=== PATIENT | female | born 1940 | race Caucasian/White ===

== ENCOUNTER 2016-07-17 13:16 | Outpatient (RCR) | payer MEDICARE, OTHER ==
[~2016-07-17 13:16] MED LIST: ACHD5005 PO; AMLO1CAP4 PO; AMLO5TAB2 PO; ATR20T PO; BENA10TA2 PO; CALC-172 PO; GABA-488 PO; INDA1.25 PO; INDA2.5T2 PO; INSU100C4 SQ; LEVO250T7 PO; LOVA10TA PO; LOVA20TA2 PO; LRT10T PO; METF-380 PO; METO25TA2 PO; NFMET1000 PO; OMEP20CA6 PO; OXC5T PO; OXYC-199 PO; SULF1TAB34
--- OUTSIDE RECORDS SUMMARY | 2016-07-17 13:19 | XMS REPORT | Continuity of Care Document ---
Author Author [facility] Address Unknown Phone Unavailable Support Name Relationship Address Phone , No,Contact ECON Unknown [phone] Active Allergies and Adverse Reactions Allergen Noted Date Severity Reactions Comments Penicillins 01/30/2015 Low Rash Current Medications Prescription Sig. Disp. Refills Start End Date Status Date benazepril (LOTENSIN) 10 Take 10 mg by mouth Active MG tablet daily. metoprolol tartrate Take 25 mg by mouth 2 Active (LOPRESSOR) 25 MG tablet (two) times daily. metformin (GLUCOPHAGE) Take 1,000 mg by mouth 2 Active 1000 MG tablet (two) times daily with meals. omeprazole (PRILOSEC) 20 Take 20 mg by mouth Active MG capsule daily. amLODIPine (NORVASC) 5 MG Take 5 mg by mouth daily. Active tablet lovastatin (MEVACOR) 20 Take 20 mg by mouth Active MG tablet nightly. indapamide (LOZOL) 2.5 MG Take 2.5 mg by mouth Active tablet every morning. Loratadine 10 MG CAPS Take by mouth. Active LANTUS, insulin glargine, Inject 50 Units into the Active (LANTUS) 100 UNIT/ML skin nightly. injection Active Problems Problem Noted Date Diabetes type 2, controlled 01/30/2015 HTN (hypertension) 01/30/2015 Breast cancer 01/30/2015 Social History Tobacco Use Types Packs/Day Years Used Date Never Assessed Last Filed Vital Signs Vital Sign Reading Time Taken Blood Pressure 110/70 01/30/2015 2:45 PM CDT Pulse 77 01/30/2015 2:45 PM CDT Temperature 36.7 C (98 F) 01/30/2015 2:45 PM CDT Respiratory Rate - - Height 1.664 m (5' 5.5") 01/30/2015 2:45 PM CDT Weight 74.844 kg (165 lb) 01/30/2015 2:45 PM CDT Body Mass Index 27.03 01/30/2015 2:45 PM CDT Oxygen Saturation 92% 01/30/2015 2:45 PM CDT Plan of Care Health Maintenance Due Date Last Done Comments Diabetic Foot Exam 1951 Ophthalmology Exam 1951 Tdap Vaccines 1952 Tetanus Vaccine (Td 1952 Booster) Colon Cancer 1991 Screening-Colonoscopy Zoster Vaccine 2001 Annual Wellness Visit 2006 Pneumo-Adult (1 of 2 - 2006 PCV13) Influenza Vaccine (#1) 2016 Results from Last 3 Months Not on file
[2016-07-17 13:30] LABS: BASOPHILS % (AUTO) 1 % (0-10); EOSINOPHILS # (AUTO) 0.1 10^3/uL (0.0-0.3); EOSINOPHILS % (AUTO) 4 % (0-10); LYMPHOCYTES # (AUTO) 0.7 X 10^3 (1.0-4.0); LYMPHOCYTES % (AUTO) 22 % (12-44); MEAN CORPUSCULAR HEMOGLOBIN 30 PG (25-34); MEAN CORPUSCULAR HGB CONC 33 G/DL (32-36); MEAN CORPUSCULAR VOLUME 89 FL (80-99); MEAN PLATELET VOLUME 9.4 FL (7.4-10.4); MONOCYTES # (AUTO) 0.4 X 10^3 (0.0-1.0); MONOCYTES % (AUTO) 11 % (0-12); NEUTROPHILS % (AUTO) 62 % (42-75); PLATELET COUNT 117 10^3/uL (130-400); RED BLOOD COUNT 3.88 10^6/uL (4.35-5.85); RED CELL DISTRIBUTION WIDTH 14.1 % (10.0-14.5); WHITE BLOOD COUNT 3.2 10^3/uL (4.3-11.0)
[2016-07-17 14:30] LABS: ALBUMIN 4.1 G/DL (3.2-4.5); BILIRUBIN,TOTAL 0.7 MG/DL (0.1-1.0); CALCIUM 9.8 MG/DL (8.5-10.1); CREATININE SERUM 0.96 MG/DL (0.60-1.30); TOTAL PROTEIN 6.5 G/DL (6.4-8.2)
== END 2016-10-15 | disposition home or self-care (01) ==
LOC: ONC 13:16
PROVIDERS: ATTEND Internal Medicine Hematology & Oncology
DX: C50.911 Malignant neoplasm of unspecified site of right female breast (principal); E89.0 Postprocedural hypothyroidism; E11.9 Type 2 diabetes mellitus without complications; I10 Essential (primary) hypertension; E78.5 Hyperlipidemia, unspecified; Z79.4 Long term (current) use of insulin; Z79.899 Other long term (current) drug therapy; Z17.0 Estrogen receptor positive status [ER+]
CPT/HCPCS: 80053; 85025; 99213

== ENCOUNTER → 2017-01-03 | Outpatient (CLI) | payer MEDICARE, OTHER ==
--- NOTE | 2017-01-03 14:00 | Diagnostic Imaging Report ---
Examination: DEXA scan. Indication: osteopenia Technique: Bone mineral density estimated based on dual energy radiography over the lumbar spine and femoral necks, was performed. Findings: The lumbar spine T-score is 0.8. This is 12% decreased density measurements compared to 12/09/14. T score in the left femoral neck is 0.7 and on the right side is 0.6. This is 14% decreased density measurement compared to 12/09/14. IMPRESSION: Bone mineral density at the lower limits of normal.. Dictated by: Dictated on workstation # [id number]
== END ==
LOC: RAD 12:26
PROVIDERS: ATTEND Nurse Practitioner Adult Health
DX: Z13.820 Encounter for screening for osteoporosis (principal); Z78.0 Asymptomatic menopausal state; C50.511 Malignant neoplasm of lower-outer quadrant of right female breast; M85.9 Disorder of bone density and structure, unspecified
CPT/HCPCS: 77080

== ENCOUNTER 2017-01-07 09:55 | Outpatient (RCR) | payer MEDICARE, OTHER ==
--- OUTSIDE RECORDS SUMMARY | 2016-10-16 11:03 | XMS REPORT | Continuity of Care Document ---
Author Author [facility] Organization [facility] Address Unknown Phone Unavailable Care Team Providers Care Greenhouse Assistant Name Role Phone PCP Unavailable Source Comments Some departments are not documenting in the electronic medical record. If you do not see the information that you expected, contact Release of Information in the Health Information Management department at [phone] for further assistance in locating additional records.[facility] Active Allergies and Adverse Reactions Not on File Current Medications Not on file Active Problems Not on file Social History Tobacco Use Types Packs/Day Years Used Date Never Assessed Plan of Care Health Maintenance Due Date Last Done Comments Physical (Comprehensive) 1948 Exam Pertussis Vaccine 1952 Tetanus Vaccine 1958 Breast Cancer Screening 1981 Colorectal Cancer 1991 Screening Shingles Vaccine 2001 Osteoporosis Screening 2006 Prevnar/Pneumovax (#1) 2006 Influenza Vaccine 06/14/2016 Results from Last 3 Months Not on file
[2016-10-16 11:50] LABS: BASOPHILS % (AUTO) 0 % (0-10); EOSINOPHILS % (AUTO) 0 % (0-10); LYMPHOCYTES # (AUTO) 0.6 X 10^3 (1.0-4.0); LYMPHOCYTES % (AUTO) 21 % (12-44); MEAN CORPUSCULAR HEMOGLOBIN 30 PG (25-34); MEAN CORPUSCULAR HGB CONC 34 G/DL (32-36); MEAN CORPUSCULAR VOLUME 88 FL (80-99); MEAN PLATELET VOLUME 9.7 FL (7.4-10.4); MONOCYTES # (AUTO) 0.3 X 10^3 (0.0-1.0); MONOCYTES % (AUTO) 10 % (0-12); NEUTROPHILS # (AUTO) 2.1 X 10^3 (1.8-7.8); NEUTROPHILS % (AUTO) 68 % (42-75); PLATELET COUNT 121 10^3/uL (130-400); RED CELL DISTRIBUTION WIDTH 14.9 % (10.0-14.5)
[2016-10-16 12:34] LABS: ALBUMIN 3.6 G/DL (3.2-4.5); BILIRUBIN,TOTAL 0.4 MG/DL (0.1-1.0); CALCIUM 8.8 MG/DL (8.5-10.1); CREATININE SERUM 1.52 MG/DL (0.60-1.30); POTASSIUM 3.2 MMOL/L (3.6-5.0); TOTAL PROTEIN 5.8 G/DL (6.4-8.2)
[2016-10-17 09:25] LABS: MAGNESIUM 2.2 MG/DL (1.8-2.4)
[2016-10-19 16:42] LABS: BILIRUBIN,URINE NEGATIVE (NEGATIVE); KETONES,URINE NEGATIVE (NEGATIVE); LEUKOCYTE ESTERASE ,URINE NEGATIVE (NEGATIVE); NITRITE,URINE NEGATIVE (NEGATIVE); PH,URINE 6 (5-9); PROTEIN,URINE NEGATIVE (NEGATIVE); UROBILINOGEN,URINE 4 MG/DL (NORMAL)
[2016-10-19 16:57] LABS: SQUAMOUS EPITHELIAL CELL,UR 0-2 /HPF
[~2017-01-07 09:55] MED LIST changes: +NS IV ONE; +POTASSIUM CHL INJ (CANCER CTR) 20 MEQ in NS (IVPB) CANCER CENTER 100 ML IV ONE; +POTASSIUM CHLORIDE IV ONE
[2017-01-07 10:10] LABS: BASOPHILS % (AUTO) 0 % (0-10); EOSINOPHILS # (AUTO) 0.1 10^3/uL (0.0-0.3); EOSINOPHILS % (AUTO) 3 % (0-10); LYMPHOCYTES # (AUTO) 0.7 X 10^3 (1.0-4.0); LYMPHOCYTES % (AUTO) 23 % (12-44); MEAN CORPUSCULAR HEMOGLOBIN 29 PG (25-34); MEAN CORPUSCULAR HGB CONC 33 G/DL (32-36); MEAN CORPUSCULAR VOLUME 88 FL (80-99); MEAN PLATELET VOLUME 9.2 FL (7.4-10.4); MONOCYTES # (AUTO) 0.3 X 10^3 (0.0-1.0); MONOCYTES % (AUTO) 10 % (0-12); NEUTROPHILS % (AUTO) 64 % (42-75); PLATELET COUNT 153 10^3/uL (130-400); RED BLOOD COUNT 3.78 10^6/uL (4.35-5.85); RED CELL DISTRIBUTION WIDTH 14.6 % (10.0-14.5); WHITE BLOOD COUNT 3.1 10^3/uL (4.3-11.0)
[2017-01-07 11:04] LABS: ANION GAP 9 MMOL/L (5-14); BLOOD UREA NITROGEN 23 MG/DL (7-18); BUN/CREATININE RATIO 26; CARBON DIOXIDE 28 MMOL/L (21-32); CHLORIDE 104 MMOL/L (98-107); CREATININE SERUM 0.89 MG/DL (0.60-1.30); POTASSIUM 3.6 MMOL/L (3.6-5.0); SODIUM 141 MMOL/L (135-145)
[2017-01-07 11:05] LABS: ALANINE AMINOTRANSFERASE 29 U/L (0-55); ALBUMIN 3.7 G/DL (3.2-4.5); ASPARTATE AMINO TRANSFERASE 29 U/L (5-34); BILIRUBIN,TOTAL 0.4 MG/DL (0.1-1.0); CALCIUM 9.7 MG/DL (8.5-10.1); GFR ESTIMATED > 60; GLUCOSE 98 MG/DL (70-105); TOTAL PROTEIN 6.1 G/DL (6.4-8.2)
== END 2017-01-14 | disposition home or self-care (01) ==
LOC: ONC 09:55
PROVIDERS: ATTEND Internal Medicine Hematology & Oncology
DX: C50.511 Malignant neoplasm of lower-outer quadrant of right female breast (principal); E89.0 Postprocedural hypothyroidism; E11.9 Type 2 diabetes mellitus without complications; I10 Essential (primary) hypertension; E78.5 Hyperlipidemia, unspecified; Z79.4 Long term (current) use of insulin; Z79.899 Other long term (current) drug therapy; Z17.0 Estrogen receptor positive status [ER+]
CPT/HCPCS: 36591; 80053; 81000; 82306; 83735; 84443; 85025; 96360; 96361; 96523; 99213

== ENCOUNTER 2017-01-16 10:33 | Outpatient (RCR) | payer MEDICARE, OTHER ==
[~2017-01-16 10:33] MED LIST changes: -NS IV ONE; -POTASSIUM CHL INJ (CANCER CTR) 20 MEQ in NS (IVPB) CANCER CENTER 100 ML IV ONE; -POTASSIUM CHLORIDE IV ONE
== END 2017-01-30 14:53 | disposition home or self-care (01) ==
PROVIDERS: ATTEND Internal Medicine Hematology & Oncology
DX: I89.0 Lymphedema, not elsewhere classified (principal); C50.511 Malignant neoplasm of lower-outer quadrant of right female breast

== ENCOUNTER 2017-04-12 11:00 | Outpatient (RCR) | payer MEDICARE, OTHER ==
[2017-02-19 11:34] LABS: BASOPHILS % (AUTO) 1 % (0-10); EOSINOPHILS % (AUTO) 0 % (0-10); LYMPHOCYTES # (AUTO) 0.4 X 10^3 (1.0-4.0); LYMPHOCYTES % (AUTO) 9 % (12-44); MEAN CORPUSCULAR HEMOGLOBIN 30 PG (25-34); MEAN CORPUSCULAR HGB CONC 32 G/DL (32-36); MEAN CORPUSCULAR VOLUME 93 FL (80-99); MEAN PLATELET VOLUME 9.4 FL (7.4-10.4); MONOCYTES # (AUTO) 0.3 X 10^3 (0.0-1.0); MONOCYTES % (AUTO) 5 % (0-12); NEUTROPHILS # (AUTO) 3.9 X 10^3 (1.8-7.8); NEUTROPHILS % (AUTO) 84 % (42-75); PLATELET COUNT 169 10^3/uL (130-400); RED BLOOD COUNT 4.37 10^6/uL (4.35-5.85); RED CELL DISTRIBUTION WIDTH 16.8 % (10.0-14.5); WHITE BLOOD COUNT 4.6 10^3/uL (4.3-11.0)
[2017-02-19 11:51] LABS: ALBUMIN 4.3 G/DL (3.2-4.5); BILIRUBIN,TOTAL 0.7 MG/DL (0.1-1.0); CALCIUM 10.5 MG/DL (8.5-10.1); CREATININE SERUM 1.04 MG/DL (0.60-1.30)
[2017-02-19 12:12] LABS: THYROID STIMULATING HORMONE 3.42 UIU/ML (0.35-4.94)
[2017-04-22] MEDS ORDERED: CALC-697 PO (10:13)
[2017-04-22] MEDS ORDERED: PIOG45TA18 PO (10:13)
[2017-04-22] MEDS ORDERED: GEMF600T3 PO (10:13)
[2017-04-22] MEDS ORDERED: ANAS1TAB7 PO (10:13)
[2017-04-22] MEDS ORDERED: LEVO100T7 PO (10:18)
[2017-04-23] MEDS ORDERED: LEVO750T39 PO (14:37)
[2017-06-01] MEDS ORDERED: INSU100I29 SC (14:00)
== END 2017-04-30 08:30 | disposition home or self-care (01) ==
PROVIDERS: ATTEND Nurse Practitioner Adult Health
DX: I89.0 Lymphedema, not elsewhere classified (principal); C50.511 Malignant neoplasm of lower-outer quadrant of right female breast; R26.81 Unsteadiness on feet
CPT/HCPCS: 36415; 80053; 84443; 85025

== ENCOUNTER 2017-04-21 15:57 | Inpatient (IN) | payer MEDICARE, OTHER ==
[~2017-04-21] VITALS: Ht 165.1 cm; Wt 81.0 kg
[2017-04-21] MEDS ORDERED: RT-ALBUTEROL/IPRATROPIUM 3 ML (DUONEB) VIAL INH ONE (16:45)
--- NOTE | 2017-04-21 16:46 | ED Respiratory ---
General Chief Complaint: Respiratory Problems Stated Complaint: SOB Nursing Triage Note: PT STATES SHE HAS BEEN SOA SINCE YESTERDAY MORNING Source: patient Exam Limitations: no limitations History of Present Illness Time seen by provider: 16:30 Initial Comments Here with increasing shortness of breath since yesterday but actually states it' s then more like 3 days. Hasn't felt well for a few days and then started getting worse yesterday. Today was markedly short of breath and had dyspnea with even minimal exertion. She was apparently visiting her other daughter in [place] and was noted to be short of breath yesterday and was brought back home here. Denies nausea or vomiting. No report of fever or chills. Does not wear her oxygen at home and usually does not have any breathing problems. Timing/Duration: getting worse Severity: moderate Prior Episodes/Possible Cause: occasional episodes Modifying Factors: Worse With Activity, Improves With Oxygen, Improves With Rest Associated Symptoms: No chest pain/soreness, cough, No fever/chills, nasal congestion, shortness of breath, sinus infection, No wheezing Allergies and Home Medications Allergies Coded Allergies: Penicillins (Unverified Allergy, Unknown, RASH, 10/19/16) Home Medications Amlodipine Besylate 5 Mg Tab, 5 MG PO HS, (Reported) Anastrozole 1 Mg Tablet, 1 MG PO HS, (Reported) Benazepril Hcl 10 Mg Tablet, 10 MG PO HS, (Reported) Calcium Carbonate/Vitamin D3 1 Each Tablet, 1 TAB PO HS, (Reported) Gemfibrozil 600 Mg Tablet, 600 MG PO BID, (Reported) Indapamide 2.5 Mg Tablet, 2.5 MG PO DAILY, (Reported) Insulin Glargine,Hum.rec.anlog 300 Units/3 Ml Soln, 50 UNITS SQ HS, (Reported) Levofloxacin 750 Mg Tablet, 750 MG PO Q48H@2100, #3 Ref 0 Prescribed by: DEVIN LAI on 04/23/17 1437 Levothyroxine Sodium 100 Mcg Tablet, 100 MCG PO DAILY, (Reported) LAST FILLED #30 12-14-16 Loratadine 10 Mg Tab, 10 MG PO HS, (Reported) Lovastatin 20 Mg Tablet, 20 MG PO DAILY, (Reported) Metformin Hcl 1,000 Mg Tablet, 1,000 MG PO BID WITH MEALS, (Reported) Metoprolol Tartrate 25 Mg Tablet, 25 MG PO BID, (Reported) Omeprazole 20 Mg Capsule.dr, 20 MG PO HS, (Reported) Pioglitazone HCl 45 Mg Tablet, 45 MG PO HS, (Reported) Constitutional: see HPI, No chills, No fever EENTM: nose congestion, see HPI Respiratory: No cough, dyspnea on exertion, short of breath Cardiovascular: no symptoms reported Gastrointestinal: no symptoms reported Genitourinary: no symptoms reported Musculoskeletal: no symptoms reported All Other Systems Reviewed Negative Unless Noted: Yes Past Gybqsym-Qxlhfx-Tfmpop Hx Patient Social History Alcohol Use: Occasionally Uses Recreational Drug Use: No Smoking Status: Never a Smoker Former Smoker/When Quit: Apr 28, 1984 Recent Foreign Travel: No Contact w/Someone Who Travel: No Recent Infectious Disease Expo: No Recent Hopitalizations: Yes Surgeries HX Surgeries: Yes (D&C X2, KNEE SCOPE, FIBROID TUMOR BX, BILAT FOOT SURGERY, PORT INSERTION) Respiratory Hx Respiratory Disorders: Yes Respiratory Disorders: Pneumonia Cardiovascular Hx Cardiac Disorders: Yes (hx a-fib with chemo) Cardiac Disorders: Atrial Fibrillation, High Cholesterol, Hypertension Neurological Hx Neurological Disorders: Yes (seizure from fever as child) Reproductive System Hx Reproductive Disorders: No Sexually Transmitted Disease: No HIV/AIDS: No Female Reproductive Disorders: Denies Genitourinary Hx Genitourinary Disorders: No Gastrointestinal Hx Gastrointestinal Disorders: Yes (freq constipation) Musculoskeletal Hx Musculoskeletal Disorders: No Endocrine Hx Endocrine Disorders: Yes (thyroid mass) Endocrine Disorders: Diabetes, Insulin dep HEENT HX ENT Disorders: Yes HEENT Disorders: Cataract Loss of Vision: Denies Hearing Impairment: Denies Cancer Hx Cancer: Yes Cancer: Breast Psychosocial Hx Psychiatric Problems: No Integumentary HX Skin/Integumentary Disorder: No Blood Transfusions Hx Blood Disorders: No Adverse Reaction to a Blood Tr: No Reviewed Nursing Assessment Reviewed/Agree w Nursing PMH: Yes Family Medical History Family Medial History: Cardiovascular disease 19 FATHER G8 BROTHER Completed stroke 19 MOTHER Coronary thrombosis 19 FATHER Physical Exam Vital Signs Vital Sign - Last 12Hours 04/21/17 04/21/17 16:18 16:26 Temp 97.3 Pulse 79 Resp 22 B/P (MAP) 162/85 Pulse Ox 96 O2 Delivery Nasal Cannula O2 Flow Rate 3.00 Capillary Refill : Less Than 3 Seconds General Appearance: WD/WN, no apparent distress HEENT: PERRL/EOMI, pharynx normal Neck: full range of motion, supple Respiratory: no respiratory distress (while on oxygen), decreased breath sounds (on the left.), No wheezing Cardiovascular: regular rate, rhythm, no murmur Gastrointestinal: non tender, soft Extremities: non-tender, normal inspection Neurologic/Psychiatric: alert, oriented x 3 Skin: normal color, warm/dry Focused Exam Lactic Acid Level Laboratory Tests Test 04/21/17 17:19 Lactic Acid Level 2.10 MMOL/L (0.50-2.00) *H Progress/Results/Core Measures Results/Orders Lab Results Laboratory Tests Test 04/21/17 16:21 04/21/17 17:19 04/21/17 18:51 Range/Units White Blood Count 3.8 L 4.3-11.0 10^3/uL Red Blood Count 3.94 L 4.35-5.85 10^6/uL Hemoglobin 12.0 11.5-16.0 G/DL Hematocrit 37 35-52 % Mean Corpuscular Volume 94 80-99 FL Mean Corpuscular Hemoglobin 31 25-34 PG Mean Corpuscular Hemoglobin Concent 32 32-36 G/DL Red Cell Distribution Width 14.7 H 10.0-14.5 % Platelet Count 206 130-400 10^3/uL Mean Platelet Volume 10.0 7.4-10.4 FL Neutrophils (%) (Auto) 71 42-75 % Lymphocytes (%) (Auto) 16 12-44 % Monocytes (%) (Auto) 10 0-12 % Eosinophils (%) (Auto) 3 0-10 % Basophils (%) (Auto) 1 0-10 % Neutrophils # (Auto) 2.7 1.8-7.8 X 10^3 Lymphocytes # (Auto) 0.6 L 1.0-4.0 X 10^3 Monocytes # (Auto) 0.4 0.0-1.0 X 10^3 Eosinophils # (Auto) 0.1 0.0-0.3 10^3/uL Basophils # (Auto) 0.0 0.0-0.1 10^3/uL D-Dimer 0.65 H 0.00-0.49 UG/ML Sodium Level 143 135-145 MMOL/L Potassium Level 4.5 3.6-5.0 MMOL/L Chloride Level 105 98-107 MMOL/L Carbon Dioxide Level 24 21-32 MMOL/L Anion Gap 14 5-14 MMOL/L Blood Urea Nitrogen 21 H 7-18 MG/DL Creatinine 0.98 0.60-1.30 MG/DL Estimat Glomerular Filtration Rate 55 BUN/Creatinine Ratio 21 Glucose Level 130 H 70-105 MG/DL Calcium Level 9.8 8.5-10.1 MG/DL Magnesium Level 1.7 L 1.8-2.4 MG/DL Total Bilirubin 0.5 0.1-1.0 MG/DL Aspartate Amino Transf (AST/SGOT) 21 5-34 U/L Alanine Aminotransferase (ALT/SGPT) 13 0-55 U/L Alkaline Phosphatase 76 40-136 U/L Troponin I < 0.30 <0.30 NG/ML C-Reactive Protein High Sensitivity 0.43 0.00-0.50 MG/DL B-Type Natriuretic Peptide 378.0 H <100.0 PG/ML Total Protein 6.4 6.4-8.2 GM/DL Albumin 3.9 3.2-4.5 GM/DL Lactic Acid Level 2.10 *H 0.50-2.00 MMOL/L Urine Color YELLOW Urine Clarity CLEAR Urine pH 6 5-9 Urine Specific [place] 1.010 L 1.016-1.022 Urine Protein NEGATIVE NEGATIVE Urine Glucose (UA) NEGATIVE NEGATIVE Urine Ketones NEGATIVE NEGATIVE Urine Nitrite NEGATIVE NEGATIVE Urine Bilirubin NEGATIVE NEGATIVE Urine Urobilinogen NORMAL NORMAL MG/DL Urine Leukocyte Esterase 3+ H NEGATIVE Urine RBC (Auto) NEGATIVE NEGATIVE Urine RBC NONE /HPF Urine WBC 10-25 H /HPF Urine Squamous Epithelial Cells 25-50 H /HPF Urine Renal Epithelial Cells NONE /HPF Urine Crystals NONE /LPF Urine Bacteria TRACE /HPF Urine Casts PRESENT /LPF Urine Hyaline Casts 0-2 H /LPF Urine Mucus SMALL H /LPF Urine Culture Indicated YES Micro Results Microbiology 04/21/17 Blood Culture - Preliminary, Resulted No growth 04/21/17 Blood Culture - Preliminary, Resulted No growth 04/21/17 Urine Culture - Final, Complete Strep, Beta Hemolytic Group B My Orders Orders - ZEKE ARANA MD BNP (04/21/17 16:41) Cbc With Automated Diff (04/21/17 16:41) Comprehensive Metabolic Panel (04/21/17 16:41) Fibrin Degradation Products (04/21/17 16:41) Magnesium (04/21/17 16:41) Troponin I (04/21/17 16:41) Albuterol/Ipra Inhalation Soln (Duoneb I (04/21/17 16:45) Ekg Tracing (04/21/17 16:41) O2 (04/21/17 16:41) Monitor-Rhythm Ecg Trace Only (04/21/17 16:41) Svn Sm Volume Nebulizer Rt-Rfs (04/21/17 16:41) Lactic Acid Analyzer (04/21/17 17:03) Blood Culture (04/21/17 17:03) Hs C Reactive Protein (04/21/17 16:21) Ct Angio Chest W (04/21/17 17:46) Ns Iv 500 Ml (Sodium Chloride 0.9%) (04/21/17 17:47) Iohexol Injection (Omnipaque 350 Mg/Ml 1 (04/21/17 18:00) Ns (Ivpb) (Sodium Chloride 0.9% Ivpb Bag (04/21/17 18:00) Levofloxacin 750 Mg/150 Ml Iv (Levaquin (04/21/17 18:07) Ua Culture If Indicated (04/21/17 18:45) Urine Culture (04/21/17 18:51) Medications Given in ED Vital Signs/I&O Vital Sign - Last 12Hours 04/21/17 04/21/17 04/21/17 16:18 16:26 17:00 Temp 97.3 Pulse 79 Resp 22 B/P (MAP) 162/85 Pulse Ox 96 96 100 O2 Delivery Nasal Cannula Nasal Cannula Nasal Cannula O2 Flow Rate 3.00 3.00 3.00 Blood Pressure Mean: 110 Progress Note : Progress Note Seen and evaluated. IV, labs, EKG, chest x-ray and DuoNeb ordered. Monitor patient. Patient's maintaining O2 sat of upper 90s off O2. D-dimer is elevated. CT angiogram of the chest ordered. Patient has borderline GFR and creatinine. Normal saline [address] Lactic acid and blood cultures ordered. Lactic acid elevated. Levaquin 750 mg IV ordered. I have discussed the case with Dr. Thomson pending CT angiogram. Care transferred to Dr. Erwin pending CT results. Family informed of concerns and agree with admission pending CT results. ECG Initial ECG Impression Date: Apr 21, 2017 Initial ECG Impression Time: 16:20 Initial ECG Rate: 84 Initial ECG Rhythm: Normal Sinus Comment Sinus rhythm with normal axis. No evidence of ST elevation [place]. Unchanged from previous. Interpreted by me. Diagnostic Imaging Diagonstic Imaging: Xray Plain Films/CT/US/NM/MRI: chest Comments [facility] [place], [place] NAME: STACEY ALVARENGA [facility] REC#: [id number] PT STATUS: REG ER : 1940 PHYSICIAN: KARRIE VALVERDE ADMIT DATE: 04/21/17/ER Signed Date of Exam:04/21/17 CHEST 1 VIEW, AP/PA ONLY INDICATION: Respiratory distress. EXAMINATION: Portable erect AP chest at 4:40. FINDINGS: The cardiomegaly noted on the prior exam of 04/19/15 is again evident and not significantly changed. However, in the interval since the previous study both lung bases have become obscured by atelectasis/infiltrate and fluid. The upper lungs are generally clear. The mediastinum is not widened. The osseous structures are intact. The Groshong catheter on the left, noted previously, is again evident and no different. IMPRESSION: The appearance of the chest has worsened since the prior study as both lung bases are now obscured by atelectasis/infiltrate and pleural fluid. A followup study would be recommended for continued evaluation. Dictated by: Dictated on workstation # [id number] Dict: 04/21/17 1641 Trans: 04/21/[address] [facility] [id number] Interpreted by: HARPREET GASCA MD Electronically signed by: HARPREET GASCA MD 04/21/17 1740 Departure Communication Time/Spoke to Admitting Phy: 19:24 Impression Impression: Primary Impression: Pneumonia Qualified Codes: J18.9 - Pneumonia, unspecified organism Disposition: ADMITTED INPATIENT Condition: Stable Decision to Admit Reason: Admit from ER (General) Decision to Admit/Date: Apr 21, 2017 Time/Decision to Admit Time: 19:24 Departure-Patient Inst. Referrals: [facility] (PCP/Family) Primary Care Physician Scripts Levofloxacin (Levofloxacin) 750 Mg Tablet 750 MG PO Q48H@2100, #3 TAB 0 Refills Prov: DEVIN LAI MD 04/23/17 ZEKE ARANA MD Apr 21, 2017 16:46
--- NOTE | 2017-04-21 16:55 | Diagnostic Imaging Report ---
INDICATION: Respiratory distress. EXAMINATION: Portable erect AP chest at 4:40. FINDINGS: The cardiomegaly noted on the prior exam of 04/19/15 is again evident and not significantly changed. However, in the interval since the previous study both lung bases have become obscured by atelectasis/infiltrate and fluid. The upper lungs are generally clear. The mediastinum is not widened. The osseous structures are intact. The Gro[place]ong catheter on the left, noted previously, is again evident and no different. IMPRESSION: The appearance of the chest has worsened since the prior study as both lung bases are now obscured by atelectasis/infiltrate and pleural fluid. A followup study would be recommended for continued evaluation. Dictated by: Dictated on workstation # [id number]
[2017-04-21 16:56] LABS: BASOPHILS % (AUTO) 1 % (0-10); EOSINOPHILS # (AUTO) 0.1 10^3/uL (0.0-0.3); EOSINOPHILS % (AUTO) 3 % (0-10); LYMPHOCYTES # (AUTO) 0.6 X 10^3 (1.0-4.0); LYMPHOCYTES % (AUTO) 16 % (12-44); MEAN CORPUSCULAR HEMOGLOBIN 31 PG (25-34); MEAN CORPUSCULAR HGB CONC 32 G/DL (32-36); MEAN CORPUSCULAR VOLUME 94 FL (80-99); MONOCYTES # (AUTO) 0.4 X 10^3 (0.0-1.0); MONOCYTES % (AUTO) 10 % (0-12); NEUTROPHILS # (AUTO) 2.7 X 10^3 (1.8-7.8); NEUTROPHILS % (AUTO) 71 % (42-75); PLATELET COUNT 206 10^3/uL (130-400); RED BLOOD COUNT 3.94 10^6/uL (4.35-5.85); RED CELL DISTRIBUTION WIDTH 14.7 % (10.0-14.5); WHITE BLOOD COUNT 3.8 10^3/uL (4.3-11.0)
[2017-04-21 17:26] LABS: ALANINE AMINOTRANSFERASE 13 U/L (0-55); ALBUMIN 3.9 GM/DL (3.2-4.5); ANION GAP 14 MMOL/L (5-14); ASPARTATE AMINO TRANSFERASE 21 U/L (5-34); BILIRUBIN,TOTAL 0.5 MG/DL (0.1-1.0); BLOOD UREA NITROGEN 21 MG/DL (7-18); BUN/CREATININE RATIO 21; CALCIUM 9.8 MG/DL (8.5-10.1); CARBON DIOXIDE 24 MMOL/L (21-32); CHLORIDE 105 MMOL/L (98-107); CREATININE SERUM 0.98 MG/DL (0.60-1.30); GFR ESTIMATED 55; GLUCOSE 130 MG/DL (70-105); MAGNESIUM 1.7 MG/DL (1.8-2.4); POTASSIUM 4.5 MMOL/L (3.6-5.0); SODIUM 143 MMOL/L (135-145); TOTAL PROTEIN 6.4 GM/DL (6.4-8.2); hs C REACTIVE PROTEIN 0.43 MG/DL (0.00-0.50)
[2017-04-21 17:32] LABS: TROPONIN I < 0.30 NG/ML (<0.30)
[2017-04-21] MEDS ORDERED: NS IV 500 ML 500 ML IV ONE (17:47)
[2017-04-21] MEDS ORDERED: IOHEXOL 350 MG/ML 100 ML (OMNIPAQUE 350) VIAL IV ONE (18:00)
[2017-04-21] MEDS ORDERED: NS 100 ML (IVPB) BAG IV ONE (18:00)
[2017-04-21] MEDS ORDERED: LEVOFLOXACIN 750 MG/150 ML IV 150 ML IV STA (18:07)
[2017-04-21 19:20] LABS: BILIRUBIN,URINE NEGATIVE (NEGATIVE); KETONES,URINE NEGATIVE (NEGATIVE); LEUKOCYTE ESTERASE ,URINE 3+ (NEGATIVE); NITRITE,URINE NEGATIVE (NEGATIVE); PH,URINE 6 (5-9); PROTEIN,URINE NEGATIVE (NEGATIVE); UROBILINOGEN,URINE NORMAL (NORMAL)
--- NOTE | 2017-04-21 19:20 | Diagnostic Imaging Report ---
PROCEDURE: CT angiography of the chest with contrast. TECHNIQUE: Multiple contiguous axial images were obtained through the chest after uneventful bolus administration of intravenous contrast. Reconstructed CTA MIP acquisitions were also performed. INDICATION: Trouble breathing COMPARISON: PET/CT dated April 06, 2014. FINDINGS: The right lobe of the thyroid gland is not visualized. Multiple prominent paratracheal lymph nodes are present. The largest measures 1.6 cm in short dimension, increased from the prior examination. Additional lymph nodes are seen along the left aspect of the aortic arch, appearing more prominent than on the prior exams. Postsurgical changes are identified with the right breast. Significant skin thickening associated with the right breast. Surgical clips within the right axilla. No left axillary adenopathy. No aneurysmal dilatation or dissection of the thoracic aorta. No pericardial effusion. Moderate sized bilateral pleural effusions are present. These are associated with mild adjacent atelectasis. However, more focal pulmonary opacities are seen within the bilateral lower lobes and lingula. 5 mm pulmonary nodule within the left upper lobe, series 4/image 57, is present, appearing new from the prior exam. This appears pleural-based. New 4 mm pulmonary nodule within the right lower lobe, series 4, image 101. No pneumothorax. Mild scattered regions of intralobular septal thickening, particularly involving the anterior aspect of the right lung. No significant filling defect is identified within the central or segmental pulmonary arteries. Layering densities within the gallbladder. Otherwise, the visualized upper abdomen is unremarkable. Scattered regions of sclerosis are identified throughout the osseous structures, including on the left at T12. Additional sclerosis is seen in the right aspect of the sternum. These regions of sclerosis are new from the prior examination. No acute fracture. IMPRESSION: 1. No significant central or segmental pulmonary embolus. 2. Developing mediastinal adenopathy with associated new small bilateral pulmonary nodules. Given patient's history, findings may relate to underlying metastatic disease. PET CT may help to further evaluate. 3. New sclerotic lesions within the osseous structures. These findings as well may relate to osseous metastatic disease. Further evaluation with nuclear medicine bone scan is recommended. 4. Moderate-sized bilateral pleural effusions with adjacent atelectasis. Additional opacities are seen within the bilateral lower lobes which are concerning for additional infiltrate such as pneumonia. 5. Layering sludge and/or small stones within the gallbladder. Report was called and faxed to the [facility] at 7:16 p.m., by bettina. Dictated by: Dictated on workstation # [id number]
[2017-04-21 19:37] LABS: HYALINE CASTS, URINE 0-2 /LPF; SQUAMOUS EPITHELIAL CELL,UR 25-50 /HPF
[2017-04-21 20:43] VITALS: BP 107/67
[2017-04-21] MEDS ORDERED: RT-ALBUTEROL/IPRATROPIUM 3 ML (DUONEB) VIAL IH PRN (21:45)
[2017-04-21] MEDS: NS IV 1000 ML 1,000 ML IV SCH ×3 (21:45→23:00)
[2017-04-21] MEDS: CEFEPIME 2 GM/NS 50 ML IVPB IV SCH ×2 (21:57)
[2017-04-22] MEDS: NS IV 1000 ML 1,000 ML IV SCH ×3 (00:12→21:46)
[2017-04-22 00:45] VITALS: BP 186/77
[2017-04-22] MEDS ORDERED: RT-ALBUTEROL/IPRATROPIUM 3 ML (DUONEB) VIAL IH PRN (02:00)
[2017-04-22] MEDS: RT-ALBUTEROL/IPRATROPIUM 3 ML (DUONEB) VIAL IH SCH ×4 (03:34→19:59)
[2017-04-22 04:15] VITALS: BP 149/69
[2017-04-22] MEDS: inSUlin ASPART (NovoLOG) 1 UNIT/0.01 ML (CHARGE PER UNIT) SC SCH ×4 (06:12→21:38)
[2017-04-22 08:00] VITALS: BP 171/77
[2017-04-22] MEDS: ENOXAPARIN 40 MG/0.4 ML (LOVENOX) SYR SC SCH (08:19)
[2017-04-22] MEDS: CEFEPIME 2 GM/NS 50 ML IVPB IV SCH ×2 (08:20)
[2017-04-22] MEDS ORDERED: ANAS1TAB7 PO (10:13)
[2017-04-22] MEDS ORDERED: PIOG45TA18 PO (10:13)
[2017-04-22] MEDS ORDERED: CALC-697 PO (10:13)
[2017-04-22] MEDS ORDERED: GEMF600T3 PO (10:13)
[2017-04-22] MEDS ORDERED: LEVO100T7 PO (10:18)
--- NOTE | 2017-04-22 11:29 | Pulmonary Consultation ---
History of Present Illness History of Present Illness Date of Consultation 04/22/17 11:24 Time Seen by Provider: 11:24 Date of Admission History of Present Illness 76yo with hx of breast cancer presenting secondary to worsening SOB worse with even little exertion over the last 3-4days. No fever, night sweats chills. Breast cancer was diagnosed in 2013. She did receive chemotherapy at that time. She underwnet lumpectomy and axillary node dissection. She had several lympt nodes that were metastatic. She also underwent radiation. pt has been complaining of worsening lymphadema over the last [address] shows bilateral pleural effusions and nodules suspicious of mets. I am consulted for pulmonary management. Allergies and Home Medications Allergies Coded Allergies: Penicillins (Unverified Allergy, Unknown, RASH, 10/19/16) Home Medications Amlodipine Besylate 5 Mg Tab, 5 MG PO HS, (Reported) Anastrozole 1 Mg Tablet, 1 MG PO HS, (Reported) Benazepril Hcl 10 Mg Tablet, 10 MG PO HS, (Reported) Calcium Carbonate/Vitamin D3 1 Each Tablet, 1 TAB PO HS, (Reported) Gemfibrozil 600 Mg Tablet, 600 MG PO BID, (Reported) Indapamide 2.5 Mg Tablet, 2.5 MG PO DAILY, (Reported) Insulin Glargine,Hum.rec.anlog 300 Units/3 Ml Soln, 50 UNITS SQ HS, (Reported) Levofloxacin 750 Mg Tablet, 750 MG PO Q48H@2100, #3 Ref 0 Prescribed by: DEVIN LAI on 04/23/17 1437 Levothyroxine Sodium 100 Mcg Tablet, 100 MCG PO DAILY, (Reported) LAST FILLED #30 12-14-16 Loratadine 10 Mg Tab, 10 MG PO HS, (Reported) Lovastatin 20 Mg Tablet, 20 MG PO DAILY, (Reported) Metformin Hcl 1,000 Mg Tablet, 1,000 MG PO BID WITH MEALS, (Reported) Metoprolol Tartrate 25 Mg Tablet, 25 MG PO BID, (Reported) Omeprazole 20 Mg Capsule.dr, 20 MG PO HS, (Reported) Pioglitazone HCl 45 Mg Tablet, 45 MG PO HS, (Reported) Past Gadzgon-Zgewzi-Curvpc Hx Patient Social History Alcohol Use: Denies Use Recreational Drug Use: No Smoking Status: Former Smoker Former Smoker/When Quit: Apr 28, 1984 Recent Foreign Travel: No Contact w/Someone Who Travel: No Recent Infectious Disease Expo: No Recent Hopitalizations: No Physical Abuse Screen: No Sexual Abuse: No Seasonal Allergies Seasonal Allergies: Yes Surgeries HX Surgeries: Yes (D&C X2, KNEE SCOPE, FIBROID TUMOR BX, BILAT FOOT SURGERY, PORT INSERTION) Respiratory Hx Respiratory Disorders: Yes Respiratory Disorders: Pneumonia Cardiovascular Hx Cardiac Disorders: Yes (hx a-fib with chemo) Cardiac Disorders: Atrial Fibrillation, High Cholesterol, Hypertension Neurological Hx Neurological Disorders: Yes (seizure from fever as child) Reproductive System Hx Reproductive Disorders: No Sexually Transmitted Disease: No HIV/AIDS: No Female Reproductive Disorders: Denies Genitourinary Hx Genitourinary Disorders: No Gastrointestinal Hx Gastrointestinal Disorders: Yes (freq constipation) Gastrointestinal Disorders: Chronic Constipation Musculoskeletal Hx Musculoskeletal Disorders: No Endocrine Hx Endocrine Disorders: Yes (thyroid mass) Endocrine Disorders: Diabetes, Insulin dep HEENT HX ENT Disorders: Yes HEENT Disorders: Cataract Loss of Vision: Denies Hearing Impairment: Denies Cancer Hx Cancer: Yes Cancer: Breast Psychosocial Hx Psychiatric Problems: No Integumentary HX Skin/Integumentary Disorder: No Blood Transfusions Hx Blood Disorders: No Adverse Reaction to a Blood Tr: No Reviewed Nursing Assessment Reviewed/Agree w Nursing PMH: Yes Family Medical History Family Medial History: Cardiovascular disease 19 FATHER G8 BROTHER Completed stroke 19 MOTHER Coronary thrombosis 19 FATHER Review of Systems Time Seen by Provider: 15:01 Constitutional: Chills, Fever, Sweats, Weakness Respiratory: Cough, SOB with excertion, Shortness of breath, Sputum, No: Hemoptysis, Wheezing Cardiovascular: Orthopnea, Paroxysmal Noc. Dyspnea Gastrointestinal: Constipation, No: Nausea, Vomiting Neurological: Weakness Exam Exam Vital Signs Date Time Temp Pulse Resp B/P (MAP) Pulse Ox O2 Delivery O2 Flow Rate FiO2 04/22/17 10:14 91 Nasal Cannula 3.00 04/22/17 08:20 91 Nasal Cannula 3.00 04/22/17 04:15 98.9 92 22 149/69 91 Nasal Cannula 3.00 04/22/17 03:35 91 Nasal Cannula 2.00 04/22/17 01:25 88 Nasal Cannula 2.00 04/22/17 00:45 100.2 93 20 186/77 92 Nasal Cannula 2.00 04/21/17 22:00 90 04/21/17 22:00 90 Nasal Cannula 2.00 04/21/17 20:50 Nasal Cannula 2.00 04/21/17 20:43 97.9 84 20 107/67 92 Nasal Cannula 2.00 04/21/17 20:35 97.3 67 18 96 Nasal Cannula 3.00 04/21/17 17:00 100 Nasal Cannula 3.00 04/21/17 16:26 97.3 79 22 162/85 96 Nasal Cannula 3.00 04/21/17 16:18 96 Nasal Cannula 3.00 I & O 04/22/17 07:00 Intake Total 4000 ml Output Total 3250 ml Balance 750 ml General Appearance: Moderate Distress HEENT: PERRL/EOMI Neck: Full Range of Motion, Normal Inspection Respiratory: Chest Non Tender, Accessory Muscle Use, Decreased Breath Sounds Cardiovascular: Regular Rate, Rhythm Capillary Refill: Less Than 3 Seconds Gastrointestinal: non tender, soft Extremity: Normal Capillary Refill, Normal Inspection Neurologic/Psychiatric: Alert, Oriented x3 Skin: Normal Color, Warm/Dry Results Lab Laboratory Tests 04/21/17 16:21 Assessment/Plan Assessment/Plan Bilateral pleural effusions with lymphedema and hx of breast cancer -Check echocardiogram -Will plan on thoracentesis today and send pleural fluid for cytology and gramstain C&S Mediastinal lymphadenopathy -IF pleural fluid is negative patient may need bronchoscopy with EBUS pneumonia -continue Abx Dyspnea with hypoxia -continue oxygen 255 Clinical Quality Measures DVT/VTE Risk/Contraindication: Risk Factor Score Per Nursin RFS Level Per Nursing on Admit: 4+=Very High HANNA ONOFRE DO Apr 22, 2017 11:29
[2017-04-22 12:00] VITALS: BP 185/74
--- NOTE | 2017-04-22 14:15 | Pulmonary Procedures ---
Pulmonary Procedures Date of Procedure Date of Service: Apr 22, 2017 Procedure: US guided complex thoracentesis Preop DX: bilateral pleural effusion post op DX: Same, 900cc of dark yellow fluid drained from left lung Complications: None no blood loss After informed consent obtained US was used to localize pleural fluid. Pt has [ bilateral L>R] pleural effusions. Skin was anesthetized at approximately the 10th ICS posterior axillary line. Thoracentesis needle was advanced through the 10th ICS posterior axillary line on left. Needle was removed and catheter left in place.900cc of dark yellow fluid obtained using vacuum bottles. Catheter was then removed. Pt tolerated procedure well. No complications noted. fluid sent to lab for analysis HANNA ONOFRE DO Apr 22, 2017 14:14
--- NOTE | 2017-04-22 14:35 | Diagnostic Imaging Report ---
EXAMINATION: Portable upright radiograph of the chest. INDICATION: Post left thoracentesis. FINDINGS: There is resolution of the previously seen effusion and left lower lobe atelectasis when compared to 04/21/2017. There is still a small to moderate right pleural effusion and right basilar infiltrate or atelectasis. The heart size is normal. There is minimal background vascular congestion. No pneumothorax. The left subclavian port catheter is seen with the tip at the cavoatrial junction. IMPRESSION: Significant improvement on the left side. Remaining small to moderate right pleural effusion with right basilar infiltrate or atelectasis. Dictated by: Dictated on workstation # [id number]
[2017-04-22 15:01] LABS: GLUCOSE,BODY FLUID 133 MG/DL; LDH,BODY FLUID 128 U/L; TOTAL PROTEIN,BODY FLUID 3.2 G/DL
--- NOTE | 2017-04-22 16:15 | History & Physicial (CHS) ---
HPI History of Present Illness: 76yo woman with a history of invasive ductal carcinoma of the breast presented to ER with complaints of worsening shortness of breath. Patient states she ahs noticed a gradual onset of sx over the past few weeks. These worsened acutely such that she was short of breath walking aroudn her house this weekend, prompting her to seek treatment in the ER. Denies fever. Mild cough, no sputum production. No swlling in her legs. Has the right arm lymphedema. Received chemoradiotherapy for the breast cancer and follows with Dr Hernadez. Source: patient Exam Limitations: no limitations Date seen by provider: Apr 22, 2017 Time Seen by Provider: 09:30 Attending Physician Lazara Thomson MD PCP Marge,[facility] Jason Phillips DO - pulmonology Carrillo Hernadez MD - heme/onc Date of Admission Apr 21, 2017 at 7:52 pm Home Medications Home Medications Reviewed patient Home Medication Reconciliation Form Allergies Coded Allergies: Penicillins (Unverified Allergy, Unknown, RASH, 10/19/16) RYU-Sqhywt-Hnezlo Hx Patient Social History Alcohol Use: Denies Use Recreational Drug Use: No Smoking Status: Former Smoker Former smoker/When Quit: Apr 28, 1984 Recent Foreign Travel: No Contact w/other who traveled: No Recent Hopitalizations: No Recent Infectious Disease Expo: No Physical Abuse Screen: No Sexual Abuse: No Family Medical History Family History: Cardiovascular disease 19 FATHER G8 BROTHER Completed stroke 19 MOTHER Coronary thrombosis 19 FATHER Review of Systems ([facility]C) Constitutional: no symptoms reported All Other Systems Reviewed Negative Unless Noted: Yes (Negative excepted noted.) Reviewed Test Results Reviewed Test Results Lab Laboratory Tests Test 04/21/17 16:21 04/21/17 17:19 04/21/17 18:51 04/21/17 20:45 Range/Units White Blood Count 3.8 L 4.3-11.0 10^3/uL Red Blood Count 3.94 L 4.35-5.85 10^6/uL Hemoglobin 12.0 11.5-16.0 G/DL Hematocrit 37 35-52 % Mean Corpuscular Volume 94 80-99 FL Mean Corpuscular Hemoglobin 31 25-34 PG Mean Corpuscular Hemoglobin Concent 32 32-36 G/DL Red Cell Distribution Width 14.7 H 10.0-14.5 % Platelet Count 206 130-400 10^3/uL Mean Platelet Volume 10.0 7.4-10.4 FL Neutrophils (%) (Auto) 71 42-75 % Lymphocytes (%) (Auto) 16 12-44 % Monocytes (%) (Auto) 10 0-12 % Eosinophils (%) (Auto) 3 0-10 % Basophils (%) (Auto) 1 0-10 % Neutrophils # (Auto) 2.7 1.8-7.8 X 10^3 Lymphocytes # (Auto) 0.6 L 1.0-4.0 X 10^3 Monocytes # (Auto) 0.4 0.0-1.0 X 10^3 Eosinophils # (Auto) 0.1 0.0-0.3 10^3/uL Basophils # (Auto) 0.0 0.0-0.1 10^3/uL D-Dimer 0.65 H 0.00-0.49 UG/ML Sodium Level 143 135-145 MMOL/L Potassium Level 4.5 3.6-5.0 MMOL/L Chloride Level 105 98-107 MMOL/L Carbon Dioxide Level 24 21-32 MMOL/L Anion Gap 14 5-14 MMOL/L Blood Urea Nitrogen 21 H 7-18 MG/DL Creatinine 0.98 0.60-1.30 MG/DL Estimat Glomerular Filtration Rate 55 BUN/Creatinine Ratio 21 Glucose Level 130 H 70-105 MG/DL Calcium Level 9.8 8.5-10.1 MG/DL Magnesium Level 1.7 L 1.8-2.4 MG/DL Total Bilirubin 0.5 0.1-1.0 MG/DL Aspartate Amino Transf (AST/SGOT) 21 5-34 U/L Alanine Aminotransferase (ALT/SGPT) 13 0-55 U/L Alkaline Phosphatase 76 40-136 U/L Troponin I < 0.30 <0.30 NG/ML C-Reactive Protein High Sensitivity 0.43 0.00-0.50 MG/DL B-Type Natriuretic Peptide 378.0 H <100.0 PG/ML Total Protein 6.4 6.4-8.2 GM/DL Albumin 3.9 3.2-4.5 GM/DL Lactic Acid Level 2.10 *H 2.19 *H 0.50-2.00 MMOL/L Urine Color YELLOW Urine Clarity CLEAR Urine pH 6 5-9 Urine Specific [place] 1.010 L 1.016-1.022 Urine Protein NEGATIVE NEGATIVE Urine Glucose (UA) NEGATIVE NEGATIVE Urine Ketones NEGATIVE NEGATIVE Urine Nitrite NEGATIVE NEGATIVE Urine Bilirubin NEGATIVE NEGATIVE Urine Urobilinogen NORMAL NORMAL MG/DL Urine Leukocyte Esterase 3+ H NEGATIVE Urine RBC (Auto) NEGATIVE NEGATIVE Urine RBC NONE /HPF Urine WBC 10-25 H /HPF Urine Squamous Epithelial Cells 25-50 H /HPF Urine Renal Epithelial Cells NONE /HPF Urine Crystals NONE /LPF Urine Bacteria TRACE /HPF Urine Casts PRESENT /LPF Urine Hyaline Casts 0-2 H /LPF Urine Mucus SMALL H /LPF Urine Culture Indicated YES Test 04/22/17 01:40 04/22/17 06:10 04/22/17 09:38 04/22/17 13:50 Range/Units Lactic Acid Level 1.56 0.50-2.00 MMOL/L Glucometer 130 H 147 H 70-110 MG/DL Body Fluid Source THORACEN Body Fluid Color YELLOW Body Fluid Appearance SLT CLDY Body Fluid WBC 758 /uL Body Fluid RBC 900 /uL Body Fluid Polynuclear WBCs 0 % Body Fluid Mononuclear WBCs 0 % Body Fluid Lymphocytes 59 % Body Fluid Other Cells 41 % Body Fluid Glucose 133 MG/DL Body Fluid Total Protein 3.2 G/DL Body Fluid Lactate Dehydrogenase 128 U/L Test 04/22/17 14:28 04/22/17 20:32 04/23/17 05:00 04/23/17 06:50 Range/Units Glucometer 117 H 202 H 57 *L 70-110 MG/DL White Blood Count 3.2 L 4.3-11.0 10^3/uL Red Blood Count 3.50 L 4.35-5.85 10^6/uL Hemoglobin 10.9 L 11.5-16.0 G/DL Hematocrit 33 L 35-52 % Mean Corpuscular Volume 95 80-99 FL Mean Corpuscular Hemoglobin 31 25-34 PG Mean Corpuscular Hemoglobin Concent 33 32-36 G/DL Red Cell Distribution Width 14.8 H 10.0-14.5 % Platelet Count 166 130-400 10^3/uL Mean Platelet Volume 9.5 7.4-10.4 FL Neutrophils (%) (Auto) 65 42-75 % Lymphocytes (%) (Auto) 19 12-44 % Monocytes (%) (Auto) 12 0-12 % Eosinophils (%) (Auto) 4 0-10 % Basophils (%) (Auto) 0 0-10 % Neutrophils # (Auto) 2.1 1.8-7.8 X 10^3 Lymphocytes # (Auto) 0.6 L 1.0-4.0 X 10^3 Monocytes # (Auto) 0.4 0.0-1.0 X 10^3 Eosinophils # (Auto) 0.1 0.0-0.3 10^3/uL Basophils # (Auto) 0.0 0.0-0.1 10^3/uL Sodium Level 142 135-145 MMOL/L Potassium Level 3.3 L 3.6-5.0 MMOL/L Chloride Level 107 98-107 MMOL/L Carbon Dioxide Level 25 21-32 MMOL/L Anion Gap 10 5-14 MMOL/L Blood Urea Nitrogen 16 7-18 MG/DL Creatinine 0.83 0.60-1.30 MG/DL Estimat Glomerular Filtration Rate > 60 BUN/Creatinine Ratio 19 Glucose Level 50 *L 70-105 MG/DL Calcium Level 9.6 8.5-10.1 MG/DL Test 04/23/17 07:27 04/23/17 10:24 04/23/17 14:35 Range/Units Glucometer 93 88 145 H 70-110 MG/DL Radiology Date of Exam: 04/21/17 CT ANGIO CHEST W PROCEDURE: CT angiography of the chest with contrast. TECHNIQUE: Multiple contiguous axial images were obtained through the chest after uneventful bolus administration of intravenous contrast. Reconstructed CTA MIP acquisitions were also performed. INDICATION: Trouble breathing COMPARISON: PET/CT dated April 06, 2014. FINDINGS: The right lobe of the thyroid gland is not visualized. Multiple prominent paratracheal lymph nodes are present. The largest measures 1.6 cm in short dimension, increased from the prior examination. Additional lymph nodes are seen along the left aspect of the aortic arch, appearing more prominent than on the prior exams. Postsurgical changes are identified with the right breast. Significant skin thickening associated with the right breast. Surgical clips within the right axilla. No left axillary adenopathy. No aneurysmal dilatation or dissection of the thoracic aorta. No pericardial effusion. Moderate sized bilateral pleural effusions are present. These are associated with mild adjacent atelectasis. However, more focal pulmonary opacities are seen within the bilateral lower lobes and lingula. 5 mm pulmonary nodule within the left upper lobe, series 4/image 57, is present, appearing new from the prior exam. This appears pleural-based. New 4 mm pulmonary nodule within the right lower lobe, series 4, image 101. No pneumothorax. Mild scattered regions of intralobular septal thickening, particularly involving the anterior aspect of the right lung. No significant filling defect is identified within the central or segmental pulmonary arteries. Layering densities within the gallbladder. Otherwise, the visualized upper abdomen is unremarkable. Scattered regions of sclerosis are identified throughout the osseous structures, including on the left at T12. Additional sclerosis is seen in the right aspect of the sternum. These regions of sclerosis are new from the prior examination. No acute fracture. IMPRESSION: 1. No significant central or segmental pulmonary embolus. 2. Developing mediastinal adenopathy with associated new small bilateral pulmonary nodules. Given patient's history, findings may relate to underlying metastatic disease. PET CT may help to further evaluate. 3. New sclerotic lesions within the osseous structures. These findings as well may relate to osseous metastatic disease. Further evaluation with nuclear medicine bone scan is recommended. 4. Moderate-sized bilateral pleural effusions with adjacent atelectasis. Additional opacities are seen within the bilateral lower lobes which are concerning for additional infiltrate such as pneumonia. 5. Layering sludge and/or small stones within the gallbladder. Report was called and faxed to the [facility] ER at 7:16 p.m., by bettina. Physical Exam-(CHC) Physical Exam Vital Signs VS - Last 72 Hours, by Label 04/21/17 04/21/17 04/21/17 04/21/17 16:18 16:26 17:00 20:35 Temp 97.3 97.3 Pulse 79 67 Resp 22 18 B/P (MAP) 162/85 Pulse Ox 96 96 100 96 O2 Delivery Nasal Cannula Nasal Cannula Nasal Cannula Nasal Cannula O2 Flow Rate 3.00 3.00 3.00 3.00 04/21/17 04/21/17 04/21/17 04/21/17 20:43 20:50 22:00 22:00 Temp 97.9 Pulse 84 Resp 20 B/P (MAP) 107/67 Pulse Ox 92 90 90 O2 Delivery Nasal Cannula Nasal Cannula Nasal Cannula O2 Flow Rate 2.00 2.00 2.00 04/22/17 04/22/17 04/22/17 04/22/17 00:45 01:25 03:35 04:15 Temp 100.2 98.9 Pulse 93 92 Resp 20 22 B/P (MAP) 186/77 149/69 Pulse Ox 92 88 91 91 O2 Delivery Nasal Cannula Nasal Cannula Nasal Cannula Nasal Cannula O2 Flow Rate 2.00 2.00 2.00 3.00 04/22/17 04/22/17 04/22/17 04/22/17 08:00 08:20 10:14 12:00 Temp 98.4 98.7 Pulse 82 103 Resp 18 18 B/P (MAP) 171/77 185/74 Pulse Ox 93 91 91 93 O2 Delivery Nasal Cannula Nasal Cannula Nasal Cannula O2 Flow Rate 3.00 3.00 3.00 3.00 04/22/17 04/22/17 04/22/17 04/22/17 16:17 19:36 19:59 20:30 Temp 98.8 99.2 Pulse 88 93 Resp 18 18 B/P (MAP) 183/80 170/80 Pulse Ox 96 95 95 O2 Delivery Nasal Cannula Nasal Cannula Nasal Cannula Nasal Cannula O2 Flow Rate 3.00 3.00 3.00 3.00 04/23/17 04/23/17 04/23/17 04/23/17 00:25 02:31 04:00 08:24 Temp 97.0 97.0 98.1 Pulse 74 54 90 Resp 18 20 20 B/P (MAP) 157/72 124/59 170/67 Pulse Ox 96 98 94 96 O2 Delivery Nasal Cannula Nasal Cannula Room Air Room Air O2 Flow Rate 2.00 3.00 04/23/17 04/23/17 04/23/17 04/23/17 08:30 08:30 09:00 12:32 Temp 98.4 Pulse 78 Resp 20 B/P (MAP) 142/74 Pulse Ox 96 91 91 94 O2 Delivery Nasal Cannula Nasal Cannula Room Air O2 Flow Rate 1.00 3.00 Capillary Refill : Less Than 3 Seconds General Appearance: WD/WN, no apparent distress HEENT: PERRL/EOMI, normal ENT inspection, pharynx normal Neck: non-tender, full range of motion, supple, normal inspection Respiratory: chest non-tender, lungs clear, normal breath sounds, no respiratory distress, no accessory muscle use Cardiovascular: regular rate, rhythm, no edema, no gallop, no JVD, no murmur Gastrointestinal: normal bowel sounds, non tender, soft, no organomegaly Back: normal inspection, no CVA tenderness, no vertebral tenderness Extremities: normal range of motion, non-tender, normal inspection, no pedal edema, no calf tenderness, normal capillary refill 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 I have asked Dr Jason Phillips to consult on [facility] case and to perform a thoracentesis. He will send for cultures and cytology. We have her on levaquin and cefepime for now for double coverage. She is also requiring oxygen which is new for her. I am also going to ask Dr Molina to comment on [facility] case as she will need PET and bone scans in [facility] near future. WE will likely set those up as an outpatient and tend to her more acute respiratory issue here in hospital. HISTORY OF INVASIVE DUCTAL CARCINOMA ADM - Dr Hernadez consulted. has been 3 years since chemoradiotherapy. UNCONTROLLED DIABETES MELLITUS TYPE 2 ADM - SSI, holding home meds for now CHRONIC KIDNEY DISEASE ADM - renally dosing meds for now. will monitor. DVT PROPH: SCDs Diagnosis/Problems: Clinical Quality Measures DVT/VTE Risk/Contraindication: Risk Factor Score Per Nursin RFS Level Per Nursing on Admit: 4+=Very High Copy Copies To 1: DEVIN LARA APRN, MD Apr 22, 2017 4:15 pm
[2017-04-22 16:17] VITALS: BP 183/80
[2017-04-22] MEDS ORDERED: amLODIPine 5 MG (NORVASC) TAB PO NR (17:15)
--- NOTE | 2017-04-22 17:47 | Progress Note-Standard ---
Standard Progress Note Progress Notes/Assess & Plan Date Seen by Provider: Apr 22, 2017 Time Seen by Provider: 17:42 Progress/Assessment & Plan 76-year-old female with history of T2 N2a M0 invasive ductal carcinoma of the right breast diagnosed in mid 2013, status post neoadjuvant chemotherapy with the Adriamycin and Cytoxan regimen 3 cycles stopped due to new onset atrial fibrillation. She underwent right breast lumpectomy and axillary node dissection followed by radiation therapy to the right breast and axilla. She was started on adjuvant hormonal therapy with anastrozole 1 mg daily since October 2014. Admitted with a few week history of worsening shortness of breath and noted to have bilateral moderate pleural effusions, mediastinal lymphadenopathy, bilateral small pulmonary nodules, atelectasis/pneumonia and sclerotic bony lesions all of which is suggestive of metastatic disease. I have discussed the case with Dr. Phillips and agree with left sided thoracentesis for cytology. patient has significant right upper extremity and chest wall lymphedema. Agree with IV antibiotics because of temperatures spike last night. Once she is stable from medical standpoint, may discharge her home and I 'll complete the workup on an outpatient basis after the cytology report is available. Full consult has been dictated. I will follow the patient with you. AIDEN BREWER Apr 22, 2017 17:47
[2017-04-22 19:36] VITALS: BP 170/80
[2017-04-22] MEDS ORDERED: ANASTROZOLE 1 MG TAB (ARIMIDEX) PO SCH (21:00)
[2017-04-22] MEDS ORDERED: PANTOPRAZOLE 20 MG TABLET (PROTONIX) PO SCH (21:00)
[2017-04-22] MEDS ORDERED: inSUlin DETERMIR 1 UNIT/0.01 ML (LEVEMIR) CHARGE PER UNIT SQ SCH (21:00)
[2017-04-22] MEDS ORDERED: [UNRECOGNIZED DRUG - OTHER] PO SCH (21:00)
[2017-04-22] MEDS ORDERED: BENAZEPRIL 10 MG (LOTENSIN) TAB PO SCH (21:00)
[2017-04-22] MEDS ORDERED: VITAMIN D3 PO SCH (21:00)
[2017-04-22] MEDS ORDERED: INSULIN GLARGINE HUM REC ANLOG 50 UNIT SQ SCH (21:00)
[2017-04-22] MEDS ORDERED: NON-FORMULARY MEDICATION 1 EA EA (Pioglitazone HCl 45 MG) PO SCH (21:00)
[2017-04-22] MEDS ORDERED: LORATADINE (CLARITIN) 10 MG TAB PO SCH (21:00)
[2017-04-22] MEDS ORDERED: CALCIUM CARBONATE PO SCH (21:00)
[2017-04-22] MEDS ORDERED: amLODIPine 5 MG (NORVASC) TAB PO SCH (21:00)
[2017-04-22] MEDS ORDERED: OMEPRAZOLE 20 MG (PriLOSEC) CAP NON-FORMULARY PO SCH (21:00)
[2017-04-22] MEDS ORDERED: PIOGLITAZONE 30MG (ACTOS) TAB PO SCH (21:00)
[2017-04-22] MEDS: GEMFIBROZIL 600 MG (LOPID) TAB PO SCH (21:39)
[2017-04-22] MEDS: meTOprolol TARTRATE 25 MG (LOPRESSOR) TABLET PO SCH (21:39)
[2017-04-23 00:25] VITALS: BP 157/72
[2017-04-23] MEDS: RT-ALBUTEROL/IPRATROPIUM 3 ML (DUONEB) VIAL IH SCH ×2 (02:29→08:30)
[2017-04-23 04:00] VITALS: BP 124/59
[2017-04-23 05:29] LABS: BASOPHILS % (AUTO) 0 % (0-10); EOSINOPHILS # (AUTO) 0.1 10^3/uL (0.0-0.3); EOSINOPHILS % (AUTO) 4 % (0-10); LYMPHOCYTES # (AUTO) 0.6 X 10^3 (1.0-4.0); LYMPHOCYTES % (AUTO) 19 % (12-44); MEAN CORPUSCULAR HEMOGLOBIN 31 PG (25-34); MEAN CORPUSCULAR HGB CONC 33 G/DL (32-36); MEAN CORPUSCULAR VOLUME 95 FL (80-99); MEAN PLATELET VOLUME 9.5 FL (7.4-10.4); MONOCYTES # (AUTO) 0.4 X 10^3 (0.0-1.0); MONOCYTES % (AUTO) 12 % (0-12); NEUTROPHILS # (AUTO) 2.1 X 10^3 (1.8-7.8); NEUTROPHILS % (AUTO) 65 % (42-75); PLATELET COUNT 166 10^3/uL (130-400); RED CELL DISTRIBUTION WIDTH 14.8 % (10.0-14.5); WHITE BLOOD COUNT 3.2 10^3/uL (4.3-11.0)
[2017-04-23 06:05] LABS: ANION GAP 10 MMOL/L (5-14); BLOOD UREA NITROGEN 16 MG/DL (7-18); BUN/CREATININE RATIO 19; CALCIUM 9.6 MG/DL (8.5-10.1); CARBON DIOXIDE 25 MMOL/L (21-32); CHLORIDE 107 MMOL/L (98-107); CREATININE SERUM 0.83 MG/DL (0.60-1.30); GFR ESTIMATED > 60; POTASSIUM 3.3 MMOL/L (3.6-5.0); SODIUM 142 MMOL/L (135-145)
[2017-04-23] MEDS ORDERED: LEVOTHYROXINE 100 MCG (LEVOTHROID) TAB PO SCH (06:30)
[2017-04-23] MEDS: inSUlin ASPART (NovoLOG) 1 UNIT/0.01 ML (CHARGE PER UNIT) SC SCH ×3 (06:30→15:00)
[2017-04-23 06:31] LABS: GLUCOSE 50 MG/DL (70-105)
[2017-04-23] MEDS ORDERED: metFORMIN 500 MG (GLUCOPHAGE) TAB PO SCH (07:00)
[2017-04-23] MEDS ORDERED: CALCIUM CARB + VIT D 600 MG (CALCARB + D) TAB PO SCH (08:00)
[2017-04-23 08:24] VITALS: BP 170/67
--- NOTE | 2017-04-23 08:59 | CONSULTATION REPORT ---
DATE OF CONSULTATION: 04/22/2017 REFERRING PHYSICIAN: Soniya Fajardo MD The patient is admitted to Room 410. IMPRESSION: 1. 76-year-old female with locally advanced right breast cancer diagnosed in mid 2013, status post neoadjuvant chemotherapy with Adriamycin and Cytoxan regimen x3 cycles, stopped it because of new onset atrial fibrillation. The patient then underwent lumpectomy and axillary node dissection followed by right breast and axillary radiation therapy completed in October 2014. 2. On adjuvant hormonal therapy with anastrozole 1 mg daily since October 2014. 3. Admitted to the hospital with several week history of worsening shortness of breath and brought to the emergency room. Work-up in the emergency room with bilateral pleural effusion with mediastinal lymphadenopathy and small pulmonary nodules as well as atelectasis of the lung. The patient also had a temperature spike of 101 degrees Fahrenheit last night. She had [place] cultures done and started on broad spectrum antibiotics and continued. 4. Agree with pulmonary consult and thoracentesis. Need to rule out metastatic breast cancer and we will await the cytology report from the thoracentesis fluid. 5. Once the patient is stable from the acute illness infection, she may be discharged home and further work-up and management could be done on an outpatient basis. 6. I will follow the patient with you. BRIEF HISTORY: Mrs. Perdomo is a 76-year-old female who was diagnosed with locally advanced right breast cancer in mid 2013. She was treated with neoadjuvant chemotherapy with Adriamycin and Cytoxan regimen, which had to be stopped because of new onset atrial fibrillation. She underwent lumpectomy and axillary node dissection had several lymph nodes with metastatic breast cancer. Following this, she completed radiation therapy to the right breast and axilla and completed all this treatment by October 2014. Her tumor was strongly estrogen receptor positive and progesterone receptor positive. She was started on adjuvant hormonal therapy with letrozole but could not tolerate this and was switched over to anastrozole 1 mg daily and has been taking this up to now. She developed right upper extremity lymphedema 2 months ago and was referred for lymphedema therapy. She has also been developing increasing shortness of breath over the last several weeks and this got worse over the weekend and she was brought to the emergency room and evaluated. A CT angiogram of the chest and abdomen showed new onset bilateral pleural effusions mediastinal lymphadenopathy and small pulmonary nodules, as well as sclerotic lesions in the bone, all suspicious for metastatic disease. She also had atelectasis of the lung with probable pneumonia and a temperature spike and she is on broad spectrum antibiotics after cultures were obtained. Medical oncology consultation was obtained for concurrent care. PAST MEDICAL HISTORY: Significant for: 1. Significant for breast cancer as mentioned above. 2. She has a history of diabetes melitis for approximately 25 years, initially treated with oral agents and on insulin since the last 15 years. She has peripheral neuropathy, retinopathy and in mild nephropathy due to the diabetes. 3. History of hypertension for more than 40 years and atrial fibrillation while on treatment with an anthracycline. No history CA or congestive heart failure. 4. History of hypercholesterolemia since the past 4 to 5 years and on treatment. 5. History of osteoarthritis. PRIOR SURGERIES: Include: 1. Tonsillectomy in 1952. 2. Right knee arthroscopic surgery in . 3. 2 lumpectomies of the right breast in and which were benign. 4. 2 D\T\Cs in 1991 and 1993. 5. Foot surgeries because of diabetic foot ulcer and hammer toe. 6. She has undergone right breast lumpectomy and axillary node dissection in 2013 as mentioned above. SOCIAL HISTORY: The patient is and lives in [place], [place]. She has 3 daughters 2 of whom live in [place] and 1 in [place], [place]. 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 She smoked a few cigarettes daily for 9 years, but quit at the age of 49 years. She used alcohol social, less than 1 drink per month and has no history of recreational drug use. FAMILY HISTORY: Is significant for her father with stomach cancer while in his early 60s. Paternal aunt had pancreatic cancer while in her late 60s. Another paternal aunt had stomach cancer. Two of her cousins had stomach cancer also. A paternal uncle had a history of stomach cancer and maternal grandmother had uterine cancer while in her 60s. PHYSICAL EXAMINATION: Today showed an elderly female, awake, and oriented and does not appear in any acute distress at the time of evaluation. Temperature was 98.7, pulse rate of 103, respirations 18, blood pressure 185/74, oxygen saturation 93% on 3 liters of oxygen by nasal cannula. HEENT: Normocephalic, extraocular muscles intact. Conjunctivae pink, oral mucosa moist. NECK: Supple with no JVD. No cervical, supraclavicular, or axillary lymphadenopathy palpable. CHEST EXAMINATION: Showed a left sided port, right breast with lumpectomy and radiation changes. LUNGS: With diminished breath sounds in the bases with few scattered rhonchi. No wheezes or rales heard. CARDIOVASCULAR EXAMINATION: Was fairly regular with occasional missed beats. ABDOMEN: Slightly obese, soft, nontender, with no hepatosplenomegaly or other masses palpable. EXTREMITIES: Showed significant lymphedema of the right upper extremity extending into the chest wall. The rest of the extremities with no edema. NEUROLOGICAL EXAM: Showed no focal motor deficits. LABORATORY: CBC done yesterday in the emergency room showed WBC 3.8, hemoglobin 12, platelet count 206,000 with neutrophil count of 2.7. Chemistry panel done yesterday showed normal electrolytes. BUN was 21 and creatinine 0.98 with GFR of 55 mL per minute. Liver function studies were within normal limits. Serum magnesium level was 1.7. UA showed 3+ leukocyte esterase and 10 to 25 urine WBCs with trace bacteria and was sent for cultures. CT angiogram of the chest showed no evidence of pulmonary embolus. Developing mediastinal adenopathy with associated new small bilateral pulmonary nodules. Few sclerotic lesions within the bony structures. Moderate sized bilateral pleural effusions with adjacent atelectasis. Additional opacities within the bilateral lower lobes concerning for infiltrates or pneumonia. Layering sludge and/or small stones within the gallbladder. Thank you for allowing me to participate in this patient's care. I will follow the patient with you and make appropriate recommendations. Job ID: [id number] Dictated Date: 04/22/2017 17:41:31 Plug Assembler Date: 04/23/2017 08:08:52/jordyn
[2017-04-23] MEDS ORDERED: INDAPAMIDE 2.5 MG (LOZOL) TAB PO SCH (09:00)
[2017-04-23] MEDS ORDERED: ROSUVASTATIN 5 MG (CRESTOR) TABLET PO SCH (09:00)
[2017-04-23] MEDS ORDERED: NON-FORMULARY MEDICATION 1 EA EA (Lovastatin (Lovastatin 20 Mg) 20 MG) PO SCH (09:00)
[2017-04-23] MEDS ORDERED: CEFEPIME 2 GM/NS 50 ML IVPB IV SCH ×2 (09:00)
[2017-04-23] MEDS: meTOprolol TARTRATE 25 MG (LOPRESSOR) TABLET PO SCH (09:12)
[2017-04-23] MEDS: GEMFIBROZIL 600 MG (LOPID) TAB PO SCH (09:12)
[2017-04-23] MEDS: ENOXAPARIN 40 MG/0.4 ML (LOVENOX) SYR SC SCH (09:12)
--- OUTSIDE RECORDS SUMMARY | 2017-04-23 12:03 | XMS REPORT ---
Author SALMA Webb Organization [employer] Address Unknown Phone Unavailable Care Team Providers Care Weight Shifter Name Role Phone SALMA BAZAN CP Unavailable Allergies No Known Allergies Problems Problem Type Condition Code Onset Dates Condition Status Problem Hypothyroidism E03.9 Active Problem Gastroesophageal reflux disease without esophagitis K21.9 Active Problem Other specified diabetes mellitus with unspecified complications E13.8 Active Problem History of breast cancer Z85.3 Active Problem Essential hypertension I10 Active Problem Dyslipidemia E78.5 Active Medications No Known Medications Results No Known Results Summary Purpose eClinicalWorks Submission
--- OUTSIDE RECORDS SUMMARY | 2017-04-23 12:03 | XMS REPORT ---
Author MARCELINA Murrell Organization [employer] Address Unknown Phone Unavailable Care Team Providers Care Punch Operator Name Role Phone MARCELINA LEE Unavailable Allergies No Known Allergies Problems Problem Type Condition Code Onset Dates Condition Status Problem Dyslipidemia E78.5 Active Problem History of breast cancer Z85.3 Active Problem Dysuria R30.0 Active Problem Diabetes mellitus E11.9 Active Problem Neuropathy G62.9 Active Problem Gastroesophageal reflux disease without esophagitis K21.9 Active Problem Essential hypertension I10 Active Problem Other specified diabetes mellitus with unspecified complications E13.8 Active Problem Hypothyroidism E03.9 Active Medications Medication Code System Code Instructions Start Date End Date Status Dosage Levothyroxine Sodium [facility] [address]-45 100 mcgm TAKE ONE TABLET BY MOUTH ONCE DAILY Results No Known Results Summary Purpose eClinicalWorks Submission
--- OUTSIDE RECORDS SUMMARY | 2017-04-23 12:04 | XMS REPORT ---
Author Author SALMA BAZAN Organization [employer] Address Unknown Phone Unavailable Care Team Providers Care Service Shop Foreman Name Role Phone SALMA BAZAN CP Unavailable Allergies, Adverse Reactions, Alerts Substance Reaction Event Type Penicillin V Potassium Info Not Available Drug Allergy Problems Problem Type Condition Code Onset Dates Condition Status Assessment Dyslipidemia E78.5 Active Assessment Hypothyroidism E03.9 Active Assessment Essential hypertension I10 Active Assessment History of breast cancer Z85.3 Active Assessment Gastroesophageal reflux disease without esophagitis K21.9 Active Problem Hypothyroidism E03.9 Active Problem Gastroesophageal reflux disease without esophagitis K21.9 Active Problem Other specified diabetes mellitus with unspecified complications E13.8 Active Problem History of breast cancer Z85.3 Active Assessment Other specified diabetes mellitus with unspecified complications E13.8 Active Problem Essential hypertension I10 Active Problem Dyslipidemia E78.5 Active Medications Medication Code System Code Instructions Start Date End Date Status Dosage Prilosec [facility] [address]-33 20 MG Orally Once a day 1 capsule Claritin [facility] [address]-16 10 MG Orally Once a day 1 tablet Lovastatin [facility] [address]-32 20 MG Orally Once a day 1 tablet with a meal Levemir FlexTouch [facility] [address]-67 100 UNIT/ML Subcutaneous Once a day Aug 16, 2015 50 units Metoprolol Tartrate [facility] [address]-54 25 MG Orally Twice a day 1 tablet Levothyroxine Sodium [facility] [address]-25 25 MCG Orally Once a day 1 tablet Arimidex [facility] [address]-02 1 MG Orally Once a day 1 tablet Amlodipine Besylate [facility] [address]-25 5 MG Orally Once a day 1 tablet Metformin HCl [facility] [address]-52 1000 MG Orally Twice a day 1 tablet with meals Citracal Plus [facility] [address]-31 Orally not defined Indapamide [facility] [address]-59 1.25 MG Orally Once a day 1 tablet in the morning Zofran [facility] [address]-60 8 MG Orally Once a day 1 tablet Benazepril HCl [facility] [address]-18 10 MG Orally Once a day 1 tablet Procedures Procedure Coding System Code Date [facility] VISIT NEW PATIENT CPT-4 G0466 Aug 16, 2015 Office Visit, New Pt., Level 4 CPT-4 94812 Aug 16, 2015 GLYCATED HEMOGLOBIN TEST CPT-4 95282 Aug 16, 2015 Vital Signs Date/Time: Aug 16, 2015 Cardiac Monitoring Heart Rate 80 bpm Weight 155.6 lbs Height 66 in BMI 25.11 Index Blood Pressure Diastolic 72 mmHg Blood Pressure Systolic 132 mmHg Results Name Result Date Reference Range Unit Abnormality Flag A1C (IN HOUSE) Summary Purpose eClinicalWorks Submission
--- OUTSIDE RECORDS SUMMARY | 2017-04-23 12:05 | XMS REPORT ---
Author Author MARCELINA LEE [facility] Address [address] [place] [address] Care Team Providers Care Gym Supervisor Name Role Phone ELAINE LEENETTE Unavailable PROBLEMS Type Condition ICD9-CM Code [id number] Code Onset Dates Condition Status SNOMED Code Assessment Other specified diabetes mellitus with unspecified complications E13.8 Jun, Active 720196238 Problem Dyslipidemia E78.5 Active 857982036 Problem History of breast cancer Z85.3 Active 855249060 Assessment Coronary artery disease involving rincon coronary artery, angina presence unspecified, unspecified whether rincon or transplanted heart I25.10 Jun, Active [id number] Assessment Hypothyroid E03.9 Jun, Active 42471169 Problem Dysuria R30.0 Active 76983270 Problem Diabetes mellitus E11.9 Active 89117614 Problem Gastroesophageal reflux disease without esophagitis K21.9 Active 636748593 Problem Essential hypertension I10 Active 44955782 Problem Other specified diabetes mellitus with unspecified complications E13.8 Active 44273736 Problem Hypothyroidism E03.9 Active 08639009 ALLERGIES Substance Reaction Event Type Date Status Penicillin V Potassium Unknown Drug Allergy Jun, Active SOCIAL HISTORY No smoking Hx information available PLAN OF CARE VITAL SIGNS Height 66 in 2016-06-15 Weight 158 lbs 2016-06-15 Heart Rate 70 bpm 2016-06-15 Respiratory Rate 18 2016-06-15 BMI 25.50 kg/m2 2016-06-15 Blood pressure systolic 130 mmHg 2016-06-15 Blood pressure diastolic 80 mmHg 2016-06-15 MEDICATIONS Medication Instructions Dosage Frequency Start Date End Date Duration Status Cipro 500 MG Orally Twice a day 1 tablet 12h Jun, Jun, 10 day(s) Active Claritin 10 MG Orally Once a day 1 tablet 24h Active Zofran 8 MG Orally Once a day 1 tablet 24h 30 days Active Prilosec 20 mg Orally Once a day 1 capsule 24h Active Amlodipine Besylate 5 MG Orally Once a day 1 tablet 24h Active Benazepril HCl 10 mg Orally Once a day 1 tablet 24h Active Arimidex 1 MG Orally Once a day 1 tablet 24h 30 Active Metformin HCl 1000 MG Orally Twice a day 1 tablet with meals 12h Active Indapamide 2.5 MG Orally Once a day 1 tablet in the morning 24h 30 Active Levemir FlexTouch 100 UNIT/ML Subcutaneous Once a day 60 units 24h Aug, Active Lovastatin 20 mg Orally Once a day 1 tablet with a meal 24h Active Citracal Plus Active Pyridium 200 mg Orally Three times a day 1 tablet after meals 8h Jun, Jun, 03 days Active Metoprolol Tartrate 25 MG Orally Twice a day 1 tablet 12h Active Actos 30 MG Orally Once a day 1 tablet 24h Jun, 30 day(s) Active Levothyroxine Sodium 50 MCG Orally Once a day 1 tablet 24h Jan, Active RESULTS Name Result Date Reference Range TSH W/ FREE T4 2016-06-15 TSH 4.960 0.450-4.500 T4,Free(Direct) 1.27 0.82-1.77 CBC 2016-06-15 WBC 4.2 3.4-10.8 RBC 4.46 3.77-5.28 Hemoglobin 13.1 11.1-15.9 Hematocrit 39.0 34.0-46.6 MCV 87 79-97 MCH 29.4 26.6-33.0 MCHC 33.6 31.5-35.7 RDW 14.1 12.3-15.4 Platelets 132 150-379 Neutrophils 68 Lymphs 21 Monocytes 6 Eos 4 Basos 1 Neutrophils (Absolute) 2.8 1.4-7.0 Lymphs (Absolute) 0.9 0.7-3.1 Monocytes(Absolute) 0.3 0.1-0.9 Eos (Absolute) 0.2 0.0-0.4 Baso (Absolute) 0.0 0.0-0.2 Immature Granulocytes 0 Immature Grans (Abs) 0.0 0.0-0.1 LIPID PANEL 2016-06-15 Cholesterol, Total 193 100-199 Triglycerides 216 0-149 HDL Cholesterol 42 >39 VLDL Cholesterol Vishal 43 5-40 LDL Cholesterol Calc 108 0-99 Comment: CMP 2016-06-15 Glucose, Serum 338 65-99 BUN 18 8-27 Creatinine, Serum 0.96 0.57-1.00 eGFR If NonAfricn Am 58 >59 eGFR If Africn Am 67 >59 BUN/Creatinine Ratio 19 11-26 Sodium, Serum 135 134-144 Potassium, Serum 4.2 3.5-5.2 Chloride, Serum 90 97-108 Carbon Dioxide, Total 23 18-29 Calcium, Serum 10.1 8.7-10.3 Protein, Total, Serum 7.0 6.0-8.5 Albumin, Serum 4.6 3.5-4.8 Globulin, Total 2.4 1.5-4.5 A/G Ratio 1.9 1.1-2.5 Bilirubin, Total 0.6 0.0-1.2 Alkaline Phosphatase, S 95 39-117 AST (SGOT) 19 0-40 ALT (SGPT) 18 0-32 A1C (IN HOUSE) 2016-06-15 A1C IN HOUSE 10.8 4.3 - 5.6 % Previous A1c 8.4 Lot [id number] Exp date PROCEDURES Procedure Date Ordered Related Diagnosis Body Site GLYCATED HEMOGLOBIN TEST Jun 15, 2016 [facility] VISIT ESTABLISHED PATIENT Jun 15, 2016 [facility] Jun 15, 2016 Office Visit, Est Pt., Level 4 Jun 15, 2016 VENIPUNCT, ROUTINE* Jun 15, 2016 IMMUNIZATIONS No Known Immunizations
--- OUTSIDE RECORDS SUMMARY | 2017-04-23 12:05 | XMS REPORT ---
Author MARCELINA Murrell Organization [employer] Address Unknown Phone Unavailable Care Team Providers Care Pediatric Physician Assistant Name Role Phone MARCELINA LEE Unavailable Allergies No Known Allergies Problems Problem Type Condition Code Onset Dates Condition Status Problem Other specified diabetes mellitus with unspecified complications E13.8 Active Problem Hypothyroidism E03.9 Active Problem Diabetes mellitus E11.9 Active Problem Dyslipidemia E78.5 Active Problem History of breast cancer Z85.3 Active Problem Gastroesophageal reflux disease without esophagitis K21.9 Active Problem Essential hypertension I10 Active Medications No Known Medications Results No Known Results Summary Purpose eClinicalWorks Submission
--- OUTSIDE RECORDS SUMMARY | 2017-04-23 12:05 | XMS REPORT ---
Author MARCELINA Murrell [facility] eClinical[employer] Address Unknown Phone Unavailable Care Team Providers Care Optometry Doctor Name Role Phone MARCELINA LEE CP Unavailable Allergies, Adverse Reactions, Alerts Substance Reaction Event Type Penicillin V Potassium Info Not Available Drug Allergy Problems Problem Type Condition Code Onset Dates Condition Status Assessment Other specified diabetes mellitus with unspecified complications E13.8 Active Problem Dyslipidemia E78.5 Active Problem History of breast cancer Z85.3 Active Problem Dysuria R30.0 Active Problem Diabetes mellitus E11.9 Active Problem Neuropathy G62.9 Active Problem Gastroesophageal reflux disease without esophagitis K21.9 Active Problem Essential hypertension I10 Active Problem Other specified diabetes mellitus with unspecified complications E13.8 Active Problem Hypothyroidism E03.9 Active Assessment History of breast cancer Z85.3 Active Assessment Neuropathy G62.9 Active Assessment Dyslipidemia E78.5 Active Assessment Essential hypertension I10 Active Assessment Dysuria R30.0 Active Assessment Gastroesophageal reflux disease without esophagitis K21.9 Active Assessment Diabetes mellitus E11.9 Active Assessment Hypothyroidism E03.9 Active Medications Medication Code System Code Instructions Start Date End Date Status Dosage Indapamide [facility] 10998371042 2.5 MG Orally Once a day 1 tablet in the morning Claritin [facility] [address]-50 10 MG Orally Once a day 1 tablet Metoprolol Tartrate [facility] [address]-21 25 MG Orally Twice a day 1 tablet Levothyroxine Sodium [facility] [address]-96 100 MCG Orally Once a day January 18, 2016 1 tablet Arimidex [facility] 57486170100 1 MG Orally Once a day 1 tablet Benazepril HCl [facility] [address]-49 10 mg Orally Once a day 1 tablet Amlodipine Besylate [facility] [address]-21 5 MG Orally Once a day 1 tablet Actos [facility] [address]-02 30 MG Orally Once a day Jun 15, 2016 1 tablet Citracal Plus [facility] [address]-36 Orally not defined Metformin HCl [facility] [address]-92 1000 MG Orally Twice a day 1 tablet with meals Levemir FlexTouch [facility] [address]-24 100 UNIT/ML Subcutaneous Once a day Aug 16, 2015 60 units Prilosec [facility] [address]-25 20 mg Orally Once a day 1 capsule Lovastatin [facility] [address]-22 20 mg Orally Once a day 1 tablet with a meal Procedures Procedure Coding System Code Date [facility] VISIT ESTABLISHED PATIENT CPT-4 G0467 Jul 17, 2016 Office Visit, Est Pt., Level 4 CPT-4 85125 Jul 17, 2016 URINALYSIS, AUTO, W/O SCOPE CPT-4 05652 Jul 17, 2016 Vital Signs Date/Time: Jul 17, 2016 Cardiac Monitoring Heart Rate 84 bpm Weight 169 lbs Height 66 in BMI 27.27 Index Blood Pressure Diastolic 62 mmHg Blood Pressure Systolic 142 mmHg Results No Known Results Summary Purpose eClinicalWorks Submission
--- OUTSIDE RECORDS SUMMARY | 2017-04-23 12:06 | XMS REPORT ---
Author TIRSO Bonner [facility] eClinicalWorks Address Unknown Phone Unavailable Care Team Providers Care Real Estate Utilization Officer Name Role Phone TIRSO ACEVEDO CP Unavailable Allergies, Adverse Reactions, Alerts Substance Reaction Event Type Penicillin V Potassium Info Not Available Drug Allergy Problems Problem Type Condition Code Onset Dates Condition Status Assessment Dysuria R30.0 Active Problem Dyslipidemia E78.5 Active Problem History of breast cancer Z85.3 Active Assessment Edema, unspecified type R60.9 Active Problem Dysuria R30.0 Active Problem Diabetes mellitus E11.9 Active Problem Neuropathy G62.9 Active Problem Gastroesophageal reflux disease without esophagitis K21.9 Active Problem Essential hypertension I10 Active Problem Other specified diabetes mellitus with unspecified complications E13.8 Active Problem Hypothyroidism E03.9 Active Medications Medication Code System Code Instructions Start Date End Date Status Dosage Metformin HCl [facility] [address]-20 1000 MG Orally Twice a day 1 tablet with meals Indapamide [facility] 43035140688 2.5 MG Orally Once a day 1 tablet in the morning Lovastatin [facility] [address]-02 20 mg Orally Once a day 1 tablet with a meal Citracal Plus [facility] [address]-20 Orally not defined Cipro [facility] [address]-81 500 MG Orally Twice a day Jun 15, 2016 Jun 25, 2016 1 tablet Prilosec [facility] [address]-05 20 mg Orally Once a day 1 capsule Lopid [facility] [address]-96 600 MG Orally Twice a day January 18, 2016 1 tablet Metoprolol Tartrate [facility] [address]-95 25 MG Orally Twice a day 1 tablet Benazepril HCl [facility] [address]-41 10 mg Orally Once a day 1 tablet Claritin [facility] [address]-95 10 MG Orally Once a day 1 tablet Zofran [facility] [address]-17 8 MG Orally Once a day 1 tablet Levothyroxine Sodium [facility] [address]-57 100 MCG Orally Once a day January 18, 2016 1 tablet Actos [facility] [address]-69 30 MG Orally Once a day Jun 15, 2016 1 tablet Levemir FlexTouch [facility] [address]-63 100 UNIT/ML Subcutaneous Once a day Aug 16, 2015 60 units Arimidex [facility] 44229638745 1 MG Orally Once a day 1 tablet Amlodipine Besylate [facility] [address]-40 5 MG Orally Once a day 1 tablet Procedures Procedure Coding System Code Date [facility] ESTABLISHED PATIENT CPT-4 G0467 Jun 25, 2016 Office Visit, Est Pt., Level 3 CPT-4 91713 Jun 25, 2016 URINALYSIS, AUTO, W/O SCOPE CPT-4 59967 Jun 25, 2016 Vital Signs Date/Time: Jun 25, 2016 Blood Pressure Systolic 130 mmHg Cardiac Monitoring Heart Rate 86 bpm Height 66 in Blood Pressure Diastolic 60 mmHg Results Name Result Date Reference Range Unit Abnormality Flag UA LONG DIP (IN HOUSE) ----MARKEL Negative 20160625 ----NIT Negative 20160625 ----Exp date 20160625 ----Lot # [id number] ----SG <=1.005 20160625 ----KET Negative 20160625 ----HAMLET Negative 20160625 ----GLU Negative 20160625 ----Odor None 20160625 ----pH 6.0 20160625 ----BLO Negative 20160625 ----URO 0.2 20160625 ----Protein Negative 20160625 ----Lot # [id number] ----Exp date 20160625 ----Clarity Clear 20160625 ----Color Yellow 20160625 Summary Purpose eClinicalWorks Submission
--- OUTSIDE RECORDS SUMMARY | 2017-04-23 12:08 | XMS REPORT | Continuity of Care Document ---
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 04/19/2016 AIDEN BREWER N Ot 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 04/19/2016 OSMANAIDEN N Ot E11.9 TYPE 2 DIABETES MELLITUS WITHOUT COMPLIC 04/19/2016 OSMANMARYAN N Ot E78.5 HYPERLIPIDEMIA, UNSPECIFIED 04/19/2016 OSMAN BOBAN N Ot E89.0 POSTPROCEDURAL HYPOTHYROIDISM 04/19/2016 OSMAN BOBAN N Ot I10 ESSENTIAL (PRIMARY) HYPERTENSION 04/19/2016 OSMANAIDEN N Ot 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+] 04/19/2016 OSMANAIDEN N Ot Z45.2 ENCOUNTER FOR ADJUSTMENT AND MANAGEMENT 04/19/2016 OSMANAIDEN N Ot Z79.4 FPC (CURRENT) USE OF INSULIN 04/19/2016 OSMANAIDEN PIERSON N Ot Z79.899 OTHER FPC (CURRENT) DRUG THERAPY 04/24/2016 AIDEN BREWER N Ot C50.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 04/24/2016 AIDEN BREWER N Ot 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 04/24/2016 OSMANAIDEN N Ot E11.9 TYPE 2 DIABETES MELLITUS WITHOUT COMPLIC 04/24/2016 OSMANAIDEN N Ot E78.5 HYPERLIPIDEMIA, UNSPECIFIED 04/24/2016 OSMAN BOBAN N Ot E89.0 POSTPROCEDURAL HYPOTHYROIDISM 04/24/2016 OSMAN BOBAN N Ot I10 ESSENTIAL (PRIMARY) HYPERTENSION 04/24/2016 OSMAN BOBAN N Ot 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+] 04/24/2016 OSMANAIDEN N Ot Z45.2 ENCOUNTER FOR ADJUSTMENT AND MANAGEMENT 04/24/2016 OSMANAIDEN N Ot 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 04/24/2016 OSMANAIDEN N Ot 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 04/24/2016 BONNIE SALONI Rain SENIOR ENVIRONMENTAL TECHNICIAN Ot C50.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 04/24/2016 SALONI NICOLE SENIOR ENVIRONMENTAL TECHNICIAN Ot E11.9 TYPE 2 DIABETES MELLITUS WITHOUT COMPLIC 04/24/2016 SALONI NICOLE Briseyda SENIOR ENVIRONMENTAL TECHNICIAN Ot E78.5 HYPERLIPIDEMIA, UNSPECIFIED 04/24/2016 SALONI NICOLE Briseyda SENIOR ENVIRONMENTAL TECHNICIAN Ot E89.0 POSTPROCEDURAL HYPOTHYROIDISM 04/24/2016 SALONI NICOLE Briseyda SENIOR ENVIRONMENTAL TECHNICIAN Ot I10 ESSENTIAL (PRIMARY) HYPERTENSION 04/24/2016 SALONI NICOLE Briseyda SENIOR ENVIRONMENTAL TECHNICIAN Ot 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+] 04/24/2016 SALONI NICOLE Briseyda SENIOR ENVIRONMENTAL TECHNICIAN Ot Z45.2 ENCOUNTER FOR ADJUSTMENT AND MANAGEMENT 04/24/2016 SALONI NICOLE SENIOR ENVIRONMENTAL TECHNICIAN Ot 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 04/24/2016 SALONI NICOLEP Ot Z79.899 OTHER FPC (CURRENT) DRUG THERAPY 05/15/2016 SALONI NICOLE Briseyda SENIOR ENVIRONMENTAL TECHNICIAN Ot 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 05/15/2016 DILLAN NICOLEROSEMARY S SENIOR ENVIRONMENTAL TECHNICIAN Ot 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 05/21/2016 DILLAN NICOLEROSEMARY Rain SENIOR ENVIRONMENTAL TECHNICIAN Ot 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 05/24/2016 SALONI NICOLE Briseyda SENIOR ENVIRONMENTAL TECHNICIAN Ot C50.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 05/24/2016 SALONI NICOLEP Ot E11.9 TYPE 2 DIABETES MELLITUS WITHOUT COMPLIC 05/24/2016 SALONI NICOLE Briseyda SENIOR ENVIRONMENTAL TECHNICIAN Ot E78.5 HYPERLIPIDEMIA, UNSPECIFIED 05/24/2016 SALONI NICOLE Briseyda SENIOR ENVIRONMENTAL TECHNICIAN Ot E89.0 POSTPROCEDURAL HYPOTHYROIDISM 05/24/2016 SALONI NICOLE S SENIOR ENVIRONMENTAL TECHNICIAN Ot I10 ESSENTIAL (PRIMARY) HYPERTENSION 05/24/2016 SALONI NICOLE S SENIOR ENVIRONMENTAL TECHNICIAN Ot 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+] 05/24/2016 SALONI NICOLE S SENIOR ENVIRONMENTAL TECHNICIAN Ot Z45.2 ENCOUNTER FOR ADJUSTMENT AND MANAGEMENT 05/24/2016 SALONI NICOLE S SENIOR ENVIRONMENTAL TECHNICIAN Ot 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 05/24/2016 SALONI NICOLE SENIOR ENVIRONMENTAL TECHNICIAN Ot 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 05/29/2016 SALONI NICOLE SENIOR ENVIRONMENTAL TECHNICIAN Ot C50.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 05/29/2016 SALONI NICOLE SENIOR ENVIRONMENTAL TECHNICIAN Ot E11.9 TYPE 2 DIABETES MELLITUS WITHOUT COMPLIC 05/29/2016 SALONI NICOLEP Ot E78.5 HYPERLIPIDEMIA, UNSPECIFIED 05/29/2016 SALONI NICOLE SENIOR ENVIRONMENTAL TECHNICIAN Ot E89.0 POSTPROCEDURAL HYPOTHYROIDISM 05/29/2016 SALONI NICOLE SENIOR ENVIRONMENTAL TECHNICIAN Ot I10 ESSENTIAL (PRIMARY) HYPERTENSION 05/29/2016 SALONI NICOLE SENIOR ENVIRONMENTAL TECHNICIAN Ot 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+] 05/29/2016 SALONI NICOLE SENIOR ENVIRONMENTAL TECHNICIAN Ot Z45.2 ENCOUNTER FOR ADJUSTMENT AND MANAGEMENT 05/29/2016 SALONI NICOLEP Ot 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 05/29/2016 SALONI NICOLE SENIOR ENVIRONMENTAL TECHNICIAN Ot Z79.899 OTHER FPC (CURRENT) DRUG THERAPY 06/05/2016 SALONI NICOLE SENIOR ENVIRONMENTAL TECHNICIAN Ot 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 06/08/2016 SALONI NICOLE SENIOR ENVIRONMENTAL TECHNICIAN Ot 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 07/16/2016 AIDEN BREWER N Ot C50.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 07/16/2016 OSMANAIDEN PIERSON Lay Ot E11.9 TYPE 2 DIABETES MELLITUS WITHOUT COMPLIC 07/16/2016 OSMANAIDEN PIERSON N Ot E78.5 HYPERLIPIDEMIA, UNSPECIFIED 07/16/2016 OSMANMARY PIERSONTYRELL N Ot E89.0 POSTPROCEDURAL HYPOTHYROIDISM 07/16/2016 OSMAN AIDEN N Ot I10 ESSENTIAL (PRIMARY) HYPERTENSION 07/16/2016 OSMAN AIDEN N Ot 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+] 07/16/2016 OSMAN AIDEN N Ot Z45.2 ENCOUNTER FOR ADJUSTMENT AND MANAGEMENT 07/16/2016 AIDEN BREWER N Ot Z79.4 FPC (CURRENT) USE OF INSULIN 07/16/2016 AIDEN BREWER N Ot Z79.899 OTHER FPC (CURRENT) DRUG THERAPY 07/18/2016 AIDEN BREWER N Ot C50.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 07/18/2016 AIDEN BREWER N Ot E11.9 TYPE 2 DIABETES MELLITUS WITHOUT COMPLIC 07/18/2016 AIDEN BREEWR N Ot E78.5 HYPERLIPIDEMIA, UNSPECIFIED 07/18/2016 OSMANAIDEN PIERSON N Ot E89.0 POSTPROCEDURAL HYPOTHYROIDISM 07/18/2016 AIDEN BREWER N Ot I10 ESSENTIAL (PRIMARY) HYPERTENSION 07/18/2016 OSMANAIDEN PIERSON N Ot 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+] 07/18/2016 AIDEN BREWER N Ot Z45.2 ENCOUNTER FOR ADJUSTMENT AND MANAGEMENT 07/18/2016 AIDEN BREWER N Ot 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 07/18/2016 AIDEN BREWER N Ot Z79.899 OTHER FPC (CURRENT) DRUG THERAPY 09/04/2016 AIDEN BREWER N Ot C50.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 09/04/2016 AIDEN BREWER N Ot E11.9 TYPE 2 DIABETES MELLITUS WITHOUT COMPLIC 09/04/2016 AIDEN BREWER N Ot E78.5 HYPERLIPIDEMIA, UNSPECIFIED 09/04/2016 OSMANAIDEN PIERSON N Ot E89.0 POSTPROCEDURAL HYPOTHYROIDISM 09/04/2016 OSMANAIDEN PIERSON N Ot I10 ESSENTIAL (PRIMARY) HYPERTENSION 09/04/2016 AIDEN BREWER N Ot 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+] 09/04/2016 AIDEN BREWER N Ot 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 09/04/2016 AIDEN BREWER N Ot Z79.899 OTHER FPC (CURRENT) DRUG THERAPY 09/10/2016 AIDEN BREWER N Ot C50.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 09/10/2016 AIDEN BREWER N Ot E11.9 TYPE 2 DIABETES MELLITUS WITHOUT COMPLIC 09/10/2016 AIDEN BREWER N Ot E78.5 HYPERLIPIDEMIA, UNSPECIFIED 09/10/2016 OSMANAIDEN N Ot E89.0 POSTPROCEDURAL HYPOTHYROIDISM 09/10/2016 OSMAN BOBAN N Ot I10 ESSENTIAL (PRIMARY) HYPERTENSION 09/10/2016 AIDEN BREWER N Ot 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+] 09/10/2016 OSMANAIDEN PIERSON N Ot Z79.4 FPC (CURRENT) USE OF INSULIN 09/10/2016 AIDEN BREWER N Ot 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 10/15/2016 AIDEN BREWER N Ot C50.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 10/15/2016 AIDEN BREWER N Ot E11.9 TYPE 2 DIABETES MELLITUS WITHOUT COMPLIC 10/15/2016 AIDEN BREWER N Ot E78.5 HYPERLIPIDEMIA, UNSPECIFIED 10/15/2016 OSMAN BOBTYRELL N Ot E89.0 POSTPROCEDURAL HYPOTHYROIDISM 10/15/2016 OSMAN, BOBTYRELL N Ot I10 ESSENTIAL (PRIMARY) HYPERTENSION 10/15/2016 OSMANAIDEN N Ot 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+] 10/15/2016 OSMANAIDEN PIERSON N Ot 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 10/15/2016 AIDEN BREWER N Ot 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 10/17/2016 AIDEN BREWER N Ot C50.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 10/17/2016 OSMAN MARYTYRELL N Ot E11.9 TYPE 2 DIABETES MELLITUS WITHOUT COMPLIC 10/17/2016 OSMAN BOBTYRELL N Ot E78.5 HYPERLIPIDEMIA, UNSPECIFIED 10/17/2016 OSMAN BOBTYRELL N Ot E89.0 POSTPROCEDURAL HYPOTHYROIDISM 10/17/2016 OSMAN MARYTYRELL N Ot I10 ESSENTIAL (PRIMARY) HYPERTENSION 10/17/2016 SOMANAIDEN N Ot 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+] 10/17/2016 OSMAN BOBTYRELL N Ot Z79.4 FPC (CURRENT) USE OF INSULIN 10/17/2016 OSMAN BOBAN N Ot 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 10/19/2016 HAYLEY DAVILA, TIANA Saenz Ot 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 12/06/2016 OSMANAIDEN N Ot 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 12/06/2016 OSMANAIDEN N Ot E11.9 TYPE 2 DIABETES MELLITUS WITHOUT COMPLIC 12/06/2016 AIDEN BREWER N Ot E78.5 HYPERLIPIDEMIA, UNSPECIFIED 12/06/2016 AIDEN BREWER N Ot E89.0 POSTPROCEDURAL HYPOTHYROIDISM 12/06/2016 AIDEN BREWER N Ot I10 ESSENTIAL (PRIMARY) HYPERTENSION 12/06/2016 AIDEN BREWER N Ot 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+] 12/06/2016 OSMAN MARYTYRELL N Ot Z79.4 FPC (CURRENT) USE OF INSULIN 12/06/2016 AIDEN BREWER N Ot 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 12/11/2016 OSMAN MARYTYRELL N Ot 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 12/11/2016 OSMAN AIDEN N Ot E11.9 TYPE 2 DIABETES MELLITUS WITHOUT COMPLIC 12/11/2016 AIDEN BREWER N Ot E78.5 HYPERLIPIDEMIA, UNSPECIFIED 12/11/2016 AIDEN BREWER N Ot E89.0 POSTPROCEDURAL HYPOTHYROIDISM 12/11/2016 AIDEN BREWER N Ot I10 ESSENTIAL (PRIMARY) HYPERTENSION 12/11/2016 AIDEN BREWER N Ot 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+] 12/11/2016 AIDEN BREWER N Ot Z79.4 FPC (CURRENT) USE OF INSULIN 12/11/2016 AIDEN BREWER N Ot Z79.899 OTHER FPC (CURRENT) DRUG THERAPY 01/03/2017 Ot V76.12 OTH SCREEN MAMMO-MALIGN NEOPLASM OF RUEL 01/03/2017 GAGAN DAVILA, LEXA Saenz Ot 611.72 LUMP OR MASS IN BREAST 01/03/2017 LEXA FARAH MD Ot 611.72 LUMP OR MASS IN BREAST 01/03/2017 GAGAN DAVILA, LEXA Saenz Ot 793.80 UNSPEC ABNORMAL MAMMOGRAM 01/03/2017 AIDEN BREWER N Ot 174.9 MALIGN NEOPL BREAST NOS 01/03/2017 AIDEN BREWER N Ot 174.9 MALIGN NEOPL BREAST NOS 01/03/2017 AIDEN BREWER N Ot 397.0 TRICUSPID VALVE DISEASE 01/03/2017 AIDEN BREWER Ot 424.0 MITRAL VALVE DISORDER 01/03/2017 AIDEN BREWER N Ot V67.51 F/U EXAM-HIGH RISK RX 01/03/2017 AIDEN BREWER Lay Ot V87.41 PERSONAL HISTORY OF ANTINEOPLASTIC CHEMO 01/03/2017 GLADYS MARTÍNEZ MD Ot V72.84 EXAM PRE-OPERATIVE NOS 01/03/2017 AIDEN BREWER Lay Ot 174.9 MALIGN NEOPL BREAST NOS 01/03/2017 AIDEN BREWER Lay Ot 611.72 LUMP OR MASS IN BREAST 01/03/2017 SALONI NICOLE SENIOR ENVIRONMENTAL TECHNICIAN Ot 174.9 MALIGN NEOPL BREAST NOS 01/03/2017 SALONI NICOLE SENIOR ENVIRONMENTAL TECHNICIAN Ot 241.0 NONTOX UNINODULAR GOITER 01/03/2017 SALONI NICOLEP Ot V07.8 OTHER SPECIFIED PROPHYLACTIC OR TREATMEN 01/03/2017 SALONI NICOLEP Ot V58.69 OTH MED,LT,CURRENT USE 01/03/2017 SALONI NICOLE SENIOR ENVIRONMENTAL TECHNICIAN Ot 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 [ER+] 01/03/2017 OSMAN, MARYTYRELL Lay Ot 396.3 MITRAL/AORTIC ALETHA INSUFF 01/03/2017 OSMAN AIDEN Lay Ot 397.0 TRICUSPID VALVE DISEASE 01/03/2017 OSMANAIDEN PIERSON Lay Ot 427.31 ATRIAL FIBRILLATION 01/03/2017 GLADYS MARTÍNEZ MD Ot 174.9 MALIGN NEOPL BREAST NOS 01/03/2017 GLADYS MARTÍNEZ MD Ot V72.63 PRE-PROCEDURAL LABORATORY EXAMINATION 01/03/2017 GLADYS MARTÍNEZ MD Ot V74.8 SCREEN-BACTERIAL DIS NEC 01/03/2017 SALONI NICOLEP Ot 174.9 MALIGN NEOPL BREAST NOS 01/03/2017 SALONI NICOLE SENIOR ENVIRONMENTAL TECHNICIAN Ot 241.0 NONTOX UNINODULAR GOITER 01/03/2017 SALONI NICOLEP Ot V15.3 HX OF IRRADIATION 01/03/2017 SALONI NICOLE SENIOR ENVIRONMENTAL TECHNICIAN Ot V58.67 LONG-TERM (CURRENT) USE OF INSULIN 01/03/2017 SALONI NICOLE Ot V58.69 OTH MED,LT,CURRENT USE 01/03/2017 SALONI NICOLEP Ot 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 [ER+] 01/03/2017 NICOLE, HILAH S SENIOR ENVIRONMENTAL TECHNICIAN Ot V87.41 PERSONAL HISTORY OF ANTINEOPLASTIC CHEMO 01/03/2017 HAYLEY DAVILA, TIANA J Ot 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 01/03/2017 OSMANAIDEN PIERSON Lay Ot 241.0 NONTOX UNINODULAR GOITER 01/03/2017 SALONI NICOLE S SENIOR ENVIRONMENTAL TECHNICIAN Ot 174.9 MALIGN NEOPL BREAST NOS 01/03/2017 SALONI NICOLE S SENIOR ENVIRONMENTAL TECHNICIAN Ot 241.0 NONTOX UNINODULAR GOITER 01/03/2017 SALONI NICOLE S SENIOR ENVIRONMENTAL TECHNICIAN Ot 250.00 DIAB BAN WO COMPL, TYPE II OR UNSPEC TY 01/03/2017 SALONI NICOLE S SENIOR ENVIRONMENTAL TECHNICIAN Ot 272.4 HYPERLIPIDEMIA NEC/NOS 01/03/2017 SALONI NICOLE S SENIOR ENVIRONMENTAL TECHNICIAN Ot 401.9 HYPERTENSION NOS 01/03/2017 SALONI NICOLE S SENIOR ENVIRONMENTAL TECHNICIAN Ot V58.67 LONG-TERM (CURRENT) USE OF INSULIN 01/03/2017 SALONI NICOLE S SENIOR ENVIRONMENTAL TECHNICIAN Ot V58.69 OTH MED,LT,CURRENT USE 01/03/2017 SALONI NICOLE S SENIOR ENVIRONMENTAL TECHNICIAN Ot 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 [ER+] 01/03/2017 Ot 174.9 MALIGN NEOPL BREAST NOS 01/03/2017 Ot 241.0 NONTOX UNINODULAR GOITER 01/03/2017 Ot V49.81 ASYMPT POSTMENOPAUSAL STATUS (AGE-RELATE 01/03/2017 Ot V58.69 OTH MED,LT,CURRENT USE 01/03/2017 SALONI NICOLE SENIOR ENVIRONMENTAL TECHNICIAN Ot 174.9 MALIGN NEOPL BREAST NOS 01/03/2017 SALONI NICOLE S SENIOR ENVIRONMENTAL TECHNICIAN Ot 241.0 NONTOX UNINODULAR GOITER 01/03/2017 SALONI NICOLE S SENIOR ENVIRONMENTAL TECHNICIAN Ot 250.00 DIAB BAN WO COMPL, TYPE II OR UNSPEC TY 01/03/2017 SALONI NICOLE S SENIOR ENVIRONMENTAL TECHNICIAN Ot 272.4 HYPERLIPIDEMIA NEC/NOS 01/03/2017 SALONI NICOLE S SENIOR ENVIRONMENTAL TECHNICIAN Ot 401.9 HYPERTENSION NOS 01/03/2017 SALONI NICOLE S SENIOR ENVIRONMENTAL TECHNICIAN Ot V49.81 ASYMPT POSTMENOPAUSAL STATUS (AGE- RELATE 01/03/2017 SALONI NICOLE S SENIOR ENVIRONMENTAL TECHNICIAN Ot V58.67 LONG-TERM (CURRENT) USE OF INSULIN 01/03/2017 SALONI NICOLE S SENIOR ENVIRONMENTAL TECHNICIAN Ot V58.69 OTH MED,LT,CURRENT USE 01/03/2017 SALONI NICOLE Ot 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 [ER+] 01/03/2017 SALONI NICOLE Ot V76.12 OTH SCREEN MAMMO-MALIGN NEOPLASM OF RUEL 01/03/2017 GLADYS MARTÍNEZ MD Ot 246.9 DISORDER OF THYROID NOS 01/03/2017 GLADYS MARTÍNEZ MD Ot V72.63 PRE-PROCEDURAL LABORATORY EXAMINATION 01/03/2017 GLADYS MARTÍNEZ MD Ot V74.9 SCREEN-BACTERIAL DIS NOS 01/03/2017 LEXA FARAH MD Ot 786.05 SHORTNESS OF BREATH 01/03/2017 LEXA FARAH MD Ot 786.2 COUGH 01/03/2017 LEXA FARAH MD Ot 793.19 OTHER NONSPECIFIC ABNORMAL FINDING OF BAKARI 01/03/2017 GLADYS MARTÍNEZ MD Ot 486 PNEUMONIA, ORGANISM NOS 01/03/2017 GLADYS MARTÍNEZ MD Ot 599.0 URIN TRACT INFECTION NOS 01/03/2017 GLADYS MARTÍNEZ MD Ot 246.9 DISORDER OF THYROID NOS 01/03/2017 GLADYS MARTÍNEZ MD Ot V72.84 EXAM PRE-OPERATIVE NOS 01/03/2017 GLADYS MARTÍNEZ MD Ot V12.61 PERSONAL HISTORY, PNEUMONIA (RECURRENT) 01/03/2017 GLADYS MARTÍNEZ MD Ot 246.8 DISORDERS OF THYROID NEC 01/03/2017 GLADYS MARTÍNEZ MD Ot V72.84 EXAM PRE-OPERATIVE NOS 01/03/2017 SALONI NICOLE Ot 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 01/03/2017 SALONI NICOLE SENIOR ENVIRONMENTAL TECHNICIAN Ot 174.9 MALIGN NEOPL BREAST NOS 01/03/2017 SALONI NICOLEP Ot 241.0 NONTOX UNINODULAR GOITER 01/03/2017 SALONI NICOLE SENIOR ENVIRONMENTAL TECHNICIAN Ot 250.00 DIAB BAN WO COMPL, TYPE II OR UNSPEC TY 01/03/2017 SALONI NICOLE SENIOR ENVIRONMENTAL TECHNICIAN Ot 272.4 HYPERLIPIDEMIA NEC/NOS 01/03/2017 SALONI NICOLE SENIOR ENVIRONMENTAL TECHNICIAN Ot 288.03 DRUG INDUCED NEUTROPENIA 01/03/2017 SALONI NICOLE SENIOR ENVIRONMENTAL TECHNICIAN Ot 401.9 HYPERTENSION NOS 01/03/2017 DILLAN NICOLEAH S SENIOR ENVIRONMENTAL TECHNICIAN Ot E849.7 ACCID IN RESIDENT INSTIT 01/03/2017 NICOLESALONI Rain SENIOR ENVIRONMENTAL TECHNICIAN Ot E933.1 ADV EFF ANTINEOPLASTIC 01/03/2017 NICOLESALONI SENIOR ENVIRONMENTAL TECHNICIAN Ot V58.67 LONG-TERM (CURRENT) USE OF INSULIN 01/03/2017 BONNIESALONI SENIOR ENVIRONMENTAL TECHNICIAN Ot V58.69 OTH MED,LT,CURRENT USE 01/03/2017 NICOLESALONI Rain SENIOR ENVIRONMENTAL TECHNICIAN Ot 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 [ER+] 01/03/2017 BONNIESALONI Briseyda SENIOR ENVIRONMENTAL TECHNICIAN Ot C50.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 01/03/2017 DILLAN NICOLEROSEMARY Briseyda COBBP Ot E89.0 POSTPROCEDURAL HYPOTHYROIDISM 01/03/2017 BONNIESALONI SENIOR ENVIRONMENTAL TECHNICIAN Ot C50.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 01/03/2017 DILLAN NICOLEROSEMARY Briseyda SENIOR ENVIRONMENTAL TECHNICIAN Ot E11.9 TYPE 2 DIABETES MELLITUS WITHOUT COMPLIC 01/03/2017 SALONI NICOLEP Ot E78.5 HYPERLIPIDEMIA, UNSPECIFIED 01/03/2017 NICOLESALONI SENIOR ENVIRONMENTAL TECHNICIAN Ot E89.0 POSTPROCEDURAL HYPOTHYROIDISM 01/03/2017 BONNIE SALONI Briseyda SENIOR ENVIRONMENTAL TECHNICIAN Ot I10 ESSENTIAL (PRIMARY) HYPERTENSION 01/03/2017 DILLAN NICOLEROSEMARY Briseyda SENIOR ENVIRONMENTAL TECHNICIAN Ot 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+] 01/03/2017 DILLAN NICOLEROSEMARY Briseyda SENIOR ENVIRONMENTAL TECHNICIAN Ot Z45.2 ENCOUNTER FOR ADJUSTMENT AND MANAGEMENT 01/03/2017 SALONI NICOLE SENIOR ENVIRONMENTAL TECHNICIAN Ot Z79.4 FPC (CURRENT) USE OF INSULIN 01/03/2017 BONNIE SALONI Rain SENIOR ENVIRONMENTAL TECHNICIAN Ot Z79.899 OTHER FPC (CURRENT) DRUG THERAPY 01/03/2017 SALONI NICOLE SENIOR ENVIRONMENTAL TECHNICIAN Ot 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 01/03/2017 AIDEN BREWER Ot 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 01/03/2017 AIDEN BREWER Ot E11.9 TYPE 2 DIABETES MELLITUS WITHOUT COMPLIC 01/03/2017 AIDEN BREWER Ot E78.5 HYPERLIPIDEMIA, UNSPECIFIED 01/03/2017 AIDEN BREWER Ot E89.0 POSTPROCEDURAL HYPOTHYROIDISM 01/03/2017 AIDEN BREWER Ot I10 ESSENTIAL (PRIMARY) HYPERTENSION 01/03/2017 AIDEN BREWER Ot 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+] 01/03/2017 AIDEN BREWER Ot Z79.4 FPC (CURRENT) USE OF INSULIN 01/03/2017 AIDEN BREWER Ot 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 01/03/2017 SALONI NICOLE SENIOR ENVIRONMENTAL TECHNICIAN Ot 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 01/03/2017 SALONI NICOLE SENIOR ENVIRONMENTAL TECHNICIAN Ot M85.9 DISORDER OF BONE DENSITY AND STRUCTURE, 01/03/2017 SALONI NICOLE SENIOR ENVIRONMENTAL TECHNICIAN Ot Z13.820 ENCOUNTER FOR SCREENING FOR OSTEOPOROSIS 01/03/2017 SALONI NICOLE SENIOR ENVIRONMENTAL TECHNICIAN Ot Z78.0 ASYMPTOMATIC MENOPAUSAL STATE 01/04/2017 SALONI NICOLE SENIOR ENVIRONMENTAL TECHNICIAN Ot 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 01/04/2017 SALONI NICOLE SENIOR ENVIRONMENTAL TECHNICIAN Ot M85.9 DISORDER OF BONE DENSITY AND STRUCTURE, 01/04/2017 SALONI NICOLE SENIOR ENVIRONMENTAL TECHNICIAN Ot Z13.820 ENCOUNTER FOR SCREENING FOR OSTEOPOROSIS 01/04/2017 SALONI NICOLE SENIOR ENVIRONMENTAL TECHNICIAN Ot Z78.0 ASYMPTOMATIC MENOPAUSAL STATE 01/04/2017 SALONI NICOLE SENIOR ENVIRONMENTAL TECHNICIAN Ot 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 01/04/2017 SALONI NICOLEP Ot M85.9 DISORDER OF BONE DENSITY AND STRUCTURE, 01/04/2017 SALONI NICOLE SENIOR ENVIRONMENTAL TECHNICIAN Ot Z13.820 ENCOUNTER FOR SCREENING FOR OSTEOPOROSIS 01/04/2017 SALONI NICOLE SENIOR ENVIRONMENTAL TECHNICIAN Ot Z78.0 ASYMPTOMATIC MENOPAUSAL STATE 01/04/2017 SALONI NICOLE SENIOR ENVIRONMENTAL TECHNICIAN Ot 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 01/04/2017 SALONI NICOLE SENIOR ENVIRONMENTAL TECHNICIAN Ot M85.9 DISORDER OF BONE DENSITY AND STRUCTURE, 01/04/2017 SALONI NICOLE SENIOR ENVIRONMENTAL TECHNICIAN Ot Z13.820 ENCOUNTER FOR SCREENING FOR OSTEOPOROSIS 01/04/2017 SLAONI NICOLE SENIOR ENVIRONMENTAL TECHNICIAN Ot Z78.0 ASYMPTOMATIC MENOPAUSAL STATE 01/04/2017 SALONI NICOLE SENIOR ENVIRONMENTAL TECHNICIAN Ot 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 01/04/2017 SALONI NICOLE SENIOR ENVIRONMENTAL TECHNICIAN Ot M85.9 DISORDER OF BONE DENSITY AND STRUCTURE, 01/04/2017 SALONI NICOLE SENIOR ENVIRONMENTAL TECHNICIAN Ot Z13.820 ENCOUNTER FOR SCREENING FOR OSTEOPOROSIS 01/04/2017 SALONI NICOLE SENIOR ENVIRONMENTAL TECHNICIAN Ot Z78.0 ASYMPTOMATIC MENOPAUSAL STATE 01/14/2017 MARY BREWERAN N Ot 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 01/14/2017 OSMAN, BOBAN N Ot E11.9 TYPE 2 DIABETES MELLITUS WITHOUT COMPLIC 01/14/2017 OSMANMARYAN N Ot E78.5 HYPERLIPIDEMIA, UNSPECIFIED 01/14/2017 OSMAN, BOBAN N Ot E89.0 POSTPROCEDURAL HYPOTHYROIDISM 01/14/2017 OSMAN BOBAN N Ot I10 ESSENTIAL (PRIMARY) HYPERTENSION 01/14/2017 OSMAN BOBAN N Ot 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+] 01/14/2017 OSMAN BOBAN N Ot Z79.4 FPC (CURRENT) USE OF INSULIN 01/14/2017 OSMAN, BOBAN N Ot Z79.899 OTHER FPC (CURRENT) DRUG THERAPY 01/15/2017 OSMAN BOBAN N Ot 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 01/15/2017 OSMAN BOBAN N Ot E11.9 TYPE 2 DIABETES MELLITUS WITHOUT COMPLIC 01/15/2017 OSMANMARYAN N Ot E78.5 HYPERLIPIDEMIA, UNSPECIFIED 01/15/2017 OSMAN BOBAN N Ot E89.0 POSTPROCEDURAL HYPOTHYROIDISM 01/15/2017 OSMAN, BOBAN N Ot I10 ESSENTIAL (PRIMARY) HYPERTENSION 01/15/2017 OSMAN, BOBAN N Ot 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+] 01/15/2017 OSMAN BOBAN N Ot 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 01/15/2017 OSMAN, BOBAN N Ot 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 01/20/2017 OSMANMARYAN N Ot 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 01/20/2017 OSMAN BOBAN N Ot E11.9 TYPE 2 DIABETES MELLITUS WITHOUT COMPLIC 01/20/2017 AIDEN BREWER Lay Ot E78.5 HYPERLIPIDEMIA, UNSPECIFIED 01/20/2017 AIDEN BREWER Lay Ot E89.0 POSTPROCEDURAL HYPOTHYROIDISM 01/20/2017 AIDEN BREWER Ot I10 ESSENTIAL (PRIMARY) HYPERTENSION 01/20/2017 AIDEN BREWER Ot 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+] 01/20/2017 AIDEN BREWER Lay Ot 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 01/20/2017 AIDEN BREWER Lay Ot 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 01/23/2017 AIDEN BREWER Lay Ot 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 01/23/2017 AIDEN BREWER Lay Ot I89.0 LYMPHEDEMA, NOT ELSEWHERE CLASSIFIED 01/23/2017 AIDEN BREWER Lay Ot 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 01/23/2017 AIDEN BREWER Lay Ot I89.0 LYMPHEDEMA, NOT ELSEWHERE CLASSIFIED 01/24/2017 SALONI NICOLE SENIOR ENVIRONMENTAL TECHNICIAN Ot 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 01/24/2017 SALONI NICOLE SENIOR ENVIRONMENTAL TECHNICIAN Ot M85.9 DISORDER OF BONE DENSITY AND STRUCTURE, 01/24/2017 SALONI NICOLE SENIOR ENVIRONMENTAL TECHNICIAN Ot Z13.820 ENCOUNTER FOR SCREENING FOR OSTEOPOROSIS 01/24/2017 SALONI NICOLE SENIOR ENVIRONMENTAL TECHNICIAN Ot Z78.0 ASYMPTOMATIC MENOPAUSAL STATE 01/30/2017 AIDEN BREWER Lay Ot 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 01/30/2017 AIDEN BREWER Lay Ot I89.0 LYMPHEDEMA, NOT ELSEWHERE CLASSIFIED 02/15/2017 SALONI NICOLE SENIOR ENVIRONMENTAL TECHNICIAN Ot 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 02/15/2017 SALONI NICOLE SENIOR ENVIRONMENTAL TECHNICIAN Ot I89.0 LYMPHEDEMA, NOT ELSEWHERE CLASSIFIED 02/20/2017 AIDEN BREWER Lay Ot 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 02/20/2017 AIDEN BREWER Lay Ot E11.9 TYPE 2 DIABETES MELLITUS WITHOUT COMPLIC 02/20/2017 AIDEN BREWER N Ot E78.5 HYPERLIPIDEMIA, UNSPECIFIED 02/20/2017 AIDEN BREWER N Ot E89.0 POSTPROCEDURAL HYPOTHYROIDISM 02/20/2017 AIDEN BREWER N Ot I10 ESSENTIAL (PRIMARY) HYPERTENSION 02/20/2017 AIDEN BREWER N Ot 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+] 02/20/2017 AIDEN BREWER N Ot Z45.2 ENCOUNTER FOR ADJUSTMENT AND MANAGEMENT 02/20/2017 AIDEN BREWER N Ot Z79.4 FPC (CURRENT) USE OF INSULIN 02/20/2017 AIDEN BREWER N Ot Z79.899 OTHER FPC (CURRENT) DRUG THERAPY 02/27/2017 SALONI NICOLE SENIOR ENVIRONMENTAL TECHNICIAN Ot 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 02/27/2017 SALONI NICOLE SENIOR ENVIRONMENTAL TECHNICIAN Ot I89.0 LYMPHEDEMA, NOT ELSEWHERE CLASSIFIED 04/05/2017 AIDEN BREWER N Ot 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 04/05/2017 AIDEN BREWER N Ot E11.9 TYPE 2 DIABETES MELLITUS WITHOUT COMPLIC 04/05/2017 AIDEN BREWER N Ot E78.5 HYPERLIPIDEMIA, UNSPECIFIED 04/05/2017 AIDEN BREWER N Ot E89.0 POSTPROCEDURAL HYPOTHYROIDISM 04/05/2017 AIDEN BREWER N Ot I10 ESSENTIAL (PRIMARY) HYPERTENSION 04/05/2017 AIDEN BREWER N Ot 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+] 04/05/2017 AIDEN BREWER N Ot Z45.2 ENCOUNTER FOR ADJUSTMENT AND MANAGEMENT 04/05/2017 AIDEN BREWER N Ot 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 04/05/2017 AIDEN BREWER N Ot Z79.899 OTHER FPC (CURRENT) DRUG THERAPY 04/05/2017 SALONI NICOLE SENIOR ENVIRONMENTAL TECHNICIAN Ot 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 04/05/2017 SALONI NICOLE SENIOR ENVIRONMENTAL TECHNICIAN Ot I89.0 LYMPHEDEMA, NOT ELSEWHERE CLASSIFIED 04/11/2017 AIDEN BREWER N Ot 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 Visit Date/Time Discharge Status Pt. Type Provider Facility Loc./Unit Complaint [id number] 01/16/2017 10:33:00 2016 14:53:00 DIS Outpatient AIDEN BREWER [facility] REHAB LYMPHEDEMA OF R UE [id number] 01/07/2017 09:55:00 2016 00:01:00 DIS Outpatient AIDEN BREWER [facility] ONC [id number] 07/17/2016 13:16:00 2016 00:01:00 DIS Outpatient AIDEN BREWER [facility] ONC [id number] 04/23/2016 10:40:00 2015 09:40:00 DIS Outpatient AIDEN BREWER [facility] ONC [id number] 01/23/2016 10:45:00 2015 00:01:00 DIS Outpatient AIDEN BREWER [facility] ONC [id number] 11/06/2015 12:46:00 2015 15:46:00 DIS Emergency CLINT DAVILA, NAYELY Brooks [facility] ER R SIDE NUMBNESS [id number] 09/05/2015 10:31:00 2014 23:59:59 CLS Outpatient SALONI NICOLE [facility] RAD BREAST CANCER ABNORMAL US OF BREAST [id number] 07/06/2015 08:47:00 2014 00:01:00 DIS Outpatient OSMAN AIDEN Chun [facility] ONC [id number] 07/06/2015 09:13:00 2014 23:59:59 CLS Outpatient SALONI NICOLE SENIOR ENVIRONMENTAL TECHNICIAN [facility] ONC [id number] 05/23/2015 13:26:00 2014 00:01:00 DIS Outpatient AIDEN BREWER [facility] ONC [id number] 05/09/2015 09:46:00 2014 23:59:59 CLS Outpatient SALONI NICOLE [facility] RAD BREAST CA [id number] 04/28/2015 07:55:00 2014 10:25:00 DIS Outpatient GLADYS MARTÍNEZ MD [facility] SDC THYROID MASS [id number] 04/26/2015 08:41:00 2014 23:59:59 CLS Outpatient GLADYS MARTÍNEZ MD [facility] PREOP RIGHT THYROID MASS [id number] 04/19/2015 10:56:00 2014 23:59:59 CLS Outpatient GLADYS MARTÍNEZ MD [facility] RAD HISTORY PNEUMONIA [id number] 03/31/2015 14:02:00 2014 23:59:59 CLS Outpatient GLADYS MARTÍNEZ MD [facility] PREOP THYROID MASS [id number] 03/22/2015 13:41:00 2014 23:59:59 CLS Outpatient GLADYS MARTÍNEZ MD [facility] RAD PNEUMONIA [id number] 02/17/2015 10:23:00 2014 23:59:59 CLS Outpatient GLADYS MARTÍNEZ MD [facility] PREOP THYROID MASS [id number] 02/15/2015 11:49:00 2014 23:59:59 CLS Outpatient LEXA FARAH MD [facility] RAD COUGH/SOB [id number] 01/12/2015 09:40:00 2014 00:01:00 DIS Outpatient AIDEN BREWER [facility] ONC [id number] 01/12/2015 09:41:00 2014 23:59:59 CLS Outpatient SALONI NICOLE SENIOR ENVIRONMENTAL TECHNICIAN [facility] ONC [id number] 11/10/2014 10:52:00 2014 23:59:59 CLS Outpatient SALONI NICOLE SENIOR ENVIRONMENTAL TECHNICIAN [facility] ONC [id number] 11/05/2014 10:39:00 2014 00:01:00 DIS Outpatient AIDEN BREWER [facility] ONC [id number] 09/22/2014 11:21:00 2013 23:59:59 CLS Outpatient AIDEN BREWER [facility] RAD NODULES [id number] 09/17/2014 10:00:00 2013 23:59:59 CLS Preadmit TIANA HARDY MD [facility] CARD IRREGULAR HEARTBEAT [id number] 06/18/2014 10:23:00 2013 00:01:00 DIS Outpatient TIANA HARDY MD [facility] CARD IRREGULAR HEARTBEAT [id number] 09/14/2014 09:53:00 2013 23:59:59 CLS Outpatient SALONI NICOLE SENIOR ENVIRONMENTAL TECHNICIAN [facility] ONC [id number] 07/08/2014 06:10:00 2013 17:05:00 DIS Outpatient GLADYS MARTÍNEZ MD [facility] SDC RT BREAST CA [id number] 07/05/2014 09:28:00 2013 23:59:59 CLS Outpatient GLADYS MARTÍNEZ MD [facility] PREOP RIGHT BREAST CANCER [id number] 06/10/2014 13:12:00 2013 00:01:00 DIS Outpatient AIDEN BREWER [facility] ONC [id number] 06/10/2014 14:59:00 2013 23:59:59 CLS Outpatient AIDEN BREWER [facility] CARD AFIB [id number] 05/20/2014 10:04:00 2013 23:59:59 CLS Outpatient SALONI NICOLEP [facility] ONC [id number] 05/17/2014 09:47:00 2013 23:59:59 CLS Outpatient AIDEN BREWER [facility] RAD BREAST CA [id number] 04/06/2014 07:56:00 2013 23:59:59 CLS Outpatient AIDEN BREWER [facility] RAD BREAST CA [id number] 04/05/2014 11:35:00 2013 17:35:00 DIS Outpatient GLADYS MARTÍNEZ MD [facility] SDC RIGHT BREAST CARCINOMA [id number] 04/02/2014 11:40:00 2013 23:59:59 CLS Outpatient GLADYS MARTÍNEZ MD [facility] PREOP RIGHT BREAST CARCINOMA [id number] 04/01/2014 12:56:00 2013 23:59:59 CLS Outpatient AIDEN BREWER [facility] CARD BREAST CA, CHEMO CLEARANCE [id number] 03/11/2014 13:32:00 2013 23:59:59 CLS Outpatient LEXA FARAH MD [facility] RAD RT BREAST MASS [id number] 03/10/2014 12:36:00 2013 23:59:59 CLS Outpatient LEXA FARAH MD [facility] RAD RT BREAST LUMP [id number] 04/12/2017 11:00:00 ACT Outpatient SALONI NICOLE [facility] REHAB LYMPHEDEMA OF ARM;BREAST CANCER; UNSTEADY GAIT [id number] 04/01/2017 14:18:00 ACT Outpatient AIDEN BREWER [facility] ONC [id number] 01/03/2017 12:26:00 ACT Outpatient SALONI NICOLE SENIOR ENVIRONMENTAL TECHNICIAN [facility] RAD POSTMENOPAUSAL, BREAST CANCER [id number] 05/14/2016 12:39:00 ACT Outpatient SALONI NICOLE SENIOR ENVIRONMENTAL TECHNICIAN [facility] RAD BREAST CANCER [id number] 04/23/2016 10:37:00 ACT Outpatient SALONI NICOLE SENIOR ENVIRONMENTAL TECHNICIAN [facility] ONC [id number] 09/19/2015 09:25:00 ACT Outpatient AIDEN BREWER N [facility] ONC [id number] 09/19/2015 09:23:00 ACT Outpatient SALONI NICOLE [facility] ONC [id number] 12/09/2014 09:37:00 Document Registration [id number] 07/17/2012 10:45:00 Document Registration [id number] 06/25/2011 13:45:00 Document Registration [id number] 05/14/2011 09:09:00 Document Registration [id number] 05/01/2011 19:38:00 Document Registration [id number] 04/23/2011 05:36:00 Document Registration [id number] 04/18/2011 15:02:00 Document Registration [id number] 04/10/2011 09:35:00 Document Registration [id number] 11/01/2010 12:16:00 Document Registration
[2017-04-23 12:32] VITALS: BP 142/74
[2017-04-23] MEDS: NS IV 1000 ML 1,000 ML IV SCH (13:59)
[2017-04-23] MEDS ORDERED: LEVO750T39 PO (14:37)
--- NOTE | 2017-04-23 14:52 | D/C HH Face to Face Order ---
D/C Face to Face Orders Instructions for Patient Patient Instructions/FollowUp: PLEASE FOLLOW UP WITH DR CASAS, DR ONOFRE, AND [facility]. [facility] TRANSITION NURSE WILL CALL YOU WITH AN APPOINTMENT WITH ANGELIA. Physician to follow Patient: ANGELIA LEE APRN/ GAUSTÍN READ MD Discharge Diet for Home: ADA Diet Patient Problems: UNCONTROLLED DIABETES HTN, HL CKD H/O BREAST CANCER PLEURAL EFFUSION Goals for Patient: COMPLIANCE WITH MEDICATION REGIMEN IMPROVED DYSPNEA Patient Data-Allergies,Ht & Wt Patient Allergies: Coded Allergies: Penicillins (Unverified Allergy, Unknown, RASH, 10/19/16) Height (Feet): 5 Height (Inches): 5.00 Weight (Pounds): 178 Weight (Ounces): 8.0 Home Health Need/Face to Face Date of Face to Face: Apr 23, 2017 Clinical Findings: Generalized weakness and fatigue, Immune-compromised, Shortness of breath I have seen Pt [id number]: Yes Discharged To: Home Diagnosis/Conditions: SEE PATIENT PROBLEM LIST ABOVE Problems/Diagnosis/Condition: Patient is Homebound due to: Shortness of breath/distress Homebound Status Due to the above stated illness, injury or surgical procedure (medical condition or diagnosis) and associated clinical findings, the patient is homebound because of his/her inability to leave home except with aid of a supportive device and/or person AND leaving the home requires a considerable and taxing effort or is medically contraindicated. Pt req the following assistanc: Aid of another person Home Health Nursing Orders Home Health Services Order: Nursing Services OXYGEN Certify Stmt I certify that this patient is under my care and that I, a nurse practitioner or a physician; a assistant district attorney working with me, had a face to face encounter that - meets the physician face to face encounter requirements with this patient as dated. DEVIN LAI MD Apr 23, 2017 2:51 pm
--- NOTE | 2017-04-23 15:24 | Discharge Summary ---
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 I have asked Dr Jason Phillips to consult on [facility] case and to perform a thoracentesis. He will send for cultures and cytology. We have her on levaquin and cefepime for now for double coverage. She is also requiring oxygen which is new for her. I am also going to ask Dr Molina to comment on [facility] case as she will need PET and bone scans in [facility] near future. WE will likely set those up as an outpatient and tend to her more acute respiratory issue here in hospital. HISTORY OF INVASIVE DUCTAL CARCINOMA ADM - Dr Hernadez consulted. has been 3 years since chemoradiotherapy. UNCONTROLLED DIABETES MELLITUS TYPE 2 ADM - SSI, holding home meds for now CHRONIC KIDNEY DISEASE ADM - renally dosing meds for now. will monitor. 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 I have asked Dr Jason Phillips to consult on [facility] case and to perform a thoracentesis. He will send for cultures and cytology. We have her on levaquin and cefepime for now for double coverage. She is also requiring oxygen which is new for her. I am also going to ask Dr Molina to comment on [facility] case as she will need PET and bone scans in [facility] near future. WE will likely set those up as an outpatient and tend to her more acute respiratory issue here in hospital. DIS - Patient much improved after her thoracentesis. Will plan for EBUS in [address] Phillips. Has qualified for home O2, will send home with O2 and Home health services. Levaquin (rrenally dosed) for continued outpatient therapy. HISTORY OF INVASIVE DUCTAL CARCINOMA ADM - Dr Hernadez consulted. has been 3 years since chemoradiotherapy. DIS - to follow up with Dr Hernadez for bone scan and PET scan. UNCONTROLLED DIABETES MELLITUS TYPE 2 ADM - SSI, holding home meds for now DIS - needs to follow with her PCP regarding improved glucose control CHRONIC KIDNEY DISEASE ADM - renally dosing meds for now. will monitor. DIS - stable, no inpatient issues. needs to be watched caredfully as an outpatient. Chief Complaint/HPI Chief Complaint/HPI 76yo woman with a history of invasive ductal carcinoma of the breast presented to ER with complaints of worsening shortness of breath. Patient states she ahs noticed a gradual onset of sx over the past few weeks. These worsened acutely such that she was short of breath walking aroudn her house this weekend, prompting her to seek treatment in the ER. Denies fever. Mild cough, no sputum production. No swlling in her legs. Has the right arm lymphedema. Received chemoradiotherapy for the breast cancer and follows with Dr Hernadez. Discharge Summary-Simple/Stand Consultations Jason Phillips DO - pulmonology Carrillo Hernadez MD - heme/onc Discharge Physical Examination Allergies: Coded Allergies: Penicillins (Unverified Allergy, Unknown, RASH, 10/19/16) Vitals & I&Os Vital Sign - Last 12Hours Date Time Temp Pulse Resp B/P (MAP) Pulse Ox O2 Delivery O2 Flow Rate FiO2 04/23/17 12:32 98.4 78 20 142/74 94 Room Air 04/23/17 09:00 3.00 Intake and Output 04/23/17 00:00 Intake Total 1950 ml Output Total 3850 ml Balance -1900 ml General Appearance: Alert, Oriented X3, Cooperative, No Acute Distress Respiratory: Clear to Auscultation, Normal Air Movement Cardiovascular: Regular Rate, Normal S1, Normal S2, No Murmurs, Gallops, Rubs Abdominal: Normal Bowel Sounds, Soft, No Tenderness, No Hepatosplenomegaly, No Masses Extremities: No Clubbing, No Cyanosis, No Edema, Normal Pulses Skin: No Rashes, No Breakdown Neuro: Normal Speech, Strength at 5/5 X4 Ext, Normal Tone, Sensation Intact Hospital Course See final discharge diagnosis. Labs Laboratory Tests Test 04/21/17 16:21 04/21/17 17:19 04/21/17 18:51 04/21/17 20:45 Range/Units White Blood Count 3.8 L 4.3-11.0 10^3/uL Red Blood Count 3.94 L 4.35-5.85 10^6/uL Hemoglobin 12.0 11.5-16.0 G/DL Hematocrit 37 35-52 % Mean Corpuscular Volume 94 80-99 FL Mean Corpuscular Hemoglobin 31 25-34 PG Mean Corpuscular Hemoglobin Concent 32 32-36 G/DL Red Cell Distribution Width 14.7 H 10.0-14.5 % Platelet Count 206 130-400 10^3/uL Mean Platelet Volume 10.0 7.4-10.4 FL Neutrophils (%) (Auto) 71 42-75 % Lymphocytes (%) (Auto) 16 12-44 % Monocytes (%) (Auto) 10 0-12 % Eosinophils (%) (Auto) 3 0-10 % Basophils (%) (Auto) 1 0-10 % Neutrophils # (Auto) 2.7 1.8-7.8 X 10^3 Lymphocytes # (Auto) 0.6 L 1.0-4.0 X 10^3 Monocytes # (Auto) 0.4 0.0-1.0 X 10^3 Eosinophils # (Auto) 0.1 0.0-0.3 10^3/uL Basophils # (Auto) 0.0 0.0-0.1 10^3/uL D-Dimer 0.65 H 0.00-0.49 UG/ML Sodium Level 143 135-145 MMOL/L Potassium Level 4.5 3.6-5.0 MMOL/L Chloride Level 105 98-107 MMOL/L Carbon Dioxide Level 24 21-32 MMOL/L Anion Gap 14 5-14 MMOL/L Blood Urea Nitrogen 21 H 7-18 MG/DL Creatinine 0.98 0.60-1.30 MG/DL Estimat Glomerular Filtration Rate 55 BUN/Creatinine Ratio 21 Glucose Level 130 H 70-105 MG/DL Calcium Level 9.8 8.5-10.1 MG/DL Magnesium Level 1.7 L 1.8-2.4 MG/DL Total Bilirubin 0.5 0.1-1.0 MG/DL Aspartate Amino Transf (AST/SGOT) 21 5-34 U/L Alanine Aminotransferase (ALT/SGPT) 13 0-55 U/L Alkaline Phosphatase 76 40-136 U/L Troponin I < 0.30 <0.30 NG/ML C-Reactive Protein High Sensitivity 0.43 0.00-0.50 MG/DL B-Type Natriuretic Peptide 378.0 H <100.0 PG/ML Total Protein 6.4 6.4-8.2 GM/DL Albumin 3.9 3.2-4.5 GM/DL Lactic Acid Level 2.10 *H 2.19 *H 0.50-2.00 MMOL/L Urine Color YELLOW Urine Clarity CLEAR Urine pH 6 5-9 Urine Specific [place] 1.010 L 1.016-1.022 Urine Protein NEGATIVE NEGATIVE Urine Glucose (UA) NEGATIVE NEGATIVE Urine Ketones NEGATIVE NEGATIVE Urine Nitrite NEGATIVE NEGATIVE Urine Bilirubin NEGATIVE NEGATIVE Urine Urobilinogen NORMAL NORMAL MG/DL Urine Leukocyte Esterase 3+ H NEGATIVE Urine RBC (Auto) NEGATIVE NEGATIVE Urine RBC NONE /HPF Urine WBC 10-25 H /HPF Urine Squamous Epithelial Cells 25-50 H /HPF Urine Renal Epithelial Cells NONE /HPF Urine Crystals NONE /LPF Urine Bacteria TRACE /HPF Urine Casts PRESENT /LPF Urine Hyaline Casts 0-2 H /LPF Urine Mucus SMALL H /LPF Urine Culture Indicated YES Test 04/22/17 01:40 04/22/17 06:10 04/22/17 09:38 04/22/17 13:50 Range/Units Lactic Acid Level 1.56 0.50-2.00 MMOL/L Glucometer 130 H 147 H 70-110 MG/DL Body Fluid Source THORACEN Body Fluid Color YELLOW Body Fluid Appearance SLT CLDY Body Fluid WBC 758 /uL Body Fluid RBC 900 /uL Body Fluid Polynuclear WBCs 0 % Body Fluid Mononuclear WBCs 0 % Body Fluid Lymphocytes 59 % Body Fluid Other Cells 41 % Body Fluid Glucose 133 MG/DL Body Fluid Total Protein 3.2 G/DL Body Fluid Lactate Dehydrogenase 128 U/L Test 04/22/17 14:28 04/22/17 20:32 04/23/17 05:00 04/23/17 06:50 Range/Units Glucometer 117 H 202 H 57 *L 70-110 MG/DL White Blood Count 3.2 L 4.3-11.0 10^3/uL Red Blood Count 3.50 L 4.35-5.85 10^6/uL Hemoglobin 10.9 L 11.5-16.0 G/DL Hematocrit 33 L 35-52 % Mean Corpuscular Volume 95 80-99 FL Mean Corpuscular Hemoglobin 31 25-34 PG Mean Corpuscular Hemoglobin Concent 33 32-36 G/DL Red Cell Distribution Width 14.8 H 10.0-14.5 % Platelet Count 166 130-400 10^3/uL Mean Platelet Volume 9.5 7.4-10.4 FL Neutrophils (%) (Auto) 65 42-75 % Lymphocytes (%) (Auto) 19 12-44 % Monocytes (%) (Auto) 12 0-12 % Eosinophils (%) (Auto) 4 0-10 % Basophils (%) (Auto) 0 0-10 % Neutrophils # (Auto) 2.1 1.8-7.8 X 10^3 Lymphocytes # (Auto) 0.6 L 1.0-4.0 X 10^3 Monocytes # (Auto) 0.4 0.0-1.0 X 10^3 Eosinophils # (Auto) 0.1 0.0-0.3 10^3/uL Basophils # (Auto) 0.0 0.0-0.1 10^3/uL Sodium Level 142 135-145 MMOL/L Potassium Level 3.3 L 3.6-5.0 MMOL/L Chloride Level 107 98-107 MMOL/L Carbon Dioxide Level 25 21-32 MMOL/L Anion Gap 10 5-14 MMOL/L Blood Urea Nitrogen 16 7-18 MG/DL Creatinine 0.83 0.60-1.30 MG/DL Estimat Glomerular Filtration Rate > 60 BUN/Creatinine Ratio 19 Glucose Level 50 *L 70-105 MG/DL Calcium Level 9.6 8.5-10.1 MG/DL Test 04/23/17 07:27 04/23/17 10:24 04/23/17 14:35 Range/Units Glucometer 93 88 145 H 70-110 MG/DL Radiology Reviewed Date of Exam: 04/21/17 CT ANGIO CHEST W PROCEDURE: CT angiography of the chest with contrast. TECHNIQUE: Multiple contiguous axial images were obtained through the chest after uneventful bolus administration of intravenous contrast. Reconstructed CTA MIP acquisitions were also performed. INDICATION: Trouble breathing COMPARISON: PET/CT dated April 06, 2014. FINDINGS: The right lobe of the thyroid gland is not visualized. Multiple prominent paratracheal lymph nodes are present. The largest measures 1.6 cm in short dimension, increased from the prior examination. Additional lymph nodes are seen along the left aspect of the aortic arch, appearing more prominent than on the prior exams. Postsurgical changes are identified with the right breast. Significant skin thickening associated with the right breast. Surgical clips within the right axilla. No left axillary adenopathy. No aneurysmal dilatation or dissection of the thoracic aorta. No pericardial effusion. Moderate sized bilateral pleural effusions are present. These are associated with mild adjacent atelectasis. However, more focal pulmonary opacities are seen within the bilateral lower lobes and lingula. 5 mm pulmonary nodule within the left upper lobe, series 4/image 57, is present, appearing new from the prior exam. This appears pleural-based. New 4 mm pulmonary nodule within the right lower lobe, series 4, image 101. No pneumothorax. Mild scattered regions of intralobular septal thickening, particularly involving the anterior aspect of the right lung. No significant filling defect is identified within the central or segmental pulmonary arteries. Layering densities within the gallbladder. Otherwise, the visualized upper abdomen is unremarkable. Scattered regions of sclerosis are identified throughout the osseous structures, including on the left at T12. Additional sclerosis is seen in the right aspect of the sternum. These regions of sclerosis are new from the prior examination. No acute fracture. IMPRESSION: 1. No significant central or segmental pulmonary embolus. 2. Developing mediastinal adenopathy with associated new small bilateral pulmonary nodules. Given patient's history, findings may relate to underlying metastatic disease. PET CT may help to further evaluate. 3. New sclerotic lesions within the osseous structures. These findings as well may relate to osseous metastatic disease. Further evaluation with nuclear medicine bone scan is recommended. 4. Moderate-sized bilateral pleural effusions with adjacent atelectasis. Additional opacities are seen within the bilateral lower lobes which are concerning for additional infiltrate such as pneumonia. 5. Layering sludge and/or small stones within the gallbladder. Report was called and faxed to the [facility] ER at 7:16 p.m., by bettina. Discharge Instructions to patient/family Please see electonic discharge instructions given to patient. Discharge Medications Reviewed and agree with Discharge Medication list on patient's Discharge Instruction sheet Clinical Quality Measures DVT/VTE Risk/Contraindication: Risk Factor Score Per Nursin RFS Level Per Nursing on Admit: 4+=Very High Copy Copies To 1: DEVIN LARA APRN, MD Apr 23, 2017 3:24 pm
--- OUTSIDE RECORDS SUMMARY | 2017-04-23 16:35 | XMS REPORT | Continuity of Care Document ---
Author Author [facility] Organization [facility] Address Unknown Phone Unavailable Allergies Active Description Code Type Severity Reaction Onset Reported/Identified Relationship to Patient Clinical Status Yes Penicillins [id number] Drug Allergy Unknown RASH 10/19/2016 Medications Problems [...] ADJUSTMENT AND MANAGEMENT AIDEN BREWER Ot Z79.4 SHELTER (CURRENT) USE OF INSULIN AIDEN BREWER Ot Z79.899 OTHER ISOBUTYLENE OPERATOR CHIEF (CURRENT) DRUG THERAPY 09/12/1452 AIDEN BREWER Ot [...] BREWER Ot 288.03 DRUG INDUCED NEUTROPENIA 2014 AIDEN BREWER Ot 401.9 HYPERTENSION NOS 2014 AIDEN [...] N Ot 241.0 10/13/2014 SALONI NICOLE SENIOR MOBILE DEVELOPER Ot 174.9 10/13/2014 SALONI NICOLE S SENIOR MOBILE DEVELOPER Ot 241.0 10/13/2014 SALONI NICOLE S SENIOR MOBILE DEVELOPER Ot V15.3 10/13/2014 SALONI NICOLE S SENIOR MOBILE DEVELOPER Ot V58.67 10/13/2014 SALONI NICOLE S SENIOR MOBILE DEVELOPER Ot V58.69 10/13/2014 SALONI NICOLE S SENIOR MOBILE DEVELOPER Ot V86.0 10/13/2014 SALONI NICOLE S SENIOR MOBILE DEVELOPER Ot V87.41 10/22/2014 SALONI NICOLE S SENIOR MOBILE DEVELOPER Ot 174.9 10/22/2014 SALONI NICOLE S SENIOR MOBILE DEVELOPER Ot 241.0 10/22/2014 SALONI NICOLE S SENIOR MOBILE DEVELOPER Ot V15.3 10/22/2014 SALONI NICOLE S SENIOR MOBILE DEVELOPER Ot V58.67 10/22/2014 SALONI NICOLE S SENIOR MOBILE DEVELOPER Ot V58.69 10/22/2014 SALONI NICOLE S SENIOR MOBILE DEVELOPER Ot V86.0 10/22/2014 SALONI NICOLE S SENIOR MOBILE DEVELOPER Ot V87.41 11/08/2014 OSMAN, AIDEN N Ot [...] OSMANAIDEN PIERSON N Ot E933.1 11/10/2014 OSMANAIDEN PIERSON N Ot V58.67 11/10/2014 OSMAN BOBAN N [...] Ot V86.0 12/07/2014 SALONI NICOLE S SENIOR MOBILE DEVELOPER Ot 174.9 12/07/2014 NICOLESALONI Rain S SENIOR MOBILE DEVELOPER Ot 241.0 12/07/2014 SALONI INCOLE S SENIOR MOBILE DEVELOPER Ot 250.00 12/07/2014 SALONI NICOLE S SENIOR MOBILE DEVELOPER Ot 272.4 12/07/2014 SALONI NICOLE S SENIOR MOBILE DEVELOPER Ot 401.9 12/07/2014 SALONI NICOLEP Ot V58.67 12/07/2014 SALONI NICOLE SENIOR MOBILE DEVELOPER Ot V58.69 12/07/2014 SALONI NICOLE SENIOR MOBILE DEVELOPER Ot V86.0 01/14/2015 OSMAN AIDEN N Ot 174.9 01/14/2015 OSMAN AIDEN N Ot 241.0 01/14/2015 OSMAN AIDEN N Ot 250.00 01/14/2015 OSMANAIDEN N Ot 272.4 01/14/2015 OSMANAIDEN N Ot 288.03 01/14/2015 OSMANAIDEN N Ot 401.9 01/14/2015 OSMANAIDEN N Ot E849.7 01/14/2015 AIDEN BREWER N Ot E933.1 01/14/2015 OSMANAIDEN PIERSON [...] POSITIVE STATUS [ER+] 02/15/2015 SALONI NICOLE SENIOR MOBILE DEVELOPER Ot 174.9 02/15/2015 NICOLESALONI Rain SENIOR MOBILE DEVELOPER Ot 241.0 02/15/2015 NICOLESALONI S SENIOR MOBILE DEVELOPER Ot 250.00 02/15/2015 NICOLESALONI S SENIOR MOBILE DEVELOPER Ot 272.4 02/15/2015 NICOLESALONI S SENIOR MOBILE DEVELOPER Ot 401.9 02/15/2015 NICOLESALONI S SENIOR MOBILE DEVELOPER Ot V49.81 02/15/2015 NICOLESALONI S SENIOR MOBILE DEVELOPER Ot V58.67 02/15/2015 NICOLESALONI S SENIOR MOBILE DEVELOPER Ot V58.69 02/15/2015 NICOLESALONI Rain SENIOR MOBILE DEVELOPER Ot V86.0 03/14/2015 GAGAN DAVILA, LEXA Saenz [...] N Ot 611.72 04/19/2015 SALONI NICOLE SENIOR MOBILE DEVELOPER Ot 174.9 04/19/2015 SALONI NICOLE SENIOR MOBILE DEVELOPER Ot 241.0 04/19/2015 SALONI NICOLE SENIOR MOBILE DEVELOPER Ot V07.8 04/19/2015 SALONI NICOLE SENIOR MOBILE DEVELOPER Ot V58.69 04/19/2015 SALONI NICOLE SENIOR MOBILE DEVELOPER Ot V86.0 04/19/2015 OSMAN, BOBAN N Ot 396.3 04/19/2015 OSMAN, BOBAN N Ot 397.0 04/19/2015 OSMAN, BOBAN N Ot 427.31 04/19/2015 TANYA DAVILA, GLADYS Ot 174.9 04/19/2015 TANYA DAIVLA, GLADYS Ot V72.63 04/19/2015 TANYA DAVILA, GLADYS Ot V74.8 04/19/2015 SALONI NICOLE SENIOR MOBILE DEVELOPER Ot 174.9 04/19/2015 SALONI NICOLE SENIOR MOBILE DEVELOPER Ot 241.0 04/19/2015 SALONI NICOLE SENIOR MOBILE DEVELOPER Ot V15.3 04/19/2015 SALONI NICOLE SENIOR MOBILE DEVELOPER Ot V58.67 04/19/2015 SALONI NICOLE SENIOR MOBILE DEVELOPER Ot V58.69 04/19/2015 SALONI NICOLE SENIOR MOBILE DEVELOPER Ot V86.0 04/19/2015 SALONI NICOLE SENIOR MOBILE DEVELOPER Ot V87.41 04/19/2015 HAYLEY DAVILA, TIANA Saenz Ot 427.9 04/19/2015 OSMANMARY PIERSONAN N Ot 241.0 04/19/2015 NICOLESALONI Rain SENIOR MOBILE DEVELOPER Ot 174.9 04/19/2015 NICOLESALONI Rain SENIOR MOBILE DEVELOPER Ot 241.0 04/19/2015 NICOLESALONI Rain S SENIOR MOBILE DEVELOPER Ot 250.00 04/19/2015 NICOLESALONI Rain S SENIOR MOBILE DEVELOPER Ot 272.4 04/19/2015 NICOLESALONI Rain S SENIOR MOBILE DEVELOPER Ot 401.9 04/19/2015 NICOLESALONI Rain S SENIOR MOBILE DEVELOPER Ot V58.67 04/19/2015 NICOLESALONI Rain S SENIOR MOBILE DEVELOPER Ot V58.69 04/19/2015 NICOLESALONI Rain SENIOR MOBILE DEVELOPER Ot V86.0 04/19/2015 Ot 174.9 04/19/2015 Ot 241.0 04/19/2015 Ot V49.81 04/19/2015 Ot V58.69 04/19/2015 SALONI NICOLE SENIOR MOBILE DEVELOPER Ot 174.9 04/19/2015 SALONI NICOLE SENIOR MOBILE DEVELOPER Ot 241.0 04/19/2015 NICOLESALONI Rain SENIOR MOBILE DEVELOPER Ot 250.00 04/19/2015 SALONI NICOLE S SENIOR MOBILE DEVELOPER Ot 272.4 04/19/2015 NICOLESALONI Rain SENIOR MOBILE DEVELOPER Ot 401.9 04/19/2015 NICOLESALONI Rain SENIOR MOBILE DEVELOPER Ot V49.81 04/19/2015 NICOLESALONI Rain SENIOR MOBILE DEVELOPER Ot V58.67 04/19/2015 NICOLESALONI Rain SENIOR MOBILE DEVELOPER Ot V58.69 04/19/2015 NICOLESALONI Rain SENIOR MOBILE DEVELOPER Ot V86.0 04/19/2015 OSMAN, BOBAN N Ot [...] 07/07/2015 OSMAN BOBTYRELL N Ot 272.4 07/07/2015 OSMANAIDNE N Ot 288.03 07/07/2015 OSMAN BOBTYRELL N Ot 401.9 07/07/2015 OSMAN, BOBTYRELL N Ot E849.7 07/07/2015 OSMANAIDEN PIERSON N Ot E933.1 07/07/2015 OSMANAIDEN PIERSON N Ot V58.67 07/07/2015 OSMANAIDEN PIERSON N Ot V58.69 07/07/2015 OSMANAIDEN PIERSON [...] POSITIVE STATUS [ER+] 07/27/2015 SALONI NICOLE SENIOR MOBILE DEVELOPER Ot 174.9 07/27/2015 SALONI NICOLE S SENIOR MOBILE DEVELOPER Ot 241.0 07/27/2015 DILLAN NICOLEROSEMARY S SENIOR MOBILE DEVELOPER Ot 250.00 07/27/2015 SALONI NICOLE S SENIOR MOBILE DEVELOPER Ot 272.4 07/27/2015 SALONI NICOLE S SENIOR MOBILE DEVELOPER Ot 288.03 07/27/2015 SALONI NICOLE S SENIOR MOBILE DEVELOPER Ot 401.9 07/27/2015 SALONI NICOLE S SENIOR MOBILE DEVELOPER Ot E849.7 07/27/2015 SALONI NICOLE S SENIOR MOBILE DEVELOPER Ot E933.1 07/27/2015 SALONI NICOLE S SENIOR MOBILE DEVELOPER Ot V58.67 07/27/2015 SALONI NICOLE S SENIOR MOBILE DEVELOPER Ot V58.69 07/27/2015 SALONI NICOLE S SENIOR MOBILE DEVELOPER Ot V86.0 08/12/2015 SALONI NICOLE S SENIOR MOBILE DEVELOPER Ot 174.9 08/12/2015 DILLAN NICOLEROSEMARY S SENIOR MOBILE DEVELOPER Ot 241.0 08/12/2015 SALONI NICOLE S SENIOR MOBILE DEVELOPER Ot 250.00 08/12/2015 SALONI NICOLE S SENIOR MOBILE DEVELOPER Ot 272.4 08/12/2015 SALONI NICOLE S SENIOR MOBILE DEVELOPER Ot 288.03 08/12/2015 SALONI NICOLE S SENIOR MOBILE DEVELOPER Ot 401.9 08/12/2015 DILLAN NICOLEROSEMARY S SENIOR MOBILE DEVELOPER Ot E849.7 08/12/2015 SALONI NICOLE S SENIOR MOBILE DEVELOPER Ot E933.1 08/12/2015 SALONI NICOLE S SENIOR MOBILE DEVELOPER Ot V58.67 08/12/2015 SALONI NICOLE S SENIOR MOBILE DEVELOPER Ot V58.69 08/12/2015 SALONI NICOLE S SENIOR MOBILE DEVELOPER Ot V86.0 09/29/2015 SALONI NICOLE S SENIOR MOBILE DEVELOPER Ot C50.919 10/01/2015 AIDEN BREWER N Ot [...] OSMAN, AIDEN N Ot V58.69 10/01/2015 OSMAN, IADEN N Ot V86.0 10/13/2015 SALONI NICOLE SENIOR MOBILE DEVELOPER Ot C50.911 10/13/2015 SALONI NICOLE SENIOR MOBILE DEVELOPER Ot E89.0 10/19/2015 SALONI NICOLE SENIOR MOBILE DEVELOPER Ot C50.919 10/28/2015 OSMAN, AIDEN N Ot C50.911 10/28/2015 OSMAN, AIDEN N Ot D70.1 10/28/2015 OSMAN, AIDEN N Ot E11.9 10/28/2015 OSMAN, AIDEN N Ot E78.5 10/28/2015 OSMAN, AIDEN N Ot E89.0 10/28/2015 OSMAN, AIDEN N Ot I10 10/28/2015 OSMAN, AIDEN N Ot Z17.0 10/28/2015 OSMAN, AIDEN N Ot Z79.4 10/28/2015 OSMAN, AIDEN N Ot Z79.899 11/03/2015 SALONI NICOLE S SENIOR MOBILE DEVELOPER Ot C50.911 11/03/2015 SALONI NICOLE SENIOR MOBILE DEVELOPER Ot E89.0 11/06/2015 CLINT DAVILA, NAYELY Brooks Ot 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 11/06/2015 NAYELY JARAMILLO MD Ot 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 11/06/2015 NAYELY JARAMILLO MD Ot M62.81 MUSCLE WEAKNESS (GENERALIZED) 11/06/2015 NAYELY JARAMILLO MD Ot Z79.899 OTHER ISOBUTYLENE OPERATOR CHIEF (CURRENT) DRUG THERAPY 11/14/2015 OSMANAIDEN PIERSON N [...] [ER+] 11/14/2015 OSMAN, AIDEN N Ot Z79.4 SHELTER (CURRENT) USE OF INSULIN 11/14/2015 OSMAN, AIDEN N Ot Z79.899 OTHER SHELTER (CURRENT) DRUG THERAPY 11/15/2015 SALONI NICOLE SENIOR MOBILE DEVELOPER Ot C50.911 11/15/2015 SALONI NICOLE SENIOR MOBILE DEVELOPER Ot E89.0 12/23/2015 AIDEN BREWER N Ot [...] 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+] 02/03/2016 AIDEN BREWER N Ot Z45.2 ENCOUNTER FOR ADJUSTMENT AND MANAGEMENT 02/03/2016 AIDEN BREWER N Ot Z79.4 SHELTER (CURRENT) USE OF INSULIN 02/03/2016 AIDEN BREWER N Ot Z79.899 OTHER ISOBUTYLENE OPERATOR CHIEF (CURRENT) DRUG THERAPY 02/23/2016 AIDEN BREWER N [...] MANAGEMENT 02/23/2016 AIDEN BREWER N Ot Z79.4 ISOBUTYLENE OPERATOR CHIEF (CURRENT) USE OF INSULIN 02/23/2016 AIDEN BREWER N Ot Z79.899 OTHER ISOBUTYLENE OPERATOR CHIEF (CURRENT) DRUG THERAPY 03/21/2016 AIDEN BREWER N [...] MANAGEMENT 03/21/2016 OSMANAIDEN PIERSON N Ot Z79.4 SHELTER (CURRENT) USE OF INSULIN 03/21/2016 OSMANAIDEN PIERSON N Ot Z79.899 OTHER SHELTER (CURRENT) DRUG THERAPY 04/19/2016 AIDEN BREWER N [...] AND MANAGEMENT 04/19/2016 OSMANAIDEN N Ot Z79.4 SHELTER (CURRENT) USE OF INSULIN 04/19/2016 OSMANAIDEN PIERSON N Ot Z79.899 OTHER SHELTER (CURRENT) DRUG THERAPY 04/24/2016 AIDEN BREWER N [...] AND MANAGEMENT 04/24/2016 OSMANAIDEN N Ot Z79.4 ISOBUTYLENE OPERATOR CHIEF (CURRENT) USE OF INSULIN 04/24/2016 OSMANAIDEN N Ot Z79.899 OTHER ISOBUTYLENE OPERATOR CHIEF (CURRENT) DRUG THERAPY 04/24/2016 BONNIE SALONI Rain SENIOR MOBILE DEVELOPER Ot C50.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 04/24/2016 SALONI NICOLE SENIOR MOBILE DEVELOPER Ot E11.9 TYPE 2 DIABETES MELLITUS WITHOUT COMPLIC 04/24/2016 SALONI NICOLE Briseyda SENIOR MOBILE DEVELOPER Ot E78.5 HYPERLIPIDEMIA, UNSPECIFIED 04/24/2016 SALONI NICOLE Briseyda SENIOR MOBILE DEVELOPER Ot E89.0 POSTPROCEDURAL HYPOTHYROIDISM 04/24/2016 SALONI NICOLE Briseyda SENIOR MOBILE DEVELOPER Ot I10 ESSENTIAL (PRIMARY) HYPERTENSION 04/24/2016 SALONI NICOLE Briseyda SENIOR MOBILE DEVELOPER Ot 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+] 04/24/2016 SALONI NICOLE Briseyda SENIOR MOBILE DEVELOPER Ot Z45.2 ENCOUNTER FOR ADJUSTMENT AND MANAGEMENT 04/24/2016 SALONI NICOLE SENIOR MOBILE DEVELOPER Ot Z79.4 ISOBUTYLENE OPERATOR CHIEF (CURRENT) USE OF INSULIN 04/24/2016 SALONI NICOLEP Ot Z79.899 OTHER SHELTER (CURRENT) DRUG THERAPY 05/15/2016 SALONI NICOLE Briseyda SENIOR MOBILE DEVELOPER Ot 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 05/15/2016 DILLAN NICOLEROSEMARY S SENIOR MOBILE DEVELOPER Ot 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 05/21/2016 DILLAN NICOLEROSEMARY Rain SENIOR MOBILE DEVELOPER Ot 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 05/24/2016 SALONI NICOLE Briseyda SENIOR MOBILE DEVELOPER Ot C50.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 05/24/2016 SALONI NICOLEP Ot E11.9 TYPE 2 DIABETES MELLITUS WITHOUT COMPLIC 05/24/2016 SALONI NICOLE Briseyda SENIOR MOBILE DEVELOPER Ot E78.5 HYPERLIPIDEMIA, UNSPECIFIED 05/24/2016 SALONI NICOLE Briseyda SENIOR MOBILE DEVELOPER Ot E89.0 POSTPROCEDURAL HYPOTHYROIDISM 05/24/2016 SALONI NICOLE S SENIOR MOBILE DEVELOPER Ot I10 ESSENTIAL (PRIMARY) HYPERTENSION 05/24/2016 SALONI NICOLE S SENIOR MOBILE DEVELOPER Ot 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+] 05/24/2016 SALONI NICOLE S SENIOR MOBILE DEVELOPER Ot Z45.2 ENCOUNTER FOR ADJUSTMENT AND MANAGEMENT 05/24/2016 SALONI NICOLE S SENIOR MOBILE DEVELOPER Ot Z79.4 ISOBUTYLENE OPERATOR CHIEF (CURRENT) USE OF INSULIN 05/24/2016 SALONI NICOLE SENIOR MOBILE DEVELOPER Ot Z79.899 OTHER ISOBUTYLENE OPERATOR CHIEF (CURRENT) DRUG THERAPY 05/29/2016 SALONI NICOLE SENIOR MOBILE DEVELOPER Ot C50.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 05/29/2016 SALONI NICOLE SENIOR MOBILE DEVELOPER Ot E11.9 TYPE 2 DIABETES MELLITUS WITHOUT COMPLIC 05/29/2016 SALONI NICOLEP Ot E78.5 HYPERLIPIDEMIA, UNSPECIFIED 05/29/2016 SALONI NICOLE SENIOR MOBILE DEVELOPER Ot E89.0 POSTPROCEDURAL HYPOTHYROIDISM 05/29/2016 SALONI NICOLE SENIOR MOBILE DEVELOPER Ot I10 ESSENTIAL (PRIMARY) HYPERTENSION 05/29/2016 SALONI NICOLE SENIOR MOBILE DEVELOPER Ot 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+] 05/29/2016 SALONI NICOLE SENIOR MOBILE DEVELOPER Ot Z45.2 ENCOUNTER FOR ADJUSTMENT AND MANAGEMENT 05/29/2016 SALONI NICOLEP Ot Z79.4 ISOBUTYLENE OPERATOR CHIEF (CURRENT) USE OF INSULIN 05/29/2016 SALONI NICOLE SENIOR MOBILE DEVELOPER Ot Z79.899 OTHER SHELTER (CURRENT) DRUG THERAPY 06/05/2016 SALONI NICOLE SENIOR MOBILE DEVELOPER Ot 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 06/08/2016 SALONI NICOLE SENIOR MOBILE DEVELOPER Ot 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-OUTER QUADRANT [...] MANAGEMENT 07/16/2016 AIDEN BREWER N Ot Z79.4 SHELTER (CURRENT) USE OF INSULIN 07/16/2016 AIDEN BREWER N Ot Z79.899 OTHER SHELTER (CURRENT) DRUG THERAPY 07/18/2016 AIDEN BREWER N Ot C50.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 07/18/2016 AIDEN BREWER N Ot E11.9 TYPE 2 DIABETES MELLITUS WITHOUT COMPLIC 07/18/2016 AIDEN BREWER N Ot E78.5 HYPERLIPIDEMIA, UNSPECIFIED 07/18/2016 OSMANAIEDN PIERSON N Ot E89.0 POSTPROCEDURAL HYPOTHYROIDISM 07/18/2016 AIDEN BREWER N Ot I10 ESSENTIAL (PRIMARY) HYPERTENSION 07/18/2016 OSMANAIDEN PIERSON N Ot 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+] 07/18/2016 AIDEN BREWER N Ot Z45.2 ENCOUNTER FOR ADJUSTMENT AND MANAGEMENT 07/18/2016 AIDEN BREWER N Ot Z79.4 ISOBUTYLENE OPERATOR CHIEF (CURRENT) USE OF INSULIN 07/18/2016 AIDEN BREWER N Ot Z79.899 OTHER SHELTER (CURRENT) DRUG THERAPY 09/04/2016 AIDEN BREWER N [...] [ER+] 09/04/2016 AIDEN BREWER N Ot Z79.4 ISOBUTYLENE OPERATOR CHIEF (CURRENT) USE OF INSULIN 09/04/2016 AIDEN BREWER N Ot Z79.899 OTHER SHELTER (CURRENT) DRUG THERAPY 09/10/2016 AIDEN BREWER N [...] [ER+] 09/10/2016 OSMANAIDEN PIERSON N Ot Z79.4 SHELTER (CURRENT) USE OF INSULIN 09/10/2016 AIDEN BREWER N Ot Z79.899 OTHER ISOBUTYLENE OPERATOR CHIEF (CURRENT) DRUG THERAPY 10/15/2016 AIDEN BREWER N [...] [ER+] 10/15/2016 OSMANAIDEN PIERSON N Ot Z79.4 ISOBUTYLENE OPERATOR CHIEF (CURRENT) USE OF INSULIN 10/15/2016 AIDEN BREWER N Ot Z79.899 OTHER ISOBUTYLENE OPERATOR CHIEF (CURRENT) DRUG THERAPY 10/17/2016 AIDEN BREWER N Ot C50.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 10/17/2016 OSMAN MARYTYRELL N Ot E11.9 TYPE 2 DIABETES MELLITUS WITHOUT COMPLIC 10/17/2016 OSMAN BOBTYRELL N Ot E78.5 HYPERLIPIDEMIA, UNSPECIFIED 10/17/2016 OSMAN BOBTYRELL N Ot E89.0 POSTPROCEDURAL HYPOTHYROIDISM 10/17/2016 OSMAN MARYTYRELL N Ot I10 ESSENTIAL (PRIMARY) HYPERTENSION 10/17/2016 OSMANAIDEN N Ot 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+] 10/17/2016 OSMAN BOBTYRELL N Ot Z79.4 SHELTER (CURRENT) USE OF INSULIN 10/17/2016 OSMAN BOBAN N Ot Z79.899 OTHER ISOBUTYLENE OPERATOR CHIEF (CURRENT) DRUG THERAPY 10/19/2016 HAYLEY DAVILA, TIANA [...] [ER+] 12/06/2016 OSMAN MARYTYRELL N Ot Z79.4 SHELTER (CURRENT) USE OF INSULIN 12/06/2016 AIDEN BREWER N Ot Z79.899 OTHER ISOBUTYLENE OPERATOR CHIEF (CURRENT) DRUG THERAPY 12/11/2016 OSMAN MARYTYRELL N [...] [ER+] 12/11/2016 AIDEN BREWER N Ot Z79.4 SHELTER (CURRENT) USE OF INSULIN 12/11/2016 AIDEN BREWER N Ot Z79.899 OTHER SHELTER (CURRENT) DRUG THERAPY 01/03/2017 Ot V76.12 OTH [...] MASS IN BREAST 01/03/2017 SALONI NICOLE SENIOR MOBILE DEVELOPER Ot 174.9 MALIGN NEOPL BREAST NOS 01/03/2017 SALONI NICOLE SENIOR MOBILE DEVELOPER Ot 241.0 NONTOX UNINODULAR GOITER 01/03/2017 SALONI NICOLEP Ot V07.8 OTHER SPECIFIED PROPHYLACTIC OR TREATMEN 01/03/2017 SALONI NICOLEP Ot V58.69 OTH MED,LT,CURRENT USE 01/03/2017 SALONI NICOLE SENIOR MOBILE DEVELOPER Ot 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 [ER+] [...] NEOPL BREAST NOS 01/03/2017 SALONI NICOLE SENIOR MOBILE DEVELOPER Ot 241.0 NONTOX UNINODULAR GOITER 01/03/2017 SALONI NICOLEP Ot V15.3 HX OF IRRADIATION 01/03/2017 SALONI NICOLE SENIOR MOBILE DEVELOPER Ot V58.67 LONG-TERM (CURRENT) USE OF INSULIN 01/03/2017 SALONI NICOLE Ot V58.69 OTH MED,LT,CURRENT USE 01/03/2017 SALONI NICOLEP Ot 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 [ER+] 01/03/2017 NICOLE, HILAH S SENIOR MOBILE DEVELOPER Ot V87.41 PERSONAL HISTORY OF ANTINEOPLASTIC CHEMO 01/03/2017 HAYLEY DAVILA, TIANA J Ot 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 01/03/2017 OSMANAIDEN PIERSON Lay Ot 241.0 NONTOX UNINODULAR GOITER 01/03/2017 SALONI NICOLE S SENIOR MOBILE DEVELOPER Ot 174.9 MALIGN NEOPL BREAST NOS 01/03/2017 SALONI NICOLE S SENIOR MOBILE DEVELOPER Ot 241.0 NONTOX UNINODULAR GOITER 01/03/2017 SALONI NICOLE S SENIOR MOBILE DEVELOPER Ot 250.00 DIAB BAN WO COMPL, TYPE II OR UNSPEC TY 01/03/2017 SALONI NCIOLE S SENIOR MOBILE DEVELOPER Ot 272.4 HYPERLIPIDEMIA NEC/NOS 01/03/2017 SALONI NICOLE S SENIOR MOBILE DEVELOPER Ot 401.9 HYPERTENSION NOS 01/03/2017 SALONI NICOLE S SENIOR MOBILE DEVELOPER Ot V58.67 LONG-TERM (CURRENT) USE OF INSULIN 01/03/2017 SALONI NICOLE S SENIOR MOBILE DEVELOPER Ot V58.69 OTH MED,LT,CURRENT USE 01/03/2017 SALONI NICOLE S SENIOR MOBILE DEVELOPER Ot 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 [ER+] 01/03/2017 Ot 174.9 MALIGN NEOPL BREAST NOS 01/03/2017 Ot 241.0 NONTOX UNINODULAR GOITER 01/03/2017 Ot V49.81 ASYMPT POSTMENOPAUSAL STATUS (AGE-RELATE 01/03/2017 Ot V58.69 OTH MED,LT,CURRENT USE 01/03/2017 SALONI NICOLE SENIOR MOBILE DEVELOPER Ot 174.9 MALIGN NEOPL BREAST NOS 01/03/2017 SALONI NICOLE S SENIOR MOBILE DEVELOPER Ot 241.0 NONTOX UNINODULAR GOITER 01/03/2017 SALONI NICOLE S SENIOR MOBILE DEVELOPER Ot 250.00 DIAB BAN WO COMPL, TYPE II OR UNSPEC TY 01/03/2017 SALONI NICOLE S SENIOR MOBILE DEVELOPER Ot 272.4 HYPERLIPIDEMIA NEC/NOS 01/03/2017 SALONI NICOLE S SENIOR MOBILE DEVELOPER Ot 401.9 HYPERTENSION NOS 01/03/2017 SALONI NICOLE S SENIOR MOBILE DEVELOPER Ot V49.81 ASYMPT POSTMENOPAUSAL STATUS (AGE- RELATE 01/03/2017 SALONI NICOLE S SENIOR MOBILE DEVELOPER Ot V58.67 LONG-TERM (CURRENT) USE OF INSULIN 01/03/2017 SALONI NICOLE S SENIOR MOBILE DEVELOPER Ot V58.69 OTH MED,LT,CURRENT USE 01/03/2017 SALONI [...] SITE OF UNSPE 01/03/2017 SALONI NICOLE SENIOR MOBILE DEVELOPER Ot 174.9 MALIGN NEOPL BREAST NOS 01/03/2017 SALONI NICOLEP Ot 241.0 NONTOX UNINODULAR GOITER 01/03/2017 SALONI NICOLE SENIOR MOBILE DEVELOPER Ot 250.00 DIAB BAN WO COMPL, TYPE II OR UNSPEC TY 01/03/2017 SALONI NICOLE SENIOR MOBILE DEVELOPER Ot 272.4 HYPERLIPIDEMIA NEC/NOS 01/03/2017 SALONI NICOLE SENIOR MOBILE DEVELOPER Ot 288.03 DRUG INDUCED NEUTROPENIA 01/03/2017 SALONI NICOLE SENIOR MOBILE DEVELOPER Ot 401.9 HYPERTENSION NOS 01/03/2017 DILLAN NICOLEAH S SENIOR MOBILE DEVELOPER Ot E849.7 ACCID IN RESIDENT INSTIT 01/03/2017 NICOLESALONI Rain SENIOR MOBILE DEVELOPER Ot E933.1 ADV EFF ANTINEOPLASTIC 01/03/2017 NICOLESALONI SENIOR MOBILE DEVELOPER Ot V58.67 LONG-TERM (CURRENT) USE OF INSULIN 01/03/2017 BONNIESALONI SENIOR MOBILE DEVELOPER Ot V58.69 OTH MED,LT,CURRENT USE 01/03/2017 NICOLESALONI Rain SENIOR MOBILE DEVELOPER Ot 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 [ER+] 01/03/2017 BONNIESALONI Briseyda SENIOR MOBILE DEVELOPER Ot C50.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 01/03/2017 DILLAN NICOLEROSEMARY Briseyda COBBP Ot E89.0 POSTPROCEDURAL HYPOTHYROIDISM 01/03/2017 BONNIESALONI SENIOR MOBILE DEVELOPER Ot C50.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 01/03/2017 DILLAN NICOLEROSEMARY Briseyda SENIOR MOBILE DEVELOPER Ot E11.9 TYPE 2 DIABETES MELLITUS WITHOUT COMPLIC 01/03/2017 SALONI NICOLEP Ot E78.5 HYPERLIPIDEMIA, UNSPECIFIED 01/03/2017 NICOLESALONI SENIOR MOBILE DEVELOPER Ot E89.0 POSTPROCEDURAL HYPOTHYROIDISM 01/03/2017 BONNIE SALONI Briseyda SENIOR MOBILE DEVELOPER Ot I10 ESSENTIAL (PRIMARY) HYPERTENSION 01/03/2017 DILLAN NICOLEROSEMARY Briseyda SENIOR MOBILE DEVELOPER Ot 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+] 01/03/2017 DILLAN NICOLEROSEMARY Briseyda SENIOR MOBILE DEVELOPER Ot Z45.2 ENCOUNTER FOR ADJUSTMENT AND MANAGEMENT 01/03/2017 SALONI NICOLE SENIOR MOBILE DEVELOPER Ot Z79.4 SHELTER (CURRENT) USE OF INSULIN 01/03/2017 BONNIE SALONI Rain SENIOR MOBILE DEVELOPER Ot Z79.899 OTHER SHELTER (CURRENT) DRUG THERAPY 01/03/2017 SALONI NICOLE SENIOR MOBILE DEVELOPER Ot 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 01/03/2017 AIDEN BREWER Ot 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 01/03/2017 AIDEN BREWER Ot E11.9 TYPE 2 DIABETES MELLITUS WITHOUT COMPLIC 01/03/2017 AIDEN BREWER Ot E78.5 HYPERLIPIDEMIA, UNSPECIFIED 01/03/2017 AIEDN BREWER Ot E89.0 POSTPROCEDURAL HYPOTHYROIDISM 01/03/2017 AIDEN BREWER Ot I10 ESSENTIAL (PRIMARY) HYPERTENSION 01/03/2017 AIDEN BREWER Ot 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+] 01/03/2017 AIDEN BREWER Ot Z79.4 SHELTER (CURRENT) USE OF INSULIN 01/03/2017 AIDEN BREWER Ot Z79.899 OTHER ISOBUTYLENE OPERATOR CHIEF (CURRENT) DRUG THERAPY 01/03/2017 SALONI NICOLE SENIOR MOBILE DEVELOPER Ot 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 01/03/2017 SALONI NICOLE SENIOR MOBILE DEVELOPER Ot M85.9 DISORDER OF BONE DENSITY AND STRUCTURE, 01/03/2017 SALONI NICOLE SENIOR MOBILE DEVELOPER Ot Z13.820 ENCOUNTER FOR SCREENING FOR OSTEOPOROSIS 01/03/2017 SALONI NICOLE SENIOR MOBILE DEVELOPER Ot Z78.0 ASYMPTOMATIC MENOPAUSAL STATE 01/04/2017 SALONI NICOLE SENIOR MOBILE DEVELOPER Ot 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 01/04/2017 SALONI NICOLE SENIOR MOBILE DEVELOPER Ot M85.9 DISORDER OF BONE DENSITY AND STRUCTURE, 01/04/2017 SALONI NICOLE SENIOR MOBILE DEVELOPER Ot Z13.820 ENCOUNTER FOR SCREENING FOR OSTEOPOROSIS 01/04/2017 SALONI NICOLE SENIOR MOBILE DEVELOPER Ot Z78.0 ASYMPTOMATIC MENOPAUSAL STATE 01/04/2017 SALONI NICOLE SENIOR MOBILE DEVELOPER Ot 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 01/04/2017 SALONI NICOLEP Ot M85.9 DISORDER OF BONE DENSITY AND STRUCTURE, 01/04/2017 SALONI NICOLE SENIOR MOBILE DEVELOPER Ot Z13.820 ENCOUNTER FOR SCREENING FOR OSTEOPOROSIS 01/04/2017 SALONI NICOLE SENIOR MOBILE DEVELOPER Ot Z78.0 ASYMPTOMATIC MENOPAUSAL STATE 01/04/2017 SALONI NICOLE SENIOR MOBILE DEVELOPER Ot 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 01/04/2017 SALONI NICOLE SENIOR MOBILE DEVELOPER Ot M85.9 DISORDER OF BONE DENSITY AND STRUCTURE, 01/04/2017 SALONI NICOLE SENIOR MOBILE DEVELOPER Ot Z13.820 ENCOUNTER FOR SCREENING FOR OSTEOPOROSIS 01/04/2017 SALONI NICOLE SENIOR MOBILE DEVELOPER Ot Z78.0 ASYMPTOMATIC MENOPAUSAL STATE 01/04/2017 SALONI NICOLE SENIOR MOBILE DEVELOPER Ot 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 01/04/2017 SALONI NICOLE SENIOR MOBILE DEVELOPER Ot M85.9 DISORDER OF BONE DENSITY AND STRUCTURE, 01/04/2017 SALONI NICOLE SENIOR MOBILE DEVELOPER Ot Z13.820 ENCOUNTER FOR SCREENING FOR OSTEOPOROSIS 01/04/2017 SALONI NICOLE SENIOR MOBILE DEVELOPER Ot Z78.0 ASYMPTOMATIC MENOPAUSAL STATE 01/14/2017 MARY [...] [ER+] 01/14/2017 OSMAN BOBAN N Ot Z79.4 SHELTER (CURRENT) USE OF INSULIN 01/14/2017 OSMAN, BOBAN N Ot Z79.899 OTHER SHELTER (CURRENT) DRUG THERAPY 01/15/2017 OSMAN BOBAN N [...] [ER+] 01/15/2017 OSMAN BOBAN N Ot Z79.4 ISOBUTYLENE OPERATOR CHIEF (CURRENT) USE OF INSULIN 01/15/2017 OSMAN, BOBAN N Ot Z79.899 OTHER ISOBUTYLENE OPERATOR CHIEF (CURRENT) DRUG THERAPY 01/20/2017 OSMANMARYAN N Ot [...] [ER+] 01/20/2017 AIDEN BREWER Lay Ot Z79.4 ISOBUTYLENE OPERATOR CHIEF (CURRENT) USE OF INSULIN 01/20/2017 AIDEN BREWER Lay Ot Z79.899 OTHER ISOBUTYLENE OPERATOR CHIEF (CURRENT) DRUG THERAPY 01/23/2017 AIDEN BREWER Lay Ot 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 01/23/2017 AIDEN BREWER Lay Ot I89.0 LYMPHEDEMA, NOT ELSEWHERE CLASSIFIED 01/23/2017 AIDEN BREWER Lay Ot 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 01/23/2017 AIDEN BREWER Lay Ot I89.0 LYMPHEDEMA, NOT ELSEWHERE CLASSIFIED 01/24/2017 SALONI NICOLE SENIOR MOBILE DEVELOPER Ot 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 01/24/2017 SALONI NICOLE SENIOR MOBILE DEVELOPER Ot M85.9 DISORDER OF BONE DENSITY AND STRUCTURE, 01/24/2017 SALONI NICOLE SENIOR MOBILE DEVELOPER Ot Z13.820 ENCOUNTER FOR SCREENING FOR OSTEOPOROSIS 01/24/2017 SALONI NICOLE SENIOR MOBILE DEVELOPER Ot Z78.0 ASYMPTOMATIC MENOPAUSAL STATE 01/30/2017 AIDEN BREWER Lay Ot 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 01/30/2017 AIDEN BREWER Lay Ot I89.0 LYMPHEDEMA, NOT ELSEWHERE CLASSIFIED 02/15/2017 SALONI NICOLE SENIOR MOBILE DEVELOPER Ot 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 02/15/2017 SALONI NICOLE SENIOR MOBILE DEVELOPER Ot I89.0 LYMPHEDEMA, NOT ELSEWHERE CLASSIFIED 02/20/2017 [...] MANAGEMENT 02/20/2017 AIDEN BREWER N Ot Z79.4 SHELTER (CURRENT) USE OF INSULIN 02/20/2017 AIDEN BREWER N Ot Z79.899 OTHER SHELTER (CURRENT) DRUG THERAPY 02/27/2017 SALONI NICOLE SENIOR MOBILE DEVELOPER Ot 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 02/27/2017 SALONI NICOLE SENIOR MOBILE DEVELOPER Ot I89.0 LYMPHEDEMA, NOT ELSEWHERE CLASSIFIED 04/05/2017 [...] MANAGEMENT 04/05/2017 AIDEN BREWER N Ot Z79.4 ISOBUTYLENE OPERATOR CHIEF (CURRENT) USE OF INSULIN 04/05/2017 AIDEN BREWER N Ot Z79.899 OTHER SHELTER (CURRENT) DRUG THERAPY 04/05/2017 SALONI NICOLE SENIOR MOBILE DEVELOPER Ot 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 Visit Date/Time Discharge Status Pt. Type Provider Facility Loc./Unit Complaint [id number] 01/16/2017 10:33:00 2016 14:53:00 DIS Outpatient AIDEN BREWER [facility] REHAB LYMPHEDEMA OF R UE [id number] 01/07/2017 09:55:00 2016 00:01:00 DIS Outpatient AIDEN BREWER [facility] ONC [id number] 07/17/2016 13:16:00 2016 00:01:00 DIS Outpatient AIDEN BREWER [facility] ONC [id number] 04/23/2016 10:40:00 2015 09:40:00 DIS Outpatient AIDEN BREWER [facility] ONC [id number] 01/23/2016 10:45:00 2015 00:01:00 DIS Outpatient AIDEN BREWER [facility] ONC [id number] 11/06/2015 12:46:00 2015 15:46:00 DIS Emergency CLINT DAVILA, NAYELY Brooks [facility] ER R SIDE NUMBNESS [id number] 09/05/2015 10:31:00 2014 23:59:59 CLS Outpatient SALONI NICOLE [facility] RAD BREAST CANCER ABNORMAL US OF BREAST [id number] 07/06/2015 08:47:00 2014 00:01:00 DIS Outpatient OSMAN AIDEN Chun [facility] ONC [id number] 07/06/2015 09:13:00 2014 23:59:59 CLS Outpatient SALONI NICOLE SENIOR MOBILE DEVELOPER [facility] ONC [id number] 05/23/2015 13:26:00 2014 00:01:00 DIS Outpatient AIDEN BREWER [facility] ONC [id number] 05/09/2015 09:46:00 2014 23:59:59 CLS Outpatient SALONI NICOLE [facility] RAD BREAST CA [id number] 04/28/2015 07:55:00 2014 10:25:00 DIS Outpatient GLADYS MARTÍNEZ MD [facility] SDC THYROID MASS [id number] 04/26/2015 08:41:00 2014 23:59:59 CLS Outpatient GLADYS MARTÍNEZ MD [facility] PREOP RIGHT THYROID MASS [id number] 04/19/2015 10:56:00 2014 23:59:59 CLS Outpatient GLADYS MARTÍNEZ MD [facility] RAD HISTORY PNEUMONIA [id number] 03/31/2015 14:02:00 2014 23:59:59 CLS Outpatient GLADYS MARTÍNEZ MD [facility] PREOP THYROID MASS [id number] 03/22/2015 13:41:00 2014 23:59:59 CLS Outpatient GLADYS MARTÍNEZ MD [facility] RAD PNEUMONIA [id number] 02/17/2015 10:23:00 2014 23:59:59 CLS Outpatient GLADYS MARTÍNEZ MD [facility] PREOP THYROID MASS [id number] 02/15/2015 11:49:00 2014 23:59:59 CLS Outpatient LEXA FARAH MD [facility] RAD COUGH/SOB [id number] 01/12/2015 09:40:00 2014 00:01:00 DIS Outpatient AIDEN BREWER [facility] ONC [id number] 01/12/2015 09:41:00 2014 23:59:59 CLS Outpatient SALONI NICOLE SENIOR MOBILE DEVELOPER [facility] ONC [id number] 11/10/2014 10:52:00 2014 23:59:59 CLS Outpatient SALONI NICOLE SENIOR MOBILE DEVELOPER [facility] ONC [id number] 11/05/2014 10:39:00 2014 00:01:00 DIS Outpatient AIDEN BREWER [facility] ONC [id number] 09/22/2014 11:21:00 2013 23:59:59 CLS Outpatient AIDEN BREWER [facility] RAD NODULES [id number] 09/17/2014 10:00:00 2013 23:59:59 CLS Preadmit TIANA HARDY MD [facility] CARD IRREGULAR HEARTBEAT [id number] 06/18/2014 10:23:00 2013 00:01:00 DIS Outpatient TIANA HARDY MD [facility] CARD IRREGULAR HEARTBEAT [id number] 09/14/2014 09:53:00 2013 23:59:59 CLS Outpatient SALONI NICOLE SENIOR MOBILE DEVELOPER [facility] ONC [id number] 07/08/2014 06:10:00 2013 17:05:00 DIS Outpatient GLADYS MARTÍNEZ MD [facility] SDC RT BREAST CA [id number] 07/05/2014 09:28:00 2013 23:59:59 CLS Outpatient GLADYS MARTÍNEZ MD [facility] PREOP RIGHT BREAST CANCER [id number] 06/10/2014 13:12:00 2013 00:01:00 DIS Outpatient AIDEN BREWER [facility] ONC [id number] 06/10/2014 14:59:00 2013 23:59:59 CLS Outpatient AIDEN BREWER [facility] CARD AFIB [id number] 05/20/2014 10:04:00 2013 23:59:59 CLS Outpatient SALONI NICOLEP [facility] ONC [id number] 05/17/2014 09:47:00 2013 23:59:59 CLS Outpatient AIDEN BREWER [facility] RAD BREAST CA [id number] 04/06/2014 07:56:00 2013 23:59:59 CLS Outpatient AIDEN BREWER [facility] RAD BREAST CA [id number] 04/05/2014 11:35:00 2013 17:35:00 DIS Outpatient GLADYS MARTÍNEZ MD [facility] SDC RIGHT BREAST CARCINOMA [id number] 04/02/2014 11:40:00 2013 23:59:59 CLS Outpatient GLADYS MARTÍNEZ MD [facility] PREOP RIGHT BREAST CARCINOMA [id number] 04/01/2014 12:56:00 2013 23:59:59 CLS Outpatient AIDEN BREWER [facility] CARD BREAST CA, CHEMO CLEARANCE [id number] 03/11/2014 13:32:00 2013 23:59:59 CLS Outpatient LEXA FARAH MD [facility] RAD RT BREAST MASS [id number] 03/10/2014 12:36:00 2013 23:59:59 CLS Outpatient LEXA FARAH MD [facility] RAD RT BREAST LUMP [id number] 04/12/2017 11:00:00 ACT Outpatient SALONI NICOLE [facility] REHAB LYMPHEDEMA OF ARM;BREAST CANCER; UNSTEADY GAIT [id number] 04/01/2017 14:18:00 ACT Outpatient AIDEN BREWER [facility] ONC [id number] 01/03/2017 12:26:00 ACT Outpatient SALONI NICOLE SENIOR MOBILE DEVELOPER [facility] RAD POSTMENOPAUSAL, BREAST CANCER [id number] 05/14/2016 12:39:00 ACT Outpatient SALONI NICOLE SENIOR MOBILE DEVELOPER [facility] RAD BREAST CANCER [id number] 04/23/2016 10:37:00 ACT Outpatient SALONI NICOLE SENIOR MOBILE DEVELOPER [facility] ONC [id number] 09/19/2015 09:25:00 ACT Outpatient AIDEN BREWER N [facility] ONC [id number] 09/19/2015 09:23:00 ACT Outpatient SALONI NICOLE [facility] ONC [id number] 12/09/2014 09:37:00 Document Registration [id number] 07/17/2012 10:45:00 Document Registration [id number] 06/25/2011 13:45:00 Document Registration [id number] 05/14/2011 09:09:00 Document Registration [id number] 05/01/2011 19:38:00 Document Registration [id number] 04/23/2011 05:36:00 Document Registration [id number] 04/18/2011 15:02:00 Document Registration [id number] 04/10/2011 09:35:00 Document Registration [id number] 11/01/2010 12:16:00 Document Registration
[2017-04-23 16:56] VITALS: BP 142/74
[2017-04-23] MEDS ORDERED: LEVOFLOXACIN 750 MG/D5W 150 ML PRE-MIX IV SCH (21:00)
[2017-04-23] MEDS ORDERED: LEVOFLOXACIN 750 MG TAB (LEVAQUIN) PO SCH (21:00)
== END 2017-04-23 16:45 | disposition home health service (06) | DRG 186 ==
LOC: EDUNIT# 15:57 → ER 15:58 → 4TH 19:52
PROVIDERS: ADMIT Family Medicine; ATTEND Family Medicine
PROC: 0W9B30Z Drainage of Left Pleural Cavity with Drainage Device, Percutaneous Approach (ICD-10-PCS; principal; 2017-04-22)
DX: J90 Pleural effusion, not elsewhere classified (principal); J18.9 Pneumonia, unspecified organism; I89.0 Lymphedema, not elsewhere classified; I48.91 Unspecified atrial fibrillation; R91.8 Other nonspecific abnormal finding of lung field; R59.0 Localized enlarged lymph nodes; E11.65 Type 2 diabetes mellitus with hyperglycemia; I12.9 Hypertensive chronic kidney disease with stage 1 through stage 4 chronic kidney disease, or unspecified chronic kidney disease; N18.9 Chronic kidney disease, unspecified; E78.00 Pure hypercholesterolemia, unspecified; E04.9 Nontoxic goiter, unspecified; Z85.3 Personal history of malignant neoplasm of breast; Z79.4 Long term (current) use of insulin; Z87.891 Personal history of nicotine dependence
CPT/HCPCS: 36415; 71010; 71275; 80048; 80053; 81000; 82945; 82962; 83605; 83615; 83735; 83880; 84157; 84484; 85025; 85379; 86141; 87040; 87070; 87088; 87205; 88112; 88305; 89051; 93005; 93041; 93306; 94640; 94664; 94760; 94761; 96365

== ENCOUNTER → 2017-05-07 | Outpatient (CLI) | payer MEDICARE, OTHER ==
[~2017-05-07] MED LIST changes: +ANAS1TAB7 PO; +CALC-6 PO; +CALC-697 PO; +CIPR500T4 PO; +FULVESTRANT INJ; +FURO20TA4 PO; +GEMF600T3 PO; +INSU100I29 SC; +LEVO100T7 PO; +LEVO750T39 PO; +PALB125C PO; +PIOG45TA18 PO; +POTA10TA10 PO; +[UNRECOGNIZED DRUG - CODE] IV
--- NOTE | 2017-05-07 18:00 | Diagnostic Imaging Report ---
EXAMINATION: PET-CT TECHNIQUE: Serum glucose level at the time of the study is: 56 mg/dL. 10.3 mCi of FDG was administered intravenously followed by obtaining PET images with corresponding noncontrast CT scan images. The CT scan was performed for anatomic correlation and attenuation correction and was not performed according to the diagnostic protocol of the areas covered. The scan was performed from the head to mid thighs. INDICATION: History of breast cancer. Correlation with CT scan of the chest from 04/21/2017 is evaluated. FINDINGS: There is symmetric FDG uptake in the brain. There are left supraclavicular mildly enlarged hypermetabolic lymph nodes seen. There are multiple enlarged mediastinal lymph nodes with significant FDG uptake with SUV values in the range of 7-10 compatible with metastatic lymph nodes. There are also metastatic hilar lymph nodes with prominent FDG uptake also seen. The small pulmonary nodules seen on recent CT of the chest are too small for accurate PET characterization with no definite abnormal FDG uptake in the lungs. There is moderate hypermetabolism involving a borderline-sized lymph node adjacent to the GE junction. There are diffusely intense areas of FDG uptake in the colon and small bowel which are not associated with significant wall thickening or focal mass. This could be related to mild inflammatory or infectious process. There are numerous significantly hypermetabolic masses seen within the osseous structures including the spine, the ribs, and in the pelvis with mostly sclerotic corresponding lesions compatible with metastasis. These lesions are new when compared to PET/CT of 04/06/2014 exam. IMPRESSION: There are numerous hypermetabolic sclerotic osseous metastases and metastatic lymph nodes in the chest, upper abdomen and the left supraclavicular lymph nodes. Dictated by: Dictated on workstation # [id number]
== END ==
LOC: RAD 09:34
PROVIDERS: ATTEND Internal Medicine Hematology & Oncology
DX: C79.89 Secondary malignant neoplasm of other specified sites (principal); C79.51 Secondary malignant neoplasm of bone; C50.511 Malignant neoplasm of lower-outer quadrant of right female breast; C78.00 Secondary malignant neoplasm of unspecified lung

== ENCOUNTER 2017-05-08 13:01 | Outpatient (RCR) | payer MEDICARE, OTHER ==
[2017-04-01 14:50] LABS: BASOPHILS % (AUTO) 1 % (0-10); EOSINOPHILS # (AUTO) 0.2 10^3/uL (0.0-0.3); EOSINOPHILS % (AUTO) 4 % (0-10); LYMPHOCYTES % (AUTO) 24 % (12-44); MEAN CORPUSCULAR HEMOGLOBIN 31 PG (25-34); MEAN CORPUSCULAR HGB CONC 33 G/DL (32-36); MEAN CORPUSCULAR VOLUME 93 FL (80-99); MEAN PLATELET VOLUME 9.7 FL (7.4-10.4); MONOCYTES # (AUTO) 0.5 X 10^3 (0.0-1.0); MONOCYTES % (AUTO) 12 % (0-12); NEUTROPHILS # (AUTO) 2.3 X 10^3 (1.8-7.8); NEUTROPHILS % (AUTO) 59 % (42-75); PLATELET COUNT 193 10^3/uL (130-400); RED BLOOD COUNT 3.98 10^6/uL (4.35-5.85); RED CELL DISTRIBUTION WIDTH 15.2 % (10.0-14.5); WHITE BLOOD COUNT 3.9 10^3/uL (4.3-11.0)
[2017-04-01 15:09] LABS: ALBUMIN 4.3 GM/DL (3.2-4.5); BILIRUBIN,TOTAL 0.6 MG/DL (0.1-1.0); CALCIUM 10.1 MG/DL (8.5-10.1); CREATININE SERUM 1.14 MG/DL (0.60-1.30); ICTERUS 0.6 (-100-1.9); POTASSIUM 4.1 MMOL/L (3.6-5.0); TOTAL PROTEIN 6.9 GM/DL (6.4-8.2)
[2017-04-01 15:29] LABS: THYROID STIMULATING HORMONE 5.36 UIU/ML (0.35-4.94)
[~2017-05-08 13:01] MED LIST changes: -CALC-6 PO; -CIPR500T4 PO; -FULVESTRANT INJ; -FURO20TA4 PO; -INSU100I29 SC; -PALB125C PO; -POTA10TA10 PO; -[UNRECOGNIZED DRUG - CODE] IV
[2017-05-08 14:31] LABS: BASOPHILS % (AUTO) 1 % (0-10); EOSINOPHILS # (AUTO) 0.1 10^3/uL (0.0-0.3); EOSINOPHILS % (AUTO) 2 % (0-10); LYMPHOCYTES # (AUTO) 0.6 X 10^3 (1.0-4.0); LYMPHOCYTES % (AUTO) 18 % (12-44); MEAN CORPUSCULAR HEMOGLOBIN 31 PG (25-34); MEAN CORPUSCULAR HGB CONC 33 G/DL (32-36); MEAN CORPUSCULAR VOLUME 94 FL (80-99); MEAN PLATELET VOLUME 9.3 FL (7.4-10.4); MONOCYTES # (AUTO) 0.4 X 10^3 (0.0-1.0); MONOCYTES % (AUTO) 11 % (0-12); NEUTROPHILS # (AUTO) 2.5 X 10^3 (1.8-7.8); NEUTROPHILS % (AUTO) 69 % (42-75); PLATELET COUNT 210 10^3/uL (130-400); RED BLOOD COUNT 3.83 10^6/uL (4.35-5.85); RED CELL DISTRIBUTION WIDTH 14.5 % (10.0-14.5); WHITE BLOOD COUNT 3.6 10^3/uL (4.3-11.0)
[2017-05-08 14:54] LABS: ALBUMIN 3.9 GM/DL (3.2-4.5); BILIRUBIN,TOTAL 0.4 MG/DL (0.1-1.0); CREATININE SERUM 1.07 MG/DL (0.60-1.30); POTASSIUM 4.1 MMOL/L (3.6-5.0); TOTAL PROTEIN 6.6 GM/DL (6.4-8.2)
== END 2017-05-20 | disposition home or self-care (01) ==
LOC: ONC 13:01
PROVIDERS: ATTEND Internal Medicine Hematology & Oncology
DX: C50.511 Malignant neoplasm of lower-outer quadrant of right female breast (principal); E89.0 Postprocedural hypothyroidism; E11.9 Type 2 diabetes mellitus without complications; I10 Essential (primary) hypertension; E78.5 Hyperlipidemia, unspecified; Z79.4 Long term (current) use of insulin; Z79.899 Other long term (current) drug therapy; Z17.0 Estrogen receptor positive status [ER+]; Z45.2 Encounter for adjustment and management of vascular access device
CPT/HCPCS: 36591; 80053; 84443; 85025; 86300; 96523; 99213

== ENCOUNTER → 2017-05-13 | Outpatient (CLI) | payer MEDICARE, OTHER ==
[~2017-05-13] MED LIST changes: +CALC-6 PO; +CIPR500T4 PO; +FULVESTRANT INJ; +FURO20TA4 PO; +INSU100I29 SC; +IOHEXOL 350 MG/ML 100 ML (OMNIPAQUE 350) VIAL IV ONE; +NS 100 ML (IVPB) BAG IV ONE; +PALB125C PO; +POTA10TA10 PO; +[UNRECOGNIZED DRUG - CODE] IV
--- NOTE | 2017-05-13 13:15 | Diagnostic Imaging Report ---
PROCEDURE: CT head with and without contrast. TECHNIQUE: Multiple contiguous axial images were obtained through the brain before and after the administration of intravenous contrast. INDICATION: Unsteady gait, history of breast cancer. COMPARISON: Noncontrast CT head of 11/06/2015. FINDINGS: No space-occupying mass or hyperdense hemorrhage. Postcontrast imaging demonstrates no pathologic masslike enhancement or leptomeningeal enhancement. No hydrocephalus or midline shift. Basilar cisterns remain patent. Periventricular white matter hypoattenuation is nonspecific, but likely due to chronic microvascular ischemic disease. No destructive calvarial lesion. Mastoid air cells are clear. Paranasal sinuses are also clear. Orbits are unremarkable with the exception of bilateral cataract surgery. IMPRESSION: 1. No space-occupying mass or evidence of pathologic enhancement to suggest intracranial metastasis. Please note that MRI is more sensitive for small parenchymal metastases. Dictated by: Dictated on workstation # [id number]
== END ==
LOC: RAD 11:50
PROVIDERS: ATTEND Internal Medicine Hematology & Oncology
DX: R26.81 Unsteadiness on feet (principal); R53.1 Weakness; Z85.3 Personal history of malignant neoplasm of breast
CPT/HCPCS: 70470

== ENCOUNTER → 2017-05-28 | Outpatient (CLI) | payer MEDICARE, OTHER ==
[~2017-05-28] MED LIST changes: -IOHEXOL 350 MG/ML 100 ML (OMNIPAQUE 350) VIAL IV ONE; -NS 100 ML (IVPB) BAG IV ONE
--- NOTE | 2017-05-28 15:19 | Diagnostic Imaging Report ---
EXAMINATION: PA and lateral chest at 03:17 p.m. INDICATION: Shortness of breath. FINDINGS: The previous exam of 04/22/2017 noted that the right lung base was partially obscured by atelectasis/infiltrate and fluid. The left lung base appeared generally clear. In the interval since the prior study, the density in the right lung base has perhaps slightly increased. The right hemidiaphragm is now completely obscured by atelectasis/infiltrate and fluid. Furthermore, the left lower lobe has become opacified as well and the left lung base is now obscured by atelectasis/infiltrate and fluid. The upper lungs remain relatively clear. The heart is difficult to assess but seems stable. The mediastinum is not widened. The osseous structures are intact. The left-sided Groshong catheter noted previously remains unchanged in position. IMPRESSION: The appearance of the chest has worsened since the prior study as there is greater involvement of both lung bases, particularly left lung base, by pneumonia/atelectasis and fluid. A follow-up study will be recommended for continued evaluation. Dictated by: Dictated on workstation # [id number]
== END ==
LOC: RAD 14:47
PROVIDERS: ATTEND Nurse Practitioner Adult Health
DX: J18.9 Pneumonia, unspecified organism (principal); R91.8 Other nonspecific abnormal finding of lung field; C50.511 Malignant neoplasm of lower-outer quadrant of right female breast; Z87.09 Personal history of other diseases of the respiratory system
CPT/HCPCS: 71020

== ENCOUNTER 2017-05-31 07:43 | Inpatient (IN) | payer MEDICARE, OTHER ==
[~2017-05-31] VITALS: Ht 165.1 cm; Wt 73.7 kg
[~2017-05-31 07:43] MED LIST changes: -CALC-6 PO; -CIPR500T4 PO; -FULVESTRANT INJ; -FURO20TA4 PO; -INSU100I29 SC; -PALB125C PO; -POTA10TA10 PO; -[UNRECOGNIZED DRUG - CODE] IV
--- OUTSIDE RECORDS SUMMARY | 2017-05-31 07:49 | XMS REPORT | Clinical Summary ---
Author Author [facility] Organization [facility] Address Unknown Phone Unavailable Care Team Providers Care Stubber Name Role Phone PCP Unavailable Source Comments Some departments are not documenting in the electronic medical record. If you do not see the information that you expected, contact Release of Information in the Health Information Management department at [phone] for further assistance in locating additional records.[facility] Allergies Active Allergy Reactions Severity Noted Date Comments Penicillin G RASH Medium 05/20/2017 Current Medications Prescription Sig. Disp. Refills Start End Date Status Date METOPROLOL SUCCINATE PO Take 25 mg by mouth Active daily. GEMFIBROZIL PO Take 600 mg by mouth Active twice daily. ANASTROZOLE PO Take 1 mg by mouth daily. Active INDAPAMIDE PO Take 2.5 mg by mouth Active daily. LOVASTATIN PO Take 20 mg by mouth Active daily. OMEPRAZOLE (PRILOSEC PO) Take 20 mg by mouth Active daily. PIOGLITAZONE HCL (ACTOS Take 45 mg by mouth. Active PO) METFORMIN HCL (METFORMIN Take 1,000 mg by mouth Active PO) twice daily with meals. LEVOTHYROXINE SODIUM Take 100 mcg by mouth Active (LEVOTHYROXINE PO) daily. loratadine (CLARITIN) 10 Take 10 mg by mouth every Active mg tablet morning. CALCIUM CARBONATE Take 600 mg by mouth Active (CALCIUM 600 PO) daily. ERGOCALCIFEROL (VITAMIN Take 10 mg by mouth Active D2) (VITAMIN D PO) daily. Active Problems Not on file Encounters Date Type Specialty Care Team Description 05/20/2017 Office Visit Oncology O'Meme Agee MD 05/13/2017 Ancillary Radiology Outpatient, Radiologist Diagnosis unknown Orders 05/13/2017 Ancillary Radiology Outpatient, Radiologist Diagnosis unknown Orders 05/13/2017 Ancillary Radiology Outpatient, Radiologist Diagnosis unknown Orders 05/13/2017 Telephone Oncology O'Meme Agee MD Navigation Assessment 05/12/2017 Ancillary Radiology Outpatient, Radiologist Diagnosis unknown Orders 05/07/2017 Hospital Radiology Encounter 04/21/2017 Hospital Radiology Encounter from Last 3 Months Family History Medical History Relation Name Comments Diabetes Father Heart Disease Father High Cholesterol Father Hypertension Father Diabetes Maternal Aunt Cancer-Ovarian Maternal Grandmother Stroke Mother Relation Name Status Comments Father Maternal Aunt Maternal Grandmother Mother Social History Tobacco Use Types Packs/Day Years Used Date Former Smoker Cigarettes 1 11 Quit: 03/21/1991 Smokeless Tobacco: Never Used Alcohol Use Drinks/Week oz/Week Comments No Sex Assigned at Date Recorded Not on file Last Filed Vital Signs Vital Sign Reading Time Taken Blood Pressure 138/65 05/20/2017 2:22 PM CDT Pulse 79 05/20/2017 2:22 PM CDT Temperature 36.4 C (97.6 F) 05/20/2017 2:11 PM CDT Respiratory Rate 18 05/20/2017 2:11 PM CDT Oxygen Saturation 93% 05/20/2017 2:11 PM CDT Inhaled Oxygen - - Concentration Weight 78.2 kg (172 lb 4.8 oz) 05/20/2017 2:22 PM CDT Height - - Body Mass Index - - Plan of Treatment Health Maintenance Due Date Last Done Comments PHYSICAL (COMPREHENSIVE) 1947 EXAM PERTUSSIS VACCINE 1952 TETANUS VACCINE 1958 COLORECTAL CANCER 1991 SCREENING SHINGLES VACCINE 2001 OSTEOPOROSIS SCREENING 2006 PREVNAR/PNEUMOVAX (#1) 2006 INFLUENZA VACCINE 06/14/2017 Results * NM PET/CT EXTERNAL IMAGING (05/07/2017) Narrative This order has been auto finalized and does not contain a result. * CT CHEST EXTERNAL IMAGING (04/21/2017) Narrative This order has been auto finalized and does not contain a result. from Last 3 Months
--- OUTSIDE RECORDS SUMMARY | 2017-05-31 07:50 | XMS REPORT | Encounter Summary ---
Author Author [facility] Organization [facility] Address Unknown Phone Unavailable Care Team Providers Care Secondary School Registrar Name Role Phone PCP Unavailable Reason for Visit * Reason Comments Navigation Assessment Encounter Details Date Type Department Care Team Description 05/13/2017 Telephone [facility] Meme Lockwood MD Navigation Assessment [facility] Exam [address] [place] [address] [place] [address] [phone] Social History Tobacco Use Types Packs/Day Years Used Date Never Assessed Sex Assigned at Date Recorded Not on file as of this encounter Plan of Treatment Not on fileas of this encounter Visit Diagnoses Not on filein this encounter
--- OUTSIDE RECORDS SUMMARY | 2017-05-31 07:50 | XMS REPORT | Encounter Summary ---
Author Author [facility] Organization [facility] Address Unknown Phone Unavailable Care Team Providers Care Residential Director Name Role Phone PCP Unavailable Encounter Details Date Type Department Care Team Description 05/13/2017 Ancillary Rad Outpatient, Radiologist Diagnosis unknown Orders [address] [place] [id number] Social History Tobacco Use Types Packs/Day Years Used Date Never Assessed Sex Assigned at Date Recorded Not on file as of this encounter Plan of Treatment Not on fileas of this encounter Results * NM DEXA EXTERNAL IMAGING (01/03/2017) Narrative This order has been auto finalized and does not contain a result. * US BREAST EXTERNAL IMAGING (05/09/2015 12:30 AM) Narrative This order has been auto finalized and does not contain a result. * MAMMO DIAG EXTERNAL IMAGING (05/09/2015 12:15 AM) Narrative This order has been auto finalized and does not contain a result. * NM DEXA EXTERNAL IMAGING (12/09/2014) Narrative This order has been auto finalized and does not contain a result. * US BREAST EXTERNAL IMAGING (05/17/2014) Narrative This order has been auto finalized and does not contain a result. * US BREAST BIOPSY EXTERNAL IMAGING (03/11/2014 12:15 AM) Narrative This order has been auto finalized and does not contain a result. * MAMMO DIAG EXTERNAL IMAGING (03/11/2014) Narrative This order has been auto finalized and does not contain a result. in this encounter Visit Diagnoses Diagnosis Diagnosis unknown Other unknown and unspecified cause of morbidity or mortality in this encounter
--- OUTSIDE RECORDS SUMMARY | 2017-05-31 07:50 | XMS REPORT | Encounter Summary ---
Author Author [facility] Organization [facility] Address Unknown Phone Unavailable Care Team Providers Care Hotel Associate Name Role Phone PCP Unavailable Encounter Details Date Type Department Care Team Description 05/13/2017 Ancillary Rad Outpatient, Radiologist Diagnosis unknown Orders [address] [place] [address] Social History Tobacco Use Types Packs/Day Years Used Date Never Assessed Sex Assigned at Date Recorded Not on file as of this encounter Plan of Treatment Not on fileas of this encounter Results * US BREAST EXTERNAL IMAGING (03/10/2014 12:15 AM) Narrative This order has been auto finalized and does not contain a result. * MAMMO DIAG EXTERNAL IMAGING (03/10/2014) Narrative This order has been auto finalized and does not contain a result. in this encounter Visit Diagnoses Diagnosis Diagnosis unknown Other unknown and unspecified cause of morbidity or mortality in this encounter
--- OUTSIDE RECORDS SUMMARY | 2017-05-31 07:50 | XMS REPORT | Encounter Summary ---
Author Author [facility] Organization [facility] Address Unknown Phone Unavailable Care Team Providers Care Immigration Lawyer Name Role Phone PCP Unavailable Reason for Visit * Reason Comments Heme/Onc Care * Consult, Test & Treat (Routine) Status Reason Specialty Diagnoses / Referred By Referred To Procedures Contact Contact New Request Oncology Procedures Carrillo Molina O'Dea, Anne, MD NEW PATIENT [facility] [address] [place] [address] Phone: Fax: Encounter Details Date Type Department Care Team Description 05/20/2017 Office Visit [facility] Meme Lockwood MD [facility] - [address] Exam [address] [place] [address] [phone] Social History Tobacco Use Types Packs/Day Years Used Date Former Smoker Cigarettes 1 11 Quit: 03/21/1991 Smokeless Tobacco: Never Used Alcohol Use Drinks/Week oz/Week Comments No Sex Assigned at Date Recorded Not on file as of this encounter Last Filed Vital Signs Vital Sign Reading [...] - - Body Mass Index - - in this encounter Functional Status Functional Status Response Date of Assessment Does the patient have a hearing impairment: No 05/20/2017 Does the patient have a visual impairment: No 05/20/2017 Does the patient have impaired ambulation: No 05/20/2017 Does the patient have an activity of daily living No 05/20/2017 (ADL) impairment: Does the patient have an instrumental activity of No 05/20/2017 daily living (IADL) impairment: Cognitive Status Response Date of Assessment Does the patient have a cognitive impairment: No 05/20/2017 as of this encounter Progress Notes * Teena Erwin - 05/20/2017 2:20 PM CDT NO SCHEDULING NEEDED in this encounter Plan of Treatment Not on fileas of this encounter Visit Diagnoses Not on filein this encounter
--- OUTSIDE RECORDS SUMMARY | 2017-05-31 07:50 | XMS REPORT | Encounter Summary ---
Author Author [facility] Organization [facility] Address Unknown Phone Unavailable Care Team Providers Care Cut Off Sawyer Name Role Phone PCP Unavailable Encounter Details Date Type Department Care Team Description 05/13/2017 Ancillary Rad Outpatient, Radiologist Diagnosis unknown Orders [address] [place] [address] Social History Tobacco Use Types Packs/Day Years Used Date Never Assessed Sex Assigned at Date Recorded Not on file as of this encounter Plan of Treatment Not on fileas of this encounter Results * MAMMO SCREEN EXTERNAL IMAGING (07/17/2012) Narrative This order has been auto finalized and does not contain a result. in this encounter Visit Diagnoses Diagnosis Diagnosis unknown Other unknown and unspecified cause of morbidity or mortality in this encounter
--- OUTSIDE RECORDS SUMMARY | 2017-05-31 07:50 | XMS REPORT | Encounter Summary ---
Author Author [facility] Organization [facility] Address Unknown Phone Unavailable Care Team Providers Care Diagnostic Assistant Name Role Phone PCP Unavailable Encounter Details Date Type Department Care Team Description 04/21/2017 Hospital [facility] Radiology [address] [place] [address] Social History Tobacco Use Types Packs/Day Years Used Date Never Assessed Sex Assigned at Date Recorded Not on file as of this encounter Plan of Treatment Not on fileas of this encounter Results * CT CHEST EXTERNAL IMAGING (04/21/2017) Narrative This order has been auto finalized and does not contain a result. in this encounter Visit Diagnoses Diagnosis Diagnosis unknown Other unknown and unspecified cause of morbidity or mortality in this encounter
--- OUTSIDE RECORDS SUMMARY | 2017-05-31 07:50 | XMS REPORT | Encounter Summary ---
Author Author [facility] Organization [facility] Address Unknown Phone Unavailable Care Team Providers Care Glove Brusher Name Role Phone PCP Unavailable Encounter Details Date Type Department Care Team Description 05/07/2017 Hospital [facility] Hospital Radiology [address] [place] [address] Social History Tobacco Use Types Packs/Day Years Used Date Never Assessed Sex Assigned at Date Recorded Not on file as of this encounter Plan of Treatment Not on fileas of this encounter Results * NM PET/CT EXTERNAL IMAGING (05/07/2017) Narrative This order has been auto finalized and does not contain a result. in this encounter Visit Diagnoses Diagnosis Diagnosis unknown Other unknown and unspecified cause of morbidity or mortality in this encounter
--- OUTSIDE RECORDS SUMMARY | 2017-05-31 07:50 | XMS REPORT | Encounter Summary ---
Author Author [facility] Organization [facility] Address Unknown Phone Unavailable Care Team Providers Care Handwriting Expert Name Role Phone PCP Unavailable Encounter Details Date Type Department Care Team Description 05/12/2017 Ancillary Rad Outpatient, Radiologist Diagnosis unknown Orders [address] [place], [place] [id number] Social History Tobacco Use Types Packs/Day Years [...] a result. * US BREAST EXTERNAL IMAGING (05/14/2016 12:15 AM) Narrative This order has been auto finalized and does not contain a result. * MAMMO DIAG EXTERNAL IMAGING (05/14/2016) Narrative This order has been auto finalized and does not contain a result. * CT HEAD EXTERNAL IMAGING (11/06/2015) Narrative This order has been auto finalized and does not contain a result. * US BREAST EXTERNAL IMAGING (09/05/2015) Narrative This order has been auto finalized and does not contain a result. * MAMMO DIAG EXTERNAL IMAGING (05/09/2015) Narrative This order has been auto finalized and does not contain a result. in this encounter Visit Diagnoses Diagnosis Diagnosis unknown Other unknown and unspecified cause of morbidity or mortality in this encounter
[2017-05-31] MEDS ORDERED: RT-ALBUTEROL/IPRATROPIUM 3 ML (DUONEB) VIAL INH ONE ×2 (08:00→08:15)
--- NOTE | 2017-05-31 08:14 | Diagnostic Imaging Report ---
INDICATION: Shortness of air COMPARISON: 815 FINDINGS: Bilateral effusions, basilar atelectasis and nonspecific infiltrates increased. Heart size upper limits not obviously changed. No pneumothorax. IMPRESSION: Increased basilar pleural parenchymal opacities. Dictated by: Dictated on workstation # [id number]
--- NOTE | 2017-05-31 08:17 | ED Dyspnea ---
General Stated Complaint: SOB Source of Information: Patient History of Present Illness Time Seen by Provider: 07:44 Initial Comments PT ARRIVES VIA POV FROM HOME PT C/O SHORTNESS OF BREATH PT STATES SHE WAS DX WITH BREAST CANCER 4 YEARS AGO, AND HAD SURGERY, CHEMO AND RADIATION AND WAS DOING WELL SHE BEGAN TO HAVE SHORTNESS OF BREATH A MONTH AGO AND WAS FOUND TO HAVE METASTATIC DISEASE TO LUNGS WITH PLEURAL EFFUSIONS BILATERALLY PT HAD THORACENTESIS AND WAS STARTED ON HOME O2 HAS NOT STARTED TREATMENT FOR METASTATIC DISEASE YET PT STATES SHORTNESS HAS GOTTEN MUCH WORSE SINCE YESTERDAY + ORTHOPNEA STATES CHEST AND BACK HURTS TO BREATHE--LEFT > RIGHT WAS NOT ABLE TO SLEEP AT ALL LAST NIGHT DUE TO DIFFICULTY BREATHING, EVEN WHEN SITTING IN A CHAIR NO SWELLING IN LEGS/ FEET VOIDING A NORMAL AMOUNT NO FEVER/SWEATS/CHILLS HAS HAD A SLIGHT COUGH SINCE LAST NIGHT, NON-PRODUCTIVE PCP: KATHY, STORAGE SPECIALIST ANGELIA LEE ONCOLOGY: DR. BREWER Allergies and Home Medications Allergies Coded Allergies: Penicillins (Unverified Allergy, Unknown, RASH, 10/19/16) Home Medications Amlodipine Besylate 5 Mg Tab, 5 MG PO HS, (Reported) Benazepril Hcl 10 Mg Tablet, 10 MG PO HS, (Reported) Calcium Carbonate/Vitamin D3 1 Each Tablet, 1 TAB PO HS, (Reported) Gemfibrozil 600 Mg Tablet, 600 MG PO BID, (Reported) Indapamide 2.5 Mg Tablet, 2.5 MG PO DAILY, (Reported) Insulin Detemir 100 Unit/1 Ml Insuln.pen, 30 UNITS SC DAILY for 30 Days Take in the AM Prescribed by: ISIAH MARTIN on 06/01/17 1400 Levothyroxine Sodium 100 Mcg Tablet, 100 MCG PO DAILY, (Reported) Loratadine 10 Mg Tab, 10 MG PO HS, (Reported) Lovastatin 20 Mg Tablet, 20 MG PO DAILY, (Reported) Metformin Hcl 1,000 Mg Tablet, 1,000 MG PO BID WITH MEALS, (Reported) Metoprolol Tartrate 25 Mg Tablet, 25 MG PO BID, (Reported) Omeprazole 20 Mg Capsule.dr, 20 MG PO HS, (Reported) Palbociclib 125 Mg Capsule, 125 MG PO UD, (Reported) TAKE DAYS 1-21 THEN OFF FOR 7 DAYS THIS IS IN THE MAIL- HAS NOT STARTED TAKING YET Pioglitazone HCl 45 Mg Tablet, 45 MG PO DAILY, (Reported) [Fluvestrant Inj] , INJ UD, (Reported) EVERY 2 WEEKS FOR 3 DOSES THEN EVERY MONTH FIRST DOSE 05-28-17 Constitutional: No chills, No diaphoresis, No fever EENTM: no symptoms reported Respiratory: see HPI, cough, dyspnea on exertion, No hemoptysis, orthopnea, short of breath, No wheezing Cardiovascular: see HPI, chest pain, No edema, No palpitations, No syncope, No vascular heart diseas Gastrointestinal: no symptoms reported Genitourinary: no symptoms reported Musculoskeletal: no symptoms reported Skin: no symptoms reported Psychiatric/Neurological: No Symptoms Reported Endocrine: No Symptoms Reported Hematologic/Lymphatic: No Symptoms Reported Past Dgiksqx-Nsnlhk-Zlmpqo Hx Patient Social History Alcohol Use: Denies Use Recreational Drug Use: No Smoking Status: Former Smoker Type Used: Cigarettes Former Smoker/When Quit: Apr 28, 1984 Recent Foreign Travel: No Contact w/Someone Who Travel: No Recent Hopitalizations: No Seasonal Allergies Seasonal Allergies: Yes Surgeries HX Surgeries: Yes (D&C X2, KNEE SCOPE, FIBROID TUMOR BX, BILAT FOOT SURGERY, PORT INSERTION; RIGHT MASTECTOMY) Surgeries: Breast, Orthopedic Respiratory Hx Respiratory Disorders: Yes Respiratory Disorders: Pneumonia Cardiovascular Hx Cardiac Disorders: Yes (hx a-fib with chemo) Cardiac Disorders: Atrial Fibrillation, High Cholesterol, Hypertension Neurological Hx Neurological Disorders: Yes (seizure from fever as child) Reproductive System Hx Reproductive Disorders: No Sexually Transmitted Disease: No HIV/AIDS: No Female Reproductive Disorders: Denies SHAKE MAKER History: Menopausal Genitourinary Hx Genitourinary Disorders: No Gastrointestinal Hx Gastrointestinal Disorders: Yes (freq constipation) Gastrointestinal Disorders: Chronic Constipation Musculoskeletal Hx Musculoskeletal Disorders: No Endocrine Hx Endocrine Disorders: Yes (thyroid mass) Endocrine Disorders: Diabetes, Insulin dep HEENT HX ENT Disorders: Yes HEENT Disorders: Cataract Loss of Vision: Denies Hearing Impairment: Denies Cancer Hx Cancer: Yes (DX 2012--S/P RIGHT MASTECTOMY, CHEMO, RADIATION) Cancer: Breast Psychosocial Hx Psychiatric Problems: No Integumentary HX Skin/Integumentary Disorder: No Blood Transfusions Hx Blood Disorders: No Adverse Reaction to a Blood Tr: No Family Medical History Family Medial History: Cardiovascular disease 19 FATHER G8 BROTHER Completed stroke 19 MOTHER Coronary thrombosis 19 FATHER Physical Exam Vital Signs Vital Sign - Last 12Hours 05/31/17 05/31/17 07:58 08:20 Temp 97.1 Pulse 84 Resp 22 B/P (MAP) 163/83 Pulse Ox 96 O2 Delivery Nasal Cannula O2 Flow Rate 3.50 FiO2 94 Capillary Refill : General Appearance: WD/WN, Moderate Distress HEENT: PERRL/EOMI Neck: Full Range of Motion, Normal Inspection, Non Tender, Supple, No Carotid Bruit, No JVD Respiratory: No Rales, Respiratory Distress, No Stridor, No Wheezing, Other ( MODERATE DISTRESS/DYSPNEIC, DECREASED AERATION THROUGHOUT BOTH LUNGS WITH NO LUNG SOUNDS HEARD IN BASES) Cardiovascular: Regular Rate, Rhythm, No Edema, No JVD, No Murmur, Normal Peripheral Pulses Peripheral Pulses: 2+ Dorsalis Pedis (R), 2+ Left Dors-Pedis (L), 2+ Radial Pulses (R), 2+ Radial Pulses (L) Gastrointestinal: Normal Bowel Sounds, No Organomegaly, No Pulsatile Mass, Non Tender, Soft Extremity: Normal Capillary Refill, Normal Inspection, Normal Range of Motion, Non Tender, No Calf Tenderness, No Pedal Edema Neurologic/Psychiatric: Alert, Oriented x3, No Motor/Sensory Deficits, ostomy rn II- XII Norm as Tested Skin: Normal Color, Warm/Dry Focused Exam Evaluation Lactate Level Laboratory Tests 05/31/17 08:10: Lactic Acid Level 0.85 Lactic Acid Level Laboratory Tests Test 05/31/17 08:10 Lactic Acid Level 0.85 MMOL/L (0.50-2.00) Progress/Results/Core Measures Results/Orders Lab Results Laboratory Tests Test 05/31/17 08:10 05/31/17 08:41 Range/Units White Blood Count 4.7 4.3-11.0 10^3/uL Red Blood Count 3.83 L 4.35-5.85 10^6/uL Hemoglobin 11.7 11.5-16.0 G/DL Hematocrit 35 35-52 % Mean Corpuscular Volume 92 80-99 FL Mean Corpuscular Hemoglobin 31 25-34 PG Mean Corpuscular Hemoglobin Concent 33 32-36 G/DL Red Cell Distribution Width 14.5 10.0-14.5 % Platelet Count 211 130-400 10^3/uL Mean Platelet Volume 9.3 7.4-10.4 FL Neutrophils (%) (Auto) 76 H 42-75 % Lymphocytes (%) (Auto) 11 L 12-44 % Monocytes (%) (Auto) 11 0-12 % Eosinophils (%) (Auto) 1 0-10 % Basophils (%) (Auto) 0 0-10 % Neutrophils # (Auto) 3.6 1.8-7.8 X 10^3 Lymphocytes # (Auto) 0.5 L 1.0-4.0 X 10^3 Monocytes # (Auto) 0.5 0.0-1.0 X 10^3 Eosinophils # (Auto) 0.1 0.0-0.3 10^3/uL Basophils # (Auto) 0.0 0.0-0.1 10^3/uL Prothrombin Time 14.8 H 12.2-14.7 SEC INR Comment 1.2 0.8-1.4 Activated Partial Thromboplast Time 31 24-35 SEC Sodium Level 138 135-145 MMOL/L Potassium Level 2.8 L 3.6-5.0 MMOL/L Chloride Level 110 H 98-107 MMOL/L Carbon Dioxide Level 19 L 21-32 MMOL/L Anion Gap 9 5-14 MMOL/L Blood Urea Nitrogen 29 H 7-18 MG/DL Creatinine 0.74 0.60-1.30 MG/DL Estimat Glomerular Filtration Rate > 60 BUN/Creatinine Ratio 39 Glucose Level 37 *L 70-105 MG/DL Lactic Acid Level 0.85 0.50-2.00 MMOL/L Calcium Level 7.5 L 8.5-10.1 MG/DL Magnesium Level 1.0 *L 1.8-2.4 MG/DL Total Bilirubin 0.3 0.1-1.0 MG/DL Aspartate Amino Transf (AST/SGOT) 18 5-34 U/L Alanine Aminotransferase (ALT/SGPT) 11 0-55 U/L Alkaline Phosphatase 63 40-136 U/L Total Creatine Kinase 67 29-168 U/L Creatine Kinase MB 3.4 <6.6 NG/ML Troponin I < 0.30 <0.30 NG/ML B-Type Natriuretic Peptide 130.4 H <100.0 PG/ML Total Protein 5.0 L 6.4-8.2 GM/DL Albumin 2.9 L 3.2-4.5 GM/DL Blood Gas Puncture Site LR Blood Gas Patient Temperature 97.1 Arterial Blood pH 7.37 7.37-7.43 Arterial Blood Partial Pressure CO2 43 35-45 MMHG Arterial Blood Partial Pressure O2 63 L 79-93 MMHG Arterial Blood HCO3 25 23-27 MMOL/L Arterial Blood Total CO2 25.9 21.0-31.0 MMOL/L Arterial Blood Oxygen Saturation 91 L 94-100 % Arterial Blood Base Excess -0.2 -2.5-2.5 MMOL/L Jerrell Test YES-POS Blood Gas Ventilator Setting NO Blood Gas Inspired Oxygen 3.5 Micro Results Microbiology 05/31/17 Blood Culture - Preliminary, Resulted No growth 05/31/17 Blood Culture - Preliminary, Resulted Positive; See Report My Orders Orders - ABDIRAHMAN FIGUEROA DO Saline Lock/Iv-Start (05/31/17 07:52) Ekg Tracing (05/31/17 07:52) O2 (05/31/17 07:52) Monitor-Rhythm Ecg Trace Only (05/31/17 07:52) Arterial Blood Gas (05/31/17 07:52) BNP (05/31/17 07:52) Cbc With Automated Diff (05/31/17 07:52) Comprehensive Metabolic Panel (05/31/17 07:52) Creatine Kinase (05/31/17 07:52) Creatine Kinase Mb (05/31/17 07:52) Lactic Acid Analyzer (05/31/17 07:52) Magnesium (05/31/17 07:52) Protime With Inr (05/31/17 07:52) Partial Thromboplastin Time (05/31/17 07:52) Troponin I (05/31/17 07:52) Blood Culture (05/31/17 07:52) Chest 1 View, Ap/Pa Only (05/31/17 07:52) Albuterol/Ipra Inhalation Soln (Duoneb I (05/31/17 08:00) Rt Request For Service (05/31/17 07:52) Svn Sm Volume Nebulizer Rt-Rfs (05/31/17 07:52) Albuterol/Ipra Inhalation Soln (Duoneb I (05/31/17 08:15) Svn Sm Volume Nebulizer Rt-Rfs (05/31/17 08:08) D50w (Emergency) Syringe (Dextrose 50% 5 (05/31/17 08:57) D50w (Emergency) Syringe (Dextrose 50% 5 (05/31/17 09:15) Potassium Chloride (Tablet) (Klor Con Ta (05/31/17 09:15) Magnesium 1 Gm/100 Ml Ivpb (Magnesium [place] (05/31/17 09:15) Medications Given in ED Vital Signs/I&O Vital Sign - Last 12Hours 05/31/17 05/31/17 05/31/17 05/31/17 07:58 08:11 08:20 08:20 Temp 97.1 Pulse 84 Resp 22 B/P (MAP) 163/83 Pulse Ox 96 93 94 94 O2 Delivery Nasal Cannula Nasal Cannula Nasal Cannula Nasal Cannula O2 Flow Rate 3.50 3.50 3.50 3.50 FiO2 94 Progress Note : Progress Note O2 SAT 87% ON ROOM AIR --UP TO MID 90'S ON O2 AT 3.5 L/NC INCREASED AERATION AFTER NEB TX X 2 PT LESS DYSPNEIC AND FEELS BETTER THORACENTESIS PERFORMED BY DR. RODRIGUEZ PRIOR TO PT GOING TO THE FLOOR, PT WITH SIGNIFICANT IMPROVEMENT IN SYMPTOMS OF DYSPNEA, INCREASED AERATION O2 SATS REMAINED IN MID TO UPPER 90'S ON O2 PT FEELS MUCH BETTER ECG Initial ECG Impression Time: 07:51 Initial ECG Rate: 88 Initial ECG Rhythm: Normal Sinus (WITH PVC) Initial ECG Comparisson: No Previous ECG Available Diagnostic Imaging Comments CXR--BILATERAL EFFUSIONS/ATELECTASIS/INFILTRATES--PER RADIOLOGIST REPORT @ 0815 CT CHEST ANGIOGRAM--NO P.E., INCREASED PNEUMONIA/FLUID/ATELECTASIS BILATERALLY-- PER DR. GASCA VIA PHONE AT 1013 Reviewed: Reviewed by Me, Discussed w/Radiologist Departure Communication Progress Notes 0907--PAGING DR. BREWER 09--SPOKE WITH DR. MARTIN, ACCEPTS PT FOR ADMIT 0924--SPOKE WITH DR. BREWER, RECOMMENDS THORACENTESIS, BUT IS NOT TEXTILE STYLIST. 0930--SPOKE WITH DR. RODRIGUEZ, HERE IN ER, FOR THORACENTESIS REVIEWED CT RESULTS WITH DR. RODRIGUEZ AND HE WILL DO THORACENTESIS HERE IN ER, PRIOR TO PT BEING ADMITTED. Impression Impression: Primary Impression: BILATERAL PLEURAL EFFUSIONS FROM METASTATIC BREAST CANCER Additional Impression: Acute respiratory failure with hypoxia Disposition: ADMITTED INPATIENT Condition: Improved Admissions Decision to Admit Reason: Admit from ER (General) Decision to Admit/Date: May 31, 2017 Time/Decision to Admit Time: 09:10 Departure-Patient Inst. Referrals: LEXA FARAH MD (PCP/Family) Primary Care Physician Scripts Insulin Detemir (Levemir Flextouch) 100 Unit/1 Ml Insuln.pen 30 UNITS SC DAILY for 30 Days, EA Take in the AM Prov: ISIAH MARTIN MD 06/01/17 ABDIRAHMAN FIGUEROA DO May 31, 2017 08:16
[2017-05-31 08:24] LABS: BASOPHILS % (AUTO) 0 % (0-10); EOSINOPHILS # (AUTO) 0.1 10^3/uL (0.0-0.3); EOSINOPHILS % (AUTO) 1 % (0-10); LYMPHOCYTES # (AUTO) 0.5 X 10^3 (1.0-4.0); LYMPHOCYTES % (AUTO) 11 % (12-44); MEAN CORPUSCULAR HEMOGLOBIN 31 PG (25-34); MEAN CORPUSCULAR HGB CONC 33 G/DL (32-36); MEAN CORPUSCULAR VOLUME 92 FL (80-99); MEAN PLATELET VOLUME 9.3 FL (7.4-10.4); MONOCYTES # (AUTO) 0.5 X 10^3 (0.0-1.0); MONOCYTES % (AUTO) 11 % (0-12); NEUTROPHILS # (AUTO) 3.6 X 10^3 (1.8-7.8); NEUTROPHILS % (AUTO) 76 % (42-75); PLATELET COUNT 211 10^3/uL (130-400); RED BLOOD COUNT 3.83 10^6/uL (4.35-5.85); RED CELL DISTRIBUTION WIDTH 14.5 % (10.0-14.5); WHITE BLOOD COUNT 4.7 10^3/uL (4.3-11.0)
[2017-05-31 08:47] LABS: ABG BASE EXCESS -0.2 MMOL/L (-2.5-2.5); ABG HCO3 25 MMOL/L (23-27); ABG OXYGEN SATURATION 91 % (94-100); ABG PCO2 43 MMHG (35-45); ABG PH 7.37 (7.37-7.43); ABG PO2 63 MMHG (79-93); ABG TCO2 25.9 MMOL/L (21.0-31.0)
[2017-05-31 08:49] LABS: ALANINE AMINOTRANSFERASE 11 U/L (0-55); ALBUMIN 2.9 GM/DL (3.2-4.5); ANION GAP 9 MMOL/L (5-14); ASPARTATE AMINO TRANSFERASE 18 U/L (5-34); BILIRUBIN,TOTAL 0.3 MG/DL (0.1-1.0); BLOOD UREA NITROGEN 29 MG/DL (7-18); BUN/CREATININE RATIO 39; CALCIUM 7.5 MG/DL (8.5-10.1); CARBON DIOXIDE 19 MMOL/L (21-32); CHLORIDE 110 MMOL/L (98-107); CREATINE KINASE 67 U/L (29-168); CREATININE SERUM 0.74 MG/DL (0.60-1.30); GFR ESTIMATED > 60; POTASSIUM 2.8 MMOL/L (3.6-5.0); SODIUM 138 MMOL/L (135-145)
[2017-05-31 08:49] LABS: ALLENS TEST YES-POS; PATIENT TEMP 97.1
[2017-05-31 08:56] LABS: TROPONIN I < 0.30 NG/ML (<0.30)
[2017-05-31] MEDS ORDERED: DEXTROSE 50% 50 ML (IMS) SYR ONE (08:57)
[2017-05-31 09:02] LABS: GLUCOSE 37 MG/DL (70-105)
[2017-05-31 09:11] LABS: INR 1.2 (0.8-1.4); PROTHROMBIN TIME PATIENT 14.8 SEC (12.2-14.7)
[2017-05-31] MEDS ORDERED: KCL 10 MEQ TAB (MICRO K) PO ONE (09:15)
[2017-05-31] MEDS ORDERED: methylPREDNISolone 125 MG (Solu-MEDROL) VIAL IVP ONE (09:15)
[2017-05-31] MEDS ORDERED: DEXTROSE 50% 50 ML (IMS) SYR IV ONE (09:15)
[2017-05-31] MEDS ORDERED: IOHEXOL 350 MG/ML 150 ML (OMNIPAQUE 350) VIAL IV ONE (09:30)
[2017-05-31] MEDS ORDERED: NS 100 ML (IVPB) BAG IV ONE (09:30)
[2017-05-31] MEDS ORDERED: CATHETER FLUSH 10 ML SYR IV PRN ×2 (09:30→12:45)
[2017-05-31] MEDS: MAGNESIUM 1 GM/100 ML IVPB 100 ML IV SCH ×2 (09:57→14:23)
--- NOTE | 2017-05-31 10:30 | Diagnostic Imaging Report ---
PROCEDURE: CT angiography of the chest with contrast. TECHNIQUE: Multiple contiguous axial images were obtained through the chest after uneventful bolus administration of intravenous contrast. Reconstructed CTA MIP acquisitions were also performed. INDICATION: Shortness of breath. The previous CTA chest exam performed on 04/21/2017 failed to show any sign of a pulmonary embolus or of a dissection. On this study, there is still no evidence for a defect within the pulmonary arteries to indicate a pulmonary embolus. The pulmonary arteries to the lower lobes are difficult to evaluate, however, as there has been an increase in the atelectasis/infiltrate and fluid involving the lung bases since the prior exam and the pulmonary to the lower lobes are difficult to evaluate. The fluid in the right lung base now measures 4.7 cm in maximum depth while the fluid in the left lung base is estimated to be 4.0 cm. The 4 mm nodular density in the right lung base seen previously is obscured by the atelectasis/infiltrate and fluid. The lung apices are clear. The aorta is not abnormally dilated and there is still no sign of a dissection. The heart is stable in size. Coronary artery calcifications are again noted. The mediastinal adenopathy seen previously is again evident and has not changed. Also as noted on the prior exam, the right lobe of the thyroid is surgically absent and there are postsurgical and posttreatment changes involving the right breast. There is no obvious breast mass on the left. The sections through the upper abdomen fail to show any sign of an acute abnormality. The sclerotic lesions involving the spine noted on the prior study do not appear to have changed significantly either. IMPRESSION: 1. The appearance of the chest has worsened since the prior study as there is greater involvement of both lungs by pneumonia/atelectasis and fluid. However, there is still no sign of a pulmonary embolus or of a dissection. 2. The overall appearance of the chest has not changed significantly otherwise. The mediastinal adenopathy noted on the prior study is again evident and no different. 3. The postsurgical and posttreatment changes involving the right breast noted previously are also stable. These results were discussed with Dr. Sparks in the ER. Dictated by: Dictated on workstation # [id number]
--- OUTSIDE RECORDS SUMMARY | 2017-05-31 10:55 | XMS REPORT | Clinical Summary ---
Author Author [facility] Organization [facility] Address Unknown Phone Unavailable Care Team Providers Care Auto Suspension And Steering Mechanic Name Role Phone PCP Unavailable Source Comments Some departments are not documenting in the electronic medical record. If you do not see the information that you expected, contact Release of Information in the Health Information Management department at [phone] for further assistance in locating additional records.[facility] Allergies Active Allergy Reactions Severity Noted [...]
--- OUTSIDE RECORDS SUMMARY | 2017-05-31 10:55 | XMS REPORT | Encounter Summary ---
Author Author [facility] Organization [facility] Address Unknown Phone Unavailable Care Team Providers Care Automotive Design Drafter Name Role Phone PCP Unavailable Reason for Visit * Reason Comments Heme/Onc Care * Consult, Test & Treat (Routine) Status Reason Specialty Diagnoses / Referred By Referred To Procedures Contact Contact New Request Oncology Procedures Carrillo Molina O'Dea, Anne, MD NEW PATIENT [facility] [address] [place] [address] [place] [address] Phone: Fax: Encounter Details Date Type Department Care Team Description 05/20/2017 Office Visit [facility] Meme Lockwood MD [facility] - [address] Exam [address] [place] [address] [phone] Social History Tobacco Use Types Packs/Day Years [...]
--- OUTSIDE RECORDS SUMMARY | 2017-05-31 10:56 | XMS REPORT | Encounter Summary ---
Author Author [facility] Organization [facility] Address Unknown Phone Unavailable Care Team Providers Care Special Agent Group Insurance Name Role Phone PCP Unavailable Encounter Details Date Type Department Care Team Description 05/12/2017 Ancillary Rad Outpatient, Radiologist Diagnosis unknown Orders [address], [place] [id number] Social History Tobacco Use Types Packs/Day Years [...]
--- OUTSIDE RECORDS SUMMARY | 2017-05-31 10:56 | XMS REPORT | Encounter Summary ---
Author Author [facility] Organization [facility] Address Unknown Phone Unavailable Care Team Providers Care Coroner Forensic Technician Name Role Phone PCP Unavailable Encounter Details Date Type Department Care Team Description 05/13/2017 Ancillary Rad Outpatient, Radiologist Diagnosis unknown Orders [address], [place] [id number] Social History Tobacco Use Types Packs/Day Years [...]
--- OUTSIDE RECORDS SUMMARY | 2017-05-31 10:56 | XMS REPORT | Encounter Summary ---
Author Author [facility] Organization [facility] Address Unknown Phone Unavailable Care Team Providers Care Administrative Tech Name Role Phone PCP Unavailable Encounter Details Date Type Department Care Team Description 05/07/2017 Hospital [facility] Radiology [address] [place] [address] Social History Tobacco Use Types Packs/Day Years [...]
--- OUTSIDE RECORDS SUMMARY | 2017-05-31 10:56 | XMS REPORT | Encounter Summary ---
Author Author [facility] Organization [facility] Address Unknown Phone Unavailable Care Team Providers Care Rod Tape Operator Name Role Phone PCP Unavailable Encounter Details Date Type Department Care Team Description 05/13/2017 Ancillary Rad Outpatient, Radiologist Diagnosis unknown Orders [address] [place] [address] Social History Tobacco Use Types Packs/Day Years [...]
--- OUTSIDE RECORDS SUMMARY | 2017-05-31 10:56 | XMS REPORT | Encounter Summary ---
Author Author [facility] Organization [facility] Address Unknown Phone Unavailable Care Team Providers Care Tracer Bullet Charging Machine Operator Name Role Phone PCP Unavailable Encounter Details Date Type Department Care Team Description 05/13/2017 Ancillary Rad Outpatient, Radiologist Diagnosis unknown Orders [address] [place] [address] Social History Tobacco Use Types Packs/Day Years [...]
--- OUTSIDE RECORDS SUMMARY | 2017-05-31 10:56 | XMS REPORT | Encounter Summary ---
Author Author [facility] Organization [facility] Address Unknown Phone Unavailable Care Team Providers Care Tire Maintenance Technician Name Role Phone PCP Unavailable Encounter Details Date Type Department Care Team Description 04/21/2017 Hospital [facility] Radiology [address] [place] [address] Social History Tobacco Use Types Packs/Day Years [...]
--- OUTSIDE RECORDS SUMMARY | 2017-05-31 10:56 | XMS REPORT | Encounter Summary ---
Author Author [facility] Organization [facility] Address Unknown Phone Unavailable Care Team Providers Care Computer Support Technician Name Role Phone PCP Unavailable Reason for Visit * Reason Comments Navigation Assessment Encounter Details Date Type Department Care Team Description 05/13/2017 Telephone [facility] Meme Lockwood MD Navigation Assessment [facility] Exam [address] [place] [address] [place] [address] [phone] Social History Tobacco Use Types Packs/Day Years Used Date Never Assessed Sex Assigned at Date Recorded Not on file as of this encounter Plan of Treatment Not on fileas of this encounter Visit Diagnoses Not on filein this encounter
--- NOTE | 2017-05-31 11:45 | Diagnostic Imaging Report ---
INDICATION: Pleural effusion. FINDINGS: Postthoracentesis chest film shows interval evacuation of the pleural effusion. There is no pneumothorax. Patient has a left subclavian Port-A-Cath. IMPRESSION: Minimal left basilar atelectasis. No pneumothorax. Dictated by: Dictated on workstation # [id number]
--- NOTE | 2017-05-31 12:02 | Diagnostic Imaging Report ---
EXAMINATION: Ultrasound guided right thoracentesis. INDICATION: Pleural effusion The ultrasound examination of the right thorax shows that there is a large pleural effusion present. The skin over the effusion was marked for the thoracentesis to be performed by Dr. Wilson. IMPRESSION: There is a large right pleural effusion. Thoracentesis is pending. Dictated by: Dictated on workstation # [id number]
--- NOTE | 2017-05-31 12:02 | Diagnostic Imaging Report ---
EXAMINATION: Ultrasound guided thoracentesis. INDICATION: Pleural effusion There is a large pleural effusion on the left. The skin over the fluid collection was marked for the thoracentesis to be performed by Dr. Wilson. IMPRESSION: There is a large left pleural effusion. Thoracentesis is pending. Dictated by: Dictated on workstation # [id number]
[2017-05-31 12:22] LABS: LDH,BODY FLUID 139 U/L
[2017-05-31 12:23] LABS: GLUCOSE,BODY FLUID 73 MG/DL
[2017-05-31 12:23] LABS: GLUCOSE,BODY FLUID 74 MG/DL; LDH,BODY FLUID 219 U/L
[2017-05-31 12:30] VITALS: BP 164/77
[2017-05-31] MEDS ORDERED: inSUlin (REGULAR) HUMAN 1 UNIT/0.01 ML (CHARGE PER UNIT) SC SCH (12:45)
--- NOTE | 2017-05-31 12:51 | Consultation ---
History of Present Illness History of Present Illness Patient Consulted On(lachelle/time) 05/31/17 12:46 Date Seen by Provider: May 31, 2017 Time Seen by Provider: 10:20 History of Present Illness Consult requested by Dr. Sparks for bilateral pleural effusions possible thoracentesis. Patient is a 76-year-old female with metastatic breast cancer. She was found to have metastatic breast cancer to the pleural fluid. She is previously undergone thoracentesis performed by Dr. Phillips. Patient presented to the emergency department with increasing shortness of breath. This is been going on specifically the last 24 hours. Patient is on home oxygen. Any activity causes her to become severely short of breath. Even at rest she's having the shortness of breath. She had a chest x-ray performed the restraining bilateral pleural effusions and CT scan with enlarging bilateral pleural effusions as compared to approximately one month ago. Patient with shortness of breath her O2 saturations without oxygen were dropping into the 80s. On oxygen her oxygen saturation in the low 90s. She states she's definitely having to work harder to catch her breath and extremely uncomfortable. She has no other complaints at this time she denies any fever sweats chills or chest pain to me at this time. Allergies and Home Medications Allergies Coded Allergies: Penicillins (Unverified Allergy, Unknown, RASH, 10/19/16) Home Medications Amlodipine Besylate 5 Mg Tab, 5 MG PO HS, (Reported) Anastrozole 1 Mg Tablet, 1 MG PO HS, (Reported) Benazepril Hcl 10 Mg Tablet, 10 MG PO HS, (Reported) Calcium Carbonate/Vitamin D3 1 Each Tablet, 1 TAB PO HS, (Reported) Gemfibrozil 600 Mg Tablet, 600 MG PO BID, (Reported) Indapamide 2.5 Mg Tablet, 2.5 MG PO DAILY, (Reported) Insulin Glargine,Hum.rec.anlog 300 Units/3 Ml Soln, 50 UNITS SQ HS, (Reported) Levofloxacin 750 Mg Tablet, 750 MG PO Q48H@2100, #3 Ref 0 Prescribed by: DEVIN LAI on 04/23/17 1437 Levothyroxine Sodium 100 Mcg Tablet, 100 MCG PO DAILY, (Reported) LAST FILLED #30 12-14-16 Loratadine 10 Mg Tab, 10 MG PO HS, (Reported) Lovastatin 20 Mg Tablet, 20 MG PO DAILY, (Reported) Metformin Hcl 1,000 Mg Tablet, 1,000 MG PO BID WITH MEALS, (Reported) Metoprolol Tartrate 25 Mg Tablet, 25 MG PO BID, (Reported) Omeprazole 20 Mg Capsule.dr, 20 MG PO HS, (Reported) Pioglitazone HCl 45 Mg Tablet, 45 MG PO HS, (Reported) Past Plrtriw-Irwpsb-[place]aa Hx Patient Social History Alcohol Use: Denies Use Recreational Drug Use: No Smoking Status: Former Smoker Former Smoker/When Quit: Apr 28, 1984 Recent Foreign Travel: No Contact w/Someone Who Travel: No Recent Infectious Disease Expo: No Recent Hopitalizations: No Immunizations Up To Date Tetanus Booster (TDap): Unknown Seasonal Allergies Seasonal Allergies: Yes Surgeries HX Surgeries: Yes (D&C X2, KNEE SCOPE, FIBROID TUMOR BX, BILAT FOOT SURGERY, PORT INSERTION) Respiratory Hx Respiratory Disorders: Yes Respiratory Disorders: Pneumonia Cardiovascular Hx Cardiac Disorders: Yes (hx a-fib with chemo) Cardiac Disorders: Atrial Fibrillation, High Cholesterol, Hypertension Neurological Hx Neurological Disorders: Yes (seizure from fever as child) Reproductive System Hx Reproductive Disorders: No Sexually Transmitted Disease: No HIV/AIDS: No Female Reproductive Disorders: Denies Genitourinary Hx Genitourinary Disorders: No Gastrointestinal Hx Gastrointestinal Disorders: Yes (freq constipation) Gastrointestinal Disorders: Chronic Constipation Musculoskeletal Hx Musculoskeletal Disorders: No Endocrine Hx Endocrine Disorders: Yes (thyroid mass) Endocrine Disorders: Diabetes, Insulin dep HEENT HX ENT Disorders: Yes HEENT Disorders: Cataract Loss of Vision: Denies Hearing Impairment: Denies Cancer Hx Cancer: Yes Cancer: Lung, Breast Psychosocial Hx Psychiatric Problems: No Integumentary HX Skin/Integumentary Disorder: No Blood Transfusions Hx Blood Disorders: No Adverse Reaction to a Blood Tr: No Family Medical History Significant Family History: No Pertinent Family Hx Family Medial History: Cardiovascular disease 19 FATHER G8 BROTHER Completed stroke 19 MOTHER Coronary thrombosis 19 FATHER Review of Systems-General Constitutional: see HPI EENTM: no symptoms reported Respiratory: see HPI Cardiovascular: no symptoms reported Gastrointestinal: no symptoms reported Genitourinary: no symptoms reported Musculoskeletal: no symptoms reported Skin: no symptoms reported Psychiatric/Neurological: No Symptoms Reported Physical Exam-General Problems Physical Exam Vital Signs Vital Sign - Last 12Hours 05/31/17 05/31/17 07:58 08:20 Temp 97.1 Pulse 84 Resp 22 B/P (MAP) 163/83 Pulse Ox 96 O2 Delivery Nasal Cannula O2 Flow Rate 3.50 FiO2 94 Capillary Refill : Less Than 3 Seconds General Appearance: mild distress (slightly labored breathing), cachetic HEENT: PERRL/EOMI Neck: supple, normal inspection Respiratory: decreased breath sounds, other (slightly labored breathing) Cardiovascular: regular rate, rhythm Gastrointestinal: non tender, soft, no organomegaly Rectal: deferred Back: no CVA tenderness, other (lipoma left upper back) Extremities: non-tender, normal inspection Neurologic/Psychiatric: alert, normal mood/affect, oriented x 3 Skin: warm/dry Lymphatic: no adenopathy Data Review Labs Laboratory Tests 05/31/17 08:10: White Blood Count 4.7, Red Blood Count 3.83L, Hemoglobin 11.7, Hematocrit 35, Mean Corpuscular Volume 92, Mean Corpuscular Hemoglobin 31, Mean Corpuscular Hemoglobin Concent 33, Red Cell Distribution Width 14.5, Platelet Count 211, Mean Platelet Volume 9.3, Neutrophils (%) (Auto) 76H, Lymphocytes (%) (Auto) 11L , Monocytes (%) (Auto) 11, Eosinophils (%) (Auto) 1, Basophils (%) (Auto) 0, Neutrophils # (Auto) 3.6, Lymphocytes # (Auto) 0.5L, Monocytes # (Auto) 0.5, Eosinophils # (Auto) 0.1, Basophils # (Auto) 0.0, Prothrombin Time 14.8H, INR Comment 1.2, Activated Partial Thromboplast Time 31, Sodium Level 138, Potassium Level 2.8L, Chloride Level 110H, Carbon Dioxide Level 19L, Anion Gap 9 , Blood Urea Nitrogen 29H, Creatinine 0.74, Estimat Glomerular Filtration Rate > 60, BUN/Creatinine Ratio 39, Glucose Level 37*L, Lactic Acid Level 0.85, Calcium Level 7.5L, Magnesium Level 1.0*L, Total Bilirubin 0.3, Aspartate Amino Transf (AST/SGOT) 18, Alanine Aminotransferase (ALT/SGPT) 11, Alkaline Phosphatase 63, Total Creatine Kinase 67, Creatine Kinase MB 3.4, Troponin I < 0.30, B-Type Natriuretic Peptide 130.4H, Total Protein 5.0L, Albumin 2.9L 05/31/17 08:41: Blood Gas Puncture Site LR, Blood Gas Patient Temperature 97.1, Arterial Blood pH 7.37, Arterial Blood Partial Pressure CO2 43, Arterial Blood Partial Pressure O2 63L, Arterial Blood HCO3 25, Arterial Blood Total CO2 25.9, Arterial Blood Oxygen Saturation 91L, Arterial Blood Base Excess -0.2, Jerrell Test YES-POS, Blood Gas Ventilator Setting NO, Blood Gas Inspired Oxygen 3.5 05/31/17 10:45: Body Fluid Glucose 74, Body Fluid Total Protein 4.0, Body Fluid Lactate Dehydrogenase 219 05/31/17 11:00: Body Fluid Glucose 73, Body Fluid Total Protein 4.0, Body Fluid Lactate Dehydrogenase 139 Assessment/Plan Assessment/Plan Assessment/Plan Patient is a 76-year-old female with metastatic breast cancer, bilateral pleural effusions, electrolyte abnormalities. Patient with bilateral pleural effusions and shortness of breath I feel that she would benefit from bilateral thoracentesis. We discussed risk and benefits and she wishes to proceed. Patient consent obtained for procedure. Once the procedure was performed chest x-ray reviewed and demonstrating significant improvement bilaterally and no pneumothorax. Patient had 1200 mL drawn off the left chest and 1200 mL taken off the right chest. I will sign off at this time. Please call if needed SHAY RODRIGUEZ DO May 31, 2017 12:51
[2017-05-31] MEDS ORDERED: CALC-6 PO (13:40)
[2017-05-31] MEDS ORDERED: FULVESTRANT INJ (13:40)
[2017-05-31] MEDS ORDERED: PALB125C PO (13:40)
[2017-05-31] MEDS ORDERED: INSU100I29 SC (13:40)
[2017-05-31] MEDS: CATHETER FLUSH 10 ML SYR IV SCH ×2 (14:21→22:10)
[2017-05-31 14:57] LABS: CALCIUM 10.1 MG/DL (8.5-10.1); CREATININE SERUM 1.18 MG/DL (0.60-1.30); POTASSIUM 4.5 MMOL/L (3.6-5.0)
--- NOTE | 2017-05-31 15:32 | Progress Note-Standard ---
Standard Progress Note Progress Notes/Assess & Plan Date Seen by Provider: May 31, 2017 Time Seen by Provider: 15:29 Progress/Assessment & Plan 76-year-old female well known to me with a recent diagnosis of metastatic breast cancer to the bone and malignant pleural effusion. She required a diagnostic and therapeutic thoracentesis last month when the diagnosis of metastatic breast cancer was made. Since then she obtained a second opinion at [facility] and is scheduled to start treatment on Saturday06/03/2017. Patient brought to the emergency room with the worsening shortness of breath earlier today and was found to have worsening bilateral pleural effusions. She completed bilateral therapeutic thoracentesis and is breathing better now. She also has hypercalcemia which required treatment last month and the calcium level is 10.1 with albumin level of 2.9 today for a corrected calcium level of the 10.9-11. If patient is discharged over the weekend, she was instructed to keep the appointment at the cancer center on Saturday06/03/2017 at 1015 hours. AIDEN BREWER May 31, 2017 15:32
[2017-05-31 16:00] VITALS: BP 157/80
[2017-05-31] MEDS: inSUlin (REGULAR) HUMAN 1 UNIT/0.01 ML (CHARGE PER UNIT) SC SCH (17:55)
[2017-05-31 20:00] VITALS: BP 129/68
--- NOTE | 2017-05-31 20:47 | OPERATIVE REPORT ---
DATE OF SERVICE: 05/31/2017 PREOPERATIVE DIAGNOSIS: Bilateral pleural effusions. POSTOPERATIVE DIAGNOSIS: Bilateral pleural effusions. PROCEDURE: Bilateral thoracentesis, ultrasound-guided. SURGEON: Shay Wilson DO ANESTHESIA: Local anesthetic with 1% lidocaine. ESTIMATED BLOOD LOSS: Minimal. COMPLICATIONS: None. INDICATIONS: The patient is a 76-year-old female with metastatic breast cancer. She has previously undergone a thoracentesis. The patient presenting with increasing shortness of breath over the last 24 hours. Chest x-ray and CT demonstrating bilateral pleural effusions. The patient was discussed risks and benefits of therapeutic thoracentesis bilaterally. She understands risks and benefits and wishes to proceed. Her daughter was present with her at the time of this discussion. PROCEDURE: Using ultrasound, the left and right chest was inspected on the posterior aspect for the largest pocket created for drainage. Once these were located bilaterally these were marked. The patient was then prepped and draped in a sterile fashion. Local anesthetic was infiltrated on the left chest at the area marked. Once anesthetic effect took place, an 11 blade scalpel was used to make a small skin incision and using the safety thoracentesis kit, the catheter and needle were inserted through the small stab incision until pleural fluid was returned. Once this was returned, the catheter was inserted into the chest cavity and then the needle was removed. The catheter was hooked up to a vacuum container and a total of 1200 mL of straw colored fluid was removed from the left chest. Once drainage was completed, the catheter was removed and sterile bandage was applied. The right chest then had local anesthetic infiltrated into the area that was marked. A small stab incision was made with an 11 blade scalpel, and this was performed with a new kit. Once stab incision was made, the safety thoracentesis catheter was then started to be advanced through the incision until the entire pleural fluid in the chest cavity was reached. Once the fluid was withdrawn, the catheter was inserted into the chest cavity and then hooked to vacuum suction. A total of 1200 mL of fluid was taken off of the right lung as well. The right lung being straw-colored with a small amount of very faint blood-tinged appearance at times. Once the drainage was stopped, the catheter was removed and sterile bandage was applied. The patient tolerated procedure well without any complications. Chest x-ray was taken postprocedure demonstrating drainage of bilateral pleural effusions, no pneumothorax, significantly improved aeration. Job ID: [id number] DocumentID: [id number] Dictated Date: 05/31/2017 13:02:34 Haunted History Tour Guide Date: 05/31/2017 20:46:37 Dictated By: SHAY WILSON DO
[2017-05-31] MEDS ORDERED: amLODIPine 5 MG (NORVASC) TAB PO SCH (21:00)
[2017-05-31] MEDS ORDERED: LORATADINE (CLARITIN) 10 MG TAB PO SCH (21:00)
[2017-05-31] MEDS ORDERED: IBUPROFEN 600 MG (MOTRIN) TAB PO PRN (21:00)
[2017-05-31] MEDS ORDERED: HYDROcodone/APAP 5 MG/325 MG (LORTAB) TAB PO PRN (21:00)
[2017-05-31] MEDS ORDERED: NON-FORMULARY MEDICATION 1 EA EA (Calcium Carbonate/Vitamin D3 (Calcium 600 + Vit D 200 Ta PO SCH (21:00)
[2017-05-31] MEDS ORDERED: BENAZEPRIL 10 MG (LOTENSIN) TAB PO SCH (21:00)
[2017-05-31] MEDS ORDERED: OMEPRAZOLE 20 MG (PriLOSEC) CAP NON-FORMULARY PO SCH (21:00)
[2017-05-31] MEDS ORDERED: inSUlin DETERMIR 1 UNIT/0.01 ML (LEVEMIR) CHARGE PER UNIT SQ ONE ×3 (21:35→22:00)
[2017-05-31] MEDS: GEMFIBROZIL 600 MG (LOPID) TAB PO SCH (22:02)
[2017-05-31] MEDS: meTOprolol TARTRATE 25 MG (LOPRESSOR) TABLET PO SCH (22:02)
[2017-06-01] VITALS: BP 144/72
[2017-06-01] MEDS: inSUlin (REGULAR) HUMAN 1 UNIT/0.01 ML (CHARGE PER UNIT) SC SCH ×3 (00:56→12:27)
[2017-06-01 04:00] VITALS: BP 145/74
[2017-06-01 04:26] LABS: BASOPHILS % (AUTO) 0 % (0-10); EOSINOPHILS % (AUTO) 0 % (0-10); LYMPHOCYTES # (AUTO) 0.4 X 10^3 (1.0-4.0); LYMPHOCYTES % (AUTO) 9 % (12-44); MEAN CORPUSCULAR HEMOGLOBIN 31 PG (25-34); MEAN CORPUSCULAR HGB CONC 33 G/DL (32-36); MEAN CORPUSCULAR VOLUME 92 FL (80-99); MEAN PLATELET VOLUME 9.6 FL (7.4-10.4); MONOCYTES # (AUTO) 0.5 X 10^3 (0.0-1.0); MONOCYTES % (AUTO) 11 % (0-12); NEUTROPHILS # (AUTO) 3.4 X 10^3 (1.8-7.8); NEUTROPHILS % (AUTO) 80 % (42-75); PLATELET COUNT 190 10^3/uL (130-400); RED BLOOD COUNT 3.55 10^6/uL (4.35-5.85); RED CELL DISTRIBUTION WIDTH 14.2 % (10.0-14.5); WHITE BLOOD COUNT 4.2 10^3/uL (4.3-11.0)
[2017-06-01 05:06] LABS: ALBUMIN 3.4 GM/DL (3.2-4.5); BILIRUBIN,TOTAL 0.2 MG/DL (0.1-1.0); CALCIUM 9.8 MG/DL (8.5-10.1); CREATININE SERUM 1.17 MG/DL (0.60-1.30); MAGNESIUM 2.1 MG/DL (1.8-2.4); POTASSIUM 4.1 MMOL/L (3.6-5.0); TOTAL PROTEIN 5.9 GM/DL (6.4-8.2)
[2017-06-01] MEDS: CATHETER FLUSH 10 ML SYR IV SCH (06:07)
[2017-06-01] MEDS ORDERED: metFORMIN 500 MG (GLUCOPHAGE) TAB PO SCH (07:00)
[2017-06-01 08:00] VITALS: BP 129/74
[2017-06-01] MEDS: meTOprolol TARTRATE 25 MG (LOPRESSOR) TABLET PO SCH (08:39)
[2017-06-01] MEDS: GEMFIBROZIL 600 MG (LOPID) TAB PO SCH (08:39)
--- NOTE | 2017-06-01 10:27 | Diagnostic Imaging Report ---
INDICATION: Bilateral effusions. Compared 05/31 FINDINGS: No substantial pleural fluid at PA or lateral radiographs found. Some very mild right infrahilar infiltrate in the lower lobe, left basilar opacity resolved. IMPRESSION: No appreciable pleural fluid, resolution of left basilar infiltrate or atelectasis. Mild infiltrate or atelectasis infrahilar right lower lobe not appreciably changed. No adverse development. Dictated by: Dictated on workstation # [id number]
[2017-06-01 12:00] VITALS: BP 130/68
--- NOTE | 2017-06-01 13:57 | Short Stay Summary ---
HPI History of Present Illness: 76 yo F with recent diagnosis of metastatic breast cancer that presents to ER with increasing shortness of breath. Patient has been more short of breath for the last 3-4 days. She is on oxygen at home of 2L and now in the ER is requiring 4L of oxygen to maintain 90 saturation. Denies any fever or chills. + Recent car ride to for 2nd opinion on her breast cancer treatment. No h/o clots. Denies chest pain. Source: patient, RN/MD, old records Exam Limitations: no limitations Date seen by provider: Jun 01, 2017 Time Seen by Provider: 13:56 Attending Physician Irene Skinner MD PCP Liam Goff MD Consult Date of Admission May 31, 2017 at 09:10 Home Medications Home Medications Reviewed patient Home Medication Reconciliation Form Allergies Coded Allergies: Penicillins (Unverified Allergy, Unknown, RASH, 10/19/16) ITR-Msslyr-Xjrcvj Hx Patient Social History Living Status: Lives home alone but has alot of family support Alcohol Use: Denies Use Recreational Drug Use: No Smoking Status: Former Smoker Former smoker/When Quit: Apr 28, 1984 Recent Foreign Travel: No Contact w/other who traveled: No Recent Hopitalizations: No Recent Infectious Disease Expo: No Immunizations Up To Date Tetanus Booster (TDap): Unknown Past Medical History IDDM II HTN HLD Metastatic Breast Ca diag March 2017, initial diag 2005 Hypothyroidism Family Medical History Significant Family History: No Pertinent Family Hx Family History: Cardiovascular disease 19 FATHER G8 BROTHER Completed stroke 19 MOTHER Coronary thrombosis 19 FATHER Review of Systems ([facility]) Constitutional: no symptoms reported, No dizziness, No fever, No malaise, No weakness EENTM: no symptoms reported Respiratory: cough, dyspnea on exertion, short of breath, No wheezing Cardiovascular: No chest pain, No edema, No palpitations Gastrointestinal: no symptoms reported, No abdominal pain, No constipation, No diarrhea, No nausea, No vomiting Genitourinary: no symptoms reported, No dysuria, No frequency, No hematuria : No Musculoskeletal: back pain, muscle pain Skin: no symptoms reported, No lesions, No rash Psychiatric/Neurological: No Symptoms Reported, Denies Anxiety, Denies Depressed Reviewed Test Results Reviewed Test Results Lab Laboratory Tests Test 05/31/17 14:25 05/31/17 16:35 05/31/17 21:47 06/01/17 00:46 Range/Units Sodium Level 135 135-145 MMOL/L Potassium Level 4.5 3.6-5.0 MMOL/L Chloride Level 100 98-107 MMOL/L Carbon Dioxide Level 20 L 21-32 MMOL/L Anion Gap 15 H 5-14 MMOL/L Blood Urea Nitrogen 34 H 7-18 MG/DL Creatinine 1.18 0.60-1.30 MG/DL Estimat Glomerular Filtration Rate 45 BUN/Creatinine Ratio 29 Glucose Level 290 H 70-105 MG/DL Calcium Level 10.1 8.5-10.1 MG/DL Glucometer 309 H 443 *H 421 *H 70-110 MG/DL Test 06/01/17 04:00 06/01/17 12:20 Range/Units White Blood Count 4.2 L 4.3-11.0 10^3/uL Red Blood Count 3.55 L 4.35-5.85 10^6/uL Hemoglobin 10.9 L 11.5-16.0 G/DL Hematocrit 33 L 35-52 % Mean Corpuscular Volume 92 80-99 FL Mean Corpuscular Hemoglobin 31 25-34 PG Mean Corpuscular Hemoglobin Concent 33 32-36 G/DL Red Cell Distribution Width 14.2 10.0-14.5 % Platelet Count 190 130-400 10^3/uL Mean Platelet Volume 9.6 7.4-10.4 FL Neutrophils (%) (Auto) 80 H 42-75 % Lymphocytes (%) (Auto) 9 L 12-44 % Monocytes (%) (Auto) 11 0-12 % Eosinophils (%) (Auto) 0 0-10 % Basophils (%) (Auto) 0 0-10 % Neutrophils # (Auto) 3.4 1.8-7.8 X 10^3 Lymphocytes # (Auto) 0.4 L 1.0-4.0 X 10^3 Monocytes # (Auto) 0.5 0.0-1.0 X 10^3 Eosinophils # (Auto) 0.0 0.0-0.3 10^3/uL Basophils # (Auto) 0.0 0.0-0.1 10^3/uL Sodium Level 135 135-145 MMOL/L Potassium Level 4.1 3.6-5.0 MMOL/L Chloride Level 101 98-107 MMOL/L Carbon Dioxide Level 23 21-32 MMOL/L Anion Gap 11 5-14 MMOL/L Blood Urea Nitrogen 37 H 7-18 MG/DL Creatinine 1.17 0.60-1.30 MG/DL Estimat Glomerular Filtration Rate 45 BUN/Creatinine Ratio 32 Glucose Level 211 H 70-105 MG/DL Calcium Level 9.8 8.5-10.1 MG/DL Magnesium Level 2.1 1.8-2.4 MG/DL Total Bilirubin 0.2 0.1-1.0 MG/DL Aspartate Amino Transf (AST/SGOT) 15 5-34 U/L Alanine Aminotransferase (ALT/SGPT) 13 0-55 U/L Alkaline Phosphatase 73 40-136 U/L Total Protein 5.9 L 6.4-8.2 GM/DL Albumin 3.4 3.2-4.5 GM/DL Glucometer 121 H 70-110 MG/DL Radiology Date of Exam: 05/31/17 CHEST 1 VIEW, AP/PA ONLY INDICATION: Shortness of air COMPARISON: 815 FINDINGS: Bilateral effusions, basilar atelectasis and nonspecific infiltrates increased. Heart size upper limits not obviously changed. No pneumothorax. IMPRESSION: Increased basilar pleural parenchymal opacities. Date of Exam:05/31/17 CT ANGIO CHEST W PROCEDURE: CT angiography of the chest with contrast. TECHNIQUE: Multiple contiguous axial images were obtained through the chest after uneventful bolus administration of intravenous contrast. Reconstructed CTA MIP acquisitions were also performed. INDICATION: Shortness of breath. The previous CTA chest exam performed on 04/21/2017 failed to show any sign of a pulmonary embolus or of a dissection. On this study, there is still no evidence for a defect within the pulmonary arteries to indicate a pulmonary embolus. The pulmonary arteries to the lower lobes are difficult to evaluate, however, as there has been an increase in the atelectasis/infiltrate and fluid involving the lung bases since the prior exam and the pulmonary to the lower lobes are difficult to evaluate. The fluid in the right lung base now measures 4.7 cm in maximum depth while the fluid in the left lung base is estimated to be 4.0 cm. The 4 mm nodular density in the right lung base seen previously is obscured by the atelectasis/infiltrate and fluid. The lung apices are clear. The aorta is not abnormally dilated and there is still no sign of a dissection. The heart is stable in size. Coronary artery calcifications are again noted. The mediastinal adenopathy seen previously is again evident and has not changed. Also as noted on the prior exam, the right lobe of the thyroid is surgically absent and there are postsurgical and posttreatment changes involving the right breast. There is no obvious breast mass on the left. The sections through the upper abdomen fail to show any sign of an acute abnormality. The sclerotic lesions involving the spine noted on the prior study do not appear to have changed significantly either. IMPRESSION: 1. The appearance of the chest has worsened since the prior study as there is greater involvement of both lungs by pneumonia/atelectasis and fluid. However, there is still no sign of a pulmonary embolus or of a dissection. 2. The overall appearance of the chest has not changed significantly otherwise. The mediastinal adenopathy noted on the prior study is again evident and no different. 3. The postsurgical and posttreatment changes involving the right breast noted previously are also stable. Date of Exam: 06/01/17 CHEST PA/LAT (2 VIEW) INDICATION: Bilateral effusions. Compared 05/31 FINDINGS: No substantial pleural fluid at PA or lateral radiographs found. Some very mild right infrahilar infiltrate in the lower lobe, left basilar opacity resolved. IMPRESSION: No appreciable pleural fluid, resolution of left basilar infiltrate or atelectasis. Mild infiltrate or atelectasis infrahilar right lower lobe not appreciably changed. No adverse development. Physical Exam-([facility]) Physical Exam Vital Signs VS - Last 72 Hours, by Label 05/31/17 05/31/17 05/31/17 05/31/17 07:58 08:11 08:20 08:20 Temp 97.1 Pulse 84 Resp 22 B/P (MAP) 163/83 Pulse Ox 96 93 94 94 O2 Delivery Nasal Cannula Nasal Cannula Nasal Cannula Nasal Cannula O2 Flow Rate 3.50 3.50 3.50 3.50 FiO2 94 05/31/17 05/31/17 05/31/17 05/31/17 12:04 12:30 12:30 13:00 Temp 98.0 Pulse 95 92 92 94 Resp 18 20 B/P (MAP) 164/77 Pulse Ox 100 97 O2 Delivery Nasal Cannula Nasal Cannula O2 Flow Rate 3.50 2.00 05/31/17 05/31/17 05/31/17 05/31/17 16:00 16:00 18:40 19:00 Temp 98.4 Pulse 102 103 Resp 22 B/P (MAP) 157/80 Pulse Ox 94 94 O2 Delivery Nasal Cannula Nasal Cannula Nasal Cannula O2 Flow Rate 2.00 2.00 2.00 05/31/17 05/31/17 05/31/17 05/31/17 20:00 20:00 21:00 21:30 Temp 97.9 Pulse 97 Resp 20 B/P (MAP) 129/68 Pulse Ox 92 93 87 O2 Delivery Nasal Cannula Nasal Cannula Nasal Cannula Room Air O2 Flow Rate 2.00 2.00 2.00 05/31/17 06/01/17 06/01/17 06/01/17 21:35 00:00 00:00 01:00 Temp 97.3 Pulse 72 76 Resp 18 B/P (MAP) 144/72 Pulse Ox 93 92 O2 Delivery Nasal Cannula Nasal Cannula Nasal Cannula O2 Flow Rate 2.00 1.50 1.50 06/01/17 06/01/17 06/01/17 06/01/17 04:00 04:00 07:00 08:00 Temp 97.1 97.3 Pulse 81 82 72 Resp 16 18 B/P (MAP) 145/74 129/74 Pulse Ox 94 94 O2 Delivery Nasal Cannula Nasal Cannula Nasal Cannula O2 Flow Rate 1.50 1.50 1.50 06/01/17 06/01/17 06/01/17 08:00 09:00 11:36 Pulse Ox 93 O2 Delivery Nasal Cannula Nasal Cannula Nasal Cannula O2 Flow Rate 1.50 2.00 1.50 Capillary Refill : Less Than 3 Seconds General Appearance: WD/WN, no apparent distress, other (elderly) HEENT: PERRL/EOMI Neck: non-tender, full range of motion, supple Respiratory: chest non-tender, lungs clear, no respiratory distress, no accessory muscle use Cardiovascular: normal peripheral pulses, regular rate, rhythm, no edema, no murmur Gastrointestinal: normal bowel sounds, non tender, soft, no organomegaly Back: normal inspection, no CVA tenderness, other (Incisions c/d/i, minimal drainage on bandage) Extremities: normal range of motion, no pedal edema, no calf tenderness, normal capillary refill Neurologic/Psychiatric: director of clinical services II-XII nml as tested, no motor/sensory deficits, alert, normal mood/affect, oriented x 3 Skin: normal color, warm/dry Short Stay Diagnosis Discharge Diagnosis-Short Stay Admission Diagnosis Acute Respiratory Failure with hypoxia Bilateral pleural effusions IDDM with hyperglycemia HTN Hypothyroidism Metastatic Breast Cancer Final Discharge Diagnosis See Above Conclusion Plan 76 yo F with known Metastatic breast cancer that presented with acute shortness of breath found to have bilateral pleural effusions. Acute Respiratory Failure with hypoxia: Improved after thoracentesis. Patient off oxygen this AM. Tolerating activity and ambulation. CXR shows no reaccumulation of fluid. Bilateral Pleural effusions: Thoracentesis by Dr Wilson. IDDM with hyperglycemia: Patient blood sugars have been elevated. She did not eat prior to coming in and presented with blood sugar in the 30s. She was then given fluid with D5 and had blood sugars in the 400s. Patient reports frequent low blood sugars in the AM. Discussed that dangers in low blood sugars. Safer to run this patient high then low. Adjusted insulin to 30 units in the AM. Encouraged patient to keep log so that it can be adjusted. Hypothyroidism: Continued on home medication. Breast Cancer: Due to start treatment on Saturday. Has appt at cancer center Clinical Quality Measures DVT/VTE Risk/Contraindication: Risk Factor Score Per Nursin RFS Level Per Nursing on Admit: 4+=Very High Copy Copies To 1: Felecia BENNETT HOLLY R MD Jun 01, 2017 13:57
[2017-06-01] MEDS ORDERED: INSU100I29 SC (14:00)
--- NOTE | 2017-06-01 14:04 | Discharge Instructions ---
Discharge [facility] Discharge Medications New, Converted or Re-Newed RX: Other (No new scripts) Changed Medications: Insulin Detemir (Levemir Flextouch) 100 Unit/1 Ml Insuln.pen 30 UNITS SC DAILY for 30 Days, EA (Changed from: 40 UNITS; HS) Take in the AM Continued Medications: Amlodipine Besylate (Norvasc Tablet) 5 Mg Tab 5 MG PO HS, TAB Benazepril Hcl (Benazepril Hcl) 10 Mg Tablet 10 MG PO HS, TAB Calcium Carbonate/Vitamin D3 (Calcium 600 + Vit D 200 Tablet) 1 Each Tablet 1 TAB PO HS, TAB Gemfibrozil (Gemfibrozil) 600 Mg Tablet 600 MG PO BID, TAB Indapamide (Indapamide) 2.5 Mg Tablet 2.5 MG PO DAILY, TAB Levothyroxine Sodium (Levothyroxine Sodium) 100 Mcg Tablet 100 MCG PO DAILY, TAB Loratadine (Claritin) 10 Mg Tab 10 MG PO HS, TAB Lovastatin (Lovastatin 20 Mg) 20 Mg Tablet 20 MG PO DAILY, TAB Metformin Hcl (Glucophage) 1,000 Mg Tablet 1000 MG PO BID WITH MEALS, TAB Metoprolol Tartrate (Metoprolol Tartrate 25 Mg) 25 Mg Tablet 25 MG PO BID, TAB Omeprazole (Prilosec) 20 Mg Capsule.dr 20 MG PO HS, CAP Palbociclib (Ibrance) 125 Mg Capsule 125 MG PO UD, CAP TAKE DAYS 1-21 THEN OFF FOR 7 DAYS THIS IS IN THE MAIL- HAS NOT STARTED TAKING YET Pioglitazone HCl (Pioglitazone HCl) 45 Mg Tablet 45 MG PO DAILY, TAB [Fluvestrant Inj] () INJ UD EVERY 2 WEEKS FOR 3 DOSES THEN EVERY MONTH FIRST DOSE 05-28-17 Patient Instructions Goal/Follow Up Appt: Deann our hospital to home nurse will call you with a hospital follow up appointment with Felecia Grossman - You have an appt at the Cancer center on Saturday Patient Instructions: - Make sure you stay active at home - Use your Inspiratory Spirometry at least 10 times per day Return to The Hospital For: Worsening shortness of breath Chest pain Unable to take your medicaitons Activity & Diet Discharge Diet: ADA Diet Activity as Tolerated: Yes Copy Copies To 1: [facility] HO[facility] R MD Jun 01, 2017 14:04
[2017-06-01] MEDS ORDERED: CALCIUM CARB + VIT D 600 MG (CALCARB + D) TAB PO SCH (17:00)
[2017-06-01] MEDS ORDERED: PANTOPRAZOLE 40 MG (PROTONIX) TAB PO SCH (21:00)
== END 2017-06-01 14:45 | disposition home or self-care (01) | DRG 597 ==
LOC: EDUNIT# 07:43 → ER 07:45 → ICU 09:10
PROVIDERS: ADMIT Family Medicine; ATTEND Family Medicine
PROC: 0W993ZZ Drainage of Right Pleural Cavity, Percutaneous Approach (ICD-10-PCS; principal; 2017-05-31)
PROC: 0W9B3ZZ Drainage of Left Pleural Cavity, Percutaneous Approach (ICD-10-PCS; 2017-05-31)
DX: C50.911 Malignant neoplasm of unspecified site of right female breast (principal); J91.0 Malignant pleural effusion; J96.01 Acute respiratory failure with hypoxia; J18.9 Pneumonia, unspecified organism; C79.51 Secondary malignant neoplasm of bone; R64 Cachexia; I10 Essential (primary) hypertension; E78.00 Pure hypercholesterolemia, unspecified; E11.65 Type 2 diabetes mellitus with hyperglycemia; J30.2 Other seasonal allergic rhinitis; E78.5 Hyperlipidemia, unspecified; E03.9 Hypothyroidism, unspecified; Z79.4 Long term (current) use of insulin; Z87.891 Personal history of nicotine dependence
CPT/HCPCS: 32555; 36415; 71010; 71020; 71275; 80048; 80053; 82550; 82553; 82805; 82945; 82962; 83605; 83615; 83735; 83880; 84157; 84315; 84484; 85025; 85610; 85730; 87040; 87070; 87075; 87077; 87101; 87205; 89051; 93005; 93041; 94640; 96365; 96375

== ENCOUNTER → 2017-06-12 | Outpatient (CLI) | payer MEDICARE, OTHER ==
[~2017-06-12] MED LIST changes: +CALC-6 PO; +CIPR500T4 PO; +FULVESTRANT INJ; +FURO20TA4 PO; +INSU100I29 SC; +PALB125C PO; +POTA10TA10 PO; +[UNRECOGNIZED DRUG - CODE] IV
--- NOTE | 2017-06-12 16:35 | Diagnostic Imaging Report ---
INDICATION: Shortness of air. COMPARISON: 06/01/2017. FINDINGS: Frontal and lateral radiographic views of the chest were obtained and demonstrate interval development of moderate bilateral effusions. There is associated bibasilar airspace disease. The cardiac silhouette is obscured. The vasculature is prominent. There is a 2 cm nodular prominence in the right hilar region as well. An indwelling Port-A-Cath is noted. The bony structures show no gross acute abnormalities. IMPRESSION: 1. Interval development of moderate bilateral effusions with associated bibasilar atelectasis and/or infiltrate. 2. Mild pulmonary vascular congestion. 3. Right hilar nodule versus adenopathy or artifact related to pulmonary vessel on end. Report given to DARIN Blum at 4:32 p.m. 06/12/2017/sonia Dictated by: Dictated on workstation # [id number]
== END ==
LOC: RAD 15:34
PROVIDERS: ATTEND Nurse Practitioner Adult Health
DX: J90 Pleural effusion, not elsewhere classified (principal); R91.8 Other nonspecific abnormal finding of lung field; C50.511 Malignant neoplasm of lower-outer quadrant of right female breast; Z87.09 Personal history of other diseases of the respiratory system
CPT/HCPCS: 71020

== ENCOUNTER → 2017-06-13 | Outpatient (CLI) | payer MEDICARE, OTHER ==
[~2017-06-13] VITALS: Ht 165.1 cm; Wt 73.5 kg
[~2017-06-13] MED LIST changes: -CIPR500T4 PO; -FURO20TA4 PO; +NS IV 1000 ML 1,000 ML IV SCH; +NS IV 1000 ML 1,000 ML ONE; -POTA10TA10 PO; -[UNRECOGNIZED DRUG - CODE] IV
[2017-06-13 08:50] VITALS: BP 125/79
--- NOTE | 2017-06-13 11:40 | Progress Note-Post Operative ---
Post-Operative Progess Note Surgeon (s)/Dye House Supervisor (s) Surgeon SHAY RODRIGUEZ DO Dye House Supervisor: na Pre-Operative Diagnosis breast ca c mets, b/l pleural effusions Post-Operative Diagnosis same Procedure & Operative Findings Date of Procedure 06/13/17 Procedure Performed/Findings b/l thoracentesis u/s guidance Anesthesia Type local Estimated Blood Loss Estimated blood loss (mL): none Specimens/Packing Specimens Removed na SHAY RODRIGUEZ DO Jun 13, 2017 11:40
--- NOTE | 2017-06-13 12:28 | OPERATIVE REPORT ---
DATE OF SERVICE: 06/13/2017 PREOPERATIVE DIAGNOSIS: Breast cancer with metastasis and bilateral pleural effusions. POSTOPERATIVE DIAGNOSIS: Breast cancer with metastasis and bilateral pleural effusions. PROCEDURE: Bilateral paracentesis, ultrasound guidance. SURGEON: Shay Wilson DO ANESTHESIA: Local 1% lidocaine; 50 mL total. ESTIMATED BLOOD LOSS: None. INDICATIONS: The patient is a 76-year-old female who has been having shortness of breath and on chest x-ray has recurrent bilateral pleural effusions. She understands the risks and benefits of bilateral thoracentesis. She wished to proceed with the procedure. Consent was obtained and is on the chart. DESCRIPTION OF PROCEDURE: The patient was taken to the procedure room. Ultrasound was used to jesse the bilateral chests where largest fluid collections were present. After this was performed, the areas were prepped and draped in sterile fashion. Local anesthetic was infiltrated into the left chest skin markings and the safety thoracentesis catheter and needle were inserted and straw colored fluid was returned. The catheter was inserted and a total of 1450 mL was drained from the left lung. The catheter was then removed. The right lung was then prepped and draped in a sterile fashion. Local anesthetic was infiltrated into the area of the marking and the safety thoracentesis needle and catheter were then inserted. after a small stab incision was made. The catheter was inserted and straw colored fluid was returned. The right chest pleural effusion was drained removing 1200 mL from the right side. The catheter was removed. Sterile bandages were applied. The patient tolerated the procedure well without any complications to go and get a chest x-ray post-procedure. Job ID: [id number] DocumentID: [id number] Dictated Date: 06/13/2017 11:43:48 Clinical Support Associate Date: 06/13/2017 12:27:20 Dictated By: SHAY WILSON DO
--- NOTE | 2017-06-13 20:55 | Diagnostic Imaging Report ---
EXAMINATION: Portable erect AP chest at 9:32 p.m. INDICATION: Post thoracentesis. FINDINGS: The exam performed on 06/12/2017 noted that both lung bases are obscured by atelectasis/infiltrate and fluid. In the interval since the prior study, the patient has undergone bilateral thoracentesis. On this exam, both lung bases do seem much better aerated. There is only a small amount of residual atelectasis/infiltrate and fluid in each lung base. There is no sign of a pneumothorax. The heart is stable in size. The mediastinum is not widened. The Groshong catheter on the left seen previously is again evident. The osseous structures are intact. IMPRESSION: 1. The appearance of the chest has improved considerably since the prior exam as both lung bases are much better aerated following thoracentesis. There is no sign of a pneumothorax involving either lung either. 2. These results were discussed with Dr. Wilson. Dictated by: Dictated on workstation # [id number]
--- NOTE | 2017-06-13 22:32 | Diagnostic Imaging Report ---
Ultrasound guided thoracentesis INDICATION: Pleural effusion. The recent chest exam of 06/11/17 noted bilateral lung bases were opacified by atelectasis/infiltrate and fluid. On this exam, there does appear to be at least a moderate amount of fluid in the left lung base. The skin over the fluid was marked for thoracentesis to be performed by Dr. Wilson. IMPRESSION: There has been successful localization of the fluid in the left lung for thoracentesis. Dictated by: Dictated on workstation # [id number]
--- NOTE | 2017-06-13 22:34 | Diagnostic Imaging Report ---
Thoracentesis right INDICATION: Pleural effusion. The recent chest exam of 06/11/17 noted that both lung bases were opacified by atelectasis/infiltrate and fluid. On this exam, there is a large pleural effusion present. The skin over the fluid was marked for thoracentesis to be performed by Dr. Doyle Wilson. IMPRESSION: There is a large right pleural effusion. Thoracentesis is pending. Dictated by: Dictated on workstation # [id number]
== END ==
LOC: RAD 08:45
PROVIDERS: ATTEND Surgery
DX: J90 Pleural effusion, not elsewhere classified (principal); C79.89 Secondary malignant neoplasm of other specified sites; Z85.3 Personal history of malignant neoplasm of breast
CPT/HCPCS: 32555; 71010

== ENCOUNTER → 2017-06-21 | Outpatient (CLI) | payer MEDICARE, OTHER ==
[~2017-06-21] VITALS: Ht 165.1 cm; Wt 73.5 kg
[~2017-06-21] MED LIST changes: +CIPR500T4 PO; +FURO20TA4 PO; -NS IV 1000 ML 1,000 ML IV SCH; -NS IV 1000 ML 1,000 ML ONE; +POTA10TA10 PO; +[UNRECOGNIZED DRUG - CODE] IV
[2017-06-21 13:45] VITALS: BP 130/81
--- NOTE | 2017-06-21 14:24 | Diagnostic Imaging Report ---
INDICATION: Evaluation for pleural effusion. History of breast CA. Comparison with 06/13/2017. FINDINGS: There has been development of moderate large bilateral pleural effusion since previous exam. Upper lungs show mild increased interstitial markings. The heart is mildly enlarged. Port-A-Cath is present on the left unchanged in position. No bony lesions are demonstrated. IMPRESSION: Significant increase in bilateral pleural effusions when compared with previous exam. Dictated by: Dictated on workstation # [id number]
[2017-06-21 14:47] VITALS: BP 124/71
--- NOTE | 2017-06-21 15:38 | Diagnostic Imaging Report ---
INDICATION: Post thoracentesis. COMPARISON: 06/21/2017 at 1:25 PM. Two views. FINDINGS: A left venous catheter is present with the tip in the superior vena cava. The right-sided pleural effusion has decreased in the interval. There is no pneumothorax. Left basilar pleural disease and subjacent lung abnormality is unchanged. IMPRESSION: 1. Post right thoracentesis. No pneumothorax. 2. No significant change in the left basilar pleural-parenchymal disease. Report called by Dr. Uriostegui at the time of dictation. Dictated by: Dictated on workstation # [id number]
--- NOTE | 2017-06-21 19:42 | Diagnostic Imaging Report ---
INDICATION: Ultrasound utilized for evaluation for thoracentesis. FINDINGS: Real-time imaging does show a rather large fluid collection in the dependent portion of the right hemithorax. Area was marked for thoracentesis. IMPRESSION: Rather large pleural effusion noted on the right. Dictated by: Dictated on workstation # [id number]
--- NOTE | 2017-06-22 14:00 | OPERATIVE REPORT ---
DATE OF SERVICE: 06/21/2017 PREOPERATIVE DIAGNOSIS: Bilateral pleural effusions. POSTOPERATIVE DIAGNOSIS: Bilateral pleural effusions. PROCEDURE: Right thoracentesis, ultrasound guided. SURGEON: Doyle Wilson DO ANESTHESIA: Local anesthetic, 1% lidocaine of 3 mL. INDICATIONS: The patient is a 76-year-old female with bilateral pleural effusions, metastatic breast cancer. She understands the risks and benefits of procedure and wishes to proceed with procedure. Last time, she had some slight difficulty by doing bilateral pleural effusions of the same kind; therefore, we are electing to do right side only at this time. We will schedule her for a left thoracentesis in the next couple of days. The patient understands the risks and benefits involved with the procedure and wishes to proceed. Consent was signed in chart. DESCRIPTION OF PROCEDURE: The patient was taken to the procedure room. Ultrasound was used to locate a pocket, for thoracentesis. The right chest was marked. It was then prepped and draped in a sterile fashion. A time-out was performed. Local anesthetic 1% lidocaine 3 mL was injected into the area. A #11 blade scalp was used to make a stab incision. Using the safety thoracentesis kit, the catheter and the needle were inserted into the right chest until pleural fluid was returned. This was straw-colored in nature. The catheter was inserted into the chest cavity and the needle was removed. This was then hooked up to the drainage suction device. A total of 1250 mL of straw-colored fluid was removed from the right chest. The catheter was then removed. Sterile band was applied. The patient tolerated the procedure well without any complications. The patient has chest x-ray pending. Job ID: [id number] DocumentID: [id number] Dictated Date: 06/21/2017 14:29:32 Asbestos Pipe Supervisor Date: 06/22/2017 05:51:10 Dictated By: AMIE BRODERICK MD
== END ==
LOC: RAD 12:44
PROVIDERS: ATTEND Surgery
DX: J90 Pleural effusion, not elsewhere classified (principal); C50.511 Malignant neoplasm of lower-outer quadrant of right female breast
CPT/HCPCS: 32555; 71020

== ENCOUNTER → 2017-06-24 | Outpatient (CLI) | payer MEDICARE, OTHER ==
[~2017-06-24] VITALS: Ht 165.1 cm; Wt 73.5 kg
[~2017-06-24] MED LIST changes: -CIPR500T4 PO; -FURO20TA4 PO; -POTA10TA10 PO; -[UNRECOGNIZED DRUG - CODE] IV
[2017-06-24 13:12] VITALS: BP 134/72
--- NOTE | 2017-06-24 13:37 | Diagnostic Imaging Report ---
PA and lateral views of the chest. INDICATION: Pleural effusion. FINDINGS: There is a moderate/ large left pleural effusion. No significant effusion on the right side is seen. There is however mild infiltrate or atelectasis in the right lung base. The opacified left lung base is supposedly related to atelectasis adjacent to the effusion. The heart size is normal. There is an infusion port through the left subclavian vein with the tip at the cavo/atrial junction. IMPRESSION: Moderate/ large left pleural effusion. Bibasilar atelectasis or infiltrates. Dictated by: Dictated on workstation # [id number]
--- NOTE | 2017-06-24 14:26 | Diagnostic Imaging Report ---
PA and lateral views of the chest. INDICATION: Status post thoracentesis. FINDINGS: There is interval thoracentesis on the left side with minimal remaining atelectasis. There is mild opacity in the right lung base could relate to atelectasis or infiltrate. The right hemidiaphragm is elevated similar to the prior exam performed before the thoracentesis. This could relate to a subpulmonic effusion on the right. There is slight prominence of the cardiac size. There is an infusion port with the tip at the cavoatrial junction. No pneumothorax. IMPRESSION: 1. Elevated right hemidiaphragm and right basilar mild infiltrate or atelectasis is seen. The appearance could relate to a subpulmonic effusion on the right. 2. Status post thoracentesis on the left with minimal remaining left basilar atelectasis. Dictated by: Dictated on workstation # [id number]
--- NOTE | 2017-06-24 15:06 | Diagnostic Imaging Report ---
EXAMINATION: Ultrasound of the left chest was performed for evaluation for effusion and guidance of thoracentesis Indication: Pleural effusion FINDINGS: There is a moderate to large left pleural effusion. An appropriate area was marked for thoracentesis. IMPRESSION: Left pleural effusion. Dictated by: Dictated on workstation # [id number]
--- NOTE | 2017-06-25 08:35 | OPERATIVE REPORT ---
DATE OF SERVICE: 06/24/2017 PREOPERATIVE DIAGNOSIS: Left pleural effusion. POSTOPERATIVE DIAGNOSIS: Left pleural effusion. PROCEDURE: Left thoracentesis, ultrasound-guided. SURGEON: Shay Wilson DO. ANESTHESIA: Local, 1% lidocaine 3 mL. ESTIMATED BLOOD LOSS: None. COMPLICATIONS: None. INDICATIONS: The patient is a 76-year-old female with recurrent pleural effusions. The patient with left pleural effusion, greater than the right. She understands risks and benefits of procedure and wished to proceed with procedure. Consent was signed in the chart. DESCRIPTION OF PROCEDURE: The patient was taken to the procedure room. A timeout was performed. Using ultrasound guidance, the chest was marked for good exposure for a thoracentesis. Once adequate spot was found, the area was then prepped and draped in a sterile fashion. Local anesthetic of 1% lidocaine was used to anesthetize the area. A #11 blade scalpel was used to make a small skin incision. Using the safety thoracentesis kit, the needle and catheter were inserted through the incision until straw colored fluid was returned. The catheter was then advanced and the needle was removed. Straw colored fluid was returned. A total of 1450 mL was drawn off the left chest. Once completely drained, the catheter was removed and a sterile bandage was applied. The patient tolerated the procedure well without any complications. Chest x-ray is pending. Job ID: [id number] DocumentID: [id number] Dictated Date: 06/24/2017 19:25:50 School Childcare Attendant Date: 06/25/2017 05:52:04 Dictated By: SHAY WILSON DO
== END ==
LOC: RAD 13:10
PROVIDERS: ATTEND Surgery
DX: J90 Pleural effusion, not elsewhere classified (principal)
CPT/HCPCS: 32555; 71020

== ENCOUNTER 2017-07-02 15:07 | Emergency (ER) | payer MEDICARE, OTHER ==
[~2017-07-02] VITALS: Ht 165.1 cm; Wt 72.6 kg
--- OUTSIDE RECORDS SUMMARY | 2017-07-02 15:12 | XMS REPORT | Encounter Summary ---
Author Author [facility] Organization [facility] Address Unknown Phone Unavailable Care Team Providers Care Process Treater Name Role Phone PCP Unavailable Encounter Details Date Type Department Care Team Description 05/13/2017 Ancillary Rad Outpatient, Radiologist Diagnosis unknown Orders [address] [place] [address] Social History Tobacco Use Types Packs/Day Years [...]
--- OUTSIDE RECORDS SUMMARY | 2017-07-02 15:12 | XMS REPORT | Clinical Summary ---
Author Author [facility] Organization [facility] Address Unknown Phone Unavailable Care Team Providers Care Used Car Make Ready Mechanic Name Role Phone PCP Unavailable Source Comments Some departments are not documenting in the electronic medical record. If you do not see the information that you expected, contact Release of Information in the Health Information Management department at [phone] for further assistance in locating additional records.[facility] Allergies Active Allergy Reactions Severity Noted [...] D2) (VITAMIN D PO) daily. Active Problems No known active problems Encounters Date Type Specialty Care Team Description 05/20/2017 Office Visit Oncology O'Meme Agee MD Malignant neoplasm of breast in female, estrogen receptor positive, unspecified laterality, unspecified site of breast (Primary Dx) 05/13/2017 Ancillary Radiology Outpatient, Radiologist Diagnosis unknown [...] SCREENING 2006 PREVNAR/PNEUMOVAX (#1) 2006 INFLUENZA VACCINE 07/14/2017 Results * NM PET/CT EXTERNAL IMAGING (05/07/2017) Narrative This order has been auto finalized and does not contain a result. * CT CHEST EXTERNAL IMAGING (04/21/2017) Narrative This order has been auto finalized and does not contain a result. from Last 3 Months
--- OUTSIDE RECORDS SUMMARY | 2017-07-02 15:12 | XMS REPORT | Encounter Summary ---
Author Author [facility] Organization [facility] Address Unknown Phone Unavailable Care Team Providers Care Trim Stencil Maker Name Role Phone PCP Unavailable Encounter Details Date Type Department Care Team Description 05/13/2017 Ancillary Rad Outpatient, Radiologist Diagnosis unknown Orders [address] [place] [address] Social History Tobacco Use Types Packs/Day Years [...]
--- OUTSIDE RECORDS SUMMARY | 2017-07-02 15:12 | XMS REPORT | Encounter Summary ---
Author Author [facility] Organization [facility] Address Unknown Phone Unavailable Care Team Providers Care Java User Interface Developer Name Role Phone PCP Unavailable Reason for Visit * Reason Comments Heme/Onc Care * Consult, Test & Treat (Routine) Status Reason Specialty Diagnoses / Referred By Referred To Procedures Contact Contact New Request Oncology Procedures Liam Goff O'Dea, Anne, MD [place] OFFICE/OUTPT [address] [place] [address] VISIT,[facility],[place] [address] Phone: [phone] Phone: Encounter Details Date Type Department Care Team Description 05/20/2017 Office Visit [facility] Meme Lockwood MD Malignant neoplasm of Cancer Center - [address] breast in female, Exam [address] estrogen receptor [address] [place] [id number] positive, [place] [address] laterality, unspecified [phone] site of breast (Primary Dx) Social History Tobacco Use Types Packs/Day Years Used Date Former Smoker Cigarettes 1 Quit: 03/21/1991 Smokeless Tobacco: Never Used Alcohol [...] 05/20/2017 2:20 PM CDT NO SCHEDULING NEEDED * Meme Lockwood MD - 05/20/2017 2:20 PM CDT Formatting of this note may be different from the original. Date of Service: 05/20/2017 Subjective: Reason for Visit: Heme/Onc Care Lacey Perdomo is a 76 y.o. female. No matching staging information was found for the patient. HPI Comments: Lacey Perdomo is a very pleasant 76 y.o postmenopausal female who presents today in referral from Dr. Molina regarding her recent diagnosis of metastatic breast cancer. Lacey found a palpable right breast lump in July 2014 which she followed up with PCP. A US-guided biopsy of the right breast 03/11 ([facility]), revealed IDC, grade 3, ER 95, UT 55, Her2 negative 0 + by IHC with a Ki67 of 45%. Patient completed three cycles of Neoadjuvant chemotherapy with Adriamycin and Cytoxan IV 05/20/14. Teament was stopped due to new onset atrial fibrillation. She then underwent right lumpectomy and ALND 07/[address] Schofield ([facility]) which pathology showed IDC grade 3, 5/ 12 nodes positive for metastatic adenocarcinoma consistent with breast primary. Pathologic stage pT2N2a. Prognostic makers not repeated.She then completed radiation treatment 11/05/14.She started Anastrozole 1 mg daily starting in Frebruary 2014 until present. Lacey noticed right arm pain and swelling which she followed up with PCP 01/07/17 , he referred her to lymphedema therapy. She followed up with PCP 02/19/17 for right arm color changes, diagnosed with possible cellulitis, prescribed doxycycline. She continued to have right breast tenderness and lympedema right upper arm which she followed up with PCP on 04/01/17, cellulitis improving. Patient was admitted to [facility] the week of 04/21/17 for increasing respiratory symptoms. CT angiography of the chest 04/21/17 ([facility]) revealed developing mediastinal adenopathy with associated new small bilateral pulmonary nodules. 04/22/17 Left thoracentesis ([facility]) revealed metastatic adenocarcinoma consistent with breast primaryPET-CT 05/07/17 ([facility]) revealed numerous hypermetabolic sclerotic osseous metastasis and metastatic lymph nodes in the chest, upper abdomen and the left supraclavicular lymph nodes. She presents today via w/c, accompanied by her daughter, Vidya for a second opinion. Reports shortness of air on exertion, neuropathy in feet and hands, fatigue, and lymphedema right arm. States she has back pain in the mornings which improves during the day. Physician Info: " Referring Physician: Dr. Molina " Contact Name & Number: [phone] " Surgeon: Dr. Schofield " Medical Oncologist: Dr. Molina " Radiation Oncologist: Dr. Buck [facility] 04/21/17 CT angiography of the chest ([facility]) Impression: Developing mediastinal adenopathy with associated new small bilateral pulmonary nodules. New sclerotic lesions within the osseous structures. Moderate sized bilateral pleural effusions. See report. 04/22/17 Left thoracentesis ([facility]) Showed metastatic adenocarcinoma consistent with breast primary 05/07/17 PET scan ([facility]) Impression: there are numerous hypermetabolic sclerotic osseous metastasis and metastatic lymph nodes in the chest, upper abdomen and the left supraclavicular lymph nodes. See report. 05/13/17 CT Head with and without contrast Impression: 1. No space-occupying mass or evidence of pathologic enhancement to suggest intracranial metastasis. Please note that MRI is more sensitive for small parenchymal metastases. Family History of Breast Cancer: no family history of breast cancer. Both maternal and paternal grandmothers were diagnosed with ovarian cancer. Lacey denies having genetic testing performed in the past. Personal History of Other Cancers: none. Reproductive History Menstrual Hx LMP: 59 years old Having Periods: No Age at first period: 13 years old Surgical Hx Surgery/Year: Lacey had three benign fibroids removed from her uterus in the past. Hx Age of first live : 23 years old Number of live births: 3 Number of pregnancies: 3 Did you breastfeed: No Oral Control: Yes Years: 6 months Infertility Medication: No Menopausal Hx Age of last period: 59 years old Hormone Replacement Therapy: No Review of Systems Constitutional: Positive for activity change and fatigue. Negative for appetite change, chills, fever and unexpected weight change. HENT: Positive for sinus pressure. Negative for congestion, mouth sores, tinnitus and trouble swallowing. Eyes: Negative for visual disturbance. Respiratory: Positive for shortness of breath. Negative for cough, chest tightness and wheezing. Cardiovascular: Negative for chest pain, palpitations and leg swelling. Gastrointestinal: Negative for abdominal distention, abdominal pain, blood in stool, constipation, diarrhea, nausea and vomiting. Genitourinary: Negative for difficulty urinating, dysuria, frequency and urgency. Musculoskeletal: Negative for arthralgias, back pain and joint swelling. Skin: Negative for rash. Lymphedema right arm Neurological: Positive for numbness. Negative for dizziness, weakness and headaches. Hematological: Negative for adenopathy. Does not bruise/bleed easily. Psychiatric/Behavioral: Negative for sleep disturbance. The patient is not nervous/anxious. Objective: No current outpatient prescriptions on file. Vitals: 05/20/17 1411 05/20/17 1422 BP: 138/65 138/65 Pulse: 79 79 Resp: 18 Temp: 36.4 C (97.6 F) TempSrc: Oral SpO2: 93% Weight: 78.2 kg (172 lb 4.8 oz) 78.2 kg (172 lb 4.8 oz) There is no height or weight on file to calculate BMI. Pain Score: Zero Pain Addressed: N/A Patient Evaluated for a Clinical Trial: No treatment clinical trial available for this patient. Eastern Cooperative Oncology Group performance status is 3, Capable of only limited selfcare, confined to bed or chair more than 50% of waking hours. Physical Exam Constitutional: She is oriented to person, place, and time. She appears well- developed and well-nourished. No distress. HENT: Head: Normocephalic and atraumatic. Mouth/Throat: Oropharynx is clear and moist. No oral lesions. Eyes: Conjunctivae and EOM are normal. Pupils are equal, round, and reactive to light. No scleral icterus. Neck: Normal range of motion. Cardiovascular: Normal rate, regular rhythm and normal heart sounds. Exam reveals no gallop and no friction rub. No murmur heard. Pulmonary/Chest: Effort normal and breath sounds normal. She has no wheezes. She has no rhonchi. She has no rales. Right breast exhibits no inverted nipple, no nipple discharge and no skin change. Left breast exhibits no inverted nipple , no nipple discharge and no skin change. Breasts are symmetrical. Abdominal: Soft. Normal appearance and bowel sounds are normal. She exhibits no distension and no mass. There is no tenderness. There is no guarding. Genitourinary: No breast bleeding. Musculoskeletal: Normal range of motion. She exhibits no edema. Lymphadenopathy: She has no cervical adenopathy. She has no axillary adenopathy. Right: No supraclavicular adenopathy present. Left: No supraclavicular adenopathy present. Neurological: She is alert and oriented to person, place, and time. She has normal strength. No cranial nerve deficit. Skin: Skin is warm and dry. No rash noted. Psychiatric: She has a normal mood and affect. Her behavior is normal. Judgment and thought content normal. Vitals reviewed. Assessment and Plan: The patient is a 76 y.o. female with the followin. IDC grade 3, 5/12 nodes positive for metastatic adenocarcinoma consistent with breast primary. Pathologic stage pT2N2a. Now clinical stage 4 with bone and dylan metastasis. Given the patient's advanced age and PS, I have recommended initiation endocrine therapy. The SCAR-3 study demonstrated that Ibrance combined with the hormonal therapy Faslodex (chemical name: fulvestrant) more than doubled progression-free survival compared to Faslodex alone in women diagnosed with nomovjn-qywuitdt-xsuvlyib, HER2-negative metastatic breast cancer that had grown while being treated with hormonal therapy (December 14, 2015 Lancet Oncology) . Therefore, I recommend palbociclib 125 mg daily for 21 days followed by 7 days off in addition to Faslodex. Side effects of Palbociclib including but not limited to neutropenia, leucopenia, fatigue etc were discussed. She was given written information regarding these medications as well. I have recommended initiation of denosumab to reduce skeletal related events secondary to bone metastases. Potential toxicity of the drug were discussed with the patient including but not limited to severe hypocalcemia; and osteonecrosis of the Jaw (ONJ) which could manifest as jaw pain, osteomyelitis, osteitis, bone erosion, tooth or periodontal infection, toothache, gingival ulceration, or gingival erosion. Explained to the patient that the medication is a subcutaneous injection which is given once every 4 weeks. She wishes to proceed with this. She would like to continue oncology care with Dr. Guidry; I have personally spoken with him today regarding these recommendations. I have spent 60 minutes with Lacey marquez. 50 minutes spent face to face in education and counseling regarding the above.r review. In the presence of Meme Lockwood MD, I have taken down these notes, Soledad Jeong LPN, Beatriz. in this encounter Plan of Treatment Not on fileas of this encounter Visit Diagnoses Diagnosis Malignant neoplasm of breast in female, estrogen receptor positive, unspecified laterality, unspecified site of breast - Primary in this encounter
--- OUTSIDE RECORDS SUMMARY | 2017-07-02 15:13 | XMS REPORT ---
Author Author SARINA ABDULLAHI Organization [facility] Address [address] [place] [address] Care Team Providers Care Clay Processing Labourer Name Role Phone SARINA ABDULLAHI Unavailable PROBLEMS Type Condition ICD9-CM Code [id number] Code Onset Dates Condition Status SNOMED Code Problem Gastroesophageal reflux disease without esophagitis K21.9 Active 501911814 Problem Other specified diabetes mellitus with unspecified complications E13.8 Active 11067647 Problem Hypothyroidism E03.9 Active 39055955 Problem History of breast cancer Z85.3 Active 150368004 Problem Dyslipidemia E78.5 Active 009058416 Problem Essential hypertension I10 Active 44317043 Problem Malignant neoplasm of unspecified site of unspecified female breast C50.919 Active 360294993 Problem Postnasal drip R09.82 Active 79984424 Problem Dysuria R30.0 Active 23354233 Problem Diabetes mellitus E11.9 Active 81901816 Problem Gastroesophageal reflux disease with esophagitis K21.0 Active 914005997 Problem Neuropathy G62.9 Active 236451342 ALLERGIES Substance Reaction Event Type Date Status Penicillin V Potassium Unknown Drug Allergy Sep, Active SOCIAL HISTORY No smoking Hx information available PLAN OF CARE Activity Details Follow Up prn Reason: VITAL SIGNS Height 66 in 2016-10-09 Weight 165.2 lbs 2016-10-09 Temperature 97.5 degrees Fahrenheit 2016-10-09 Heart Rate 80 bpm 2016-10-09 Respiratory Rate 18 2016-10-09 BMI 26.66 kg/m2 2016-10-09 Blood pressure systolic 140 mmHg 2016-10-09 Blood pressure diastolic 82 mmHg 2016-10-09 MEDICATIONS Medication Instructions Dosage Frequency Start Date End Date Duration Status Claritin 10 MG Orally Once a day 1 tablet 24h Active Lovastatin 20 mg Orally Once a day 1 tablet with a meal 24h Active Metformin HCl 1000 MG Orally Twice a day 1 tablet with meals 12h Active Citracal Plus Active Metoprolol Tartrate 25 MG Orally Twice a day 1 tablet 12h Active Lopid 600 MG TAKE ONE TABLET BY MOUTH TWICE DAILY 90 Active Arimidex 1 MG Orally Once a day 1 tablet 24h 30 Active Actos 30 MG Orally Once a day 1 tablet 24h 02 Jun, 2016 Active Indapamide 2.5 MG Orally Once a day 1 tablet in the morning 24h 30 Active Prilosec 20 mg Orally Once a day 1 capsule 24h Active Levemir FlexTouch 100 UNIT/ML INJECT 50 UNITS SUBCUTANEOUSLY ONCE DAILY 90 Active Levothyroxine Sodium 100 MCG Orally Once a day 1 tablet 24h Jan, Active Benazepril HCl 10 mg Orally Once a day 1 tablet 24h Active Levothyroxine Sodium 100 mcgm TAKE ONE TABLET BY MOUTH ONCE DAILY 90 Active Amlodipine Besylate 5 MG Orally Once a day 1 tablet 24h Active Bactrim DS 800-160 MG Orally Twice a day 1 tablet 12h Sep, 10 day(s) Active RESULTS Name Result Date Reference Range UA LONG DIP (IN HOUSE) 2016-10-09 Lot # [id number] Exp date 2017-11-13 Clarity clear Color yellow Odor none GLU 2+ HAMLET negative KET negative SG >=1.030 BLO trace-intact pH 6.5 Protein 1+ URO 0.2 NIT negative MARKEL 1+ Lot # [id number] Exp date 2017-11 PROCEDURES Procedure Date Ordered Related Diagnosis Body Site URINALYSIS, AUTO, W/O SCOPE Oct 09, 2016 [facility] VISIT ESTABLISHED PATIENT Oct 09, 2016 Office Visit, Est Pt., Level 3 Oct 09, 2016 IMMUNIZATIONS No Known Immunizations
--- OUTSIDE RECORDS SUMMARY | 2017-07-02 15:13 | XMS REPORT | Encounter Summary ---
Author Author [facility] Organization [facility] Address Unknown Phone Unavailable Care Team Providers Care Ornamental Plaster Sticker Name Role Phone PCP Unavailable Encounter Details Date Type Department Care Team Description 05/12/2017 Ancillary Rad Outpatient, Radiologist Diagnosis unknown Orders [address] [place], [place] [id number] Social History Tobacco Use Types Packs/Day Years [...]
--- OUTSIDE RECORDS SUMMARY | 2017-07-02 15:13 | XMS REPORT | Encounter Summary ---
Author Author [facility] Organization [facility] Address Unknown Phone Unavailable Care Team Providers Care Air And Missile Defense Crewmember Name Role Phone PCP Unavailable Encounter Details Date Type Department Care Team Description 04/21/2017 Hospital [facility] Radiology [address] [place] [address] Social History Tobacco Use Types Packs/Day Years [...]
--- OUTSIDE RECORDS SUMMARY | 2017-07-02 15:13 | XMS REPORT | Encounter Summary ---
Author Author [facility] Organization [facility] Address Unknown Phone Unavailable Care Team Providers Care Polishing Pad Mounter Name Role Phone PCP Unavailable Encounter Details Date Type Department Care Team Description 05/13/2017 Ancillary Rad Outpatient, Radiologist Diagnosis unknown Orders [address] [place], [place] [id number] Social History Tobacco Use Types Packs/Day Years [...]
--- OUTSIDE RECORDS SUMMARY | 2017-07-02 15:13 | XMS REPORT | Encounter Summary ---
Author Author [facility] Organization [facility] Address Unknown Phone Unavailable Care Team Providers Care Cytology Teacher Name Role Phone PCP Unavailable Encounter Details Date Type Department Care Team Description 05/07/2017 Hospital [facility] Radiology [address] [place] [address] Social History Tobacco Use Types Packs/Day Years [...]
--- OUTSIDE RECORDS SUMMARY | 2017-07-02 15:13 | XMS REPORT | Encounter Summary ---
Author Author [facility] Organization [facility] Address Unknown Phone Unavailable Care Team Providers Care Assisted Living Manager Name Role Phone PCP Unavailable Reason for Visit * Reason Comments Navigation Assessment Encounter Details Date Type Department Care Team Description 05/13/2017 Telephone [facility] Meme Lockwood MD Navigation Assessment [facility] Exam [address] [place] [address] [place] [address] [phone] Social History Tobacco Use Types Packs/Day Years Used Date Never Assessed Sex Assigned at Date Recorded Not on file as of this encounter Plan of Treatment Not on fileas of this encounter Visit Diagnoses Not on filein this encounter
[2017-07-02] MEDS ORDERED: RT-ALBUTEROL/IPRATROPIUM 3 ML (DUONEB) VIAL INH ONE (15:15)
--- NOTE | 2017-07-02 15:20 | ED General ---
General Stated Complaint: TROUBLE BREATHING Source of Information: Patient Exam Limitations: No Limitations History of Present Illness Time Seen by Provider: 15:18 Initial Comments To ER with reports of trouble breathing since yesterday. Patient has a recurrence of breast cancer on the right. This was initially diagnosed in 2016 treated with lumpectomy, then recurrence in 2017. Currently no on chemo or radiation. 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 Most recently this was done by Dr. Rodriguez one week ago. Timing/Duration: 1-2 Days Severity: Moderate Allergies and Home Medications Allergies Coded Allergies: Penicillins (Unverified Allergy, Unknown, RASH, 10/19/16) Home Medications Amlodipine Besylate 5 Mg Tab, 5 MG PO HS, (Reported) Benazepril Hcl 10 Mg Tablet, 10 MG PO HS, (Reported) Calcium Carbonate/Vitamin D3 1 Each Tablet, 1 TAB PO HS, (Reported) Gemfibrozil 600 Mg Tablet, 600 MG PO BID, (Reported) Indapamide 2.5 Mg Tablet, 2.5 MG PO DAILY, (Reported) Insulin Detemir 100 Unit/1 Ml Insuln.pen, 30 UNITS SC DAILY for 30 Days Take in the AM Prescribed by: ISIAH MARTIN on 06/01/17 1400 Levothyroxine Sodium 100 Mcg Tablet, 100 MCG PO DAILY, (Reported) Loratadine 10 Mg Tab, 10 MG PO HS, (Reported) Lovastatin 20 Mg Tablet, 20 MG PO DAILY, (Reported) Metformin Hcl 1,000 Mg Tablet, 1,000 MG PO BID WITH MEALS, (Reported) Metoprolol Tartrate 25 Mg Tablet, 25 MG PO BID, (Reported) Omeprazole 20 Mg Capsule.dr, 20 MG PO HS, (Reported) Palbociclib 125 Mg Capsule, 125 MG PO UD, (Reported) TAKE DAYS 1-21 THEN OFF FOR 7 DAYS THIS IS IN THE MAIL- HAS NOT STARTED TAKING YET Pioglitazone HCl 45 Mg Tablet, 45 MG PO DAILY, (Reported) [Fluvestrant Inj] , INJ UD, (Reported) EVERY 2 WEEKS FOR 3 DOSES THEN EVERY MONTH FIRST DOSE 05-28-17 Constitutional: see HPI EENTM: see HPI Respiratory: no symptoms reported Cardiovascular: no symptoms reported Genitourinary: no symptoms reported Musculoskeletal: no symptoms reported Skin: no symptoms reported Psychiatric/Neurological: No Symptoms Reported Hematologic/Lymphatic: No Symptoms Reported Past Qxuaunx-Dglssz-Uvines Hx Patient Social History Former Smoker, Quit: Jun 22, 1990 Recent Foreign Travel: No Contact w/Someone Who Travel: No Recent Hopitalizations: No Immunizations Up To Date Tetanus Booster (TDap): Unknown Seasonal Allergies Seasonal Allergies: Yes Surgeries History of Surgeries: Yes (D&C X2, KNEE SCOPE, FIBROID TUMOR BX, BILAT FOOT SURGERY, PORT INSERTION) Respiratory History of Respiratory Disorde: Yes Respiratory Disorders: Pneumonia Currently Using CPAP: No Cardiovascular History of Cardiac Disorders: Yes (hx a-fib with chemo) Cardiac Disorders: Atrial Fibrillation, High Cholesterol, Hypertension Neurological History of Neurological Disord: Yes (seizure from fever as child) Reproductive System Hx Reproductive Disorders: No Sexually Transmitted Disease: No HIV/AIDS: No Female Reproductive Disorders: Denies Genitourinary History of Genitourinary Disor: No Gastrointestinal History of Gastrointestinal Di: Yes (freq constipation) Gastrointestinal Disorders: Chronic Constipation Musculoskeletal History of Musculoskeletal Dis: No Endocrine History of Endocrine Disorders: Yes (thyroid mass) Endocrine Disorders: Diabetes, Insulin dep HEENT HEENT Disorders: Cataract Loss of Vision: Denies Hearing Impairment: Denies Cancer History of Cancer: Yes (BREAST W METS TO LUNG) Cancer: Lung, Breast Did You Recieve Any Treatments: Yes Type of Tx Receive: Chemotherapy, Radiation, Surgical Intervention Psychosocial History of Psychiatric Problem: No Integumentary History of Skin or Integumenta: No Blood Transfusions History of Blood Disorders: No Adverse Reaction to a Blood Tr: No Family Medical History Significant Family History: No Pertinent Family Hx Family Medial History: Cardiovascular disease 19 FATHER G8 BROTHER Completed stroke 19 MOTHER Coronary thrombosis 19 FATHER Physical Exam Vital Signs Vital Sign - Last 12Hours 07/02/17 07/02/17 15:22 15:25 Temp 96.9 Pulse 78 Resp 22 B/P (MAP) 118/74 Pulse Ox 95 O2 Delivery Nasal Cannula O2 Flow Rate 2.00 Capillary Refill : General Appearance: No Apparent Distress, WD/WN Eyes: Bilateral Eye Normal Inspection, Bilateral Eye PERRL, Bilateral Eye EOMI HEENT: PERRL/EOMI, TMs Normal Neck: Full Range of Motion, Normal Inspection Respiratory: Normal Breath Sounds, No Accessory Muscle Use, No Respiratory Distress Cardiovascular: Regular Rate, Rhythm, Normal Peripheral Pulses Gastrointestinal: Normal Bowel Sounds, Non Tender, Soft Neurologic/Psychiatric: Alert, Oriented x3, No Motor/Sensory Deficits Skin: Normal Color, Warm/Dry Progress/Results/Core Measures Results/Orders Lab Results Laboratory Tests Test 07/02/17 16:10 Range/Units White Blood Count 2.5 L 4.3-11.0 10^3/uL Red Blood Count 3.29 L 4.35-5.85 10^6/uL Hemoglobin 10.7 L 11.5-16.0 G/DL Hematocrit 31 L 35-52 % Mean Corpuscular Volume 95 80-99 FL Mean Corpuscular Hemoglobin 33 25-34 PG Mean Corpuscular Hemoglobin Concent 34 32-36 G/DL Red Cell Distribution Width 19.4 H 10.0-14.5 % Platelet Count 317 130-400 10^3/uL Mean Platelet Volume 8.8 7.4-10.4 FL Neutrophils (%) (Auto) 44 42-75 % Lymphocytes (%) (Auto) 40 12-44 % Monocytes (%) (Auto) 13 H 0-12 % Eosinophils (%) (Auto) 2 0-10 % Basophils (%) (Auto) 2 0-10 % Neutrophils # (Auto) 1.1 L 1.8-7.8 X 10^3 Lymphocytes # (Auto) 1.0 1.0-4.0 X 10^3 Monocytes # (Auto) 0.3 0.0-1.0 X 10^3 Eosinophils # (Auto) 0.1 0.0-0.3 10^3/uL Basophils # (Auto) 0.0 0.0-0.1 10^3/uL Sodium Level 137 135-145 MMOL/L Potassium Level 4.3 3.6-5.0 MMOL/L Chloride Level 108 H 98-107 MMOL/L Carbon Dioxide Level 18 L 21-32 MMOL/L Anion Gap 11 5-14 MMOL/L Blood Urea Nitrogen 25 H 7-18 MG/DL Creatinine 1.00 0.60-1.30 MG/DL Estimat Glomerular Filtration Rate 54 BUN/Creatinine Ratio 25 Glucose Level 64 L 70-105 MG/DL Calcium Level 7.4 L 8.5-10.1 MG/DL B-Type Natriuretic Peptide 139.0 H <100.0 PG/ML My Orders Orders - 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 Albuterol/Ipra Inhalation Soln (Duoneb I (07/02/17 15:15) Svn Sm Volume Nebulizer Rt-Rfs (07/02/17 15:15) Cbc With Automated Diff (07/02/17 15:15) BNP (07/02/17 15:15) Basic Metabolic Panel (07/02/17 15:15) Chest 1 View, Ap/Pa Only (07/02/17 15:15) D5 1/2 Ns 1000 Ml Iv Solution (Dextrose (07/02/17 17:00) D50w (Emergency) Syringe (Dextrose 50% 5 (07/02/17 17:00) [place] Chest [id number] (07/02/17 16:51) Chest 1 View, Ap/Pa Only (07/02/17 17:27) Accucheck Stat ONCE (07/02/17 17:45) Medications Given in ED Current Medications Medications Dose Ordered Sig/Alden Route Start Time Stop Time Status Last Admin Dose Admin Albuterol/ Ipratropium 3 ml ONCE ONCE INH 07/02/17 15:15 07/02/17 15:16 DC 07/02/17 15:19 3 ML Dextrose 25 ml ONCE ONCE IV 07/02/17 17:00 07/02/17 17:01 DC 07/02/17 17:00 25 ML Vital Signs/I&O Vital Sign - Last 12Hours 07/02/17 07/02/17 07/02/17 15:22 15:25 17:55 Temp 96.9 96.9 Pulse 78 74 Resp 22 18 B/P (MAP) 118/74 Pulse Ox 95 96 O2 Delivery Nasal Cannula Room Air Nasal Cannula O2 Flow Rate 2.00 2.00 Diagnostic Imaging Diagonstic Imaging: Xray Plain Films/CT/US/NM/MRI: chest Comments NAME: ST[facility] REC#: [id number] PT STATUS: REG ER : 1941 PHYSICIAN: SAMSON VERA APRN ADMIT DATE: 07/02/17/ER Draft Date of Exam:07/02/17 CHEST 1 VIEW, AP/PA ONLY EXAMINATION: Portable upright radiograph of the chest. INDICATION: Difficulty breathing. FINDINGS: There is pulmonary vascular congestion with bilateral basilar opacities, suggestive of effusions, with adjacent atelectasis or consolidation. The heart size is enlarged. No pneumothorax. There is an infusion port with the tip at the SVC level. IMPRESSION: Pulmonary vascular congestion with effusions and bibasilar infiltrates or atelectasis, likely secondary to CHF. Dictated on workstation # [id number] Dict: 07/02/17 1608 Trans: 07/02/17 1620 [id number] Interpreted by: BARRIE RAYMOND MD Electronically signed by: Departure Communication (Admissions) Progress Notes 165-discussed case with Dr. Rodriguez. We will jesse the effusions with ultrasound and he will be down to do thoracentesis. 1727- Dr. Rodriguez has been here and then a thoracentesis. He was able to remove between 2358-9002 mL of yellowish fluid. Impression Impression: Primary Impression: Malignant pleural effusion Disposition: 01 HOME, SELF-CARE Condition: Stable Departure-Patient Inst. Decision time for Depature: 17:28 Referrals: SHAY RODRIGUEZ DANIEL J MD (PCP/Family) Primary Care Physician Patient Instructions: Pleural Effusion Add. Discharge Instructions: 1. Return to the hospital to the registration department tomorrow morning at 745 a.m. to have the right pleural effusion drained. Return to the ER overnight he have any worsening shortness of breath. He should go home and wear oxygen throughout the remainder of the evening and night. SAMSON VERA APRN Jul 02, 2017 15:20
[2017-07-02 16:17] LABS: BASOPHILS % (AUTO) 2 % (0-10); EOSINOPHILS # (AUTO) 0.1 10^3/uL (0.0-0.3); EOSINOPHILS % (AUTO) 2 % (0-10); LYMPHOCYTES % (AUTO) 40 % (12-44); MEAN CORPUSCULAR HEMOGLOBIN 33 PG (25-34); MEAN CORPUSCULAR HGB CONC 34 G/DL (32-36); MEAN CORPUSCULAR VOLUME 95 FL (80-99); MEAN PLATELET VOLUME 8.8 FL (7.4-10.4); MONOCYTES # (AUTO) 0.3 X 10^3 (0.0-1.0); MONOCYTES % (AUTO) 13 % (0-12); NEUTROPHILS # (AUTO) 1.1 X 10^3 (1.8-7.8); NEUTROPHILS % (AUTO) 44 % (42-75); PLATELET COUNT 317 10^3/uL (130-400); RED BLOOD COUNT 3.29 10^6/uL (4.35-5.85); RED CELL DISTRIBUTION WIDTH 19.4 % (10.0-14.5); WHITE BLOOD COUNT 2.5 10^3/uL (4.3-11.0)
--- NOTE | 2017-07-02 16:20 | Diagnostic Imaging Report ---
EXAMINATION: Portable upright radiograph of the chest. INDICATION: Difficulty breathing. FINDINGS: There is pulmonary vascular congestion with bilateral basilar opacities, suggestive of effusions, with adjacent atelectasis or consolidation. The heart size is enlarged. No pneumothorax. There is an infusion port with the tip at the SVC level. IMPRESSION: Pulmonary vascular congestion with effusions and bibasilar infiltrates or atelectasis, likely secondary to CHF. Dictated by: Dictated on workstation # [id number]
[2017-07-02 16:38] LABS: CALCIUM 7.4 MG/DL (8.5-10.1); POTASSIUM 4.3 MMOL/L (3.6-5.0)
[2017-07-02] MEDS ORDERED: D5 1/2 NS 1000 ML IV SOLUTION 1,000 ML IV SCH (17:00)
[2017-07-02] MEDS ORDERED: DEXTROSE 50% 50 ML (IMS) SYR IV ONE (17:00)
[2017-07-02 17:55] VITALS: BP 122/72
--- NOTE | 2017-07-02 18:02 | Diagnostic Imaging Report ---
INDICATION: Post thoracentesis. COMPARISON: Earlier the same date. FINDINGS: There has been near complete resolution of left pleural fluid with only minimal blunting of the costophrenic angle and no pneumothorax. Subpulmonic effusion and basilar infiltrate or atelectasis on the right unchanged. IMPRESSION: Essential evacuation of left pleural fluid without pneumothorax or adverse development. Dictated by: Dictated on workstation # [id number]
--- NOTE | 2017-07-02 18:12 | Diagnostic Imaging Report ---
INDICATION: Pleural fluid. Sonography was provided for assessment of pleural fluid on the left. IMPRESSION: Sonography provided showing left pleural fluid. Dictated by: Dictated on workstation # [id number]
--- NOTE | 2017-07-02 19:02 | Consultation ---
History of Present Illness History of Present Illness Patient Consulted On(lachelle/time) 07/02/17 18:56 Date Seen by Provider: Jul 02, 2017 Time Seen by Provider: 17:02 History of Present Illness Consult requested by Mil Reynolds for malignant pleural effusion Patient is 77-year-old female who has had previous thoracentesis bilaterally for malignant pleural effusion. Patient returned to the emergency department today after having increasing shortness of breath yesterday. Patient states that his continued to worsen towards she couldn't breathe and catch her breath so she was sent to the emergency department today. Patient states that she does use oxygen at home at night but does not typically use through the day. She had chest x-ray demonstrating bilateral pleural effusions. She has no other complaints at this time. She denies any nausea vomiting fever sweats chills or chest pain. Allergies and Home Medications Allergies Coded Allergies: Penicillins (Unverified Allergy, Unknown, RASH, 10/19/16) Home Medications Amlodipine Besylate 5 Mg Tab, 5 MG PO HS, (Reported) Benazepril Hcl 10 Mg Tablet, 10 MG PO HS, (Reported) Calcium Carbonate/Vitamin D3 1 Each Tablet, 1 TAB PO HS, (Reported) Gemfibrozil 600 Mg Tablet, 600 MG PO BID, (Reported) Indapamide 2.5 Mg Tablet, 2.5 MG PO DAILY, (Reported) Insulin Detemir 100 Unit/1 Ml Insuln.pen, 30 UNITS SC DAILY for 30 Days Take in the AM Prescribed by: ISIAH MARTIN on 06/01/17 1400 Levothyroxine Sodium 100 Mcg Tablet, 100 MCG PO DAILY, (Reported) Loratadine 10 Mg Tab, 10 MG PO HS, (Reported) Lovastatin 20 Mg Tablet, 20 MG PO DAILY, (Reported) Metformin Hcl 1,000 Mg Tablet, 1,000 MG PO BID WITH MEALS, (Reported) Metoprolol Tartrate 25 Mg Tablet, 25 MG PO BID, (Reported) Omeprazole 20 Mg Capsule.dr, 20 MG PO HS, (Reported) Palbociclib 125 Mg Capsule, 125 MG PO UD, (Reported) TAKE DAYS 1-21 THEN OFF FOR 7 DAYS THIS IS IN THE MAIL- HAS NOT STARTED TAKING YET Pioglitazone HCl 45 Mg Tablet, 45 MG PO DAILY, (Reported) [Fluvestrant Inj] , INJ UD, (Reported) EVERY 2 WEEKS FOR 3 DOSES THEN EVERY MONTH FIRST DOSE 05-28-17 Past Jgyxnhf-Rzfipx-Darfnq Hx Patient Social History Alcohol Use: Denies Use Recreational Drug Use: No Smoking Status: Former Smoker Former Smoker, Quit: Jun 22, 1990 Type Used: Cigarettes Recent Foreign Travel: No Contact w/Someone Who Travel: No Recent Infectious Disease Expo: No Recent Hopitalizations: No Immunizations Up To Date Tetanus Booster (TDap): Unknown Seasonal Allergies Seasonal Allergies: Yes Surgeries History of Surgeries: Yes (D&C X2, KNEE SCOPE, FIBROID TUMOR BX, BILAT FOOT SURGERY, PORT INSERTION) Surgeries: Breast, Orthopedic Respiratory History of Respiratory Disorde: Yes Respiratory Disorders: Pneumonia Cardiovascular History of Cardiac Disorders: Yes (hx a-fib with chemo) Cardiac Disorders: Atrial Fibrillation, High Cholesterol, Hypertension Neurological History of Neurological Disord: Yes (seizure from fever as child) Reproductive System Hx Reproductive Disorders: No Sexually Transmitted Disease: No HIV/AIDS: No Female Reproductive Disorders: Denies 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 Genitourinary History of Genitourinary Disor: No Gastrointestinal History of Gastrointestinal Di: Yes (freq constipation) Gastrointestinal Disorders: Chronic Constipation Musculoskeletal History of Musculoskeletal Dis: No Endocrine History of Endocrine Disorders: Yes (thyroid mass) Endocrine Disorders: Diabetes, Insulin dep HEENT HEENT Disorders: Cataract Loss of Vision: Denies Hearing Impairment: Denies Cancer History of Cancer: Yes (DX 2012--S/P RIGHT MASTECTOMY, CHEMO, RADIATION) Cancer: Lung, Breast Psychosocial History of Psychiatric Problem: No Integumentary History of Skin or Integumenta: No Blood Transfusions History of Blood Disorders: No Adverse Reaction to a Blood Tr: No Family Medical History Significant Family History: No Pertinent Family Hx Family Medial History: Cardiovascular disease 19 FATHER G8 BROTHER Completed stroke 19 MOTHER Coronary thrombosis 19 FATHER Review of Systems-General Constitutional: no symptoms reported EENTM: no symptoms reported Respiratory: see HPI Cardiovascular: no symptoms reported Gastrointestinal: no symptoms reported Genitourinary: no symptoms reported Musculoskeletal: no symptoms reported Skin: no symptoms reported Psychiatric/Neurological: No Symptoms Reported Physical Exam-General Problems Physical Exam Vital Signs Vital Sign - Last 12Hours 07/02/17 07/02/17 15:22 15:25 Temp 96.9 Pulse 78 Resp 22 B/P (MAP) 118/74 Pulse Ox 95 O2 Delivery Nasal Cannula O2 Flow Rate 2.00 Capillary Refill : Less Than 3 Seconds General Appearance: mild distress HEENT: PERRL/EOMI, normal ENT inspection Neck: supple Respiratory: decreased breath sounds, other (Slightly labored breathing) Cardiovascular: regular rate, rhythm Gastrointestinal: non tender, soft, no organomegaly Rectal: deferred Back: normal inspection, no CVA tenderness Extremities: normal range of motion, non-tender, normal inspection Neurologic/Psychiatric: alert, normal mood/affect, oriented x 3 Skin: normal color, warm/dry Lymphatic: no adenopathy Data Review Labs Laboratory Tests 07/02/17 16:10: White Blood Count 2.5L, Red Blood Count 3.29L, Hemoglobin 10.7L, Hematocrit 31L , Mean Corpuscular Volume 95, Mean Corpuscular Hemoglobin 33, Mean Corpuscular Hemoglobin Concent 34, Red Cell Distribution Width 19.4H, Platelet Count 317, Mean Platelet Volume 8.8, Neutrophils (%) (Auto) 44, Lymphocytes (%) (Auto) 40, Monocytes (%) (Auto) 13H, Eosinophils (%) (Auto) 2, Basophils (%) (Auto) 2, Neutrophils # (Auto) 1.1L, Lymphocytes # (Auto) 1.0, Monocytes # (Auto) 0.3, Eosinophils # (Auto) 0.1, Basophils # (Auto) 0.0, Sodium Level 137, Potassium Level 4.3, Chloride Level 108H, Carbon Dioxide Level 18L, Anion Gap 11, Blood Urea Nitrogen 25H, Creatinine 1.00, Estimat Glomerular Filtration Rate 54, BUN/ Creatinine Ratio 25, Glucose Level 64L, Calcium Level 7.4L, B-Type Natriuretic Peptide 139.0H Assessment/Plan Assessment/Plan Assessment/Plan 77-year-old female with malignant pleural effusion secondary to breast cancer. Patient having shortness of breath secondary to pleural effusions. We discussed risk and benefits of having thoracentesis performed on left chest which she understands and wishes to proceed. Patient will have the right side drained tomorrow for she didn't tolerate having both pleural effusions drained previously. Patient is in agreement with plan. We'll get a chest x-ray after left thoracentesis. Plan on having patient come in for right thoracentesis in the morning. If she has any worsening condition she should be reevaluated at that time. I discussed this with Mil Reynolds as well as patient and patient's family SHAY RODRIGUEZ DO Jul 02, 2017 19:02
--- NOTE | 2017-07-02 19:04 | Progress Note-Post Operative ---
Post-Operative Progess Note Surgeon (s)/Bed And Breakfast Operator (s) Surgeon SHAY RODRIGUEZ DO Bed And Breakfast Operator: na Pre-Operative Diagnosis breast ca c mets, b/l pleural effusions Post-Operative Diagnosis same Procedure & Operative Findings Date of Procedure 07/02/17 Procedure Performed/Findings left thoracentesis u/s guided Anesthesia Type local Estimated Blood Loss Estimated blood loss (mL): min Specimens/Packing Specimens Removed na SHAY RODRIGUEZ DO Jul 02, 2017 19:04
--- NOTE | 2017-07-04 09:13 | OPERATIVE REPORT ---
DATE OF SERVICE: 07/02/2017 PREOPERATIVE DIAGNOSIS: Pleural effusions bilaterally. POSTOPERATIVE DIAGNOSIS: Pleural effusions bilaterally. PROCEDURE: Left thoracentesis ultrasound guided. SURGEON: Shay Wilson DO ANESTHESIA: Local. ESTIMATED BLOOD LOSS: Minimal. COMPLICATIONS: None. INDICATIONS: The patient is a 77-year-old female with metastatic pleural effusions. She understands risks and benefits of procedure and she wished to proceed with procedure. Consent was signed and in the chart. DESCRIPTION OF PROCEDURE: The patient was prepped and draped in sterile fashion. Ultrasound was used to demonstrate a spot of adequate access to the pleural effusion. After this was prepped and draped, local anesthetic of 1% lidocaine used to infiltrate into the area. A total of 3 mL was used. A #11 blade scalpel was used to make a stab incision and using the thoracentesis safety catheter and needle was inserted through the incision above the rib midclavicular line left side at the marked spot until straw-colored fluid was withdrawn. The catheter was inserted and the needle was removed. The pleural fluid was then evacuated using vacuum bottles. A total of 1300 mL of straw-colored fluid was removed. At this time, the catheter was removed and sterile bandage was applied. The patient began to breathe better at this time. She has chest x-ray pending. We will plan on doing thoracentesis tomorrow on the right side. If she has any problems prior to planned procedure for the right thoracentesis, she should be reevaluated at that time. Job ID: [id number] DocumentID: [id number] Dictated Date: 07/02/2017 19:07:06 Sap Project Manager Date: 07/03/2017 13:56:33 Dictated By: SHAY WILSON DO
== END 2017-07-02 17:50 | disposition home or self-care (01) ==
LOC: EDUNIT# 15:07 → ER 15:09
DX: C50.911 Malignant neoplasm of unspecified site of right female breast (principal); J91.0 Malignant pleural effusion; I48.91 Unspecified atrial fibrillation; I10 Essential (primary) hypertension; E11.9 Type 2 diabetes mellitus without complications; E78.00 Pure hypercholesterolemia, unspecified; Z79.4 Long term (current) use of insulin; Z82.49 Family history of ischemic heart disease and other diseases of the circulatory system; Z87.19 Personal history of other diseases of the digestive system; Z79.84 Long term (current) use of oral hypoglycemic drugs; Z87.09 Personal history of other diseases of the respiratory system
CPT/HCPCS: 36415; 71010; 76604; 80048; 83880; 85025; 94640; 99282

== ENCOUNTER → 2017-07-03 | Outpatient (CLI) | payer MEDICARE, OTHER ==
[~2017-07-03] VITALS: Ht 165.1 cm; Wt 72.6 kg
[~2017-07-03] MED LIST changes: +CIPR500T4 PO; +FURO20TA4 PO; +POTA10TA10 PO; +[UNRECOGNIZED DRUG - CODE] IV
[2017-07-03 08:01] VITALS: BP 129/80
[2017-07-03 08:14] VITALS: BP 129/80
--- NOTE | 2017-07-03 08:37 | Diagnostic Imaging Report ---
Upright AP view of the chest. INDICATION: Post thoracentesis. FINDINGS: There is interval resolution of right effusion with expansion of the lung. No pneumothorax. There is a small effusion on the left. There is mild left basilar atelectasis or infiltrates. There is a moderate enlargement of the cardiac size. There is a port inserted through the left subclavian vein with tip at SVC level. IMPRESSION: Mild left basilar atelectasis or infiltrate and suggestion of a small left effusion. Dictated by: Dictated on workstation # [id number]
--- NOTE | 2017-07-03 09:20 | Diagnostic Imaging Report ---
EXAMINATION: Ultrasound of the right chest was performed for evaluation for effusion and guidance of thoracentesis Indication: Pleural effusion FINDINGS: There is a large simple appearing right pleural effusion. An appropriate area was marked for thoracentesis. IMPRESSION: Right pleural effusion. Dictated by: Dictated on workstation # [id number]
--- NOTE | 2017-07-03 19:49 | OPERATIVE REPORT ---
DATE OF SERVICE: 07/03/2017 PREOPERATIVE DIAGNOSIS: Malignant pleural effusion. POSTOPERATIVE DIAGNOSIS: malignant pleural effusion. PROCEDURE: Right thoracentesis ultrasound-guided. SURGEON: Shay Wilson DO. ANESTHESIA: Local anesthetic 1% lidocaine 4 mL. ESTIMATED BLOOD LOSS: Minimal. COMPLICATIONS: None. INDICATIONS: The patient is a 77-year-old female who has been having any shortness of breath with known malignant pleural effusions. She understands risks and benefits of procedure and wished to proceed with procedure. Consent was signed and on the chart. DESCRIPTION OF PROCEDURE: The patient was taken to the procedure room of radiology. Ultrasound was used to locate area of adequate access. The area was prepped and draped. Timeout was performed, local anesthetic was infiltrated into the area and also between the rib space. A #11 blade scalpel was used to make a small skin incision. The thoracentesis safety needle and catheter was used to be advanced into the right chest cavity and straw colored fluid was returned. The catheter was advanced over the needle. The needle was removed. This was then drained removing a total of 1400 mL of straw colored fluid. Once drainage was completed, the catheter was removed and a sterile bandage was applied. The patient tolerated procedure well without any complications. Chest x-ray is pending. Job ID: [id number] DocumentID: [id number] Dictated Date: 07/03/2017 11:06:51 Dry Cleaning Supervisor Date: 07/03/2017 19:48:54 Dictated By: SHAY WILSON DO
== END ==
LOC: RAD 07:46
PROVIDERS: ATTEND Surgery
DX: J90 Pleural effusion, not elsewhere classified (principal)
CPT/HCPCS: 32555; 71020

== ENCOUNTER 2017-07-11 07:59 | Outpatient (RCR) | payer MEDICARE, OTHER ==
[2017-05-28 14:32] LABS: BASOPHILS % (AUTO) 0 % (0-10); EOSINOPHILS # (AUTO) 0.1 10^3/uL (0.0-0.3); EOSINOPHILS % (AUTO) 2 % (0-10); LYMPHOCYTES # (AUTO) 0.8 X 10^3 (1.0-4.0); LYMPHOCYTES % (AUTO) 14 % (12-44); MEAN CORPUSCULAR HEMOGLOBIN 31 PG (25-34); MEAN CORPUSCULAR HGB CONC 33 G/DL (32-36); MEAN CORPUSCULAR VOLUME 93 FL (80-99); MEAN PLATELET VOLUME 9.1 FL (7.4-10.4); MONOCYTES # (AUTO) 0.7 X 10^3 (0.0-1.0); MONOCYTES % (AUTO) 12 % (0-12); NEUTROPHILS # (AUTO) 3.9 X 10^3 (1.8-7.8); NEUTROPHILS % (AUTO) 72 % (42-75); PLATELET COUNT 252 10^3/uL (130-400); RED BLOOD COUNT 4.03 10^6/uL (4.35-5.85); RED CELL DISTRIBUTION WIDTH 14.9 % (10.0-14.5); WHITE BLOOD COUNT 5.5 10^3/uL (4.3-11.0)
[2017-05-28 14:54] LABS: ALBUMIN 3.9 GM/DL (3.2-4.5); BILIRUBIN,TOTAL 0.5 MG/DL (0.1-1.0); CALCIUM 10.3 MG/DL (8.5-10.1); CREATININE SERUM 1.06 MG/DL (0.60-1.30); POTASSIUM 4.2 MMOL/L (3.6-5.0)
[2017-06-03 13:26] LABS: BASOPHILS % (AUTO) 0 % (0-10); EOSINOPHILS # (AUTO) 0.1 10^3/uL (0.0-0.3); EOSINOPHILS % (AUTO) 2 % (0-10); LYMPHOCYTES # (AUTO) 0.6 X 10^3 (1.0-4.0); LYMPHOCYTES % (AUTO) 16 % (12-44); MEAN CORPUSCULAR HEMOGLOBIN 32 PG (25-34); MEAN CORPUSCULAR HGB CONC 34 G/DL (32-36); MEAN CORPUSCULAR VOLUME 93 FL (80-99); MEAN PLATELET VOLUME 9.1 FL (7.4-10.4); MONOCYTES # (AUTO) 0.4 X 10^3 (0.0-1.0); MONOCYTES % (AUTO) 10 % (0-12); NEUTROPHILS # (AUTO) 2.7 X 10^3 (1.8-7.8); NEUTROPHILS % (AUTO) 71 % (42-75); PLATELET COUNT 234 10^3/uL (130-400); RED BLOOD COUNT 3.96 10^6/uL (4.35-5.85); RED CELL DISTRIBUTION WIDTH 14.9 % (10.0-14.5); WHITE BLOOD COUNT 3.8 10^3/uL (4.3-11.0)
[2017-06-03 13:51] LABS: CALCIUM 10.1 MG/DL (8.5-10.1); CREATININE SERUM 1.09 MG/DL (0.60-1.30)
[2017-06-10 14:15] LABS: BASOPHILS % (AUTO) 1 % (0-10); EOSINOPHILS # (AUTO) 0.1 10^3/uL (0.0-0.3); EOSINOPHILS % (AUTO) 2 % (0-10); LYMPHOCYTES # (AUTO) 0.5 X 10^3 (1.0-4.0); LYMPHOCYTES % (AUTO) 16 % (12-44); MEAN CORPUSCULAR HEMOGLOBIN 31 PG (25-34); MEAN CORPUSCULAR HGB CONC 33 G/DL (32-36); MEAN CORPUSCULAR VOLUME 93 FL (80-99); MEAN PLATELET VOLUME 8.9 FL (7.4-10.4); MONOCYTES # (AUTO) 0.1 X 10^3 (0.0-1.0); MONOCYTES % (AUTO) 3 % (0-12); NEUTROPHILS # (AUTO) 2.7 X 10^3 (1.8-7.8); NEUTROPHILS % (AUTO) 78 % (42-75); PLATELET COUNT 248 10^3/uL (130-400); RED BLOOD COUNT 3.87 10^6/uL (4.35-5.85); RED CELL DISTRIBUTION WIDTH 14.5 % (10.0-14.5); WHITE BLOOD COUNT 3.4 10^3/uL (4.3-11.0)
[2017-06-10 14:32] LABS: CALCIUM 10.1 MG/DL (8.5-10.1); CREATININE SERUM 1.43 MG/DL (0.60-1.30); POTASSIUM 4.6 MMOL/L (3.6-5.0)
[2017-06-27 14:22] LABS: BASOPHILS % (AUTO) 2 % (0-10); EOSINOPHILS % (AUTO) 1 % (0-10); LYMPHOCYTES # (AUTO) 0.7 X 10^3 (1.0-4.0); LYMPHOCYTES % (AUTO) 36 % (12-44); MEAN CORPUSCULAR HEMOGLOBIN 32 PG (25-34); MEAN CORPUSCULAR HGB CONC 34 G/DL (32-36); MEAN CORPUSCULAR VOLUME 94 FL (80-99); MEAN PLATELET VOLUME 9.5 FL (7.4-10.4); MONOCYTES # (AUTO) 0.3 X 10^3 (0.0-1.0); MONOCYTES % (AUTO) 16 % (0-12); NEUTROPHILS # (AUTO) 0.8 X 10^3 (1.8-7.8); NEUTROPHILS % (AUTO) 45 % (42-75); PLATELET COUNT 209 10^3/uL (130-400); RED BLOOD COUNT 3.24 10^6/uL (4.35-5.85); RED CELL DISTRIBUTION WIDTH 18.5 % (10.0-14.5); WHITE BLOOD COUNT 1.9 10^3/uL (4.3-11.0)
[2017-06-27 14:46] LABS: ALBUMIN 3.3 GM/DL (3.2-4.5); BILIRUBIN,TOTAL 0.3 MG/DL (0.1-1.0); CALCIUM 9.3 MG/DL (8.5-10.1); CREATININE SERUM 1.36 MG/DL (0.60-1.30); POTASSIUM 4.3 MMOL/L (3.6-5.0); TOTAL PROTEIN 5.7 GM/DL (6.4-8.2)
[~2017-07-11 07:59] MED LIST changes: -CIPR500T4 PO; +DENOSUMAB 120 MG/1.7 ML (XGEVA) SQ SCH; +FULVESTRANT 250 MG/5 ML SYR (CANCER CENTER) IM SCH; -FURO20TA4 PO; -POTA10TA10 PO; -[UNRECOGNIZED DRUG - CODE] IV
[2017-07-11 14:16] LABS: BASOPHILS # (AUTO) 0.1 10^3/uL (0.0-0.1); BASOPHILS % (AUTO) 2 % (0-10); EOSINOPHILS # (AUTO) 0.1 10^3/uL (0.0-0.3); EOSINOPHILS % (AUTO) 3 % (0-10); LYMPHOCYTES # (AUTO) 0.7 X 10^3 (1.0-4.0); LYMPHOCYTES % (AUTO) 23 % (12-44); MEAN CORPUSCULAR HEMOGLOBIN 32 PG (25-34); MEAN CORPUSCULAR HGB CONC 33 G/DL (32-36); MEAN CORPUSCULAR VOLUME 96 FL (80-99); MEAN PLATELET VOLUME 9.1 FL (7.4-10.4); MONOCYTES # (AUTO) 0.4 X 10^3 (0.0-1.0); MONOCYTES % (AUTO) 13 % (0-12); NEUTROPHILS # (AUTO) 1.8 X 10^3 (1.8-7.8); NEUTROPHILS % (AUTO) 60 % (42-75); PLATELET COUNT 288 10^3/uL (130-400); RED BLOOD COUNT 3.85 10^6/uL (4.35-5.85); RED CELL DISTRIBUTION WIDTH 19.2 % (10.0-14.5); WHITE BLOOD COUNT 3.1 10^3/uL (4.3-11.0)
[2017-07-11 14:34] LABS: ALBUMIN 3.5 GM/DL (3.2-4.5); BILIRUBIN,TOTAL 0.3 MG/DL (0.1-1.0); CALCIUM 8.6 MG/DL (8.5-10.1); CREATININE SERUM 1.06 MG/DL (0.60-1.30); POTASSIUM 4.5 MMOL/L (3.6-5.0); TOTAL PROTEIN 6.1 GM/DL (6.4-8.2)
[2017-07-11] MEDS ORDERED: VINORELBINE TARTRATE IV SCH (14:45)
[2017-07-11] MEDS ORDERED: ONDANSETRON 16 MG, DEXAMETHASONE 10 MG/NS 50 ML IVPB IV SCH ×3 (14:45)
[2017-07-11] MEDS ORDERED: NS IV 1000 ML (CANCER CTR) IV SCH (14:45)
[2017-07-11] MEDS ORDERED: NS IV SCH (14:45)
[2017-07-12] MEDS ORDERED: [UNRECOGNIZED DRUG - CODE] IV (08:49)
== END 2017-07-13 | disposition home or self-care (01) ==
LOC: ONC 07:59
PROVIDERS: ATTEND Internal Medicine Hematology & Oncology
DX: Z51.11 Encounter for antineoplastic chemotherapy (principal); C50.511 Malignant neoplasm of lower-outer quadrant of right female breast; C79.51 Secondary malignant neoplasm of bone; C77.9 Secondary and unspecified malignant neoplasm of lymph node, unspecified; J90 Pleural effusion, not elsewhere classified; I48.91 Unspecified atrial fibrillation; E89.0 Postprocedural hypothyroidism; E11.43 Type 2 diabetes mellitus with diabetic autonomic (poly)neuropathy; I10 Essential (primary) hypertension; E78.5 Hyperlipidemia, unspecified; E55.9 Vitamin D deficiency, unspecified; Z79.4 Long term (current) use of insulin; Z79.899 Other long term (current) drug therapy; Z87.891 Personal history of nicotine dependence; Z17.0 Estrogen receptor positive status [ER+]
CPT/HCPCS: 36415; 36591; 71020; 80048; 80053; 82306; 85025; 86300; 96372; 96375; 96402; 96409; 99213

== ENCOUNTER 2017-07-12 08:04 | Day surgery (SDC) | payer MEDICARE, OTHER ==
[~2017-07-12] VITALS: Ht 165.1 cm; Wt 72.6 kg
[~2017-07-12 08:04] MED LIST changes: -DENOSUMAB 120 MG/1.7 ML (XGEVA) SQ SCH; -FULVESTRANT 250 MG/5 ML SYR (CANCER CENTER) IM SCH
--- OUTSIDE RECORDS SUMMARY | 2017-07-12 08:07 | XMS REPORT | Encounter Summary ---
Author Author [facility] Organization [facility] Address Unknown Phone Unavailable Care Team Providers Care Telecommunication Equipment Repairer Name Role Phone PCP Unavailable Encounter Details Date Type Department Care Team Description 05/12/2017 Ancillary Rad Outpatient, Radiologist Diagnosis unknown Orders [address] [place], [place] [id number] Social History Tobacco Use Types Packs/Day Years [...]
--- OUTSIDE RECORDS SUMMARY | 2017-07-12 08:07 | XMS REPORT | Encounter Summary ---
Author Author [facility] Organization [facility] Address Unknown Phone Unavailable Care Team Providers Care Day Care Assistant Name Role Phone PCP Unavailable Encounter Details Date Type Department Care Team Description 05/07/2017 Hospital [facility] Radiology [address] [place] [address] Social History Tobacco Use Types Packs/Day Years [...]
--- OUTSIDE RECORDS SUMMARY | 2017-07-12 08:07 | XMS REPORT | Encounter Summary ---
Author Author [facility] Organization [facility] Address Unknown Phone Unavailable Care Team Providers Care Rotary Drier Operator Name Role Phone PCP Unavailable Encounter Details Date Type Department Care Team Description 05/13/2017 Ancillary Rad Outpatient, Radiologist Diagnosis unknown Orders [address] [place] [address] Social History Tobacco Use Types Packs/Day Years [...]
--- OUTSIDE RECORDS SUMMARY | 2017-07-12 08:07 | XMS REPORT | Encounter Summary ---
Author Author [facility] Organization [facility] Address Unknown Phone Unavailable Care Team Providers Care Retail Selling Specialist Name Role Phone PCP Unavailable Reason for Visit * Reason Comments Heme/Onc Care * Consult, Test & Treat (Routine) Status Reason Specialty Diagnoses / Referred By Referred To Procedures Contact Contact New Request Oncology Procedures Liam Goff O'Dea, Anne, MD [place] OFFICE/OUTPT [address] [place] [address] VISIT,[facility],[place] [address] Phone: [phone] Phone: Encounter Details Date Type Department Care Team Description 05/20/2017 Office Visit [facility] Meme Lockwood MD Malignant neoplasm of Cancer Center - [address] breast in female, Exam JEN [address] estrogen receptor [address] [place] [id number] positive, [place] [address] laterality, unspecified [phone] site of breast (Primary Dx) Social History [...] biopsy of the right breast 03/11 ([facility]), revealed IDC, grade 3, ER 95, [place] 55, Her2 negative 0 + by IHC with a Ki67 of 45%. Patient completed three cycles of Neoadjuvant chemotherapy with Adriamycin and Cytoxan IV 05/20/14. Teament was stopped due to new onset atrial fibrillation. She then underwent right lumpectomy and ALND 07/[address] Schofield ([facility]) which pathology showed IDC grade 3, [...] cellulitis improving. Patient was admitted to [facility] the week of 04/21/17 for increasing respiratory [...] Dr. Molina " Contact Name & Number: [phone] " Surgeon: Dr. Schofield " Medical Oncologist: [...] to [employer] alone in women diagnosed with [id number], HER2-negative metastatic breast cancer that had grown [...]
--- OUTSIDE RECORDS SUMMARY | 2017-07-12 08:07 | XMS REPORT | Encounter Summary ---
Author Author [facility] Organization [facility] Address Unknown Phone Unavailable Care Team Providers Care Pass Worker Name Role Phone PCP Unavailable Encounter Details Date Type Department Care Team Description 05/13/2017 Ancillary Rad Outpatient, Radiologist Diagnosis unknown Orders [address] [place] [id number] Social History Tobacco Use Types Packs/Day Years [...]
--- OUTSIDE RECORDS SUMMARY | 2017-07-12 08:07 | XMS REPORT | Encounter Summary ---
Author Author [facility] Organization [facility] Address Unknown Phone Unavailable Care Team Providers Care Range Management Specialist Name Role Phone PCP Unavailable Encounter Details Date Type Department Care Team Description 04/21/2017 Hospital [facility] Hospital Radiology [address] [place] [address] Social History Tobacco Use Types Packs/Day Years [...]
--- OUTSIDE RECORDS SUMMARY | 2017-07-12 08:07 | XMS REPORT | Encounter Summary ---
Author Author [facility] Organization [facility] Address Unknown Phone Unavailable Care Team Providers Care Interceptor Operator Name Role Phone PCP Unavailable Reason for Visit * Reason Comments Navigation Assessment Encounter Details Date Type Department Care Team Description 05/13/2017 Telephone [facility] Meme Lockwood MD Navigation Assessment [facility] Exam [address] [place] [address] [place] [address] [phone] Social History Tobacco Use Types Packs/Day Years Used Date Never Assessed Sex Assigned at Date Recorded Not on file as of this encounter Miscellaneous Notes * Telephone Encounter - Grace Christian RN - 05/13/2017 8:37 AM CDT Formatting of this note may be different from the original. Navigation Intake Assessment Patient Name: Lacey Perdomo : 1940 Insurance: Medicare Direct Referral: yes, to Dr. Lockwood Appointment Info: Future Appointments Date Time Provider Department Center 05/20/2017 2:20 PM Meme Lockwood MD [id number] None Diagnosis & Reason for Visit: Metastatic breast cancer and requests second opinion. Physician Info: ? Referring Physician: Dr. Molina Contact Name & Number: [phone] Surgeon: Dr. Schofield Medical Oncologist: Dr. Molina Radiation Oncologist: Dr. Buck Esquivel Location of Films: PACS Location of Pathology: did not request pathology slides at this time. History of Present Illness: Lacey states that she found a palpable right breast lump in July of 2014 and went to her provider to check it out. She states that a right breast biopsy was performed at [facility] in [place], [place], which confirmed cancer. Lacey had a right lumpectomy followed by radiation treatments to the right breast area at [facility]. Lacey states that three months ago, she noticed right arm edema and went to her provider for evaluation. The providers thought that her right arm edema was because of her right axillary lymph node removal and she was fitted for a lymphedema sleeve. Lacey states that she was also feeling fatigued, and was diagnosed with "pneumonia" during the week of 04/22/17. Lacey states that she had fluid on both lungs. TIMELINE: 07/17/12 Bilateral screening mammogram Impression: benign mammographic findings. BI RADS category 2. See report. 03/10/14 Bilateral diagnostic mammogram Impression: suspicious 4.2 cm mass in the central lower aspect of the right breast. Ultrasound evaluation is pending. BI RADS category 0. See report. 03/10/14 Ultrasound of the right breast Impression: suspicious 3.1 cm mass in the lower aspect of the right breast. Ultrasound guided biopsy is recommended. BI RADS category 5. See report. 03/11/14 Right breast ultrasound guided needle biopsy at [facility] Pathology (see report): Infiltrating mammary carcinoma ductal type. ER: 95% FL: 55% Ki67: 45% HER2/rosmery: 0+ 05/17/14 Right breast ultrasound Impression: the mass in the 6 o'clock position of the right breast does not appear to have changed significantly since the prior exam. BI RADS category 6. See report. 05/20/14 (stopped) Neoadjuvant chemotherapy with Adriamycin and Cytoxan IV Only received three cycles because of new onset atrial fibrillation. Treatment records are not available. Estimated doses and schedule of AC based on Dr. Hernadez' clinical notes. 07/08/14 Right breast lumpectomy and right complete axillary node dissection by Dr. Schofield at [facility] Surgical Pathology Report: A. Lymph node, sentinel node #1 biopsy: one lymph node containing metastatic adenocarcinoma consistent with breast primary. B. Breast, right lumpectomy: infiltrating mammary carcinoma, ductal type. C. Lymph nodes, axillary dissection: 4 of 11 lymph nodes contain metastatic adenocarcinoma consistent with breast primary. See report. 09/21/14 to 11/05/14 Radiation treatments to right breast See treatment summary. 11/2014 to 04/2017 Anastrozole 1 mg po daily 05/09/15 Bilateral diagnostic mammogram Impression: lumpectomy site abnormal density is probably related to seroma and postsurgical change. Ultrasound evaluation is pending. BI RADS category 0. See report. 05/09/15 Right breast ultrasound Impression: indeterminate hypoechoic lesion at the lumpectomy site most likely a complicated seroma. Follow up ultrasound in 4 months is recommended. BI RADS category 3. See report. 09/05/15 Right breast ultrasound Impression: Nonspecific hypoechoic lesion at the lumpectomy site. Follow up exam with mammography and ultrasound is recommended in April 2016. BI RADS category 3. See report. 11/06/15 CT head Impression: no acute abnormality is seen. See report. 05/14/16 Bilateral diagnostic mammogram Impression: post therapeutic changes are seen in the right breast. Ultrasound evaluation pending. BI RADS 0. Need additional imaging. See report. 05/14/16 Limited right breast ultrasound BI RADS 2. Benign findings. 01/03/17 DEXA scan Impression: bone mineral density at the lower limits of normal. See report. 04/21/17 CT angiography of the chest Impression: Developing mediastinal adenopathy with associated new small bilateral pulmonary nodules. New sclerotic lesions within the osseous structures. Moderate sized bilateral pleural effusions. See report. 05/07/17 PET scan Impression: there are numerous hypermetabolic sclerotic osseous metastasis and metastatic lymph nodes in the chest, upper abdomen and the left supraclavicular lymph nodes. See report. Family History of Breast Cancer: no family [...] 59 years old Hormone Replacement Therapy: No NEEDS Assessment: Genetic Counseling: Patient provided information on available services Nutrition: No needs identified Social Work/Financial: Patient provided information on available services Spiritual & Emotional: Emotional support provided and Patient provided information on available services Physical: Wheelchair, Oxygen and Patient provided information on available services Communication: No needs identified Oncofertility - Females age 40 and under; Males age 50 and under : Not applicable in this encounter Plan of Treatment Not on fileas of this encounter Visit Diagnoses Not on filein this encounter
--- OUTSIDE RECORDS SUMMARY | 2017-07-12 08:07 | XMS REPORT | Encounter Summary ---
Author Author [facility] Organization [facility] Address Unknown Phone Unavailable Care Team Providers Care High Pressure Cleaner Name Role Phone PCP Unavailable Encounter Details Date Type Department Care Team Description 05/13/2017 Ancillary Rad Outpatient, Radiologist Diagnosis unknown Orders [address] [place] [address] Social History Tobacco Use Types Packs/Day Years [...]
--- OUTSIDE RECORDS SUMMARY | 2017-07-12 08:07 | XMS REPORT | Clinical Summary ---
Author Author [facility] Organization [facility] Address Unknown Phone Unavailable Care Team Providers Care Food Storeroom Clerk Name Role Phone PCP Unavailable Source Comments Some departments are not documenting in the electronic medical record. If you do not see the information that you expected, contact Release of Information in the Health Information Management department at [phone] for further assistance in locating additional records.[facility] Allergies Active Allergy Reactions Severity Noted [...]
--- OUTSIDE RECORDS SUMMARY | 2017-07-12 08:10 | XMS REPORT ---
Author Author MARCELINA LEE Organization [facility] Address [address] [place] [address] Care Team Providers Care Technology Sales Representative Name Role Phone ROSA MARCELINA Unavailable PROBLEMS Type Condition ICD9-CM Code [id number] Code Onset Dates Condition Status SNOMED Code Problem Essential hypertension I10 Active 49333497 Problem Hypothyroidism E03.9 Active 43271545 Problem Other specified diabetes mellitus with unspecified complications E13.8 Active 57419880 Problem Gastroesophageal reflux disease without esophagitis K21.9 Active 948263689 Problem History of breast cancer Z85.3 Active 646607756 Problem Dyslipidemia E78.5 Active 892055710 Problem Malignant neoplasm of unspecified site of unspecified female breast C50.919 Active 837032701 Problem Postnasal drip R09.82 Active 63493819 Problem Dysuria R30.0 Active 01064977 Problem Diabetes mellitus E11.9 Active 31232708 Problem Gastroesophageal reflux disease with esophagitis K21.0 Active 706126326 Problem Neuropathy G62.9 Active 664094970 ALLERGIES No Information SOCIAL HISTORY Never Assessed PLAN OF CARE VITAL SIGNS MEDICATIONS Medication Instructions Dosage Frequency Start Date End Date Duration Status Arimidex 1 MG Orally Once a day 1 tablet 24h 14 days Active Indapamide 2.5 MG Orally Once a day 1 tablet in the morning 24h 14 days Active RESULTS No Results PROCEDURES No Known procedures IMMUNIZATIONS No Known Immunizations MEDICAL (GENERAL) HISTORY Type Description Date Medical History diabetes Medical History breast cancer mets Medical History HTN Medical History pneumonia Surgical History lumpectomy surgery on breast (cancer) august 2014 Surgical History tonsillectomy Surgical History D&C x 3 Surgical History bilateral cataracts removed 2009 Hospitalization History surgery Hospitalization History pneumonia
[2017-07-12] MEDS ORDERED: CLINDAMYCIN 600 MG/NS 50 ML IVPB IV ONE ×2 (08:30)
[2017-07-12] MEDS ORDERED: CATHETER FLUSH 10 ML SYR IV PRN (08:30)
[2017-07-12] MEDS ORDERED: LACTATED RINGERS 1,000 ML IV PRN (08:40)
[2017-07-12] MEDS ORDERED: [UNRECOGNIZED DRUG - CODE] IV ×2 (08:49)
[2017-07-12 08:55] VITALS: BP 136/63
[2017-07-12] MEDS ORDERED: LIDOCAINE 1% INJ 20 ML (XYLOCAINE) VIAL ONE (09:05)
[2017-07-12] MEDS ORDERED: BUPIVACAINE 0.5% 30 ML (SENSORCAINE) VIAL ONE (09:05)
[2017-07-12] MEDS ORDERED: proPOfol 200 MG/20 ML (DIPRIVAN) VIAL IV ONE (09:09)
[2017-07-12] MEDS ORDERED: MIDAZOLAM 2 MG/2 ML (VERSED) VIAL ONE (09:10)
[2017-07-12] MEDS ORDERED: FAMOTIDINE 20MG/2ML IV (PEPCID) IV ONE (09:15)
--- NOTE | 2017-07-12 10:34 | Diagnostic Imaging Report ---
EXAMINATION: Ultrasound of the left chest was performed for evaluation for effusion and guidance of thoracentesis Indication: Pleural effusion FINDINGS: There is a moderate to large left pleural effusion. An appropriate area was marked for thoracentesis. IMPRESSION: Left pleural effusion. Dictated by: Dictated on workstation # [id number]
--- NOTE | 2017-07-12 10:48 | Progress Note-Post Operative ---
Post-Operative Progess Note Surgeon (s)/[employer] (s) Surgeon SHAY RODRIGUEZ DO [employer]: na Pre-Operative Diagnosis malignant left pleural effusion Post-Operative Diagnosis same Procedure & Operative Findings Date of Procedure 07/12/17 Procedure Performed/Findings placement left pleur X catheter left chest u/s guidance Anesthesia Type mac c local Estimated Blood Loss Estimated blood loss (mL): min Specimens/Packing Specimens Removed SHAY Saez DO Jul 12, 2017 10:48 am
--- NOTE | 2017-07-12 10:53 | Discharge Inst-Simple/Standard ---
Discharge Inst-Standard Patient Instructions/Follow Up Plan of Care/Instructions/FU: Follow up Saturday in the office at 1 Pm. Get chest x ray prior to coming. Drain pleur x catheter every other day and record amount. Activity as Tolerated: No Discharge Diet: Regular Diet Return to The Hospital For: Shortness of breath, chest pain, any other change of condition. SHAY RODRIGUEZ DO Jul 12, 2017 10:53 am
[2017-07-12 11:20] VITALS: BP 124/55
--- NOTE | 2017-07-12 11:21 | Diagnostic Imaging Report ---
EXAMINATION: Portable upright radiograph of the chest. INDICATION: Pleurx catheter placement. FINDINGS: There is interval left thoracentesis with Pleurx catheter seen projecting over the lower left chest. There is minimal remaining left basilar atelectasis. There is a moderate to large right pleural effusion slightly larger compared to 07/11/17. Associated right basilar infiltrates or atelectasis is noted. The heart size is enlarged. There is mild vascular congestion. Infusion port is again seen through the left subclavian approach with the tip at SVC level. IMPRESSION: Moderate to large right pleural effusion with right basilar infiltrate or atelectasis. Cardiomegaly with mild vascular congestion. Dictated by: Dictated on workstation # [id number]
[2017-07-12] MEDS ORDERED: HYDROcodone/APAP 5 MG/325 MG (LORTAB) TAB PO ONE (11:35)
[2017-07-12 11:50] VITALS: BP 136/62
[2017-07-12 12:20] VITALS: BP 133/65
[2017-07-12 13:07] VITALS: BP 133/65
--- NOTE | 2017-07-14 00:40 | OPERATIVE REPORT ---
DATE OF SERVICE: 07/12/2017 PREOPERATIVE DIAGNOSIS: Left malignant pleural effusion. POSTOPERATIVE DIAGNOSIS: Left malignant pleural effusion. PROCEDURE: Left chest PleurX catheter placement with ultrasound guidance. SURGEON: Shay Wilson DO ANESTHESIA: MAC with local. ESTIMATED BLOOD LOSS: Minimal. COMPLICATIONS: None. INDICATIONS: The patient is a 77-year-old female with malignant pleural effusion. She has had multiple thoracenteses performed. She was explained risks and benefits of procedure and wished to proceed with procedure. Consent was signed in the chart. PROCEDURE: The patient was taken to the operating suite and ultrasound was used to jesse the location for insertion of the catheter into the chest. The area was then prepped and draped in a sterile fashion. Surgical pause was performed. Local anesthetic was used to infiltrate the insertion point and then also retract down for tunneling in an point for the catheter more towards the abdomen. An 11 blade scalpel was used to make a skin incision on both ends of the and the Angiocath needle on the syringe was then advanced into the chest until pleural fluid was withdrawn. The catheter was then inserted into the chest and the needle was removed. A guidewire was inserted into the sheath and the sheath was then removed. The wire was secured. At this point, the PleurX catheter was tunneled from the inferior incision more towards the abdomen up towards the other incision in the chest. A dilator was then advanced over the wire and removed. The dilator sheath was then advanced over the wire and the wire and the dilator was removed. The catheter was placed in through the sheath into the chest and the sheath was then removed. The incision was then closed using absorbable suture. The inferior incision was secured using 3-0 silk suture. The catheter was hooked up to suction with 1300 mL slightly strawberry colored pleural fluid. The area was then washed and dried and sterile bandages were applied. The patient tolerated the procedure well without any complications. Chest x-ray is pending. Job ID: [id number] DocumentID: [id number] Dictated Date: 07/13/2017 17:02:47 Debate Director Date: 07/14/2017 00:40:13 Dictated By: SHAY WILSON DO
== END 2017-07-12 13:07 | disposition home or self-care (01) ==
LOC: SDC 08:04
PROVIDERS: ATTEND Surgery
DX: C50.919 Malignant neoplasm of unspecified site of unspecified female breast (principal); J91.0 Malignant pleural effusion; E11.9 Type 2 diabetes mellitus without complications; I10 Essential (primary) hypertension; E78.5 Hyperlipidemia, unspecified; Z79.4 Long term (current) use of insulin; Z79.899 Other long term (current) drug therapy
CPT/HCPCS: 71010; 76604; 82962; 87081

== ENCOUNTER → 2017-07-15 | Outpatient (CLI) | payer MEDICARE, OTHER ==
[~2017-07-15] MED LIST changes: +[UNRECOGNIZED DRUG - CODE] IV
--- NOTE | 2017-07-15 13:23 | Diagnostic Imaging Report ---
PA view of the chest. INDICATION: Pleural effusion. COMPARISON: 07/12/17. FINDINGS: There is a moderate to large right pleural effusion with obscured right lower lobe related to the effusion and adjacent right basilar infiltrate or atelectasis. The left lung base demonstrates minimal remaining atelectasis and effusion with a left Pleurx catheter in place. The heart size is normal. There is an infusion port with the tip at the distal SVC level. Surgical clips about the right breast area seen. IMPRESSION: Increased right pleural effusion now moderate to large with right atelectasis or infiltrate. Dictated by: Dictated on workstation # [id number]
== END ==
LOC: RAD 12:40
PROVIDERS: ATTEND Surgery
DX: J90 Pleural effusion, not elsewhere classified (principal)
CPT/HCPCS: 71010

== ENCOUNTER → 2017-07-17 | Outpatient (CLI) | payer MEDICARE, OTHER ==
[~2017-07-17] VITALS: Ht 165.1 cm; Wt 72.6 kg
[~2017-07-17] MED LIST changes: +LIDOCAINE 1% INJ 20 ML (XYLOCAINE) VIAL INJ ONE
[2017-07-17 11:10] VITALS: BP 112/71
[2017-07-17 11:49] VITALS: BP 120/80
--- NOTE | 2017-07-17 12:01 | Diagnostic Imaging Report ---
EXAMINATION: PA and lateral views of the chest. COMPARISON: 07/15/2017. INDICATION: Pleural effusion. FINDINGS: There is interval right thoracentesis with minimal remaining atelectasis in the right lung base. The left hemithorax demonstrates a pleural catheter in place. There is an area of suggested pleural thickening or loculated effusion along the lateral aspect inferiorly in the left hemithorax. The heart size is mildly enlarged. No significant vascular congestion. The mediastinum and mil appear unremarkable. No pneumothorax. An infusion port is again seen with the tip at the SVC level. Surgical clips along the right breast area are seen. IMPRESSION: 1. Cardiomegaly. 2. Interval right thoracentesis with minimal remaining right basilar atelectasis. 3. Inferior lateral left hemothorax opacity, suggestive of pleural thickening or a loculated effusion. Dictated by: Dictated on workstation # [id number]
--- NOTE | 2017-07-17 12:58 | Diagnostic Imaging Report ---
EXAMINATION: Ultrasound of the right chest was performed for evaluation for effusion and guidance of thoracentesis Indication: Pleural effusion FINDINGS: There is a moderate to large right pleural effusion. An appropriate area was marked for thoracentesis. IMPRESSION: Right pleural effusion. Dictated by: Dictated on workstation # [id number]
--- NOTE | 2017-07-18 08:27 | OPERATIVE REPORT ---
DATE OF SERVICE: 07/17/2017 PREOPERATIVE DIAGNOSIS: Malignant pleural effusion, right. POSTOPERATIVE DIAGNOSIS: Malignant pleural effusion, right. PROCEDURE: Right thoracentesis, ultrasound guided. SURGEON: Shay Wilson DO ANESTHESIA: Local 1% lidocaine, 4 mL. ESTIMATED BLOOD LOSS: None. COMPLICATIONS: None. INDICATIONS: The patient is a 77-year-old female with malignant bilateral pleural effusions. She has had a PleurX catheter placed in the left. The right chest with moderate to large pleural effusion at this time. The patient was discussed risks and benefits of having thoracentesis of the right chest performed, ultrasound guidance and she wishes to proceed with procedure. Consent was signed and on the chart. DESCRIPTION OF PROCEDURE: The patient was taken to the procedure room. Ultrasound was used to localize a spot for placement. The area was then prepped and draped in sterile fashion. Timeout was performed. The local anesthetic was infiltrated into this area. A #11 blade scalpel was used to make a small skin incision. The safety thoracentesis needle and catheter were then advanced through the incision above the rib into the pleural effusion. Straw colored fluid was withdrawn. The catheter was then advanced over the needle and the needle was removed. A total of 1400 mL of straw colored fluid was removed. Once the pleural effusion was completely drained, the catheter was removed and sterile bandage was applied. The patient tolerated the procedure well without any complications. Chest x-ray pending. Job ID: [id number] DocumentID: [id number] Dictated Date: 07/17/2017 17:15:35 [employer] Architect Date: 07/18/2017 08:26:24 Dictated By: SHAY WILSON DO
== END ==
LOC: RAD 11:01
PROVIDERS: ATTEND Surgery
DX: I51.7 Cardiomegaly; J90 Pleural effusion, not elsewhere classified
CPT/HCPCS: 32555; 71020

== ENCOUNTER 2017-07-31 21:46 | Emergency (ER) | payer MEDICARE, OTHER ==
[~2017-07-31] VITALS: Ht 165.1 cm; Wt 72.6 kg
[~2017-07-31 21:46] MED LIST changes: -LIDOCAINE 1% INJ 20 ML (XYLOCAINE) VIAL INJ ONE
--- OUTSIDE RECORDS SUMMARY | 2017-07-31 21:51 | XMS REPORT | Clinical Summary ---
Author Author [facility] Organization [facility] Address Unknown Phone Unavailable Care Team Providers Care Dehydration Plant Operator Name Role Phone PCP Unavailable Source Comments Some departments are not documenting in the electronic medical record. If you do not see the information that you expected, contact Release of Information in the Health Information Management department at [phone] for further assistance in locating additional records.[facility] Allergies Active Allergy Reactions Severity Noted Date [...] Diagnosis unknown Orders 05/07/2017 Hospital Radiology Encounter from Last 3 Months [...] SCREENING 2006 PREVNAR/PNEUMOVAX (#1) 2006 INFLUENZA VACCINE 05/14/2017 Results * NM PET/CT EXTERNAL IMAGING (05/07/2017) Narrative This order has been auto finalized and does not contain a result. from Last 3 Months
--- OUTSIDE RECORDS SUMMARY | 2017-07-31 21:51 | XMS REPORT | Encounter Summary ---
Author Author [facility] Organization [facility] Address Unknown Phone Unavailable Care Team Providers Care Senior Instructional Designer Name Role Phone PCP Unavailable Encounter Details Date Type Department Care Team Description 05/13/2017 Ancillary Rad Outpatient, Radiologist Diagnosis unknown Orders [address] [place] [address] Social History Tobacco Use Types Packs/Day Years [...]
--- OUTSIDE RECORDS SUMMARY | 2017-07-31 21:51 | XMS REPORT | Encounter Summary ---
Author Author [facility] Organization [facility] Address Unknown Phone Unavailable Care Team Providers Care Multi Share Program Coordinator Name Role Phone PCP Unavailable Reason for Visit * Reason Comments Heme/Onc Care * Consult, Test & Treat (Routine) Status Reason Specialty Diagnoses / Referred By Referred To Procedures Contact Contact New Request Oncology Procedures Liam Goff O'Dea, Anne, [place] OFFICE/OUTPT [address] [place] [address] VISIT,BANNER,LEVL V [address] [place], [place] [address] [place] [address] Phone: [phone] Phone: Encounter Details Date Type Department Care Team Description 05/20/2017 Office Visit [facility] Meme Lockwood MD Malignant neoplasm of Cancer Center - [address] breast in female, Exam JEN [address]7 estrogen receptor [address] [place] [id number] positive, [place] [address] laterality, unspecified [phone] site of breast (Primary Dx) Social History [...] biopsy of the right breast 03/11 ([facility]), revealed IDC, grade 3, ER 95, NH 55, Her2 negative 0 + by IHC with a Ki67 of 45%. Patient completed three cycles of Neoadjuvant chemotherapy with Adriamycin and Cytoxan IV 05/20/14. Teament was stopped due to new onset atrial fibrillation. She then underwent right lumpectomy and ALND 07/[address] Schofield ([facility]) which pathology showed IDC grade 3, 5/ [...] cellulitis improving. Patient was admitted to [facility] the week of 04/21/17 for [...] Dr. Molina " Contact Name & Number: [phone] " Surgeon: Dr. Schofield " Medical Oncologist: [...] to [employer] alone in women diagnosed with juzovgb-bifkfokj-hfnjimok, HER2-negative metastatic breast cancer that had grown [...] positive, unspecified laterality, unspecified site of breast (HCC) - Primary in this encounter
--- OUTSIDE RECORDS SUMMARY | 2017-07-31 21:51 | XMS REPORT | Encounter Summary ---
Author Author [facility] Organization [facility] Address Unknown Phone Unavailable Care Team Providers Care Para Educator Name Role Phone PCP Unavailable Encounter Details Date Type Department Care Team Description 05/13/2017 Ancillary Rad Outpatient, Radiologist Diagnosis unknown Orders [address] [place], [place] [id number] Social History Tobacco Use Types Packs/Day Years [...]
--- OUTSIDE RECORDS SUMMARY | 2017-07-31 21:51 | XMS REPORT | Encounter Summary ---
Author Author [facility] Organization [facility] Address Unknown Phone Unavailable Care Team Providers Care Coal Handling Supervisor Name Role Phone PCP Unavailable Encounter Details Date Type Department Care Team Description 05/13/2017 Ancillary Rad Outpatient, Radiologist Diagnosis unknown Orders [address] [place] [address] Social History Tobacco Use Types Packs/Day Years [...]
--- OUTSIDE RECORDS SUMMARY | 2017-07-31 21:52 | XMS REPORT | Encounter Summary ---
Author Author [facility] Organization [facility] Address Unknown Phone Unavailable Care Team Providers Care Deli Worker Name Role Phone PCP Unavailable Reason for Visit * Reason Comments Navigation Assessment Encounter Details Date Type Department Care Team Description 05/13/2017 Telephone [facility] Meme Lockwood MD Navigation Assessment Cancer Center - [facility] Exam [address] [place] [address] [place] [address] [phone] Social History Tobacco Use Types Packs/Day Years [...] Physician: Dr. Molina Contact Name & Number: [phone] Surgeon: Dr. Schofield Medical Oncologist: Dr. Molina [...] a right breast biopsy was performed at [facility] in [place], [place], which confirmed cancer. Lacey had a right lumpectomy followed by radiation treatments to the right breast area at [facility]. Lacey states that three months ago, she [...] Right breast ultrasound guided needle biopsy at [facility] Pathology (see report): Infiltrating mammary carcinoma ductal type. ER: 95% IN: 55% Ki67: 45% HER2/rosmery: 0+ 05/17/14 Right [...] axillary node dissection by Dr. Schofield at [facility] Surgical Pathology Report: A. Lymph node, sentinel [...]
--- OUTSIDE RECORDS SUMMARY | 2017-07-31 21:52 | XMS REPORT | Encounter Summary ---
Author Author [facility] Organization [facility] Address Unknown Phone Unavailable Care Team Providers Care Strip Mill Operator Name Role Phone PCP Unavailable Encounter Details Date Type Department Care Team Description 05/07/2017 Hospital [facility] Radiology [address] [place] [address] Social History Tobacco Use Types Packs/Day Years [...]
--- OUTSIDE RECORDS SUMMARY | 2017-07-31 21:52 | XMS REPORT | Encounter Summary ---
Author Author [facility] Organization [facility] Address Unknown Phone Unavailable Care Team Providers Care Insurance Auditor Name Role Phone PCP Unavailable Encounter Details Date Type Department Care Team Description 05/12/2017 Ancillary Rad Outpatient, Radiologist Diagnosis unknown Orders [address] [place], [place] [id number] Social History Tobacco Use Types Packs/Day Years [...]
--- OUTSIDE RECORDS SUMMARY | 2017-07-31 21:53 | XMS REPORT ---
Author Author MARCELINA LEE [facility] Address [address] [place] [address] Care Team Providers Care Lime Kiln Tender Name Role Phone LEE MARCELINA Unavailable PROBLEMS Type Condition ICD9-CM Code CAP76-RO Code Onset Dates Condition Status SNOMED Code Problem Essential hypertension I10 Active 52011249 Problem Hypothyroidism E03.9 Active 89124850 Problem Other specified diabetes mellitus with unspecified complications E13.8 Active 20254384 Problem Gastroesophageal reflux disease without esophagitis K21.9 Active 577201315 Problem History of breast cancer Z85.3 Active 185442887 Problem Dyslipidemia E78.5 Active 016603953 Problem Malignant neoplasm of unspecified site of unspecified female breast C50.919 Active 833174773 Problem Postnasal drip R09.82 Active 32090716 Problem Dysuria R30.0 Active 74189561 Problem Diabetes mellitus E11.9 Active 57340241 Problem Gastroesophageal reflux disease with esophagitis K21.0 Active 934333360 Problem Neuropathy G62.9 Active 273481439 ALLERGIES Substance Reaction Event Type Date Status Penicillin V Potassium Unknown Drug Allergy Dec, Active SOCIAL HISTORY Never Assessed PLAN OF CARE Activity Details Follow Up 2 Weeks Reason:diabetes VITAL SIGNS Height 66 in 2016-12-14 Weight 163.4 lbs 2016-12-14 Temperature 97.8 degrees Fahrenheit 2016-12-14 Heart Rate 82 bpm 2016-12-14 Respiratory Rate 20 2016-12-14 BMI 26.37 kg/m2 2016-12-14 Blood pressure systolic 128 mmHg 2016-12-14 Blood pressure diastolic 76 mmHg 2016-12-14 MEDICATIONS Medication Instructions Dosage Frequency Start Date End Date Duration Status Claritin 10 MG Orally Once a day 1 tablet 24h Active Arimidex 1 MG Orally Once a day 1 tablet 24h 90 Active Citracal Plus Active Actos 45 MG Orally Once a day 1 tablet 24h Jun, Active Prilosec 20 mg Orally Once a day 1 capsule 24h Active Lovastatin 20 mg Orally Once a day 1 tablet with a meal 24h 90 Active Levothyroxine Sodium 100 mcgm Orally Once a day TAKE ONE TABLET BY MOUTH ONCE DAILY 24h 90 Active Levothyroxine Sodium 100 MCG Orally Once a day 1 tablet 24h Jan, Active Amlodipine Besylate 5 mg Orally Once a day 1 tablet 24h Active Lopid 600 MG TAKE ONE TABLET BY MOUTH TWICE DAILY 12h 90 Active NovoLog Flexpen 100 UNIT/ML Subcutaneous 3 times a day 6 units 8h Dec, Active Indapamide 2.5 MG Orally Once a day 1 tablet in the morning 24h 90 Active Metformin HCl 1000 MG Orally Twice a day 1 tablet with meals 12h Active Metoprolol Tartrate 25 MG Orally Twice a day 1 tablet 12h Active Levemir FlexTouch 100 UNIT/ML Subcutaneous at bedtime as needed INJECT 60 UNITS SUBCUTANEOUSLY ONCE DAILY 90 Active Benazepril HCl 10 mg Orally Once a day 1 tablet 24h Active RESULTS Name Result Date Reference Range TSH W/ FREE T4 2016-12-14 TSH 2.400 0.450-4.500 T4,Free(Direct) 1.51 0.82-1.77 CBC 2016-12-14 WBC 4.4 3.4-10.8 RBC 4.48 3.77-5.28 Hemoglobin 13.1 11.1-15.9 Hematocrit 39.2 34.0-46.6 MCV 88 79-97 MCH 29.2 26.6-33.0 MCHC 33.4 31.5-35.7 RDW 14.8 12.3-15.4 Platelets 159 150-379 Neutrophils 66 Lymphs 20 Monocytes 9 Eos 3 Basos 1 Neutrophils (Absolute) 2.9 1.4-7.0 Lymphs (Absolute) 0.9 0.7-3.1 Monocytes(Absolute) 0.4 0.1-0.9 Eos (Absolute) 0.1 0.0-0.4 Baso (Absolute) 0.0 0.0-0.2 Immature Granulocytes 1 Immature Grans (Abs) 0.0 0.0-0.1 LIPID PANEL 2016-12-14 Cholesterol, Total 211 100-199 Triglycerides 235 0-149 HDL Cholesterol 38 >39 VLDL Cholesterol Vishal 47 5-40 LDL Cholesterol Calc 126 0-99 Comment: CMP 2016-12-14 Glucose, Serum 210 65-99 BUN 26 8-27 Creatinine, Serum 1.01 0.57-1.00 eGFR If NonAfricn Am 55 >59 eGFR If Africn Am 63 >59 BUN/Creatinine Ratio 26 11-26 Sodium, Serum 140 134-144 Potassium, Serum 4.2 3.5-5.2 Chloride, Serum 95 96-106 Carbon Dioxide, Total 28 18-29 Calcium, Serum 10.7 8.7-10.3 Protein, Total, Serum 6.8 6.0-8.5 Albumin, Serum 4.5 3.5-4.8 Globulin, Total 2.3 1.5-4.5 A/G Ratio 2.0 1.1-2.5 Bilirubin, Total 0.6 0.0-1.2 Alkaline Phosphatase, S 86 39-117 AST (SGOT) 23 0-40 ALT (SGPT) 22 0-32 A1C (IN HOUSE) 2016-12-14 A1C IN HOUSE 12.0 4.3 - 5.6 % Previous A1c 10.8 Lot [id number] Exp date 08/2018 PROCEDURES Procedure Date Ordered Result Body Site GLYCATED HEMOGLOBIN TEST December 14, 2016 [facility], 2016 [facility] V[facility] ESTABLISHED PATIENT December 14, 2016 VENIPUNCT, ROUTINE* December 14, 2016 IMMUNIZATIONS No Known Immunizations MEDICAL (GENERAL) HISTORY Type Description Date Medical History diabetes Medical History breast cancer mets Medical History HTN Medical History pneumonia Surgical History lumpectomy surgery on breast (cancer) august 2014 Surgical History tonsillectomy Surgical History D&C x 3 Surgical History bilateral cataracts removed 2009 Hospitalization History surgery Hospitalization History pneumonia
--- OUTSIDE RECORDS SUMMARY | 2017-07-31 21:53 | XMS REPORT ---
Author Author MARCELINA LEE [facility] Address [address] [place] [address] Care Team Providers Care Greeter Name Role Phone ELAINE LEENETTE Unavailable PROBLEMS Type Condition ICD9-CM Code QSH36-YF Code Onset Dates Condition Status SNOMED Code Problem Essential hypertension I10 Active 21062169 Problem Hypothyroidism E03.9 Active 96818436 Problem Other specified diabetes mellitus with unspecified complications E13.8 Active 75348300 Problem Gastroesophageal reflux disease without esophagitis K21.9 Active 863372798 Problem History of breast cancer Z85.3 Active 157608859 Problem Dyslipidemia E78.5 Active 254714236 Problem Malignant neoplasm of unspecified site of unspecified female breast C50.919 Active 773583435 Problem Postnasal drip R09.82 Active 57118742 Problem Dysuria R30.0 Active 06307399 Problem Diabetes mellitus E11.9 Active 19552968 Problem Gastroesophageal reflux disease with esophagitis K21.0 Active 311081921 Problem Neuropathy G62.9 Active 797018478 ALLERGIES Substance Reaction Event Type Date Status Penicillin V Potassium Unknown Drug Allergy Dec, Active SOCIAL HISTORY Never Assessed PLAN OF CARE Activity Details Follow Up 2 Months Reason:dm VITAL SIGNS Height 66 in 2016-12-27 Weight 162 lbs 2016-12-27 Temperature 97.9 degrees Fahrenheit 2016-12-27 Heart Rate 88 bpm 2016-12-27 Respiratory Rate 18 2016-12-27 BMI 26.14 kg/m2 2016-12-27 Blood pressure systolic 138 mmHg 2016-12-27 Blood pressure diastolic 80 mmHg 2016-12-27 MEDICATIONS Medication Instructions Dosage Frequency Start Date End Date Duration Status Prilosec 20 mg Orally Once a day 1 capsule 24h Active Claritin 10 MG Orally Once a day 1 tablet 24h Active Levothyroxine Sodium 100 MCG Orally Once a day 1 tablet 24h Jan, Active Amlodipine Besylate 5 mg Orally Once a day 1 tablet 24h Active Citracal Plus Active Lovastatin 20 mg Orally Once a day 1 tablet with a meal 24h Active Indapamide 2.5 MG Orally Once a day 1 tablet in the morning 24h 90 Active Actos 45 MG Orally Once a day 1 tablet 24h Jun, Active Metformin HCl 1000 MG Orally Twice a day 1 tablet with meals 12h Active Benazepril HCl 10 mg Orally Once a day 1 tablet 24h Active NovoLog Flexpen 100 UNIT/ML Subcutaneous 3 times a day 6 units 8h Dec, Active Levemir FlexTouch 100 UNIT/ML Subcutaneous at bedtime as needed INJECT 60 UNITS SUBCUTANEOUSLY ONCE DAILY Active Metoprolol Tartrate 25 MG Orally Twice a day 1 tablet 12h Active Arimidex 1 MG Orally Once a day 1 tablet 24h 90 Active RESULTS No Results PROCEDURES Procedure Date Ordered Result Body Site [facility] VISIT ESTABLISHED PATIENT December 27, 2016 IMMUNIZATIONS No Known Immunizations MEDICAL (GENERAL) HISTORY Type Description Date Medical History diabetes Medical History breast cancer mets Medical History HTN Medical History pneumonia Surgical History lumpectomy surgery on breast (cancer) august 2014 Surgical History tonsillectomy Surgical History D&C x 3 Surgical History bilateral cataracts removed 2009 Hospitalization History surgery Hospitalization History pneumonia
--- NOTE | 2017-07-31 22:24 | ED General ---
General Chief Complaint: Glucose Problems Stated Complaint: LOW BLOOD SUGAR Nursing Triage Note: glucose of 35, EMS called, patient given glucagon, sandwich and milk. came pov Nursing Sepsis Screen: No Definite Risk Source of Information: Patient, Family Exam Limitations: No Limitations History of Present Illness Time Seen by Provider: 22:24 Allergies and Home Medications Allergies Coded Allergies: Penicillins (Unverified Allergy, Unknown, RASH, 10/19/16) Home Medications Amlodipine Besylate 5 Mg Tab, 5 MG PO HS, (Reported) Benazepril Hcl 10 Mg Tablet, 10 MG PO HS, (Reported) Calcium Carbonate/Vitamin D3 1 Each Tablet, 1 TAB PO HS, (Reported) Gemfibrozil 600 Mg Tablet, 600 MG PO BID, (Reported) Indapamide 2.5 Mg Tablet, 2.5 MG PO DAILY, (Reported) Insulin Detemir 100 Unit/1 Ml Insuln.pen, 30 UNITS SC DAILY for 30 Days Take in the AM Prescribed by: ISIAH MARTIN on 06/01/17 1400 Levothyroxine Sodium 100 Mcg Tablet, 100 MCG PO DAILY, (Reported) Loratadine 10 Mg Tab, 10 MG PO HS, (Reported) Lovastatin 20 Mg Tablet, 20 MG PO DAILY, (Reported) Metformin Hcl 1,000 Mg Tablet, 1,000 MG PO BID WITH MEALS, (Reported) Metoprolol Tartrate 25 Mg Tablet, 25 MG PO BID, (Reported) Omeprazole 20 Mg Capsule.dr, 20 MG PO HS, (Reported) Pioglitazone HCl 45 Mg Tablet, 45 MG PO DAILY, (Reported) Vinorelbine Tartrate 10 Mg/Ml Soln, 10 MG IV WEEK, (Reported) [Fluvestrant Inj] , INJ UD, (Reported) EVERY 2 WEEKS FOR 3 DOSES THEN EVERY MONTH FIRST DOSE 05-28-17 Past Jkphotv-Fzsdkb-Hgvgqb Hx Patient Social History Alcohol Use: Denies Use Recreational Drug Use: No Smoking Status: Former Smoker Type Used: Cigarettes Former Smoker, Quit: Jun 22, 1990 Recent Foreign Travel: No Contact w/Someone Who Travel: No Recent Infectious Disease Expo: No Recent Hopitalizations: No Immunizations Up To Date Tetanus Booster (TDap): Unknown Seasonal Allergies Seasonal Allergies: Yes Surgeries History of Surgeries: Yes (D&C X2, KNEE SCOPE, FIBROID TUMOR BX, BILAT FOOT SURGERY, PORT INSERTION) Surgeries: Breast, Orthopedic Respiratory History of Respiratory Disorde: Yes Respiratory Disorders: Pneumonia Currently Using CPAP: No Cardiovascular History of Cardiac Disorders: Yes (hx a-fib with chemo) Cardiac Disorders: Atrial Fibrillation, High Cholesterol, Hypertension Neurological History of Neurological Disord: Yes (seizure from fever as child) Reproductive System Hx Reproductive Disorders: No Sexually Transmitted Disease: No HIV/AIDS: No Female Reproductive Disorders: Denies 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 Genitourinary History of Genitourinary Disor: No Gastrointestinal History of Gastrointestinal Di: Yes (freq constipation) Gastrointestinal Disorders: Chronic Constipation Musculoskeletal History of Musculoskeletal Dis: No Endocrine History of Endocrine Disorders: Yes (thyroid mass) Endocrine Disorders: Diabetes, Insulin dep HEENT HEENT Disorders: Cataract Loss of Vision: Denies Hearing Impairment: Denies Cancer History of Cancer: Yes (DX 2013--S/P RIGHT MASTECTOMY, CHEMO, RADIATION) Cancer: Lung, Breast Did You Recieve Any Treatments: Yes Type of Tx Receive: Chemotherapy, Radiation, Surgical Intervention Psychosocial History of Psychiatric Problem: No Integumentary History of Skin or Integumenta: No Blood Transfusions History of Blood Disorders: No Adverse Reaction to a Blood Tr: No Family Medical History Significant Family History: No Pertinent Family Hx Family Medial History: Cardiovascular disease 19 FATHER G8 BROTHER Completed stroke 19 MOTHER Coronary thrombosis 19 FATHER Physical Exam Vital Signs Vital Sign - Last 12Hours 07/31/17 22:01 Temp 98.1 Pulse 90 Resp 18 B/P (MAP) 163/76 Pulse Ox 98 Capillary Refill : Less Than 3 Seconds Progress/Results/Core Measures Results/Orders Lab Results Laboratory Tests Test 07/31/17 22:53 07/31/17 22:59 08/01/17 00:30 Range/Units White Blood Count 2.0 L 4.3-11.0 10^3/uL Red Blood Count 3.49 L 4.35-5.85 10^6/uL Hemoglobin 11.1 L 11.5-16.0 G/DL Hematocrit 33 L 35-52 % Mean Corpuscular Volume 96 80-99 FL Mean Corpuscular Hemoglobin 32 25-34 PG Mean Corpuscular Hemoglobin Concent 33 32-36 G/DL Red Cell Distribution Width 17.4 H 10.0-14.5 % Platelet Count 219 130-400 10^3/uL Mean Platelet Volume 9.9 7.4-10.4 FL Neutrophils (%) (Auto) 74 42-75 % Lymphocytes (%) (Auto) 16 12-44 % Monocytes (%) (Auto) 8 0-12 % Eosinophils (%) (Auto) 2 0-10 % Basophils (%) (Auto) 1 0-10 % Neutrophils # (Auto) 1.5 L 1.8-7.8 X 10^3 Lymphocytes # (Auto) 0.3 L 1.0-4.0 X 10^3 Monocytes # (Auto) 0.2 0.0-1.0 X 10^3 Eosinophils # (Auto) 0.0 0.0-0.3 10^3/uL Basophils # (Auto) 0.0 0.0-0.1 10^3/uL Sodium Level 136 135-145 MMOL/L Potassium Level 4.0 3.6-5.0 MMOL/L Chloride Level 105 98-107 MMOL/L Carbon Dioxide Level 20 L 21-32 MMOL/L Anion Gap 11 5-14 MMOL/L Blood Urea Nitrogen 21 H 7-18 MG/DL Creatinine 1.03 0.60-1.30 MG/DL Estimat Glomerular Filtration Rate 52 BUN/Creatinine Ratio 20 Glucose Level 171 H 70-105 MG/DL Calcium Level 8.8 8.5-10.1 MG/DL Total Bilirubin 0.3 0.1-1.0 MG/DL Aspartate Amino Transf (AST/SGOT) 16 5-34 U/L Alanine Aminotransferase (ALT/SGPT) 12 0-55 U/L Alkaline Phosphatase 61 40-136 U/L B-Type Natriuretic Peptide 228.0 H <100.0 PG/ML Total Protein 6.0 L 6.4-8.2 GM/DL Albumin 3.4 3.2-4.5 GM/DL Lipase 15 8-78 U/L Glucometer 145 H 70-110 MG/DL Urine Color YELLOW Urine Clarity CLEAR Urine pH 5 5-9 Urine Specific [place] 1.010 L 1.016-1.022 Urine Protein NEGATIVE NEGATIVE Urine Glucose (UA) NEGATIVE NEGATIVE Urine Ketones NEGATIVE NEGATIVE Urine Nitrite NEGATIVE NEGATIVE Urine Bilirubin NEGATIVE NEGATIVE Urine Urobilinogen NORMAL NORMAL MG/DL Urine Leukocyte Esterase 2+ H NEGATIVE Urine RBC (Auto) NEGATIVE NEGATIVE Urine RBC NONE /HPF Urine WBC 0-2 /HPF Urine Squamous Epithelial Cells 0-2 /HPF Urine Crystals NONE /LPF Urine Bacteria TRACE /HPF Urine Casts NONE /LPF Urine Mucus NEGATIVE /LPF Urine Culture Indicated NO My Orders Orders - KARRIE VALVERDE Accucheck Stat ONCE (07/31/17 22:24) BNP (07/31/17 22:42) Cbc With Automated Diff (07/31/17 22:42) Comprehensive Metabolic Panel (07/31/17 22:42) Lipase (07/31/17 22:42) Ua Culture If Indicated (07/31/17 22:42) Chest Pa/Lat (2 View) (07/31/17 22:42) Vital Signs/I&O Vital Sign - Last 12Hours 07/31/17 22:01 Temp 98.1 Pulse 90 Resp 18 B/P (MAP) 163/76 Pulse Ox 98 Blood Pressure Mean: 105 Departure Impression Impression: Primary Impression: Hypoglycemia associated with diabetes Additional Impressions: Pleural effusion, bilateral Metastatic breast cancer Urinary tract infection Qualified Codes: N30.00 - Acute cystitis without hematuria Disposition: HOME, SELF-CARE Condition: Improved Departure-Patient Inst. Decision time for Depature: 00:59 Referrals: SHAY RODRIGUEZ DANIEL J MD (PCP/Family) Primary Care Physician AIDEN BREWER Patient Instructions: Diabetes Type 2 (DC), Pleural Effusion (DC) Add. Discharge Instructions: All discharge instructions reviewed with patient and/or family. Voiced understanding. Medications as instructed. Continue usual home medications with the exception of Levemir. Hold Levemir until seen by Dr. Guidry. Follow- up with Dr. Guidry on Saturday as previously scheduled. Expect a call from Dr. Rodriguez's office for scheduling outpatient thoracentesis. Return to the emergency department immediately for worsened pain, fever, changes in behavior, slurred speech, numbness, weakness, vomiting, shortness of air, chest pain, or any other concerns. Scripts Potassium Chloride (Potassium Chloride) 10 Meq Tablet.er 10 MEQ PO DAILY, #3 TAB 0 Refills Prov: KARRIE VALVERDE 08/01/17 Furosemide (Furosemide) 20 Mg Tablet 20 MG PO DAILY, #3 TAB 0 Refills Prov: KARRIE VALVERDE 08/01/17 Ciprofloxacin HCl (Ciprofloxacin HCl) 500 Mg Tablet 500 MG PO BID, #6 TAB 0 Refills Prov: KARRIE VALVERDE 08/01/17 KARRIE VALVERDE Jul 31, 2017 22:24
[2017-07-31 23:16] LABS: BASOPHILS % (AUTO) 1 % (0-10); EOSINOPHILS % (AUTO) 2 % (0-10); LYMPHOCYTES # (AUTO) 0.3 X 10^3 (1.0-4.0); LYMPHOCYTES % (AUTO) 16 % (12-44); MEAN CORPUSCULAR HEMOGLOBIN 32 PG (25-34); MEAN CORPUSCULAR HGB CONC 33 G/DL (32-36); MEAN CORPUSCULAR VOLUME 96 FL (80-99); MEAN PLATELET VOLUME 9.9 FL (7.4-10.4); MONOCYTES # (AUTO) 0.2 X 10^3 (0.0-1.0); MONOCYTES % (AUTO) 8 % (0-12); NEUTROPHILS # (AUTO) 1.5 X 10^3 (1.8-7.8); NEUTROPHILS % (AUTO) 74 % (42-75); PLATELET COUNT 219 10^3/uL (130-400); RED BLOOD COUNT 3.49 10^6/uL (4.35-5.85); RED CELL DISTRIBUTION WIDTH 17.4 % (10.0-14.5)
[2017-07-31 23:34] LABS: ALBUMIN 3.4 GM/DL (3.2-4.5); BILIRUBIN,TOTAL 0.3 MG/DL (0.1-1.0); CALCIUM 8.8 MG/DL (8.5-10.1); CREATININE SERUM 1.03 MG/DL (0.60-1.30)
[2017-08-01 00:35] LABS: BILIRUBIN,URINE NEGATIVE (NEGATIVE); KETONES,URINE NEGATIVE (NEGATIVE); LEUKOCYTE ESTERASE ,URINE 2+ (NEGATIVE); NITRITE,URINE NEGATIVE (NEGATIVE); PH,URINE 5 (5-9); PROTEIN,URINE NEGATIVE (NEGATIVE); UROBILINOGEN,URINE NORMAL (NORMAL)
[2017-08-01 00:42] LABS: SQUAMOUS EPITHELIAL CELL,UR 0-2 /HPF; WBC,URINE 0-2 /HPF
[2017-08-01] MEDS ORDERED: POTA10TA10 PO (00:58)
[2017-08-01] MEDS ORDERED: CIPR500T4 PO (00:58)
[2017-08-01] MEDS ORDERED: FURO20TA4 PO (00:58)
[2017-08-01] MEDS ORDERED: LEVOFLOXACIN 500 MG TAB (LEVAQUIN) PO ONE (01:00)
[2017-08-01 01:19] VITALS: BP 152/74
--- NOTE | 2017-08-01 06:32 | Diagnostic Imaging Report ---
INDICATION: Cough and congestion. COMPARISON: 07/17/2017 FINDINGS: Single frontal radiographic view of the chest was obtained and demonstrates interval development of jiho-qy-fhzyasfx right-sided pleural effusion. Small left basilar effusion persists. Chest tube is noted within the left lung base. There is no pneumothorax on either side. There is nodular opacity in the right perihilar region, which likely represents a vessel on end. Cardiac silhouette and pulmonary vasculature are within normal limits. Left subclavian Port-A-Cath is noted with tip in the SVC. Bony structures show no gross acute abnormalities. IMPRESSION: 1. Interval development of heei-qf-nfuqtiql right-sided pleural effusion. 2. Persistent small left effusion. 3. Indwelling chest tube. No pneumothorax. 4. Probable vessel on end in the right perihilar region versus prominent perihilar lymph node. Dictated by: Dictated on workstation # [id number]
== END 2017-08-01 01:19 | disposition home or self-care (01) ==
LOC: EDUNIT# 21:46 → ER 21:48
DX: E11.649 Type 2 diabetes mellitus with hypoglycemia without coma (principal); C50.819 Malignant neoplasm of overlapping sites of unspecified female breast; C78.00 Secondary malignant neoplasm of unspecified lung; J90 Pleural effusion, not elsewhere classified; N39.0 Urinary tract infection, site not specified; I48.91 Unspecified atrial fibrillation; E78.00 Pure hypercholesterolemia, unspecified; I10 Essential (primary) hypertension; Z79.4 Long term (current) use of insulin; Z87.891 Personal history of nicotine dependence; Z87.01 Personal history of pneumonia (recurrent); Z92.21 Personal history of antineoplastic chemotherapy; Z92.3 Personal history of irradiation; Z82.49 Family history of ischemic heart disease and other diseases of the circulatory system
CPT/HCPCS: 36415; 71020; 80053; 81000; 82962; 83690; 83880; 85025; 99283

== ENCOUNTER → 2017-08-01 | Outpatient (CLI) | payer MEDICARE, OTHER ==
[~2017-08-01] VITALS: Ht 165.1 cm; Wt 72.6 kg
[~2017-08-01] MED LIST changes: +CIPR500T4 PO; +FURO20TA4 PO; +POTA10TA10 PO
[2017-08-01 14:30] VITALS: BP 120/78
[2017-08-01 15:02] VITALS: BP 115/62
--- NOTE | 2017-08-01 15:12 | Diagnostic Imaging Report ---
EXAMINATION: PA view of the chest. INDICATION: Thoracentesis performed on the right side. FINDINGS: There is interval significant improvement with a small amount of remaining right pleural fluid seen and mild right basilar atelectasis. The left lung demonstrates minimal basilar atelectasis and a small left effusion with a tunneled PleurX catheter seen in place. There is mild enlargement of the cardiac size. The mediastinum and mil appear unremarkable. There is an infusion port with the tip at the cavoatrial junction. No pneumothorax. IMPRESSION: Interval right thoracentesis with a tiny amount of fluid seen and mild right basilar atelectasis. Dictated by: Dictated on workstation # [id number]
--- NOTE | 2017-08-01 15:36 | Diagnostic Imaging Report ---
EXAMINATION: Ultrasound of the right chest was performed for evaluation for effusion and guidance of thoracentesis Indication: Pleural effusion FINDINGS: There is a large right pleural effusion. An appropriate area was marked for thoracentesis. IMPRESSION: Right pleural effusion. Dictated by: Dictated on workstation # [id number]
--- NOTE | 2017-08-01 22:41 | OPERATIVE REPORT ---
DATE OF SERVICE: 08/01/2017 PREOPERATIVE DIAGNOSIS: Right pleural effusion. POSTOPERATIVE DIAGNOSIS: Right pleural effusion. PROCEDURE: Ultrasound-guided right thoracentesis. SURGEON: Shay Wilson DO ANESTHESIA: Local anesthetic 1% lidocaine. ESTIMATED BLOOD LOSS: None. COMPLICATIONS: None. INDICATIONS: The patient is a 77-year-old female with pleural effusion on the right side. She is having some shortness of breath. By chest x-ray she had a moderate pleural effusion. The patient understands risks and benefits of procedure and wished to proceed with procedure. Consent was signed in the chart. PROCEDURE: The patient was taken to the procedure room. She was prepped and draped in sterile fashion after ultrasound was used to demonstrate the fluid collection and marking was performed. After prepped and draped, local anesthetic was infiltrated into the area. A #11 blade scalpel was used to make a small skin incision. A safety thoracentesis needle and catheter were advanced through the incision in through the chest wall and into the pleural effusion. Straw colored fluid was withdrawn. The catheter was inserted. A total of 1100 mL of straw colored fluid was removed. The catheter was then removed. Sterile bandage was applied. The patient tolerated procedure well without any complications. Chest x-ray pending. Job ID: [id number] DocumentID: [id number] Dictated Date: 08/01/2017 15:23:49 Wax Cutter Date: 08/01/2017 22:41:26 Dictated By: SHAY WILSON DO
== END ==
LOC: RAD 13:54
PROVIDERS: ATTEND Surgery
DX: J90 Pleural effusion, not elsewhere classified (principal)
CPT/HCPCS: 32555; 71010

== ENCOUNTER → 2017-08-15 | Outpatient (CLI) | payer MEDICARE, OTHER ==
[~2017-08-15] VITALS: Ht 165.1 cm; Wt 72.6 kg
[~2017-08-15] MED LIST changes: +LIDOCAINE 1% INJ 20 ML (XYLOCAINE) VIAL INJ ONE; +LIDOCAINE 1% INJ 20 ML (XYLOCAINE) VIAL ONE
[2017-08-15 10:00] VITALS: BP 128/80
--- NOTE | 2017-08-15 21:01 | OPERATIVE REPORT ---
DATE OF SERVICE: 08/15/2017 PREOPERATIVE DIAGNOSIS: Right pleural effusion. POSTOPERATIVE DIAGNOSIS: Right pleural effusion. PROCEDURE: Right thoracentesis ultrasound-guided. SURGEON: Shay Wilson DO ANESTHESIA: Local 1% lidocaine. ESTIMATED BLOOD LOSS: Minimal. COMPLICATIONS: None. 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 She understands risks and benefits of procedure and wished to proceed with procedure. Consent was on chart. DESCRIPTION OF PROCEDURE: The patient prepped and draped in sterile fashion after ultrasound was used to demonstrate a good window into the pleural effusion. Local anesthetic was infiltrated into the area. A #11 blade scalpel was used to make a stab incision and using the safety thoracentesis catheter and needle, this was inserted into the chest wall and into the pleural effusion. Straw colored fluid was withdrawn. The catheter was inserted in the chest and the needle was removed. The pleural effusion was then evacuated removing 1500 mL of straw colored fluid. Once this was done being withdrawn the catheter was removed. The area was then washed and dried, sterile bandage was applied. A chest x-ray pending. The patient tolerated the procedure well without any complications. Job ID: [id number] DocumentID: [id number] Dictated Date: 08/15/2017 13:11:25 Strip Cleaner Date: 08/15/2017 21:00:28 Dictated By: SHAY WILSON DO
== END ==
LOC: RAD 09:06
PROVIDERS: ATTEND Surgery
DX: C50.911 Malignant neoplasm of unspecified site of right female breast (principal); J91.0 Malignant pleural effusion
CPT/HCPCS: 32555; 71010

== ENCOUNTER → 2017-08-29 | Outpatient (CLI) | payer MEDICARE, OTHER ==
[~2017-08-29] MED LIST changes: -LIDOCAINE 1% INJ 20 ML (XYLOCAINE) VIAL INJ ONE; -LIDOCAINE 1% INJ 20 ML (XYLOCAINE) VIAL ONE
--- NOTE | 2017-08-29 11:29 | Diagnostic Imaging Report ---
EXAMINATION: PA and lateral views of the chest. INDICATION: Shortness of breath. COMPARISON: 08/15/17. FINDINGS: There is a moderate to large right pleural effusion with right basilar infiltrate or atelectasis. This is increased compared to 08/15/17. The left lung base demonstrate a Pleurx catheter with a tiny effusion and stable mild left basilar infiltration or atelectasis again noted. The heart size is borderline. The mediastinum and mil appear unremarkable. Infusion port is again seen with the tip at the SVC level. Surgical clips over the right breast and axillary region seen. IMPRESSION: Moderate to large right pleural effusion with left basilar infiltrate or atelectasis. Dictated by: Dictated on workstation # [id number]
== END ==
LOC: RAD 10:45
PROVIDERS: ATTEND Internal Medicine Hematology & Oncology
DX: J90 Pleural effusion, not elsewhere classified (principal)
CPT/HCPCS: 71020

== ENCOUNTER → 2017-08-30 | Outpatient (CLI) | payer MEDICARE, OTHER ==
[~2017-08-30] VITALS: Ht 165.1 cm; Wt 72.6 kg
[~2017-08-30] MED LIST changes: +LIDOCAINE 1% INJ 20 ML (XYLOCAINE) VIAL INJ ONE
[2017-08-30 13:00] VITALS: BP 118/68
[2017-08-30 13:31] VITALS: BP 118/67
--- NOTE | 2017-08-30 13:40 | Diagnostic Imaging Report ---
INDICATION: Post thoracentesis. COMPARISON: 08/29/2017. FINDINGS: There has been near complete evacuation of the right pleural fluid and much improved expansion of the right lower and middle lobes. There is no pneumothorax. The left basilar pleural/parenchymal opacity is unchanged. IMPRESSION: There is near-complete resolution of the right pleural fluid and improved expansion of the right lower lung with no pneumothorax. Dictated by: Dictated on workstation # [id number]
--- NOTE | 2017-08-30 14:12 | Diagnostic Imaging Report ---
EXAMINATION: Ultrasound of the right chest was performed for evaluation for effusion and guidance of thoracentesis Indication: Pleural effusion FINDINGS: There is a moderate right pleural effusion. An appropriate area was marked for thoracentesis. IMPRESSION: Right pleural effusion. Dictated by: Dictated on workstation # [id number]
[2017-08-30 14:36] LABS: LDH,BODY FLUID 105 U/L; TOTAL PROTEIN,BODY FLUID 2.5 G/DL
[2017-08-30 14:39] LABS: GLUCOSE,BODY FLUID 69 MG/DL
--- NOTE | 2017-08-31 03:59 | OPERATIVE REPORT ---
DATE OF SERVICE: 08/30/2017 PREOPERATIVE DIAGNOSIS: Right pleural effusion. POSTOPERATIVE DIAGNOSIS: Right pleural effusion. PROCEDURE: Right thoracentesis ultrasound-guided. SURGEON: Shay Wilson DO. ANESTHESIA: Local 1% lidocaine. ESTIMATED BLOOD LOSS: Minimal. COMPLICATIONS: None. INDICATIONS: The patient is a 77-year-old female with recurrent pleural effusion. She understands risks and benefits of procedure and wished to proceed with procedure. Consent was signed and on the chart. PROCEDURE: The patient inspected with ultrasound demonstrating a large fluid collection in the right chest. Location was marked. The area was then prepped and draped in a sterile fashion. Local anesthetic of 1% lidocaine was used to anesthetize the area. A Safe-T thoracentesis catheter needle then was used to go through the incision that was made by an 11 blade scalpel and just above the rib at the location where it was marked and the straw-colored fluid was withdrawn. The catheter was advanced and the needle was removed. Straw-colored fluid was then removed using vacuum bottles. A total of 1400 mL of the straw colored fluid was removed. Once this was removed, the catheter was removed and sterile bandage was applied. The patient tolerated procedure well without any complications. Chest x-ray pending. Job ID: [id number] DocumentID: [id number] Dictated Date: 08/30/2017 21:25:30 [employer] Date: 08/31/2017 03:58:14 Dictated By: SHAY WILSON DO
== END ==
LOC: RAD 12:54
PROVIDERS: ATTEND Surgery
DX: J90 Pleural effusion, not elsewhere classified (principal)
CPT/HCPCS: 32555; 71010; 82945; 83615; 84157; 84315; 87070; 87101; 87205; 89051

== ENCOUNTER → 2017-09-04 | Outpatient (CLI) | payer MEDICARE, OTHER ==
[~2017-09-04] MED LIST changes: -LIDOCAINE 1% INJ 20 ML (XYLOCAINE) VIAL INJ ONE
[2017-09-04 13:03] LABS: BASOPHILS % (AUTO) 1 % (0-10); EOSINOPHILS # (AUTO) 0.2 10^3/uL (0.0-0.3); EOSINOPHILS % (AUTO) 5 % (0-10); LYMPHOCYTES # (AUTO) 0.6 X 10^3 (1.0-4.0); LYMPHOCYTES % (AUTO) 20 % (12-44); MEAN CORPUSCULAR HEMOGLOBIN 31 PG (25-34); MEAN CORPUSCULAR HGB CONC 32 G/DL (32-36); MEAN CORPUSCULAR VOLUME 97 FL (80-99); MONOCYTES # (AUTO) 0.4 X 10^3 (0.0-1.0); MONOCYTES % (AUTO) 11 % (0-12); NEUTROPHILS % (AUTO) 64 % (42-75); PLATELET COUNT 274 10^3/uL (130-400); RED CELL DISTRIBUTION WIDTH 16.8 % (10.0-14.5); WHITE BLOOD COUNT 3.2 10^3/uL (4.3-11.0)
[2017-09-04 13:22] LABS: ALBUMIN 3.2 GM/DL (3.2-4.5); BILIRUBIN,TOTAL 0.3 MG/DL (0.1-1.0); CALCIUM 8.8 MG/DL (8.5-10.1); CREATININE SERUM 1.23 MG/DL (0.60-1.30); MAGNESIUM 1.4 MG/DL (1.8-2.4); POTASSIUM 4.3 MMOL/L (3.6-5.0); TOTAL PROTEIN 5.4 GM/DL (6.4-8.2)
== END ==
LOC: ONC 12:52
PROVIDERS: ATTEND Internal Medicine Hematology & Oncology
DX: C50.511 Malignant neoplasm of lower-outer quadrant of right female breast (principal)
CPT/HCPCS: 36591; 80053; 83735; 85025; 86300; 96375; 96409

== ENCOUNTER → 2017-09-10 | Outpatient (CLI) | payer MEDICARE, OTHER ==
[~2017-09-10] VITALS: Ht 165.1 cm; Wt 72.6 kg
[~2017-09-10] MED LIST changes: +LIDOCAINE 1% INJ 20 ML (XYLOCAINE) VIAL INJ ONE
[2017-09-10 14:45] VITALS: BP 127/74
[2017-09-10 15:20] VITALS: BP 118/78
--- NOTE | 2017-09-10 15:29 | Diagnostic Imaging Report ---
PA view of the chest. INDICATION: Post thoracentesis on the right side. FINDINGS: There is mild bibasilar atelectasis or consolidation similar to 08/30/2017 exam with small bilateral effusions seen. No pneumothorax. There is a pleural catheter projecting over the left lower chest. The heart is mildly enlarged. Infusion port is again noted without change. IMPRESSION: Stable findings with bibasilar opacities favored to be atelectasis. Small bilateral effusions. Dictated by: Dictated on workstation # [id number]
--- NOTE | 2017-09-10 16:24 | Diagnostic Imaging Report ---
EXAMINATION: Ultrasound of the right chest was performed for evaluation for effusion and guidance of thoracentesis Indication: Pleural effusion FINDINGS: There is a large right pleural effusion. An appropriate area was marked for thoracentesis. IMPRESSION: Right pleural effusion. Dictated by: Dictated on workstation # [id number]
--- NOTE | 2017-09-11 11:42 | Operative Report ---
Operative Report Date of Procedure/Surgery Sep 10, 2017 Surgeon (s) SHAY RODRIGUEZ DO Timers Inspector (s): na Post-Operative Diagnosis right pleural effusion Procedure Performed right thoracentesis u/s guidance Description of Procedure Estimated blood loss (mL): none Specimen(s) collected/removed na Description of the Procedure PROCEDURE: The patient inspected with ultrasound demonstrating a large fluid collection in the right chest. Location was marked. The area was then prepped and draped in a sterile fashion. Local anesthetic of 1% lidocaine was used to anesthetize the area. A Safe-T thoracentesis catheter needle then was used to go through the incision that was made by an 11 blade scalpel and just above the rib at the location where it was marked and the straw-colored fluid was withdrawn. The catheter was advanced and the needle was removed. Straw-colored fluid was then removed using vacuum bottles. A total of 1400 mL of the straw colored fluid was removed. Once this was removed, the catheter was removed and sterile bandage was applied. The patient tolerated procedure well without any complications. Chest x-ray pending. Findings of the Procedure straw colored pleural fluid Allergies and Home Medications Allergies Coded Allergies: Penicillins (Unverified Allergy, Unknown, RASH, 10/19/16) Home Medications Amlodipine Besylate 5 Mg Tab, 5 MG PO HS, (Reported) Benazepril Hcl 10 Mg Tablet, 10 MG PO HS, (Reported) Calcium Carbonate/Vitamin D3 1 Each Tablet, 1 TAB PO HS, (Reported) Ciprofloxacin HCl 500 Mg Tablet, 500 MG PO BID, #6 Ref 0 Prescribed by: KARRIE VALVERDE on 08/01/1757 Furosemide 20 Mg Tablet, 20 MG PO DAILY, #3 Ref 0 Prescribed by: KARRIE VALVERDE on 08/01/1757 Gemfibrozil 600 Mg Tablet, 600 MG PO BID, (Reported) Indapamide 2.5 Mg Tablet, 2.5 MG PO DAILY, (Reported) Insulin Detemir 100 Unit/1 Ml Insuln.pen, 30 UNITS SC DAILY for 30 Days Take in the AM Prescribed by: ISIAH MARTIN on 06/01/17 1400 Levothyroxine Sodium 100 Mcg Tablet, 100 MCG PO DAILY, (Reported) Loratadine 10 Mg Tab, 10 MG PO HS, (Reported) Lovastatin 20 Mg Tablet, 20 MG PO DAILY, (Reported) Metformin Hcl 1,000 Mg Tablet, 1,000 MG PO BID WITH MEALS, (Reported) Metoprolol Tartrate 25 Mg Tablet, 25 MG PO BID, (Reported) Omeprazole 20 Mg Capsule.dr, 20 MG PO HS, (Reported) Pioglitazone HCl 45 Mg Tablet, 45 MG PO DAILY, (Reported) Potassium Chloride 10 Meq Tablet.er, 10 MEQ PO DAILY, #3 Ref 0 Prescribed by: KARRIE VALVERDE on 08/01/17 0058 Vinorelbine Tartrate 10 Mg/Ml Soln, 10 MG IV WEEK, (Reported) [Fluvestrant Inj] , INJ UD, (Reported) EVERY 2 WEEKS FOR 3 DOSES THEN EVERY MONTH FIRST DOSE 05-28-17 SHAY RODRIGUEZ DO Sep 11, 2017 11:42
== END ==
LOC: RAD 14:38
PROVIDERS: ATTEND Surgery
DX: J90 Pleural effusion, not elsewhere classified (principal)
CPT/HCPCS: 32555; 71010

== ENCOUNTER 2017-09-19 10:00 | Outpatient (CLI) | payer MEDICARE, OTHER ==
[~2017-09-19] VITALS: Ht 165.1 cm; Wt 76.2 kg
[~2017-09-19 10:00] MED LIST changes: -LIDOCAINE 1% INJ 20 ML (XYLOCAINE) VIAL INJ ONE
[2017-09-19] MEDS ORDERED: HYDR-3812 PO (10:57)
[2017-09-19] MEDS ORDERED: AMLO5TAB2 PO (10:57)
[2017-09-19] MEDS ORDERED: METF1000 PO (10:57)
[2017-09-19] MEDS ORDERED: BENA10TA2 PO (10:57)
[2017-09-19] MEDS ORDERED: OMEP20CA12 PO (10:57)
[2017-09-19] MEDS ORDERED: METO-333 PO (10:57)
[2017-09-19] MEDS ORDERED: LORA10TA7 PO (10:57)
[2017-09-19] MEDS ORDERED: INSU100I29 SQ (10:57)
[2017-09-19] MEDS ORDERED: CHOL500049 PO (10:57)
[2017-09-19] MEDS ORDERED: LOVA20TA2 PO (10:57)
[2017-09-19] MEDS ORDERED: INDA2.5T2 PO (10:57)
== END 2017-09-19 10:58 ==
LOC: PREOP 10:00
PROVIDERS: ATTEND Surgery
DX: Z01.818 Encounter for other preprocedural examination (principal); J90 Pleural effusion, not elsewhere classified

== ENCOUNTER 2017-09-23 10:21 | Day surgery (SDC) | payer MEDICARE, OTHER ==
[~2017-09-23] VITALS: Ht 165.1 cm; Wt 76.2 kg
[~2017-09-23 10:21] MED LIST changes: +CHOL500049 PO; +HYDR-3812 PO; +INSU100I29 SQ; +LORA10TA7 PO; +METF1000 PO; +METO-333 PO; +OMEP20CA12 PO
[2017-09-23] MEDS ORDERED: CLINDAMYCIN 600 MG/NS 50 ML IVPB IV ONE ×2 (10:45)
[2017-09-23 11:35] VITALS: BP 131/86
[2017-09-23] MEDS ORDERED: CLINDAMYCIN INJECTION 600 MG in NS (IVPB) 50 ML IV ONE (11:45)
[2017-09-23] MEDS ORDERED: proPOfol 200 MG/20 ML (DIPRIVAN) VIAL IV ONE (11:48)
[2017-09-23] MEDS ORDERED: LIDOCAINE PF 2% 5 ML (XYLOCAINE) VIAL ONE (11:48)
[2017-09-23] MEDS ORDERED: MIDAZOLAM 2 MG/2 ML (VERSED) VIAL ONE (12:26)
--- NOTE | 2017-09-23 13:00 | Discharge Inst-Simple/Standard ---
Discharge Inst-Standard Patient Instructions/Follow Up Plan of Care/Instructions/FU: 2 weeks Steve Activity as Tolerated: No Discharge Diet: Regular Diet Other Inst to Patient Follow up Appt: Make appointment for 2 week. Instructions: No lifting greater than 10 pounds. No strenuous activity. May shower in 24 hours, no tub bath or soaking. Use incentive spirometer at home as directed. No Smoking Skin/Wound Care: Keep area clean and dry. Symptoms to Report: Appetite Changes, Extremity Discoloration, Numbness/Tingling, Swelling Increased , Bleeding Excessive, Eyesight Changes, Pain Increased, Urine Color Change, Constipation(Persistent), Fever over 101 degree F, Pain/Pressure in chest, Urinating Difficulty, Cough Up/Vomit Blood, Heart Beat Irreg/Pounding, Pain/ Pressure in jaw, Vaginal Bleeding Increase, Cramps in feet or legs, Lightheadedness, Pain/Pressure in shoulder, Diarrhea(Persistent), Memory Changes Suddenly, Questions/Concerns, Weight gain consecutive days, Dizziness/ Fainting, Nausea/Vomiting, Shortness of Breath, Weight gain over 2 pounds If questions or concerns contact your physician Or seek help at emergency department. SHAY RODRIGUEZ DO Sep 23, 2017 13:00
[2017-09-23] MEDS ORDERED: morphine INJ 10 MG/ML 1ML (SYR OR VIAL) ONE (13:05)
[2017-09-23] MEDS ORDERED: morphine INJ 10 MG/ML 1ML (SYR OR VIAL) IVP PRN (13:15)
[2017-09-23] MEDS ORDERED: ONDANSETRON 4 MG/2 ML (SDV) Z0FRAN IVP PRN (13:15)
[2017-09-23 13:30] VITALS: BP 132/64
--- NOTE | 2017-09-23 13:32 | Diagnostic Imaging Report ---
EXAMINATION: Portable upright radiograph of the chest. INDICATION: Post placement of a PleurX catheter on the right side. FINDINGS: Bilateral PleurX catheters project over the lower chest. There is a minimal effusion suggested on both sides with bibasilar infiltrates or atelectasis, similar to the 09/10/2017 comparison exam. The heart size is enlarged. There is background vascular congestion. There is no pneumothorax. A left subclavian Infusaport is seen without change. IMPRESSION: Bilateral pleural catheters projecting over the lower chest are seen. Bibasilar infiltrates or atelectasis are noted, similar to the prior exam. Dictated by: Dictated on workstation # [id number]
[2017-09-23 14:00] VITALS: BP 148/68
--- NOTE | 2017-09-23 14:34 | Progress Note-Post Operative ---
Post-Operative Progess Note Surgeon (s)/Marketing Account Executive (s) Surgeon SHAY RODRIGUEZ DO Marketing Account Executive: na Pre-Operative Diagnosis recurrent right pleural effusion Post-Operative Diagnosis same Procedure & Operative Findings Date of Procedure 09/23/17 Procedure Performed/Findings right pleur-x catheter placement Anesthesia Type mac Estimated Blood Loss Estimated blood loss (mL): min Specimens/Packing Specimens Removed na SHAY RODRIGUEZ DO Sep 23, 2017 14:34
--- NOTE | 2017-09-23 19:13 | Diagnostic Imaging Report ---
Ultrasound of the chest. INDICATION: Right pleural effusion FINDINGS: There is a large right pleural effusion. Ultrasound guidance was provided for surgery for placement of Pleurx catheter. IMPRESSION: Large right pleural effusion. Dictated by: Dictated on workstation # [id number]
--- NOTE | 2017-09-23 22:19 | OPERATIVE REPORT ---
DATE OF SERVICE: 09/23/2017 PREOPERATIVE DIAGNOSIS: Recurrent right pleural effusion. POSTOPERATIVE DIAGNOSIS: Recurrent right pleural effusion. PROCEDURE: Right PleurX catheter placement. SURGEON: Shay Wilson DO. ANESTHESIA: MAC with local. ESTIMATED BLOOD LOSS: Minimal. COMPLICATIONS: None. INDICATIONS: The patient is a 77-year-old female with recurrent pleural effusion. She was explained risks and benefits of PleurX catheter placement. She understands risks and benefits and wished to proceed with procedure. Consent was signed on the chart. DESCRIPTION OF PROCEDURE: The patient was taken to the operating suite. She was prepped and draped in sterile fashion. Timeout was performed. Ultrasound used to find the largest pocket in the right chest. An 11 blade scalpel was used to make a small stab incision after local anesthetic was infiltrated into the area. An Angiocath needle was then inserted through when straw colored fluid was withdrawn, the catheter was inserted and the needle was removed. The guidewire was inserted through the Angiocath sheath and the sheath was then removed. The wire was secured. Tract was then ____ approximately 5 cm away and small incision was made with 11 blade scalpel. The PleurX catheter was then tunneled from the second incision to the wire. Over the wire, a dilator was then advanced over in a serial dilation. Once the dilator sheath was advanced over the wire, the wire and the dilator were removed. The PleurX catheter was inserted through the sheath and the sheath was then removed. This incision was then closed using absorbable suture. The incision was closed using a silk suture, which then secured to the PleurX catheter. The PleurX catheter was then hooked to suction. A total of 1100 mL of straw colored fluid was removed. The area was then washed and dried, sterile bandages were applied. The patient tolerated procedure well without any complications. She was taken to the recovery room in stable condition. Chest x-ray pending. Job ID: [id number] DocumentID: [id number] Dictated Date: 09/23/2017 15:46:54 Radio Antenna Installer Date: 09/23/2017 20:05:38 Dictated By: SHAY WILSON DO
== END 2017-09-23 14:25 | disposition home or self-care (01) ==
LOC: SDC 10:21
PROVIDERS: ATTEND Surgery
DX: J90 Pleural effusion, not elsewhere classified (principal); Z11.2 Encounter for screening for other bacterial diseases; E11.9 Type 2 diabetes mellitus without complications; I10 Essential (primary) hypertension; E78.5 Hyperlipidemia, unspecified; Z85.3 Personal history of malignant neoplasm of breast; Z79.4 Long term (current) use of insulin; I25.10 Atherosclerotic heart disease of native coronary artery without angina pectoris; Z87.891 Personal history of nicotine dependence
CPT/HCPCS: 71010; 76604; 82962; 87081

== ENCOUNTER 2017-10-10 08:51 | Outpatient (RCR) | payer MEDICARE, OTHER ==
[2017-07-18 14:51] LABS: BASOPHILS # (AUTO) 0.1 10^3/uL (0.0-0.1); BASOPHILS % (AUTO) 2 % (0-10); EOSINOPHILS # (AUTO) 0.2 10^3/uL (0.0-0.3); EOSINOPHILS % (AUTO) 5 % (0-10); HEMATOCRIT 34 % (35-52); HEMOGLOBIN 11.1 G/DL (11.5-16.0); LYMPHOCYTES # (AUTO) 0.8 X 10^3 (1.0-4.0); LYMPHOCYTES % (AUTO) 24 % (12-44); MEAN CORPUSCULAR HEMOGLOBIN 32 PG (25-34); MEAN CORPUSCULAR HGB CONC 33 G/DL (32-36); MEAN CORPUSCULAR VOLUME 97 FL (80-99); MEAN PLATELET VOLUME 9.8 FL (7.4-10.4); MONOCYTES # (AUTO) 0.3 X 10^3 (0.0-1.0); MONOCYTES % (AUTO) 9 % (0-12); NEUTROPHILS # (AUTO) 2.1 X 10^3 (1.8-7.8); NEUTROPHILS % (AUTO) 60 % (42-75); PLATELET COUNT 267 10^3/uL (130-400); RED BLOOD COUNT 3.47 10^6/uL (4.35-5.85); WHITE BLOOD COUNT 3.4 10^3/uL (4.3-11.0)
[2017-07-18 15:11] LABS: CALCIUM 8.5 MG/DL (8.5-10.1); CREATININE SERUM 1.26 MG/DL (0.60-1.30); POTASSIUM 4.8 MMOL/L (3.6-5.0)
[2017-07-25 14:38] LABS: BASOPHILS % (AUTO) 1 % (0-10); EOSINOPHILS # (AUTO) 0.1 10^3/uL (0.0-0.3); EOSINOPHILS % (AUTO) 3 % (0-10); HEMATOCRIT 32 % (35-52); HEMOGLOBIN 10.6 G/DL (11.5-16.0); LYMPHOCYTES # (AUTO) 0.6 X 10^3 (1.0-4.0); LYMPHOCYTES % (AUTO) 27 % (12-44); MEAN CORPUSCULAR HEMOGLOBIN 32 PG (25-34); MEAN CORPUSCULAR HGB CONC 33 G/DL (32-36); MEAN CORPUSCULAR VOLUME 97 FL (80-99); MEAN PLATELET VOLUME 9.8 FL (7.4-10.4); MONOCYTES # (AUTO) 0.2 X 10^3 (0.0-1.0); MONOCYTES % (AUTO) 10 % (0-12); NEUTROPHILS # (AUTO) 1.3 X 10^3 (1.8-7.8); NEUTROPHILS % (AUTO) 58 % (42-75); PLATELET COUNT 266 10^3/uL (130-400); RED CELL DISTRIBUTION WIDTH 17.9 % (10.0-14.5); WHITE BLOOD COUNT 2.3 10^3/uL (4.3-11.0)
[2017-07-25 15:02] LABS: CALCIUM 8.3 MG/DL (8.5-10.1); CREATININE SERUM 0.91 MG/DL (0.60-1.30)
[2017-08-02 13:18] LABS: BASOPHILS # (AUTO) 0.1 10^3/uL (0.0-0.1); BASOPHILS % (AUTO) 2 % (0-10); EOSINOPHILS # (AUTO) 0.1 10^3/uL (0.0-0.3); EOSINOPHILS % (AUTO) 5 % (0-10); HEMATOCRIT 31 % (35-52); HEMOGLOBIN 10.3 G/DL (11.5-16.0); LYMPHOCYTES # (AUTO) 0.6 X 10^3 (1.0-4.0); LYMPHOCYTES % (AUTO) 23 % (12-44); MEAN CORPUSCULAR HEMOGLOBIN 32 PG (25-34); MEAN CORPUSCULAR HGB CONC 33 G/DL (32-36); MEAN CORPUSCULAR VOLUME 96 FL (80-99); MEAN PLATELET VOLUME 9.5 FL (7.4-10.4); MONOCYTES # (AUTO) 0.3 X 10^3 (0.0-1.0); MONOCYTES % (AUTO) 13 % (0-12); NEUTROPHILS # (AUTO) 1.6 X 10^3 (1.8-7.8); NEUTROPHILS % (AUTO) 58 % (42-75); PLATELET COUNT 302 10^3/uL (130-400); RED BLOOD COUNT 3.27 10^6/uL (4.35-5.85); RED CELL DISTRIBUTION WIDTH 17.8 % (10.0-14.5); WHITE BLOOD COUNT 2.7 10^3/uL (4.3-11.0)
[2017-08-02 13:33] LABS: CREATININE SERUM 1.11 MG/DL (0.60-1.30); POTASSIUM 4.4 MMOL/L (3.6-5.0)
[2017-08-08 13:42] LABS: BASOPHILS # (AUTO) 0.1 10^3/uL (0.0-0.1); BASOPHILS % (AUTO) 2 % (0-10); EOSINOPHILS # (AUTO) 0.1 10^3/uL (0.0-0.3); EOSINOPHILS % (AUTO) 5 % (0-10); HEMATOCRIT 32 % (35-52); HEMOGLOBIN 10.4 G/DL (11.5-16.0); LYMPHOCYTES # (AUTO) 0.6 X 10^3 (1.0-4.0); LYMPHOCYTES % (AUTO) 22 % (12-44); MEAN CORPUSCULAR HEMOGLOBIN 32 PG (25-34); MEAN CORPUSCULAR HGB CONC 33 G/DL (32-36); MEAN CORPUSCULAR VOLUME 97 FL (80-99); MEAN PLATELET VOLUME 9.7 FL (7.4-10.4); MONOCYTES # (AUTO) 0.4 X 10^3 (0.0-1.0); MONOCYTES % (AUTO) 16 % (0-12); NEUTROPHILS # (AUTO) 1.5 X 10^3 (1.8-7.8); NEUTROPHILS % (AUTO) 55 % (42-75); PLATELET COUNT 239 10^3/uL (130-400); RED BLOOD COUNT 3.26 10^6/uL (4.35-5.85); RED CELL DISTRIBUTION WIDTH 17.2 % (10.0-14.5); WHITE BLOOD COUNT 2.6 10^3/uL (4.3-11.0)
[2017-08-08 14:04] LABS: CALCIUM 8.2 MG/DL (8.5-10.1); POTASSIUM 3.9 MMOL/L (3.6-5.0)
[2017-08-15 13:48] LABS: BASOPHILS % (AUTO) 1 % (0-10); EOSINOPHILS # (AUTO) 0.2 10^3/uL (0.0-0.3); EOSINOPHILS % (AUTO) 4 % (0-10); HEMATOCRIT 32 % (35-52); HEMOGLOBIN 10.7 G/DL (11.5-16.0); LYMPHOCYTES # (AUTO) 0.6 X 10^3 (1.0-4.0); LYMPHOCYTES % (AUTO) 13 % (12-44); MEAN CORPUSCULAR HEMOGLOBIN 32 PG (25-34); MEAN CORPUSCULAR HGB CONC 33 G/DL (32-36); MEAN CORPUSCULAR VOLUME 97 FL (80-99); MEAN PLATELET VOLUME 9.1 FL (7.4-10.4); MONOCYTES # (AUTO) 0.3 X 10^3 (0.0-1.0); MONOCYTES % (AUTO) 7 % (0-12); NEUTROPHILS # (AUTO) 3.4 X 10^3 (1.8-7.8); NEUTROPHILS % (AUTO) 75 % (42-75); PLATELET COUNT 252 10^3/uL (130-400); RED BLOOD COUNT 3.35 10^6/uL (4.35-5.85); RED CELL DISTRIBUTION WIDTH 17.2 % (10.0-14.5); WHITE BLOOD COUNT 4.5 10^3/uL (4.3-11.0)
[2017-08-15 14:04] LABS: CALCIUM 8.8 MG/DL (8.5-10.1); CREATININE SERUM 0.99 MG/DL (0.60-1.30); POTASSIUM 4.2 MMOL/L (3.6-5.0)
[2017-08-22 13:24] LABS: BASOPHILS % (AUTO) 1 % (0-10); EOSINOPHILS # (AUTO) 0.2 10^3/uL (0.0-0.3); EOSINOPHILS % (AUTO) 5 % (0-10); HEMATOCRIT 32 % (35-52); HEMOGLOBIN 10.5 G/DL (11.5-16.0); LYMPHOCYTES # (AUTO) 0.8 X 10^3 (1.0-4.0); LYMPHOCYTES % (AUTO) 23 % (12-44); MEAN CORPUSCULAR HEMOGLOBIN 32 PG (25-34); MEAN CORPUSCULAR HGB CONC 33 G/DL (32-36); MEAN CORPUSCULAR VOLUME 96 FL (80-99); MEAN PLATELET VOLUME 9.4 FL (7.4-10.4); MONOCYTES # (AUTO) 0.3 X 10^3 (0.0-1.0); MONOCYTES % (AUTO) 9 % (0-12); NEUTROPHILS # (AUTO) 2.1 X 10^3 (1.8-7.8); NEUTROPHILS % (AUTO) 62 % (42-75); PLATELET COUNT 230 10^3/uL (130-400); RED BLOOD COUNT 3.33 10^6/uL (4.35-5.85); WHITE BLOOD COUNT 3.3 10^3/uL (4.3-11.0)
[2017-08-22 13:46] LABS: BUN/CREATININE RATIO 16; CARBON DIOXIDE 25 MMOL/L (21-32); CHLORIDE 103 MMOL/L (98-107); CREATININE SERUM 0.83 MG/DL (0.60-1.30); GFR ESTIMATED > 60; GLUCOSE 115 MG/DL (70-105); POTASSIUM 3.6 MMOL/L (3.6-5.0); SODIUM 139 MMOL/L (135-145)
[2017-08-29 10:36] LABS: BASOPHILS % (AUTO) 1 % (0-10); EOSINOPHILS # (AUTO) 0.1 10^3/uL (0.0-0.3); EOSINOPHILS % (AUTO) 5 % (0-10); HEMATOCRIT 33 % (35-52); HEMOGLOBIN 10.6 G/DL (11.5-16.0); LYMPHOCYTES # (AUTO) 0.6 X 10^3 (1.0-4.0); LYMPHOCYTES % (AUTO) 19 % (12-44); MEAN CORPUSCULAR HEMOGLOBIN 31 PG (25-34); MEAN CORPUSCULAR HGB CONC 32 G/DL (32-36); MEAN CORPUSCULAR VOLUME 98 FL (80-99); MEAN PLATELET VOLUME 8.8 FL (7.4-10.4); MONOCYTES # (AUTO) 0.3 X 10^3 (0.0-1.0); MONOCYTES % (AUTO) 11 % (0-12); NEUTROPHILS # (AUTO) 1.9 X 10^3 (1.8-7.8); NEUTROPHILS % (AUTO) 64 % (42-75); PLATELET COUNT 265 10^3/uL (130-400); RED BLOOD COUNT 3.38 10^6/uL (4.35-5.85); RED CELL DISTRIBUTION WIDTH 17.2 % (10.0-14.5); WHITE BLOOD COUNT 2.9 10^3/uL (4.3-11.0)
[2017-08-29 10:57] LABS: BUN/CREATININE RATIO 18; CALCIUM 9.2 MG/DL (8.5-10.1); CARBON DIOXIDE 25 MMOL/L (21-32); CHLORIDE 106 MMOL/L (98-107); CREATININE SERUM 0.84 MG/DL (0.60-1.30); GFR ESTIMATED > 60; GLUCOSE 72 MG/DL (70-105); POTASSIUM 4.5 MMOL/L (3.6-5.0); SODIUM 140 MMOL/L (135-145)
[2017-09-12 13:22] LABS: BASOPHILS % (AUTO) 1 % (0-10); EOSINOPHILS # (AUTO) 0.1 10^3/uL (0.0-0.3); EOSINOPHILS % (AUTO) 3 % (0-10); HEMATOCRIT 31 % (35-52); HEMOGLOBIN 10.1 G/DL (11.5-16.0); LYMPHOCYTES # (AUTO) 0.6 X 10^3 (1.0-4.0); LYMPHOCYTES % (AUTO) 17 % (12-44); MEAN CORPUSCULAR HEMOGLOBIN 32 PG (25-34); MEAN CORPUSCULAR HGB CONC 33 G/DL (32-36); MEAN CORPUSCULAR VOLUME 96 FL (80-99); MEAN PLATELET VOLUME 9.6 FL (7.4-10.4); MONOCYTES # (AUTO) 0.3 X 10^3 (0.0-1.0); MONOCYTES % (AUTO) 7 % (0-12); NEUTROPHILS # (AUTO) 2.6 X 10^3 (1.8-7.8); NEUTROPHILS % (AUTO) 73 % (42-75); PLATELET COUNT 225 10^3/uL (130-400); RED BLOOD COUNT 3.19 10^6/uL (4.35-5.85); RED CELL DISTRIBUTION WIDTH 16.4 % (10.0-14.5); WHITE BLOOD COUNT 3.6 10^3/uL (4.3-11.0)
[2017-09-12 13:36] LABS: CALCIUM 8.2 MG/DL (8.5-10.1); CREATININE SERUM 0.94 MG/DL (0.60-1.30); POTASSIUM 3.7 MMOL/L (3.6-5.0)
[2017-09-19 13:28] LABS: BASOPHILS % (AUTO) 1 % (0-10); EOSINOPHILS # (AUTO) 0.1 10^3/uL (0.0-0.3); EOSINOPHILS % (AUTO) 4 % (0-10); HEMATOCRIT 31 % (35-52); LYMPHOCYTES # (AUTO) 0.6 X 10^3 (1.0-4.0); LYMPHOCYTES % (AUTO) 25 % (12-44); MEAN CORPUSCULAR HEMOGLOBIN 31 PG (25-34); MEAN CORPUSCULAR HGB CONC 32 G/DL (32-36); MEAN CORPUSCULAR VOLUME 98 FL (80-99); MEAN PLATELET VOLUME 9.2 FL (7.4-10.4); MONOCYTES # (AUTO) 0.3 X 10^3 (0.0-1.0); MONOCYTES % (AUTO) 10 % (0-12); NEUTROPHILS # (AUTO) 1.5 X 10^3 (1.8-7.8); NEUTROPHILS % (AUTO) 60 % (42-75); PLATELET COUNT 220 10^3/uL (130-400); RED BLOOD COUNT 3.22 10^6/uL (4.35-5.85); RED CELL DISTRIBUTION WIDTH 16.6 % (10.0-14.5); WHITE BLOOD COUNT 2.5 10^3/uL (4.3-11.0)
[2017-09-19 13:43] LABS: CREATININE SERUM 0.93 MG/DL (0.60-1.30)
[2017-09-26 13:21] LABS: BASOPHILS # (AUTO) 0.1 10^3/uL (0.0-0.1); BASOPHILS % (AUTO) 2 % (0-10); EOSINOPHILS # (AUTO) 0.1 10^3/uL (0.0-0.3); EOSINOPHILS % (AUTO) 5 % (0-10); HEMATOCRIT 31 % (35-52); HEMOGLOBIN 10.1 G/DL (11.5-16.0); LYMPHOCYTES # (AUTO) 0.7 X 10^3 (1.0-4.0); LYMPHOCYTES % (AUTO) 25 % (12-44); MEAN CORPUSCULAR HEMOGLOBIN 32 PG (25-34); MEAN CORPUSCULAR HGB CONC 33 G/DL (32-36); MEAN CORPUSCULAR VOLUME 96 FL (80-99); MEAN PLATELET VOLUME 9.6 FL (7.4-10.4); MONOCYTES # (AUTO) 0.3 X 10^3 (0.0-1.0); MONOCYTES % (AUTO) 11 % (0-12); NEUTROPHILS # (AUTO) 1.7 X 10^3 (1.8-7.8); NEUTROPHILS % (AUTO) 58 % (42-75); PLATELET COUNT 222 10^3/uL (130-400); RED CELL DISTRIBUTION WIDTH 16.8 % (10.0-14.5); WHITE BLOOD COUNT 2.9 10^3/uL (4.3-11.0)
[2017-09-26 13:37] LABS: CALCIUM 8.4 MG/DL (8.5-10.1); CREATININE SERUM 1.16 MG/DL (0.60-1.30); POTASSIUM 4.2 MMOL/L (3.6-5.0)
[2017-10-03 13:52] LABS: BASOPHILS % (AUTO) 2 % (0-10); EOSINOPHILS # (AUTO) 0.1 10^3/uL (0.0-0.3); EOSINOPHILS % (AUTO) 3 % (0-10); HEMATOCRIT 32 % (35-52); HEMOGLOBIN 10.2 G/DL (11.5-16.0); LYMPHOCYTES # (AUTO) 0.6 X 10^3 (1.0-4.0); LYMPHOCYTES % (AUTO) 27 % (12-44); MEAN CORPUSCULAR HEMOGLOBIN 31 PG (25-34); MEAN CORPUSCULAR HGB CONC 32 G/DL (32-36); MEAN CORPUSCULAR VOLUME 97 FL (80-99); MEAN PLATELET VOLUME 9.7 FL (7.4-10.4); MONOCYTES # (AUTO) 0.3 X 10^3 (0.0-1.0); MONOCYTES % (AUTO) 14 % (0-12); NEUTROPHILS # (AUTO) 1.3 X 10^3 (1.8-7.8); NEUTROPHILS % (AUTO) 55 % (42-75); PLATELET COUNT 224 10^3/uL (130-400); RED BLOOD COUNT 3.26 10^6/uL (4.35-5.85); RED CELL DISTRIBUTION WIDTH 16.6 % (10.0-14.5); WHITE BLOOD COUNT 2.4 10^3/uL (4.3-11.0)
[2017-10-03 14:11] LABS: ALBUMIN 3.3 GM/DL (3.2-4.5); BILIRUBIN,TOTAL 0.3 MG/DL (0.1-1.0); CALCIUM 8.8 MG/DL (8.5-10.1); CREATININE SERUM 1.04 MG/DL (0.60-1.30); POTASSIUM 4.4 MMOL/L (3.6-5.0); TOTAL PROTEIN 5.6 GM/DL (6.4-8.2)
[~2017-10-10] VITALS: Ht 165.1 cm; Wt 76.2 kg
[~2017-10-10 08:51] MED LIST changes: +DENOSUMAB 120 MG/1.7 ML (XGEVA) SQ SCH; +DEXAMETHASONE IV SCH; +FULVESTRANT 250 MG/5 ML SYR (CANCER CENTER) IM SCH; -HYDR-3812 PO; +LIDOCAINE 1% INJ 20 ML (XYLOCAINE) VIAL ONE; +NS IV 1000 ML (CANCER CTR) IV SCH; +NS IV SCH; +ONDANSETRON 16 MG, DEXAMETHASONE 10 MG/NS 50 ML IVPB IV SCH; +ONDANSETRON IV SCH; +ONDANSETRON MDV (CANCER CENTER 16 MG, DEXAMETHASONE INJ (CANCER CTR) 4 MG in NS (IVPB) ... IV SCH; +VINORELBINE TARTRATE IV SCH; +[UNRECOGNIZED DRUG - OTHER] IV SCH
[2017-10-10 09:09] LABS: BASOPHILS # (AUTO) 0.1 10^3/uL (0.0-0.1); BASOPHILS % (AUTO) 2 % (0-10); EOSINOPHILS # (AUTO) 0.2 10^3/uL (0.0-0.3); EOSINOPHILS % (AUTO) 6 % (0-10); HEMATOCRIT 34 % (35-52); HEMOGLOBIN 10.7 G/DL (11.5-16.0); LYMPHOCYTES # (AUTO) 0.7 X 10^3 (1.0-4.0); LYMPHOCYTES % (AUTO) 25 % (12-44); MEAN CORPUSCULAR HEMOGLOBIN 31 PG (25-34); MEAN CORPUSCULAR HGB CONC 32 G/DL (32-36); MEAN CORPUSCULAR VOLUME 98 FL (80-99); MEAN PLATELET VOLUME 9.5 FL (7.4-10.4); MONOCYTES # (AUTO) 0.3 X 10^3 (0.0-1.0); MONOCYTES % (AUTO) 13 % (0-12); NEUTROPHILS # (AUTO) 1.5 X 10^3 (1.8-7.8); NEUTROPHILS % (AUTO) 55 % (42-75); PLATELET COUNT 236 10^3/uL (130-400); RED BLOOD COUNT 3.43 10^6/uL (4.35-5.85); RED CELL DISTRIBUTION WIDTH 16.6 % (10.0-14.5); WHITE BLOOD COUNT 2.7 10^3/uL (4.3-11.0)
[2017-10-10 09:32] LABS: CALCIUM 8.6 MG/DL (8.5-10.1); CREATININE SERUM 0.99 MG/DL (0.60-1.30); POTASSIUM 3.9 MMOL/L (3.6-5.0)
== END 2017-10-16 | disposition home or self-care (01) ==
LOC: ONC 08:51
PROVIDERS: ATTEND Internal Medicine Hematology & Oncology
DX: C50.511 Malignant neoplasm of lower-outer quadrant of right female breast (principal); Z87.09 Personal history of other diseases of the respiratory system; C79.51 Secondary malignant neoplasm of bone; C77.9 Secondary and unspecified malignant neoplasm of lymph node, unspecified; J90 Pleural effusion, not elsewhere classified; I48.91 Unspecified atrial fibrillation; E89.0 Postprocedural hypothyroidism; E11.43 Type 2 diabetes mellitus with diabetic autonomic (poly)neuropathy; I10 Essential (primary) hypertension; E78.5 Hyperlipidemia, unspecified; E55.9 Vitamin D deficiency, unspecified; Z79.4 Long term (current) use of insulin; Z79.899 Other long term (current) drug therapy; Z87.891 Personal history of nicotine dependence; Z17.0 Estrogen receptor positive status [ER+]
CPT/HCPCS: 36415; 36591; 80048; 80053; 84443; 85025; 86300; 96372; 96375; 96409

== ENCOUNTER → 2017-10-24 | Outpatient (CLI) | payer MEDICARE, OTHER ==
[~2017-10-24] MED LIST changes: +BARIUM SUSPENSION 2.1% (VANILLA SILQ) 450 ML PO ONE; +CATHETER FLUSH 10 ML SYR IV PRN; -DENOSUMAB 120 MG/1.7 ML (XGEVA) SQ SCH; -DEXAMETHASONE IV SCH; -FULVESTRANT 250 MG/5 ML SYR (CANCER CENTER) IM SCH; +IOHEXOL 350 MG/ML 100 ML (OMNIPAQUE 350) VIAL IV ONE; -LIDOCAINE 1% INJ 20 ML (XYLOCAINE) VIAL ONE; -NS IV 1000 ML (CANCER CTR) IV SCH; -NS IV SCH; -ONDANSETRON 16 MG, DEXAMETHASONE 10 MG/NS 50 ML IVPB IV SCH; -ONDANSETRON IV SCH; -ONDANSETRON MDV (CANCER CENTER 16 MG, DEXAMETHASONE INJ (CANCER CTR) 4 MG in NS (IVPB) ... IV SCH; -VINORELBINE TARTRATE IV SCH; -[UNRECOGNIZED DRUG - OTHER] IV SCH
--- NOTE | 2017-10-24 11:31 | Diagnostic Imaging Report ---
CT NECK/CHEST/ABDOMEN W Technique: Postcontrast imaging of the neck, chest and abdomen was performed. Indication: Breast cancer. Surveillance imaging. Comparison: CTA chest from 05/31/2017. Findings: CT NECK: No cervical lymphadenopathy. The right kayden-aspect of the thyroid is absent likely due to partial thyroidectomy. No evidence of mucosal-based mass in the pharynx or larynx. Parapharyngeal fat spaces are normal. Carotid arteries and jugular veins are normal in appearance. No space-occupying mass in the visualized portions of the brain. No focal lytic or blastic lesion in the visualized skull base cervical spine to suggest metastatic disease. Advanced multilevel degenerative changes throughout the cervical spine are noted. CT CHEST: No axillary lymphadenopathy. Asymmetric skin thickening of the right breast is stable and likely due to post radiation therapy changes. No retropectoral or internal mammary chain lymphadenopathy. Previously seen enlarged mediastinal lymph nodes have resolved. No hilar or juxtaphrenic lymphadenopathy. Heart is enlarged without pericardial effusion. Coronary artery calcifications are stable. Bilateral pleural drainage catheters have been placed since prior CT. The pleural effusions have decreased in size with a residual small volume of fluid bilaterally. There has been marked improvement in aeration of the lung bases with the decrease in size of pleural effusions. No new airspace consolidations. No suspicious nodule or mass. Multiple blastic foci throughout the vertebral bodies and sternum are compatible with patient's known osseous metastatic disease. CT ABDOMEN: No free fluid or air within the visualized abdomen. No evidence of metastatic lesions in the liver, spleen or pancreas. Cholelithiasis. The spleen is in the upper limits of normal in size measuring 14 cm AP. There is a well-circumscribed cystic lesion in the pancreatic tail measuring 1.3 x 1.8 cm. No renal metastases. No abdominal lymphadenopathy. Normal caliber abdominal aorta with moderate atherosclerotic plaquing. Extensive blastic metastases within the visualized pelvis and within the lumbar vertebral bodies. Impression: CT NECK: 1. No evidence of metastatic disease within the neck. CT CHEST: 1. No change in multifocal osseous metastases in the chest. 2. Decreased size of bilateral pleural effusions after the placement of bilateral pleural drainage catheters. Small bilateral pleural effusions persist but there is improved aeration in the lung bases. 3. Resolution of mediastinal lymphadenopathy which may have been reactive in nature due to infectious/inflammatory process that was present on prior exam. CT ABDOMEN: 1. Multifocal osseous metastases are present. 2. No evidence of soft tissue metastases in the abdomen. 3. Incidental note of small cystic lesion in pancreatic tail which is likely a small benign sidebranch IPMN. Dictated by: Dictated on workstation # [id number]
--- NOTE | 2017-10-24 14:17 | Diagnostic Imaging Report ---
EXAMINATION: Nuclear medicine bone scan. INDICATION: Breast cancer. FINDINGS: There are no prior nuclear medicine bone scans available for comparison. The PET/CT exam performed on 04/06/2014 was reviewed. There was no abnormal uptake within the osseous structures at that time to suggest metastatic disease. On this study, there does appear be a small focus of increased activity along the anterior aspect of the left second rib. There is also a small area of increased activity in one of the mid thoracic vertebrae on the posterior images. This appears to be the vertebral body of T7. There are a few smaller areas of less intense activity in the vertebral body of T10 on the left and in the lower-most ribs on the left. There is also a small linear area of increased uptake in the first sternal segment on the right. In addition, there is a suggestion of small areas of increased activity in the left parietal bone and right frontal bone of the skull. While these areas of abnormal uptake are not striking, their development since the previous study is worrisome for metastatic disease. There is also a suggestion of diminished uptake within the sacrum near midline on the posterior images. It is unlikely that this is related to a marrow replacement process. However, if further imaging is desired, then MRI would be recommended. Both kidneys do show excretion of the radiotracer. IMPRESSION: 1. Several small areas of increased uptake have developed in various sites throughout the skeleton. These findings are worrisome for metastatic disease. 2. The area of diminished uptake involving the sacrum is of uncertain etiology. Considerations and recommendations as above. Dictated by: Dictated on workstation # [id number]
== END ==
LOC: CARD 09:31
PROVIDERS: ATTEND Nurse Practitioner Adult Health
DX: C50.511 Malignant neoplasm of lower-outer quadrant of right female breast (principal); C79.51 Secondary malignant neoplasm of bone; R06.00 Dyspnea, unspecified
CPT/HCPCS: 70491; 71260; 74160; 78306

== ENCOUNTER 2017-10-30 13:21 | Outpatient (RCR) | payer MEDICARE, OTHER ==
[~2017-10-30 13:21] MED LIST changes: -BARIUM SUSPENSION 2.1% (VANILLA SILQ) 450 ML PO ONE; -CATHETER FLUSH 10 ML SYR IV PRN; -IOHEXOL 350 MG/ML 100 ML (OMNIPAQUE 350) VIAL IV ONE
== END 2017-10-30 15:48 | disposition home or self-care (01) ==
PROVIDERS: ATTEND Nurse Practitioner Adult Health
DX: I89.0 Lymphedema, not elsewhere classified (principal); C50.511 Malignant neoplasm of lower-outer quadrant of right female breast

== ENCOUNTER → 2017-10-31 | Outpatient (CLI) | payer MEDICARE, OTHER | LOC: CARD 11:58 | PROVIDERS: ATTEND Nurse Practitioner Adult Health | DX: C50.511 Malignant neoplasm of lower-outer quadrant of right female breast (principal); R60.9 Edema, unspecified; R06.00 Dyspnea, unspecified | CPT/HCPCS: 93306 ==

== ENCOUNTER → 2017-12-06 | Outpatient (CLI) | payer MEDICARE, OTHER ==
[~2017-12-06] MED LIST changes: +CATHETER FLUSH 10 ML SYR IV PRN
--- NOTE | 2017-12-06 13:18 | Diagnostic Imaging Report ---
PROCEDURE: CT chest and abdomen with contrast. TECHNIQUE: Multiple contiguous axial images were obtained through the chest and abdomen after the administration of intravenous contrast. INDICATION: Breast carcinoma, followup. Comparison is made with prior exam from 10/24/2017. CT chest: FINDINGS: Marked skin thickening involving the right breast is again noted. The area of density in the right breast is also stable. Findings are likely post-therapeutic. No definite axillary lymphadenopathy is seen. There are surgical clips in the right axilla. No internal mammary lymphadenopathy is identified. Small lymph nodes in the mediastinum appear stable. The mil are unremarkable bilaterally. No significant pericardial effusion is seen. There continues to be decrease in size of bilateral pleural effusions. Bilateral pleural catheters remain in place. There are very small bilateral effusions noted. There is some pleural thickening involving the anterolateral right lower chest pleura at the level of the middle lobe, similar to prior exam. Osteoblastic metastatic disease involving the sternum and thoracic spine appear similar to prior exam. IMPRESSION: 1. Reduction in bilateral pleural effusions since prior CT from 10/24/2017. There are very small residual effusions present. No definite thoracic lymphadenopathy or evidence of pulmonary metastatic disease is identified. CT abdomen: FINDINGS: No discrete liver mass is identified. There are stones and sludge within the gallbladder. Pancreas again demonstrates a small cystic density in the tail stable at approximately 12 mm when compared to prior exam. Spleen is unremarkable. No adrenal mass is detected. Kidneys are unremarkable. Aorta is heavily calcified but nonaneurysmal. Osteoblastic metastases in the lumbar spine and upper pelvis are again noted. There is no ascites. Bowel loops are unremarkable. IMPRESSION: Stable CT abdomen when compared with exam from 10/24/2017. There is cholelithiasis present. There is osseous metastatic disease. No evidence of soft tissue metastatic disease is seen. Dictated by: Dictated on workstation # [id number]
--- NOTE | 2017-12-06 18:04 | Diagnostic Imaging Report ---
INDICATION: Breast carcinoma. EXAMINATION: The patient was administered 25.7 mCi of technetium 99m MDP intravenously and whole-body imaging was performed after a three-hour delay. COMPARISON: Correlation is made with prior bone scan from 10/24/2017. FINDINGS: There is uptake of activity by the axial and appendicular skeleton. There is uptake by the kidneys with excretion into the urinary bladder. There continues to be multiple abnormal regions of tracer accumulation, similar to prior study. In particular, there are areas of abnormal uptake involving multiple left-sided ribs. In particular, the left anterior approximately second rib as well as lower left anterior ribs. Right-sided ribs are unremarkable. Abnormal uptake in the left calvarium and right frontal bone is similar to prior. Numerous foci of uptake in the thoracic and upper lumbar spine appear stable. There is intense uptake in the region of the lower cervical or upper thoracic spine, unchanged. There are some abnormal foci within the pelvis and near the SI joints, bilaterally. Subtle focus in the distal right femur is seen. All of these are very similar to prior exam. No definite new focus of tracer accumulation is seen. IMPRESSION: Stable whole-body bone scan with multiple foci of tracer accumulation suggestive of osseous metastatic disease. No new abnormality is detected. Dictated by: Dictated on workstation # [id number]
== END ==
LOC: CARD 11:30
PROVIDERS: ATTEND Nurse Practitioner Adult Health
DX: C50.511 Malignant neoplasm of lower-outer quadrant of right female breast (principal); C79.51 Secondary malignant neoplasm of bone
CPT/HCPCS: 71260; 74160; 78306

== ENCOUNTER 2018-01-13 13:48 | Outpatient (RCR) | payer MEDICARE, OTHER ==
[2017-10-17 13:33] LABS: BASOPHILS % (AUTO) 1 % (0-10); EOSINOPHILS # (AUTO) 0.1 10^3/uL (0.0-0.3); EOSINOPHILS % (AUTO) 4 % (0-10); HEMATOCRIT 27 % (35-52); HEMOGLOBIN 9.8 G/DL (11.5-16.0); LYMPHOCYTES # (AUTO) 0.7 X 10^3 (1.0-4.0); LYMPHOCYTES % (AUTO) 23 % (12-44); MEAN CORPUSCULAR HEMOGLOBIN 31 PG (25-34); MEAN CORPUSCULAR HGB CONC 37 G/DL (32-36); MEAN CORPUSCULAR VOLUME 84 FL (80-99); MEAN PLATELET VOLUME 8.6 FL (7.4-10.4); MONOCYTES # (AUTO) 0.2 X 10^3 (0.0-1.0); MONOCYTES % (AUTO) 7 % (0-12); NEUTROPHILS # (AUTO) 1.8 X 10^3 (1.8-7.8); NEUTROPHILS % (AUTO) 65 % (42-75); PLATELET COUNT 158 10^3/uL (130-400); RED BLOOD COUNT 3.18 10^6/uL (4.35-5.85); RED CELL DISTRIBUTION WIDTH 15.9 % (10.0-14.5); WHITE BLOOD COUNT 2.8 10^3/uL (4.3-11.0)
[2017-10-17 13:58] LABS: BUN/CREATININE RATIO 23; CALCIUM 8.5 MG/DL (8.5-10.1); CARBON DIOXIDE 20 MMOL/L (21-32); CHLORIDE 110 MMOL/L (98-107); CREATININE SERUM 0.81 MG/DL (0.60-1.30); GFR ESTIMATED > 60; GLUCOSE 113 MG/DL (70-105); SODIUM 140 MMOL/L (135-145)
[2017-10-24 10:45] LABS: BASOPHILS % (AUTO) 1 % (0-10); EOSINOPHILS # (AUTO) 0.1 10^3/uL (0.0-0.3); EOSINOPHILS % (AUTO) 4 % (0-10); HEMATOCRIT 32 % (35-52); HEMOGLOBIN 10.3 G/DL (11.5-16.0); LYMPHOCYTES # (AUTO) 0.5 X 10^3 (1.0-4.0); LYMPHOCYTES % (AUTO) 24 % (12-44); MEAN CORPUSCULAR HEMOGLOBIN 32 PG (25-34); MEAN CORPUSCULAR HGB CONC 33 G/DL (32-36); MEAN CORPUSCULAR VOLUME 97 FL (80-99); MEAN PLATELET VOLUME 9.4 FL (7.4-10.4); MONOCYTES # (AUTO) 0.2 X 10^3 (0.0-1.0); MONOCYTES % (AUTO) 10 % (0-12); NEUTROPHILS # (AUTO) 1.4 X 10^3 (1.8-7.8); NEUTROPHILS % (AUTO) 61 % (42-75); PLATELET COUNT 193 10^3/uL (130-400); RED BLOOD COUNT 3.26 10^6/uL (4.35-5.85); RED CELL DISTRIBUTION WIDTH 16.7 % (10.0-14.5); WHITE BLOOD COUNT 2.2 10^3/uL (4.3-11.0)
[2017-10-24 11:09] LABS: BUN/CREATININE RATIO 19; CALCIUM 8.5 MG/DL (8.5-10.1); CARBON DIOXIDE 23 MMOL/L (21-32); CHLORIDE 106 MMOL/L (98-107); CREATININE SERUM 0.79 MG/DL (0.60-1.30); GFR ESTIMATED > 60; GLUCOSE 95 MG/DL (70-105); POTASSIUM 3.6 MMOL/L (3.6-5.0); SODIUM 138 MMOL/L (135-145)
[2017-10-30 11:11] LABS: BASOPHILS % (AUTO) 0 % (0-10); EOSINOPHILS % (AUTO) 1 % (0-10); HEMATOCRIT 33 % (35-52); HEMOGLOBIN 10.7 G/DL (11.5-16.0); LYMPHOCYTES # (AUTO) 0.6 X 10^3 (1.0-4.0); LYMPHOCYTES % (AUTO) 21 % (12-44); MEAN CORPUSCULAR HEMOGLOBIN 31 PG (25-34); MEAN CORPUSCULAR HGB CONC 33 G/DL (32-36); MEAN CORPUSCULAR VOLUME 94 FL (80-99); MEAN PLATELET VOLUME 9.3 FL (7.4-10.4); MONOCYTES # (AUTO) 0.3 X 10^3 (0.0-1.0); MONOCYTES % (AUTO) 10 % (0-12); NEUTROPHILS # (AUTO) 1.8 X 10^3 (1.8-7.8); NEUTROPHILS % (AUTO) 67 % (42-75); PLATELET COUNT 190 10^3/uL (130-400); RED BLOOD COUNT 3.47 10^6/uL (4.35-5.85); RED CELL DISTRIBUTION WIDTH 16.4 % (10.0-14.5); WHITE BLOOD COUNT 2.7 10^3/uL (4.3-11.0)
[2017-10-30 11:29] LABS: ALANINE AMINOTRANSFERASE 12 U/L (0-55); ALBUMIN 3.1 GM/DL (3.2-4.5); ALKALINE PHOSPHATASE 37 U/L (40-136); BILIRUBIN,TOTAL 0.3 MG/DL (0.1-1.0); BUN/CREATININE RATIO 27; CALCIUM 8.6 MG/DL (8.5-10.1); CARBON DIOXIDE 21 MMOL/L (21-32); CHLORIDE 108 MMOL/L (98-107); CREATININE SERUM 0.78 MG/DL (0.60-1.30); GFR ESTIMATED > 60; POTASSIUM 3.8 MMOL/L (3.6-5.0); SODIUM 139 MMOL/L (135-145); TOTAL PROTEIN 5.1 GM/DL (6.4-8.2)
[2017-10-30 11:42] LABS: GLUCOSE 54 MG/DL (70-105)
[2017-11-07 13:20] LABS: BASOPHILS % (AUTO) 1 % (0-10); EOSINOPHILS # (AUTO) 0.1 10^3/uL (0.0-0.3); EOSINOPHILS % (AUTO) 3 % (0-10); HEMATOCRIT 31 % (35-52); HEMOGLOBIN 9.9 G/DL (11.5-16.0); LYMPHOCYTES # (AUTO) 0.6 X 10^3 (1.0-4.0); LYMPHOCYTES % (AUTO) 22 % (12-44); MEAN CORPUSCULAR HEMOGLOBIN 31 PG (25-34); MEAN CORPUSCULAR HGB CONC 32 G/DL (32-36); MEAN CORPUSCULAR VOLUME 96 FL (80-99); MEAN PLATELET VOLUME 9.5 FL (7.4-10.4); MONOCYTES # (AUTO) 0.3 X 10^3 (0.0-1.0); MONOCYTES % (AUTO) 10 % (0-12); NEUTROPHILS # (AUTO) 1.7 X 10^3 (1.8-7.8); NEUTROPHILS % (AUTO) 64 % (42-75); PLATELET COUNT 175 10^3/uL (130-400); RED BLOOD COUNT 3.25 10^6/uL (4.35-5.85); RED CELL DISTRIBUTION WIDTH 16.4 % (10.0-14.5); WHITE BLOOD COUNT 2.7 10^3/uL (4.3-11.0)
[2017-11-07 13:36] LABS: CALCIUM 8.8 MG/DL (8.5-10.1); CREATININE SERUM 1.06 MG/DL (0.60-1.30); POTASSIUM 4.1 MMOL/L (3.6-5.0)
[2017-11-14 13:42] LABS: BASOPHILS % (AUTO) 1 % (0-10); EOSINOPHILS # (AUTO) 0.1 10^3/uL (0.0-0.3); EOSINOPHILS % (AUTO) 3 % (0-10); HEMATOCRIT 31 % (35-52); HEMOGLOBIN 10.2 G/DL (11.5-16.0); LYMPHOCYTES # (AUTO) 0.7 X 10^3 (1.0-4.0); LYMPHOCYTES % (AUTO) 23 % (12-44); MEAN CORPUSCULAR HEMOGLOBIN 31 PG (25-34); MEAN CORPUSCULAR HGB CONC 33 G/DL (32-36); MEAN CORPUSCULAR VOLUME 95 FL (80-99); MEAN PLATELET VOLUME 9.8 FL (7.4-10.4); MONOCYTES # (AUTO) 0.2 X 10^3 (0.0-1.0); MONOCYTES % (AUTO) 7 % (0-12); NEUTROPHILS # (AUTO) 2.2 X 10^3 (1.8-7.8); NEUTROPHILS % (AUTO) 67 % (42-75); PLATELET COUNT 211 10^3/uL (130-400); RED CELL DISTRIBUTION WIDTH 16.2 % (10.0-14.5); WHITE BLOOD COUNT 3.3 10^3/uL (4.3-11.0)
[2017-11-14 13:57] LABS: CALCIUM 8.4 MG/DL (8.5-10.1); CREATININE SERUM 1.11 MG/DL (0.60-1.30); POTASSIUM 4.2 MMOL/L (3.6-5.0)
[2017-11-28 10:35] LABS: BASOPHILS % (AUTO) 1 % (0-10); EOSINOPHILS # (AUTO) 0.1 10^3/uL (0.0-0.3); EOSINOPHILS % (AUTO) 3 % (0-10); HEMATOCRIT 33 % (35-52); LYMPHOCYTES # (AUTO) 0.5 X 10^3 (1.0-4.0); LYMPHOCYTES % (AUTO) 22 % (12-44); MEAN CORPUSCULAR HEMOGLOBIN 31 PG (25-34); MEAN CORPUSCULAR HGB CONC 33 G/DL (32-36); MEAN CORPUSCULAR VOLUME 94 FL (80-99); MEAN PLATELET VOLUME 9.8 FL (7.4-10.4); MONOCYTES # (AUTO) 0.4 X 10^3 (0.0-1.0); MONOCYTES % (AUTO) 17 % (0-12); NEUTROPHILS # (AUTO) 1.4 X 10^3 (1.8-7.8); NEUTROPHILS % (AUTO) 58 % (42-75); PLATELET COUNT 207 10^3/uL (130-400); RED CELL DISTRIBUTION WIDTH 16.5 % (10.0-14.5); WHITE BLOOD COUNT 2.4 10^3/uL (4.3-11.0)
[2017-11-28 10:58] LABS: ALBUMIN 3.2 GM/DL (3.2-4.5); BILIRUBIN,TOTAL 0.3 MG/DL (0.1-1.0); CALCIUM 8.4 MG/DL (8.5-10.1); CREATININE SERUM 1.12 MG/DL (0.60-1.30); TOTAL PROTEIN 5.3 GM/DL (6.4-8.2)
[2017-12-12 10:54] LABS: BASOPHILS % (AUTO) 1 % (0-10); EOSINOPHILS # (AUTO) 0.1 10^3/uL (0.0-0.3); EOSINOPHILS % (AUTO) 2 % (0-10); HEMATOCRIT 34 % (35-52); HEMOGLOBIN 11.3 G/DL (11.5-16.0); LYMPHOCYTES # (AUTO) 0.6 X 10^3 (1.0-4.0); LYMPHOCYTES % (AUTO) 15 % (12-44); MEAN CORPUSCULAR HEMOGLOBIN 31 PG (25-34); MEAN CORPUSCULAR HGB CONC 33 G/DL (32-36); MEAN CORPUSCULAR VOLUME 95 FL (80-99); MEAN PLATELET VOLUME 9.7 FL (7.4-10.4); MONOCYTES # (AUTO) 0.3 X 10^3 (0.0-1.0); MONOCYTES % (AUTO) 8 % (0-12); NEUTROPHILS # (AUTO) 3.2 X 10^3 (1.8-7.8); NEUTROPHILS % (AUTO) 74 % (42-75); PLATELET COUNT 204 10^3/uL (130-400); RED CELL DISTRIBUTION WIDTH 16.3 % (10.0-14.5); WHITE BLOOD COUNT 4.3 10^3/uL (4.3-11.0)
[2017-12-12 11:12] LABS: ALBUMIN 3.3 GM/DL (3.2-4.5); BILIRUBIN,TOTAL 0.4 MG/DL (0.1-1.0); CALCIUM 9.3 MG/DL (8.5-10.1); CREATININE SERUM 1.33 MG/DL (0.60-1.30); POTASSIUM 4.2 MMOL/L (3.6-5.0); TOTAL PROTEIN 5.5 GM/DL (6.4-8.2)
[2017-12-17 11:05] LABS: BASOPHILS % (AUTO) 0 % (0-10); EOSINOPHILS # (AUTO) 0.1 10^3/uL (0.0-0.3); EOSINOPHILS % (AUTO) 2 % (0-10); HEMATOCRIT 33 % (35-52); HEMOGLOBIN 10.8 G/DL (11.5-16.0); LYMPHOCYTES # (AUTO) 0.5 X 10^3 (1.0-4.0); LYMPHOCYTES % (AUTO) 15 % (12-44); MEAN CORPUSCULAR HEMOGLOBIN 31 PG (25-34); MEAN CORPUSCULAR HGB CONC 33 G/DL (32-36); MEAN CORPUSCULAR VOLUME 94 FL (80-99); MEAN PLATELET VOLUME 9.3 FL (7.4-10.4); MONOCYTES # (AUTO) 0.3 X 10^3 (0.0-1.0); MONOCYTES % (AUTO) 9 % (0-12); NEUTROPHILS # (AUTO) 2.5 X 10^3 (1.8-7.8); NEUTROPHILS % (AUTO) 73 % (42-75); PLATELET COUNT 166 10^3/uL (130-400); RED BLOOD COUNT 3.46 10^6/uL (4.35-5.85); RED CELL DISTRIBUTION WIDTH 16.3 % (10.0-14.5); WHITE BLOOD COUNT 3.4 10^3/uL (4.3-11.0)
[2017-12-17 11:28] LABS: ALANINE AMINOTRANSFERASE 12 U/L (0-55); ALBUMIN 3.1 GM/DL (3.2-4.5); ALKALINE PHOSPHATASE 42 U/L (40-136); BILIRUBIN,TOTAL 0.3 MG/DL (0.1-1.0); BUN/CREATININE RATIO 22; CARBON DIOXIDE 18 MMOL/L (21-32); CHLORIDE 112 MMOL/L (98-107); CREATININE SERUM 0.89 MG/DL (0.60-1.30); GFR ESTIMATED > 60; GLUCOSE 105 MG/DL (70-105); POTASSIUM 3.8 MMOL/L (3.6-5.0); SODIUM 139 MMOL/L (135-145); TOTAL PROTEIN 5.3 GM/DL (6.4-8.2)
[2017-12-23 14:02] LABS: BASOPHILS % (AUTO) 0 % (0-10); EOSINOPHILS # (AUTO) 0.1 10^3/uL (0.0-0.3); EOSINOPHILS % (AUTO) 3 % (0-10); HEMATOCRIT 32 % (35-52); HEMOGLOBIN 10.9 G/DL (11.5-16.0); LYMPHOCYTES # (AUTO) 0.4 X 10^3 (1.0-4.0); LYMPHOCYTES % (AUTO) 18 % (12-44); MEAN CORPUSCULAR HEMOGLOBIN 32 PG (25-34); MEAN CORPUSCULAR HGB CONC 34 G/DL (32-36); MEAN CORPUSCULAR VOLUME 94 FL (80-99); MEAN PLATELET VOLUME 10.1 FL (7.4-10.4); MONOCYTES # (AUTO) 0.1 X 10^3 (0.0-1.0); MONOCYTES % (AUTO) 4 % (0-12); NEUTROPHILS # (AUTO) 1.9 X 10^3 (1.8-7.8); NEUTROPHILS % (AUTO) 75 % (42-75); PLATELET COUNT 210 10^3/uL (130-400); RED BLOOD COUNT 3.44 10^6/uL (4.35-5.85); RED CELL DISTRIBUTION WIDTH 16.1 % (10.0-14.5); WHITE BLOOD COUNT 2.5 10^3/uL (4.3-11.0)
[2017-12-23 14:18] LABS: CALCIUM 8.5 MG/DL (8.5-10.1); CREATININE SERUM 1.15 MG/DL (0.60-1.30); POTASSIUM 4.6 MMOL/L (3.6-5.0)
[2017-12-30 13:38] LABS: BASOPHILS % (AUTO) 4 % (0-10); EOSINOPHILS % (AUTO) 4 % (0-10); HEMATOCRIT 29 % (35-52); HEMOGLOBIN 9.9 G/DL (11.5-16.0); LYMPHOCYTES # (AUTO) 0.5 X 10^3 (1.0-4.0); LYMPHOCYTES % (AUTO) 58 % (12-44); MEAN CORPUSCULAR HEMOGLOBIN 31 PG (25-34); MEAN CORPUSCULAR HGB CONC 34 G/DL (32-36); MEAN CORPUSCULAR VOLUME 92 FL (80-99); MEAN PLATELET VOLUME 9.8 FL (7.4-10.4); MONOCYTES # (AUTO) 0.1 X 10^3 (0.0-1.0); MONOCYTES % (AUTO) 8 % (0-12); NEUTROPHILS # (AUTO) 0.2 X 10^3 (1.8-7.8); NEUTROPHILS % (AUTO) 27 % (42-75); PLATELET COUNT 195 10^3/uL (130-400); RED BLOOD COUNT 3.18 10^6/uL (4.35-5.85); RED CELL DISTRIBUTION WIDTH 15.4 % (10.0-14.5)
[2017-12-30 13:41] LABS: WHITE BLOOD COUNT 0.8 10^3/uL (4.3-11.0)
[2017-12-30 13:58] LABS: CREATININE SERUM 1.22 MG/DL (0.60-1.30); POTASSIUM 4.2 MMOL/L (3.6-5.0)
[2018-01-06 14:02] LABS: BASOPHILS # (AUTO) 0.1 10^3/uL (0.0-0.1); BASOPHILS % (AUTO) 2 % (0-10); EOSINOPHILS # (AUTO) 0.1 10^3/uL (0.0-0.3); EOSINOPHILS % (AUTO) 3 % (0-10); HEMATOCRIT 31 % (35-52); HEMOGLOBIN 10.4 G/DL (11.5-16.0); LYMPHOCYTES # (AUTO) 0.7 X 10^3 (1.0-4.0); LYMPHOCYTES % (AUTO) 34 % (12-44); MEAN CORPUSCULAR HEMOGLOBIN 31 PG (25-34); MEAN CORPUSCULAR HGB CONC 34 G/DL (32-36); MEAN CORPUSCULAR VOLUME 92 FL (80-99); MEAN PLATELET VOLUME 9.7 FL (7.4-10.4); MONOCYTES # (AUTO) 0.6 X 10^3 (0.0-1.0); MONOCYTES % (AUTO) 31 % (0-12); NEUTROPHILS # (AUTO) 0.6 X 10^3 (1.8-7.8); NEUTROPHILS % (AUTO) 30 % (42-75); PLATELET COUNT 236 10^3/uL (130-400); RED BLOOD COUNT 3.33 10^6/uL (4.35-5.85); RED CELL DISTRIBUTION WIDTH 16.2 % (10.0-14.5); WHITE BLOOD COUNT 2.1 10^3/uL (4.3-11.0)
[2018-01-06 14:25] LABS: ALBUMIN 3.3 GM/DL (3.2-4.5); BILIRUBIN,TOTAL 0.3 MG/DL (0.1-1.0); CALCIUM 8.2 MG/DL (8.5-10.1); CREATININE SERUM 1.4 MG/DL (0.60-1.30); POTASSIUM 4.2 MMOL/L (3.6-5.0); TOTAL PROTEIN 5.3 GM/DL (6.4-8.2)
[~2018-01-13] VITALS: Ht 165.1 cm; Wt 79.8 kg
[~2018-01-13 13:48] MED LIST changes: -CATHETER FLUSH 10 ML SYR IV PRN; +CTR IV SCH; +DENOSUMAB 120 MG/1.7 ML (XGEVA) SQ SCH; +DEXAMETHASONE IV SCH; +NS IV 1000 ML (CANCER CTR) IV SCH; +NS IV 500 ML (CANCER CENTER) 500 ML ONE; +NS IV SCH; +ONDANSETRON IV SCH; +ONDANSETRON MDV (CANCER CENTER 16 MG, DEXAMETHASONE INJ (CANCER CTR) 4 MG in NS (IVPB) ... IV SCH; +ONDANSETRON MDV (CANCER CENTER 16 MG, DEXAMETHASONE PF INJ (CANCER C 10 MG in NS (IVPB)... IV SCH; +PACLITAXEL PROTEIN IV SCH; +PACLitaxel PROTEIN 170 MG in EMPTY IV BAG (PVC) CANCER CTR 1 EA IV SCH; +VINORELBINE TARTRATE IV SCH; +[UNRECOGNIZED DRUG - OTHER] IV SCH
[2018-01-13 14:18] LABS: BASOPHILS % (AUTO) 1 % (0-10); EOSINOPHILS # (AUTO) 0.1 10^3/uL (0.0-0.3); EOSINOPHILS % (AUTO) 1 % (0-10); HEMATOCRIT 32 % (35-52); HEMOGLOBIN 10.6 G/DL (11.5-16.0); LYMPHOCYTES # (AUTO) 0.8 X 10^3 (1.0-4.0); LYMPHOCYTES % (AUTO) 14 % (12-44); MEAN CORPUSCULAR HEMOGLOBIN 31 PG (25-34); MEAN CORPUSCULAR HGB CONC 34 G/DL (32-36); MEAN CORPUSCULAR VOLUME 93 FL (80-99); MEAN PLATELET VOLUME 9.2 FL (7.4-10.4); MONOCYTES # (AUTO) 0.6 X 10^3 (0.0-1.0); MONOCYTES % (AUTO) 11 % (0-12); NEUTROPHILS % (AUTO) 73 % (42-75); PLATELET COUNT 182 10^3/uL (130-400); RED BLOOD COUNT 3.39 10^6/uL (4.35-5.85); RED CELL DISTRIBUTION WIDTH 16.6 % (10.0-14.5); WHITE BLOOD COUNT 5.5 10^3/uL (4.3-11.0)
[2018-01-13 14:35] LABS: CALCIUM 8.2 MG/DL (8.5-10.1); CREATININE SERUM 0.93 MG/DL (0.60-1.30); POTASSIUM 4.1 MMOL/L (3.6-5.0)
[2018-01-13] MEDS ORDERED: NS IV 500 ML (CANCER CENTER) 500 ML ONE (14:37)
[2018-01-13] MEDS ORDERED: PACLITAXEL PROTEIN IV SCH (14:45)
[2018-01-13] MEDS ORDERED: CTR IV SCH (14:45)
== END 2018-01-15 | disposition home or self-care (01) ==
LOC: ONC 13:48
PROVIDERS: ATTEND Internal Medicine Hematology & Oncology
DX: C50.511 Malignant neoplasm of lower-outer quadrant of right female breast (principal); C79.51 Secondary malignant neoplasm of bone; C77.9 Secondary and unspecified malignant neoplasm of lymph node, unspecified; J90 Pleural effusion, not elsewhere classified; I48.91 Unspecified atrial fibrillation; E89.0 Postprocedural hypothyroidism; E11.43 Type 2 diabetes mellitus with diabetic autonomic (poly)neuropathy; I10 Essential (primary) hypertension; E78.5 Hyperlipidemia, unspecified; E55.9 Vitamin D deficiency, unspecified; Z87.09 Personal history of other diseases of the respiratory system; Z79.4 Long term (current) use of insulin; Z79.899 Other long term (current) drug therapy; Z87.891 Personal history of nicotine dependence; Z17.0 Estrogen receptor positive status [ER+]
CPT/HCPCS: 36415; 36591; 80048; 80053; 82306; 85025; 86300; 88112; 88305; 88341; 88342; 96372; 96375; 96409; 96413; 99213

== ENCOUNTER → 2018-03-18 | Outpatient (CLI) | payer MEDICARE, OTHER ==
[~2018-03-18] MED LIST changes: +BARIUM SUSPENSION 2.1% (VANILLA SILQ) 450 ML PO ONE; +CATHETER FLUSH 10 ML SYR IV PRN; -CTR IV SCH; -DENOSUMAB 120 MG/1.7 ML (XGEVA) SQ SCH; -DEXAMETHASONE IV SCH; +IOHEXOL 350 MG/ML 100 ML (OMNIPAQUE 350) VIAL IV ONE; -METF1000 PO; +METF10002 PO; +NS 250 ML (IVPB) BAG IV ONE; -NS IV 1000 ML (CANCER CTR) IV SCH; -NS IV 500 ML (CANCER CENTER) 500 ML ONE; -NS IV SCH; -ONDANSETRON IV SCH; -ONDANSETRON MDV (CANCER CENTER 16 MG, DEXAMETHASONE INJ (CANCER CTR) 4 MG in NS (IVPB) ... IV SCH; -ONDANSETRON MDV (CANCER CENTER 16 MG, DEXAMETHASONE PF INJ (CANCER C 10 MG in NS (IVPB)... IV SCH; -PACLITAXEL PROTEIN IV SCH; -PACLitaxel PROTEIN 170 MG in EMPTY IV BAG (PVC) CANCER CTR 1 EA IV SCH; -VINORELBINE TARTRATE IV SCH; -[UNRECOGNIZED DRUG - OTHER] IV SCH
--- NOTE | 2018-03-18 12:03 | Diagnostic Imaging Report ---
PROCEDURE: CT chest, abdomen, and pelvis with contrast. TECHNIQUE: Multiple contiguous axial images were obtained through the chest, abdomen, and pelvis after the administration of intravenous contrast. INDICATION: Breast cancer. COMPARISON: Comparison made with prior examination from 12/06/2017. FINDINGS: Bilateral thoracostomy tubes are in place. There is a loculated effusion on the right. There is a loculation anteriorly measuring 6.4 x 3 cm. There is a loculated effusion inferiorly measuring 8.9 x 3.5 cm. There is a questionable loculated effusion in the left lung base, although the catheter is within it. There is also some more free fluid in the right lung base surrounding the catheter. There is cardiomegaly. There is no pathologically enlarged adenopathy in either axilla or the mediastinum. There is no pneumothorax. There are coronary artery calcifications. Interval development of a diffuse miliary appearance of the liver. There is sludge and cholelithiasis in the gallbladder. Spleen is normal. The pancreas and adrenal glands are unremarkable. Kidneys are normal in appearance. Aorta demonstrates some atherosclerotic calcification, however is nonaneurysmal. The bowel gas pattern is nonspecific. There is some trace amount of free fluid in the pelvis. There are calcified fibroids in the uterus. Bladder is unremarkable. There is multifocal osteoblastic metastatic disease in the thoracic and lumbar spine as well as within the pelvis. IMPRESSION: 1. At least two loculated effusions in the right lung base as well as persistent effusions in both lung bases as well as some atelectasis and/or pneumonitis. 2. Cardiomegaly and coronary artery calcification. 3. Interval development of a diffusely miliary appearance of the liver. While this could conceivably be related to treatment, the possibility of metastatic disease cannot be excluded. 4. Diffuse osteoblastic metastatic disease in the thoracic spine, lumbar spine, and pelvis. 5. Gallbladder sludge and cholelithiasis. Dictated by: Dictated on workstation # [id number]
--- NOTE | 2018-03-18 15:48 | Diagnostic Imaging Report ---
EXAMINATION: Whole body bone scan. INDICATION: Right breast cancer. TECHNIQUE: This study was performed following administration of 26.6 mCi of 99m technetium MDP. Anterior and posterior whole body images as well as spot films of the calvarium and thorax were obtained. FINDINGS: The previous exam of 12/06/2017 noted multiple areas of abnormal accumulation of radiotracer, consistent with widespread metastatic skeletal disease. On this study, there are still areas of abnormal uptake involving the calvarium on the left, the left ribs, the sternum, the left humerus, the thoracic and lumbar spine, the pelvis, and the right femur and right tibia. These findings are similar to the prior exam. No new area of abnormal activity has developed. There is excretion of the radiotracer by both kidneys. IMPRESSION: When compared to the previous study, there does not appear to have been any adverse change. There are still multiple areas of abnormal uptake, consistent with widespread metastatic disease. However, no new bony abnormality has developed. Dictated by: Dictated on workstation # [id number]
== END ==
LOC: CARD 11:00
PROVIDERS: ATTEND Internal Medicine Hematology & Oncology
DX: Z01.89 Encounter for other specified special examinations (principal); C50.511 Malignant neoplasm of lower-outer quadrant of right female breast; C77.8 Secondary and unspecified malignant neoplasm of lymph nodes of multiple regions; C79.51 Secondary malignant neoplasm of bone; K80.20 Calculus of gallbladder without cholecystitis without obstruction; J90 Pleural effusion, not elsewhere classified
CPT/HCPCS: 71260; 74177; 78306

== ENCOUNTER → 2018-03-24 | Outpatient (CLI) | payer MEDICARE, OTHER ==
[~2018-03-24] MED LIST changes: -BARIUM SUSPENSION 2.1% (VANILLA SILQ) 450 ML PO ONE; -CATHETER FLUSH 10 ML SYR IV PRN
--- NOTE | 2018-03-24 16:06 | Diagnostic Imaging Report ---
PROCEDURE: CT chest with contrast only. TECHNIQUE: Multiple contiguous axial images were obtained through the chest after administration of intravenous contrast. INDICATION: Pleural effusions. Patient has bilateral Pleurx catheters. COMPARISON: Correlation is made with recent CT chest study from 03/18/2018. FINDINGS: Bilateral loculated effusions are again noted. The patient does have bilateral Pleurx catheters. Catheters are coiled in the pleural bases bilaterally. The previously described loculated effusions in the anterior portion of the right chest as well as along the posterolateral portion are similar to perhaps slightly smaller when compared with prior. The loculated fluid along the left lateral chest wall appears to be larger when compared with prior exam measuring a thickness of approximately 2.9 cm and an AP dimension of approximately 12 cm. Basilar infiltrates, right greater, persist. Upper lung foster appear to be clear. Central airways are patent. Mediastinum and mil are stable. IMPRESSION: Bilateral loculated pleural effusions with Pleurx catheters. Fluid on the right is similar to perhaps slightly smaller. There is an enlarging loculation along the left lateral chest wall when compared with examination from six days earlier. Dictated by: Dictated on workstation # [id number]
== END ==
LOC: RAD 14:31
PROVIDERS: ATTEND Surgery
DX: J90 Pleural effusion, not elsewhere classified (principal); Z96.89 Presence of other specified functional implants
CPT/HCPCS: 71260

== ENCOUNTER → 2018-03-28 | Outpatient (CLI) | payer MEDICARE, OTHER ==
[~2018-03-28] VITALS: Ht 165.1 cm; Wt 76.2 kg
[~2018-03-28] MED LIST changes: +ALTEPLASE 2 MG (CATHFLO) IV ONE; +ALTEPLASE 2 MG (CATHFLO) ONE; -IOHEXOL 350 MG/ML 100 ML (OMNIPAQUE 350) VIAL IV ONE; -NS 250 ML (IVPB) BAG IV ONE; +WATER (STERILE) FOR INJECTION 20 ML ONE; +WATER (STERILE) FOR INJECTION 20 ML VIAL IV ONE
[2018-03-28 15:10] VITALS: BP 131/81
== END ==
LOC: SDC 13:09
PROVIDERS: ATTEND Surgery
DX: Z43.8 Encounter for attention to other artificial openings (principal)
CPT/HCPCS: 76937

== ENCOUNTER 2018-04-14 13:22 | Outpatient (RCR) | payer MEDICARE, OTHER ==
[2018-01-20 13:43] LABS: BASOPHILS % (AUTO) 3 % (0-10); EOSINOPHILS # (AUTO) 0.1 10^3/uL (0.0-0.3); EOSINOPHILS % (AUTO) 3 % (0-10); HEMATOCRIT 29 % (35-52); HEMOGLOBIN 9.7 G/DL (11.5-16.0); LYMPHOCYTES # (AUTO) 0.4 X 10^3 (1.0-4.0); LYMPHOCYTES % (AUTO) 27 % (12-44); MEAN CORPUSCULAR HEMOGLOBIN 31 PG (25-34); MEAN CORPUSCULAR HGB CONC 34 G/DL (32-36); MEAN CORPUSCULAR VOLUME 93 FL (80-99); MEAN PLATELET VOLUME 10.4 FL (7.4-10.4); MONOCYTES % (AUTO) 2 % (0-12); NEUTROPHILS % (AUTO) 65 % (42-75); PLATELET COUNT 157 10^3/uL (130-400); RED BLOOD COUNT 3.11 10^6/uL (4.35-5.85); RED CELL DISTRIBUTION WIDTH 15.7 % (10.0-14.5); WHITE BLOOD COUNT 1.5 10^3/uL (4.3-11.0)
[2018-01-20 14:01] LABS: CALCIUM 8.6 MG/DL (8.5-10.1); CREATININE SERUM 1.24 MG/DL (0.60-1.30); POTASSIUM 4.3 MMOL/L (3.6-5.0)
[2018-01-27 13:42] LABS: BASOPHILS % (AUTO) 2 % (0-10); EOSINOPHILS # (AUTO) 0.1 10^3/uL (0.0-0.3); EOSINOPHILS % (AUTO) 8 % (0-10); HEMATOCRIT 32 % (35-52); HEMOGLOBIN 10.5 G/DL (11.5-16.0); LYMPHOCYTES # (AUTO) 0.5 X 10^3 (1.0-4.0); LYMPHOCYTES % (AUTO) 38 % (12-44); MEAN CORPUSCULAR HEMOGLOBIN 30 PG (25-34); MEAN CORPUSCULAR HGB CONC 33 G/DL (32-36); MEAN CORPUSCULAR VOLUME 93 FL (80-99); MEAN PLATELET VOLUME 9.3 FL (7.4-10.4); MONOCYTES # (AUTO) 0.5 X 10^3 (0.0-1.0); MONOCYTES % (AUTO) 36 % (0-12); NEUTROPHILS # (AUTO) 0.2 X 10^3 (1.8-7.8); NEUTROPHILS % (AUTO) 16 % (42-75); PLATELET COUNT 260 10^3/uL (130-400); RED BLOOD COUNT 3.47 10^6/uL (4.35-5.85); RED CELL DISTRIBUTION WIDTH 16.2 % (10.0-14.5)
[2018-01-27 13:43] LABS: WHITE BLOOD COUNT 1.4 10^3/uL (4.3-11.0)
[2018-01-27 13:59] LABS: BUN/CREATININE RATIO 20; CALCIUM 8.5 MG/DL (8.5-10.1); CARBON DIOXIDE 21 MMOL/L (21-32); CHLORIDE 108 MMOL/L (98-107); CREATININE SERUM 0.88 MG/DL (0.60-1.30); GFR ESTIMATED > 60; GLUCOSE 110 MG/DL (70-105); POTASSIUM 4.3 MMOL/L (3.6-5.0); SODIUM 137 MMOL/L (135-145)
[2018-02-03 14:04] LABS: BASOPHILS % (AUTO) 1 % (0-10); EOSINOPHILS % (AUTO) 1 % (0-10); HEMATOCRIT 29 % (35-52); HEMOGLOBIN 9.6 G/DL (11.5-16.0); LYMPHOCYTES # (AUTO) 0.6 X 10^3 (1.0-4.0); LYMPHOCYTES % (AUTO) 15 % (12-44); MEAN CORPUSCULAR HEMOGLOBIN 30 PG (25-34); MEAN CORPUSCULAR HGB CONC 33 G/DL (32-36); MEAN CORPUSCULAR VOLUME 92 FL (80-99); MONOCYTES # (AUTO) 0.6 X 10^3 (0.0-1.0); MONOCYTES % (AUTO) 13 % (0-12); NEUTROPHILS # (AUTO) 3.1 X 10^3 (1.8-7.8); NEUTROPHILS % (AUTO) 71 % (42-75); PLATELET COUNT 208 10^3/uL (130-400); RED BLOOD COUNT 3.16 10^6/uL (4.35-5.85); RED CELL DISTRIBUTION WIDTH 15.3 % (10.0-14.5); WHITE BLOOD COUNT 4.4 10^3/uL (4.3-11.0)
[2018-02-03 14:21] LABS: CALCIUM 8.5 MG/DL (8.5-10.1); POTASSIUM 4.2 MMOL/L (3.6-5.0)
[2018-02-10 13:35] LABS: BASOPHILS % (AUTO) 0 % (0-10); EOSINOPHILS # (AUTO) 0.1 10^3/uL (0.0-0.3); EOSINOPHILS % (AUTO) 1 % (0-10); HEMATOCRIT 31 % (35-52); HEMOGLOBIN 10.1 G/DL (11.5-16.0); LYMPHOCYTES # (AUTO) 0.6 X 10^3 (1.0-4.0); LYMPHOCYTES % (AUTO) 17 % (12-44); MEAN CORPUSCULAR HEMOGLOBIN 30 PG (25-34); MEAN CORPUSCULAR HGB CONC 33 G/DL (32-36); MEAN CORPUSCULAR VOLUME 93 FL (80-99); MEAN PLATELET VOLUME 9.3 FL (7.4-10.4); MONOCYTES # (AUTO) 0.3 X 10^3 (0.0-1.0); MONOCYTES % (AUTO) 9 % (0-12); NEUTROPHILS # (AUTO) 2.8 X 10^3 (1.8-7.8); NEUTROPHILS % (AUTO) 73 % (42-75); PLATELET COUNT 205 10^3/uL (130-400); RED BLOOD COUNT 3.33 10^6/uL (4.35-5.85); RED CELL DISTRIBUTION WIDTH 15.8 % (10.0-14.5); WHITE BLOOD COUNT 3.8 10^3/uL (4.3-11.0)
[2018-02-10 13:57] LABS: BILIRUBIN,TOTAL 0.3 MG/DL (0.1-1.0); CALCIUM 8.4 MG/DL (8.5-10.1); CREATININE SERUM 1.16 MG/DL (0.60-1.30); POTASSIUM 4.2 MMOL/L (3.6-5.0); TOTAL PROTEIN 5.5 GM/DL (6.4-8.2)
[2018-02-17 14:07] LABS: BASOPHILS % (AUTO) 1 % (0-10); EOSINOPHILS # (AUTO) 0.1 10^3/uL (0.0-0.3); EOSINOPHILS % (AUTO) 3 % (0-10); HEMATOCRIT 29 % (35-52); HEMOGLOBIN 9.1 G/DL (11.5-16.0); LYMPHOCYTES # (AUTO) 0.6 X 10^3 (1.0-4.0); LYMPHOCYTES % (AUTO) 25 % (12-44); MEAN CORPUSCULAR HEMOGLOBIN 30 PG (25-34); MEAN CORPUSCULAR HGB CONC 32 G/DL (32-36); MEAN CORPUSCULAR VOLUME 94 FL (80-99); MEAN PLATELET VOLUME 9.7 FL (7.4-10.4); MONOCYTES # (AUTO) 0.2 X 10^3 (0.0-1.0); MONOCYTES % (AUTO) 10 % (0-12); NEUTROPHILS # (AUTO) 1.4 X 10^3 (1.8-7.8); NEUTROPHILS % (AUTO) 61 % (42-75); PLATELET COUNT 197 10^3/uL (130-400); RED BLOOD COUNT 3.04 10^6/uL (4.35-5.85); RED CELL DISTRIBUTION WIDTH 15.2 % (10.0-14.5); WHITE BLOOD COUNT 2.2 10^3/uL (4.3-11.0)
[2018-02-17 14:24] LABS: BUN/CREATININE RATIO 17; CALCIUM 8.1 MG/DL (8.5-10.1); CARBON DIOXIDE 25 MMOL/L (21-32); CHLORIDE 108 MMOL/L (98-107); CREATININE SERUM 0.82 MG/DL (0.60-1.30); GFR ESTIMATED > 60; GLUCOSE 136 MG/DL (70-105); POTASSIUM 3.8 MMOL/L (3.6-5.0); SODIUM 138 MMOL/L (135-145)
[2018-02-24 13:06] LABS: BASOPHILS % (AUTO) 1 % (0-10); EOSINOPHILS % (AUTO) 2 % (0-10); HEMATOCRIT 29 % (35-52); HEMOGLOBIN 9.5 G/DL (11.5-16.0); LYMPHOCYTES # (AUTO) 0.6 X 10^3 (1.0-4.0); LYMPHOCYTES % (AUTO) 32 % (12-44); MEAN CORPUSCULAR HEMOGLOBIN 31 PG (25-34); MEAN CORPUSCULAR HGB CONC 33 G/DL (32-36); MEAN CORPUSCULAR VOLUME 94 FL (80-99); MEAN PLATELET VOLUME 9.5 FL (7.4-10.4); MONOCYTES # (AUTO) 0.2 X 10^3 (0.0-1.0); MONOCYTES % (AUTO) 9 % (0-12); NEUTROPHILS % (AUTO) 57 % (42-75); PLATELET COUNT 231 10^3/uL (130-400); RED CELL DISTRIBUTION WIDTH 15.8 % (10.0-14.5); WHITE BLOOD COUNT 1.8 10^3/uL (4.3-11.0)
[2018-02-24 13:22] LABS: CREATININE SERUM 1.05 MG/DL (0.60-1.30); POTASSIUM 4.4 MMOL/L (3.6-5.0)
[2018-03-03 10:58] LABS: BASOPHILS # (AUTO) 0.1 10^3/uL (0.0-0.1); BASOPHILS % (AUTO) 2 % (0-10); EOSINOPHILS % (AUTO) 1 % (0-10); HEMATOCRIT 34 % (35-52); HEMOGLOBIN 10.7 G/DL (11.5-16.0); LYMPHOCYTES # (AUTO) 0.5 X 10^3 (1.0-4.0); LYMPHOCYTES % (AUTO) 21 % (12-44); MEAN CORPUSCULAR HEMOGLOBIN 30 PG (25-34); MEAN CORPUSCULAR HGB CONC 32 G/DL (32-36); MEAN CORPUSCULAR VOLUME 94 FL (80-99); MEAN PLATELET VOLUME 9.7 FL (7.4-10.4); MONOCYTES # (AUTO) 0.3 X 10^3 (0.0-1.0); MONOCYTES % (AUTO) 15 % (0-12); NEUTROPHILS # (AUTO) 1.3 X 10^3 (1.8-7.8); NEUTROPHILS % (AUTO) 60 % (42-75); PLATELET COUNT 291 10^3/uL (130-400); RED BLOOD COUNT 3.56 10^6/uL (4.35-5.85); RED CELL DISTRIBUTION WIDTH 16.1 % (10.0-14.5); WHITE BLOOD COUNT 2.2 10^3/uL (4.3-11.0)
[2018-03-03 11:16] LABS: CALCIUM 8.6 MG/DL (8.5-10.1); CREATININE SERUM 0.99 MG/DL (0.60-1.30); POTASSIUM 4.4 MMOL/L (3.6-5.0)
[2018-03-11 14:50] LABS: BASOPHILS % (AUTO) 1 % (0-10); EOSINOPHILS % (AUTO) 1 % (0-10); HEMATOCRIT 33 % (35-52); HEMOGLOBIN 10.9 G/DL (11.5-16.0); LYMPHOCYTES # (AUTO) 0.6 X 10^3 (1.0-4.0); LYMPHOCYTES % (AUTO) 15 % (12-44); MEAN CORPUSCULAR HEMOGLOBIN 31 PG (25-34); MEAN CORPUSCULAR HGB CONC 33 G/DL (32-36); MEAN CORPUSCULAR VOLUME 93 FL (80-99); MEAN PLATELET VOLUME 9.9 FL (7.4-10.4); MONOCYTES # (AUTO) 0.6 X 10^3 (0.0-1.0); MONOCYTES % (AUTO) 15 % (0-12); NEUTROPHILS # (AUTO) 2.5 X 10^3 (1.8-7.8); NEUTROPHILS % (AUTO) 68 % (42-75); PLATELET COUNT 259 10^3/uL (130-400); RED BLOOD COUNT 3.57 10^6/uL (4.35-5.85); RED CELL DISTRIBUTION WIDTH 15.8 % (10.0-14.5); WHITE BLOOD COUNT 3.7 10^3/uL (4.3-11.0)
[2018-03-11 15:11] LABS: ALANINE AMINOTRANSFERASE 17 U/L (0-55); ALKALINE PHOSPHATASE 78 U/L (40-136); BILIRUBIN,TOTAL 0.7 MG/DL (0.1-1.0); BUN/CREATININE RATIO 17; CALCIUM 8.1 MG/DL (8.5-10.1); CARBON DIOXIDE 23 MMOL/L (21-32); CHLORIDE 106 MMOL/L (98-107); CREATININE SERUM 0.82 MG/DL (0.60-1.30); GFR ESTIMATED > 60; GLUCOSE 161 MG/DL (70-105); POTASSIUM 3.6 MMOL/L (3.6-5.0); SODIUM 137 MMOL/L (135-145); TOTAL PROTEIN 5.3 GM/DL (6.4-8.2)
--- NOTE | 2018-03-11 17:01 | Diagnostic Imaging Report ---
FINDINGS: Left chest wall port has tip overlying the SVC right atrial junction. Bilateral pleural effusions are increased since prior chest x-ray. There are bibasilar infiltrates present. There may be some loculated fluid in the upper right chest as well. No pneumothorax is identified. IMPRESSION: Bilateral effusions and infiltrates, as described. Dictated by: Dictated on workstation # [id number]
[2018-03-19 14:41] LABS: BASOPHILS % (AUTO) 1 % (0-10); EOSINOPHILS % (AUTO) 1 % (0-10); HEMATOCRIT 36 % (35-52); HEMOGLOBIN 11.8 G/DL (11.5-16.0); LYMPHOCYTES # (AUTO) 0.7 X 10^3 (1.0-4.0); LYMPHOCYTES % (AUTO) 13 % (12-44); MEAN CORPUSCULAR HEMOGLOBIN 30 PG (25-34); MEAN CORPUSCULAR HGB CONC 33 G/DL (32-36); MEAN CORPUSCULAR VOLUME 91 FL (80-99); MEAN PLATELET VOLUME 9.6 FL (7.4-10.4); MONOCYTES # (AUTO) 0.6 X 10^3 (0.0-1.0); MONOCYTES % (AUTO) 11 % (0-12); NEUTROPHILS # (AUTO) 3.8 X 10^3 (1.8-7.8); NEUTROPHILS % (AUTO) 75 % (42-75); PLATELET COUNT 300 10^3/uL (130-400); RED BLOOD COUNT 3.91 10^6/uL (4.35-5.85); RED CELL DISTRIBUTION WIDTH 15.4 % (10.0-14.5); WHITE BLOOD COUNT 5.1 10^3/uL (4.3-11.0)
[2018-03-25 14:00] LABS: BASOPHILS % (AUTO) 1 % (0-10); EOSINOPHILS % (AUTO) 1 % (0-10); HEMATOCRIT 34 % (35-52); HEMOGLOBIN 11.1 G/DL (11.5-16.0); LYMPHOCYTES # (AUTO) 0.4 X 10^3 (1.0-4.0); LYMPHOCYTES % (AUTO) 10 % (12-44); MEAN CORPUSCULAR HEMOGLOBIN 30 PG (25-34); MEAN CORPUSCULAR HGB CONC 32 G/DL (32-36); MEAN CORPUSCULAR VOLUME 93 FL (80-99); MONOCYTES # (AUTO) 0.2 X 10^3 (0.0-1.0); MONOCYTES % (AUTO) 5 % (0-12); NEUTROPHILS # (AUTO) 2.9 X 10^3 (1.8-7.8); NEUTROPHILS % (AUTO) 83 % (42-75); PLATELET COUNT 254 10^3/uL (130-400); RED BLOOD COUNT 3.69 10^6/uL (4.35-5.85); RED CELL DISTRIBUTION WIDTH 15.5 % (10.0-14.5); WHITE BLOOD COUNT 3.5 10^3/uL (4.3-11.0)
[2018-03-25 14:17] LABS: BUN/CREATININE RATIO 19; CALCIUM 8.5 MG/DL (8.5-10.1); CARBON DIOXIDE 24 MMOL/L (21-32); CHLORIDE 104 MMOL/L (98-107); CREATININE SERUM 0.89 MG/DL (0.60-1.30); GFR ESTIMATED > 60; GLUCOSE 250 MG/DL (70-105); POTASSIUM 4.5 MMOL/L (3.6-5.0); SODIUM 138 MMOL/L (135-145)
[2018-04-01 13:52] LABS: BASOPHILS % (AUTO) 0 % (0-10); EOSINOPHILS % (AUTO) 0 % (0-10); HEMATOCRIT 35 % (35-52); HEMOGLOBIN 11.2 G/DL (11.5-16.0); LYMPHOCYTES # (AUTO) 0.4 X 10^3 (1.0-4.0); LYMPHOCYTES % (AUTO) 18 % (12-44); MEAN CORPUSCULAR HEMOGLOBIN 29 PG (25-34); MEAN CORPUSCULAR HGB CONC 32 G/DL (32-36); MEAN CORPUSCULAR VOLUME 92 FL (80-99); MONOCYTES # (AUTO) 0.3 X 10^3 (0.0-1.0); MONOCYTES % (AUTO) 13 % (0-12); NEUTROPHILS # (AUTO) 1.6 X 10^3 (1.8-7.8); NEUTROPHILS % (AUTO) 69 % (42-75); PLATELET COUNT 402 10^3/uL (130-400); RED BLOOD COUNT 3.81 10^6/uL (4.35-5.85); RED CELL DISTRIBUTION WIDTH 16.3 % (10.0-14.5); WHITE BLOOD COUNT 2.3 10^3/uL (4.3-11.0)
[2018-04-01 14:09] LABS: CALCIUM 8.4 MG/DL (8.5-10.1); CREATININE SERUM 0.91 MG/DL (0.60-1.30); POTASSIUM 4.7 MMOL/L (3.6-5.0)
[~2018-04-14] VITALS: Ht 165.1 cm; Wt 68.5 kg
[~2018-04-14 13:22] MED LIST changes: -ALTEPLASE 2 MG (CATHFLO) IV ONE; -ALTEPLASE 2 MG (CATHFLO) ONE; +BENA10TA7 PO; +CTR IV SCH; +DENOSUMAB 120 MG/1.7 ML (XGEVA) SQ SCH; +FAMOTIDINE 20MG/2ML IV (CANCER CTR) IV SCH; -GEMF600T3 PO; +GEMF600T4 PO; +NS IV 1000 ML (CANCER CTR) IV SCH; +NS IV 500 ML (CANCER CENTER) 500 ML ONE; +ONDANSETRON MDV (CANCER CENTER 16 MG, DEXAMETHASONE PF INJ (CANCER C 10 MG in NS (IVPB)... IV SCH; +PACLITAXEL PROTEIN IV SCH; -PIOG45TA18 PO; +PIOG45TA65 PO; -WATER (STERILE) FOR INJECTION 20 ML ONE; -WATER (STERILE) FOR INJECTION 20 ML VIAL IV ONE
[2018-04-14 13:44] LABS: BASOPHILS % (AUTO) 2 % (0-10); EOSINOPHILS % (AUTO) 0 % (0-10); HEMATOCRIT 33 % (35-52); HEMOGLOBIN 10.7 G/DL (11.5-16.0); LYMPHOCYTES # (AUTO) 0.6 X 10^3 (1.0-4.0); LYMPHOCYTES % (AUTO) 25 % (12-44); MEAN CORPUSCULAR HEMOGLOBIN 30 PG (25-34); MEAN CORPUSCULAR HGB CONC 32 G/DL (32-36); MEAN CORPUSCULAR VOLUME 92 FL (80-99); MEAN PLATELET VOLUME 9.7 FL (7.4-10.4); MONOCYTES # (AUTO) 0.5 X 10^3 (0.0-1.0); MONOCYTES % (AUTO) 24 % (0-12); NEUTROPHILS # (AUTO) 1.1 X 10^3 (1.8-7.8); NEUTROPHILS % (AUTO) 49 % (42-75); PLATELET COUNT 323 10^3/uL (130-400); RED BLOOD COUNT 3.59 10^6/uL (4.35-5.85); RED CELL DISTRIBUTION WIDTH 16.6 % (10.0-14.5); WHITE BLOOD COUNT 2.2 10^3/uL (4.3-11.0)
[2018-04-14 14:04] LABS: ALBUMIN 2.6 GM/DL (3.2-4.5); BILIRUBIN,TOTAL 0.5 MG/DL (0.1-1.0); CALCIUM 8.4 MG/DL (8.5-10.1); CREATININE SERUM 1.24 MG/DL (0.60-1.30); POTASSIUM 4.8 MMOL/L (3.6-5.0); TOTAL PROTEIN 4.7 GM/DL (6.4-8.2)
[2018-04-19] MEDS ORDERED: LORA0.5T PO (11:27)
[2018-04-19] MEDS ORDERED: ONDA8TAB13 SL (11:27)
== END 2018-04-20 | disposition home or self-care (01) ==
LOC: ONC 13:22
PROVIDERS: ATTEND Internal Medicine Hematology & Oncology
DX: Z51.11 Encounter for antineoplastic chemotherapy (principal); C50.511 Malignant neoplasm of lower-outer quadrant of right female breast; C79.51 Secondary malignant neoplasm of bone; C77.9 Secondary and unspecified malignant neoplasm of lymph node, unspecified; J90 Pleural effusion, not elsewhere classified; I48.91 Unspecified atrial fibrillation; E89.0 Postprocedural hypothyroidism; E11.43 Type 2 diabetes mellitus with diabetic autonomic (poly)neuropathy; I10 Essential (primary) hypertension; E78.5 Hyperlipidemia, unspecified; E55.9 Vitamin D deficiency, unspecified; Z87.09 Personal history of other diseases of the respiratory system; Z79.4 Long term (current) use of insulin; Z79.899 Other long term (current) drug therapy; Z87.891 Personal history of nicotine dependence; Z17.0 Estrogen receptor positive status [ER+]
CPT/HCPCS: 36415; 36591; 71046; 80048; 80053; 82306; 83735; 85025; 86300; 96372; 96375; 96413

== ENCOUNTER 2018-04-18 20:53 | Inpatient (IN) | payer MEDICARE, OTHER ==
[~2018-04-18] VITALS: Ht 165.1 cm; Wt 71.0 kg
[~2018-04-18 20:53] MED LIST changes: -CTR IV SCH; -DENOSUMAB 120 MG/1.7 ML (XGEVA) SQ SCH; -FAMOTIDINE 20MG/2ML IV (CANCER CTR) IV SCH; -NS IV 1000 ML (CANCER CTR) IV SCH; -NS IV 500 ML (CANCER CENTER) 500 ML ONE; -ONDANSETRON MDV (CANCER CENTER 16 MG, DEXAMETHASONE PF INJ (CANCER C 10 MG in NS (IVPB)... IV SCH; -PACLITAXEL PROTEIN IV SCH
--- OUTSIDE RECORDS SUMMARY | 2018-04-18 20:59 | XMS REPORT ---
Author Author Shana MARCELINA Organization [facility] Address [address] [place] [address] Care Team Providers Care Calender Roll Operator Name Role Phone bonifacioJAGDEEP MARCELINA Unavailable PROBLEMS Type Condition ICD9-CM Code EBW14-RT Code Onset Dates Condition Status SNOMED Code Problem Diabetes mellitus E11.9 Active 20885310 Problem Neuropathy G62.9 Active 201428399 Problem Dysuria R30.0 Active 11905258 Problem Malignant neoplasm of unspecified site of right female breast C50.911 Active 315273275 Problem Diabetic polyneuropathy associated with type 2 diabetes mellitus E11.42 Active 46703377 Problem Postnasal drip R09.82 Active 04230013 Problem Gastroesophageal reflux disease with esophagitis K21.0 Active 709361772 Problem Charcot foot due to diabetes mellitus E11.610 Active 417547344 Problem Malignant neoplasm of unspecified site of unspecified female breast C50.919 Active 629064108 Problem Dyslipidemia E78.5 Active 109057770 Problem Essential hypertension I10 Active 37116992 Problem Gastroesophageal reflux disease without esophagitis K21.9 Active 761305101 Problem Other specified diabetes mellitus with unspecified complications E13.8 Active 37256526 Problem History of breast cancer Z85.3 Active 135483445 Problem Hypothyroidism E03.9 Active 79008154 ALLERGIES No Information ENCOUNTERS Encounter Location Date Diagnosis [facility] [address] [facility] [id number] [address] February, [facility] [id number], [place] [address] Jan, [facility] [id number] [address] Dec, Malignant neoplasm of unspecified site of right female breast C50.911 [facility] [id number] [place] [address] Dec, Essential hypertension I10 and Hypothyroidism E03.9 [facility] [address] [address] Nov, Diabetes mellitus E11.9 ; Diabetic polyneuropathy associated with type 2 diabetes mellitus E11.42 ; Charcot foot due to diabetes mellitus E11.610 ; Callus of foot L84 and Generalized edema R60.1 [place] [id number] [place] [address] Sep, History of breast cancer Z85.3 ; Malignant neoplasm of unspecified site of unspecified female breast C50.919 and Diabetes mellitus E11.9 [place] [id number] [place] [address] Sep, [address] [address] Aug, Hypothyroidism E03.9 [facility] [address] [id number] Aug, Dental examination Z01.[address] [address] Jul, [facility] [id number] [place] [address] Jun, [place] [id number] [place] [address] May, [place] [id number] [place] [address] Apr, Malignant neoplasm of unspecified site of unspecified female breast C50.919 ; Diabetes mellitus E11.9 ; Dyslipidemia E78.5 ; Gastroesophageal reflux disease without esophagitis K21.9 ; Essential hypertension I10 and Hypothyroidism E03.9 [place] [id number] [place] [address] Apr, Hypercholesteremia E78.00 [place] [id number] [place] [address] Apr, Gastroesophageal reflux disease without esophagitis K21.9 ; Diabetes mellitus E11.9 ; Hypothyroidism E03.9 ; Essential hypertension I10 and Hypercholesteremia E78.00 [place] [id number] [place] [address] Apr, [place] [address] [address] Mar, [place] [id number] [place] [address] February, Diabetes mellitus E11.9 ; Other specified diabetes mellitus with unspecified complications E13.8 ; Hypothyroidism E03.9 ; Essential hypertension I10 ; Neuropathy G62.9 ; Postnasal drip R09.82 ; Gastroesophageal reflux disease with esophagitis K21.0 and Hypercholesteremia E78.00 [place] [id number] [place] [address] Jan, Acute non-recurrent frontal sinusitis J01.10 [place] [id number] [place] [address] Dec, [place] [id number] [place] [address] Dec, Other specified diabetes mellitus with unspecified complications E13.8 ; Gastroesophageal reflux disease without esophagitis K21.9 ; Essential hypertension I10 ; Dyslipidemia E78.5 ; Neuropathy G62.9 ; Diabetes mellitus E11.9 and Hypothyroid E03.9 [place] [id number] [place] [address] Dec, Diabetes mellitus E11.9 ; Other specified diabetes mellitus with unspecified complications E13.8 ; Gastroesophageal reflux disease without esophagitis K21.9 ; Dyslipidemia E78.5 ; Essential hypertension I10 ; Neuropathy G62.9 ; Hypothyroidism E03.9 and History of breast cancer Z85.3 [place] [id number] [place] [address] Nov, [facility] [address], [place] [address] Sep, Dysuria R30.0 and Acute cystitis without hematuria N30.00 [facility] [address] [address] Jul, [place] [id number] [place] [address] Jul, Other specified diabetes mellitus with unspecified complications E13.8 ; Hypothyroidism E03.9 ; Gastroesophageal reflux disease without esophagitis K21.9 ; Essential hypertension I10 ; Dyslipidemia E78.5 ; Diabetes mellitus E11.9 ; Dysuria R30.0 ; Neuropathy G62.9 and History of breast cancer Z85.3 [facility] [id number] [place] [address] Jun, Dysuria R30.0 and Edema, unspecified type R60.9 [place] [id number] [place] [address] Jun, Other specified diabetes mellitus with unspecified complications E13.8 ; Gastroesophageal reflux disease without esophagitis K21.9 ; Dyslipidemia E78.5 ; Diabetes mellitus E11.9 ; History of breast cancer Z85.3 ; Dysuria R30.0 ; Hypothyroid E03.9 and Coronary artery disease involving [place] coronary artery, angina presence unspecified, unspecified whether lone [place] or transplanted heart I25.10 [place] [address], [place] [address] Jun, [place] [id number] [place] [address] February, [place] [id number] [place] [address] February, Other specified diabetes mellitus with unspecified complications E13.8 ; Hypothyroidism E03.9 ; Gastroesophageal reflux disease without esophagitis K21.9 ; Essential hypertension I10 ; Dyslipidemia E78.5 ; Polyneuropathy in diseases classified elsewhere G63 ; Endocrine disorder, unspecified E34.9 and History of breast cancer Z85.3 [place] [id number] [place] [address] February, [place] [id number] [place], [place] [address] February, [place] [id number] [place] [address] February, [place] [id number] [place] [address] Jan, Hypothyroid E03.9 and Dyslipidemia E78.5 [place] [id number] [place] [address] Dec, Other specified diabetes mellitus with unspecified complications E13.8 ; Hypothyroidism E03.9 ; Gastroesophageal reflux disease without esophagitis K21.9 ; Essential hypertension I10 ; Diabetes mellitus E11.9 ; Hypercholesterolemia E78.0 and Breast cancer C50.919 [place] [id number] [place] [address] Dec, [place] [id number] [place] [address] Aug, [place] [id number] [place] [address] Aug, Other specified diabetes mellitus with unspecified complications E13.8 ; Hypothyroidism E03.9 ; Essential hypertension I10 ; Dyslipidemia E78.5 ; Gastroesophageal reflux disease without esophagitis K21.9 and History of breast cancer Z85.3 IMMUNIZATIONS No Known Immunizations SOCIAL HISTORY Never Assessed REASON FOR VISIT PLAN OF CARE VITAL SIGNS MEDICATIONS Unknown Medications RESULTS No Results PROCEDURES No Known procedures INSTRUCTIONS MEDICATIONS ADMINISTERED No Known Medications MEDICAL (GENERAL) HISTORY Type Description Date Medical History diabetes Medical History breast cancer mets Medical History HTN Medical History pneumonia Medical History lyphedema Surgical History lumpectomy surgery on breast (cancer) august 2014 Surgical History tonsillectomy Surgical History D&C x 3 Surgical History bilateral cataracts removed 2009 Surgical History left lung plurex drain placed 07/2017 Surgical History right lung plurex drain placed 09/2017 Hospitalization History surgery Hospitalization History pneumonia
--- OUTSIDE RECORDS SUMMARY | 2018-04-18 20:59 | XMS REPORT | Clinical Summary ---
Author Author [facility] Organization [facility] Address Unknown Phone Unavailable Care Team Providers Care Circuit Walker Name Role Phone Liam Goff MD PCP Source Comments Some departments are not documenting in the electronic medical record. If you do not see the information that you expected, contact Release of Information in the Health Information Management department at [phone] for further assistance in locating additional records.[facility] Allergies Active Allergy Reactions Severity Noted Date [...] daily. Active Problems No known active problems Family History Medical History Relation Name Comments [...] EXAM PERTUSSIS VACCINE 1952 TETANUS VACCINE 1958 SHINGLES RECOMBINANT 1991 VACCINE (1 of 2) OSTEOPOROSIS SCREENING 2006 PNEUMONIA (PCV13/PPSV23) 2006 VACCINES (1 of 2 - PCV13) INFLUENZA VACCINE 07/14/2018 Results Not on filefrom Last 3 Months
--- OUTSIDE RECORDS SUMMARY | 2018-04-18 20:59 | XMS REPORT | Clinical Summary ---
Author Author [facility] Address Unknown Phone Unavailable Care Team Providers Care Survey Crew Chief Name Role Phone PP Unavailable Allergies Active Allergy Reactions Severity Noted Date Comments Penicillins Rash Low 01/30/2015 Current Medications Prescription Sig. Disp. Refills Start [...] Problem Noted Date Diabetes type 2, controlled (HCC) 01/30/2015 HTN (hypertension) 01/30/2015 Breast cancer ([facility]) 01/30/2015 Social History Tobacco Use Types Packs/Day Years Used Date Never Assessed Sex Assigned at Date Recorded Not on file Last Filed Vital Signs Vital Sign Reading Time Taken Blood Pressure 110/70 01/30/2015 2:45 PM CDT Pulse 77 01/30/2015 2:45 PM CDT Temperature 36.7 C (98 F) 01/30/2015 2:45 PM CDT Respiratory Rate - - Oxygen Saturation 92% 01/30/2015 2:45 PM CDT Inhaled Oxygen - - Concentration Weight 74.8 kg (165 lb) 01/30/2015 2:45 PM CDT Height 166.4 cm (5' 5.5") 01/30/2015 2:45 PM CDT Body Mass Index 27.04 01/30/2015 2:45 PM CDT Plan of Treatment Health Maintenance Due Date Last Done Comments DTaP,Tdap,and Td Vaccines 1960 (1 - Tdap) Zoster Recombinant 1991 Vaccine (RZV,Shingrix) (1 of 2 - [facility] 2 Dose Standard) Pneumo-Adult (1 of 2 - 2006 PCV13) Influenza Vaccine (#1) 2018 Results Not on filefrom Last 3 Months
--- OUTSIDE RECORDS SUMMARY | 2018-04-18 21:00 | XMS REPORT ---
Author Author MARCELINA Saldana Organization [facility] Address [address] [place] [address] Care Team Providers Care Party Plan Sales Unit Sales Leader Name Role Phone Shana MARCELINA Unavailable PROBLEMS Type Condition ICD9-CM Code [id number] Code Onset Dates Condition Status SNOMED Code Problem Diabetes mellitus E11.9 Active 61734402 Problem Neuropathy G62.9 Active 498268441 Problem Dysuria R30.0 Active 76957162 Problem Malignant neoplasm of unspecified site of right female breast C50.911 Active 127569010 Problem Diabetic polyneuropathy associated with type 2 diabetes mellitus E11.42 Active 04549669 Problem Postnasal drip R09.82 Active 98873939 Problem Gastroesophageal reflux disease with esophagitis K21.0 Active 298547213 Problem Charcot foot due to diabetes mellitus E11.610 Active 753165308 Problem Malignant neoplasm of unspecified site of unspecified female breast C50.919 Active 895547842 Problem Dyslipidemia E78.5 Active 198506295 Problem Essential hypertension I10 Active 13291044 Problem Gastroesophageal reflux disease without esophagitis K21.9 Active 139056579 Problem Other specified diabetes mellitus with unspecified complications E13.8 Active 09930856 Problem History of breast cancer Z85.3 Active 393149588 Problem Hypothyroidism E03.9 Active 51716498 ALLERGIES Substance Reaction Event Type Date Status Penicillin V Potassium Unknown Drug Allergy Apr, Active ENCOUNTERS Encounter Location Date Diagnosis [facility] [address] [facility] [id number] [address] February, [facility] [address] [id number] [address] Jan, [facility] [address] [facility] [id number] [address] Dec, Malignant neoplasm of unspecified site of right female breast C50.911 [place] [address] [place] [address] 99245- 7881 Dec, Essential hypertension I10 and Hypothyroidism E03.9 [place] [address] [id number] [place] [address] 65207- 3193 Nov, Diabetes mellitus E11.9 ; Diabetic polyneuropathy associated with type 2 diabetes mellitus E11.42 ; Charcot foot due to diabetes mellitus E11.610 ; Callus of foot L84 and Generalized edema R60.1 [place] [address] [id number] [place] [address] 56390- 7956 Sep, History of breast cancer Z85.3 ; Malignant neoplasm of unspecified site of unspecified female breast C50.919 and Diabetes mellitus E11.9 [place] [id number] [place] [address] 78248- 5771 Sep, [place] [id number] [place] [address] 18446- 6374 Aug, Hypothyroidism E03.9 [facility] [id number] [place] [id number] Aug, Dental examination Z01.20 [place] [id number] [place] [address] 57117- 9002 Jul, [facility] [id number] [place] [address] 14930 -4980 Jun, [place] [id number] [place] [address] 53260- 6411 May, [place] [id number] [place] [address] 33072- 7448 Apr, Malignant neoplasm of unspecified site of unspecified female breast C50.919 ; Diabetes mellitus E11.9 ; Dyslipidemia E78.5 ; Gastroesophageal reflux disease without esophagitis K21.9 ; Essential hypertension I10 and Hypothyroidism E03.9 [place] [id number] [place] [address] 73007- 6612 Apr, Hypercholesteremia E78.00 [place] [id number] [place] [address] 21994- 6623 Apr, Gastroesophageal reflux disease without esophagitis K21.9 ; Diabetes mellitus E11.9 ; Hypothyroidism E03.9 ; Essential hypertension I10 and Hypercholesteremia E78.00 [place] [id number] [place] [address] 24612- 0438 Apr, [place] [id number] [place] [address] 19016- 8099 Mar, [place] [id number] [place] [address] 91296- 8410 February, Diabetes mellitus E11.9 ; Other specified diabetes mellitus with unspecified complications E13.8 ; Hypothyroidism E03.9 ; Essential hypertension I10 ; Neuropathy G62.9 ; Postnasal drip R09.82 ; Gastroesophageal reflux disease with esophagitis K21.0 and Hypercholesteremia E78.00 [place] [id number] [place] [address] 12758- 0961 Jan, Acute non-recurrent frontal sinusitis J01.10 [place] [id number] [place] [address] 64051- 8931 Dec, [place] [id number] [place] [address] 45926- 4846 Dec, Other specified diabetes mellitus with unspecified complications E13.8 ; Gastroesophageal reflux disease without esophagitis K21.9 ; Essential hypertension I10 ; Dyslipidemia E78.5 ; Neuropathy G62.9 ; Diabetes mellitus E11.9 and Hypothyroid E03.9 [place] [id number] [place] [address] 67674- 5429 Dec, Diabetes mellitus E11.9 ; Other specified diabetes mellitus with unspecified complications E13.8 ; Gastroesophageal reflux disease without esophagitis K21.9 ; Dyslipidemia E78.5 ; Essential hypertension I10 ; Neuropathy G62.9 ; Hypothyroidism E03.9 and History of breast cancer Z85.3 [place] [address] [place] [address] 7698 17 Nov, 2016 [facility] [address] [place] [address] 41647 -7578 Sep, Dysuria R30.0 and Acute cystitis without hematuria N30.00 [place] [address] [place] [address] 28613- 7147 Jul, [place] [id number] [place] [address] 11387- 5116 Jul, Other specified diabetes mellitus with unspecified complications E13.8 ; Hypothyroidism E03.9 ; Gastroesophageal reflux disease without esophagitis K21.9 ; Essential hypertension I10 ; Dyslipidemia E78.5 ; Diabetes mellitus E11.9 ; Dysuria R30.0 ; Neuropathy G62.9 and History of breast cancer Z85.3 [place] [id number] [place] [address] 73267- 3963 Jun, Dysuria R30.0 and Edema, unspecified type R60.9 [place] [address] [place] [address] 20434- 8019 Jun, Other specified diabetes mellitus with unspecified complications E13.8 ; Gastroesophageal reflux disease without esophagitis K21.9 ; Dyslipidemia E78.5 ; Diabetes mellitus E11.9 ; History of breast cancer Z85.3 ; Dysuria R30.0 ; Hypothyroid E03.9 and Coronary artery disease involving [place] coronary artery, angina presence unspecified, unspecified whether [place] or transplanted heart I25.10 [place] [address] [address] 0905 Jun, [place] [address] [place] [address] 24352- 7437 February, [place] [id number] [place] [address] 23061- 4641 February, Other specified diabetes mellitus with unspecified complications E13.8 ; Hypothyroidism E03.9 ; Gastroesophageal reflux disease without esophagitis K21.9 ; Essential hypertension I10 ; Dyslipidemia E78.5 ; Polyneuropathy in diseases classified elsewhere G63 ; Endocrine disorder, unspecified E34.9 and History of breast cancer Z85.3 [place] [id number] [place] [address] 72759- 5215 February, [place] [id number] [place] [address] 28817- 4717 February, [place] [id number] [place] [address] 65488- 5885 February, [place] [id number] [place] [address] 01647- 9130 Jan, Hypothyroid E03.9 and Dyslipidemia E78.5 [place] [id number] [place] [address] 05723- 2421 Dec, Other specified diabetes mellitus with unspecified complications E13.8 ; Hypothyroidism E03.9 ; Gastroesophageal reflux disease without esophagitis K21.9 ; Essential hypertension I10 ; Diabetes mellitus E11.9 ; Hypercholesterolemia E78.0 and Breast cancer C50.919 [place] [id number] [place] [address] 31388- 4293 Dec, [place] [id number] [place] [address] 86943- 0542 Aug, [place] [id number] [place] [address] 01780- 1071 Aug, Other specified diabetes mellitus with unspecified complications E13.8 ; Hypothyroidism E03.9 ; Essential hypertension I10 ; Dyslipidemia E78.5 ; Gastroesophageal reflux disease without esophagitis K21.9 and History of breast cancer Z85.3 IMMUNIZATIONS No Known Immunizations SOCIAL HISTORY Never Assessed REASON FOR VISIT [facility] F/u, was dx with metastized breast cancer 04/30/17 to lung, scheduled for PET scan next saturday. CBrumbackRN PLAN OF CARE Activity Details Follow Up 3 Months Reason:dm, htn VITAL SIGNS Height 66 in 2017-05-01 Weight 173.5 lbs 2017-05-01 Temperature 97.5 degrees Fahrenheit 2017-05-01 Heart Rate 84 bpm 2017-05-01 Respiratory Rate 20 2017-05-01 BMI 28.00 kg/m2 2017-05-01 Blood pressure systolic 138 mmHg 2017-05-01 Blood pressure diastolic 70 mmHg 2017-05-01 MEDICATIONS Medication Instructions Dosage Frequency Start Date End Date Duration Status Metoprolol Tartrate 25 MG Orally Twice a day 1 tablet 12h Active Lopid 600 MG Orally Twice a day TAKE ONE TABLET BY MOUTH TWICE DAILY 12h Active Levothyroxine Sodium 100 MCG Orally Once a day 1 tablet 24h Jan, Active Benazepril HCl 10 MG TAKE ONE TABLET BY MOUTH ONCE DAILY 30 Active Prilosec 20 mg Orally Once a day 1 capsule 24h Active Actos 45 MG Orally Once a day 1 tablet 24h Jun, Active Amlodipine Besylate 5 MG TAKE ONE TABLET BY MOUTH ONCE DAILY 30 Active Metformin HCl 1000 MG TAKE ONE TABLET BY MOUTH TWICE DAILY WITH MEALS 30 Active Levemir FlexTouch 100 UNIT/ML Subcutaneous at bedtime as needed INJECT 60 UNITS SUBCUTANEOUSLY ONCE DAILY Active Indapamide 2.5 MG TAKE ONE TABLET BY MOUTH IN THE MORNING 30 Active Lovastatin 20 MG TAKE ONE TABLET BY MOUTH ONCE DAILY WITH A MEAL 30 Active RESULTS Name Result Date Reference Range A1C (IN HOUSE) 2017-05-01 A1C IN HOUSE 6.0 4.3 - 5.6 % Previous A1c 12.0 Lot [id number] Exp date 01/2019 MICROALBUMIN, URINE (IN HOUSE) MICROALBUMIN Normal Lot # [id number] Exp date 02/2018 Clarity clear Color yellow ALB 10 CRE 100 A:C (IN HOUSE) <30 Control Control Lot # Exp UA LONG DIP (IN HOUSE) Lot # [id number] Exp date 01/2018 Clarity clear Color yellow Odor none GLU Negative HAMLET Negative KET Negative SG 1.010 BLO Negative pH 5.0 Protein Negative URO 0.2 NIT Negative MARKEL Negative Lot # Exp date PROCEDURES Procedure Date Ordered Result Body Site GLYCATED HEMOGLOBIN TEST May 01, 2017 URINALYSIS, AUTO, W/O SCOPE May 01, 2017 [facility] VISIT ESTABLISHED PATIENT May 01, 2017 MICROALBUMIN, SEMIQUANT May 01, 2017 INSTRUCTIONS MEDICATIONS ADMINISTERED No Known Medications MEDICAL [...]
--- OUTSIDE RECORDS SUMMARY | 2018-04-18 21:00 | XMS REPORT ---
Author Author TONI PRADO Organization [facility] Address [address] [place] [address] Care Team Providers Care Bicycle Assembler Name Role Phone TONI PRADO Unavailable PROBLEMS Type Condition ICD9-CM Code PQS41-GQ Code Onset Dates Condition Status SNOMED Code Problem Diabetes mellitus E11.9 Active 36757365 Problem Neuropathy G62.9 Active 079786275 Problem Dysuria R30.0 Active 81583709 Problem Malignant neoplasm of unspecified site of right female breast C50.911 Active 287781744 Problem Diabetic polyneuropathy associated with type 2 diabetes mellitus E11.42 Active 54175800 Problem Postnasal drip R09.82 Active 60698503 Problem Gastroesophageal reflux disease with esophagitis K21.0 Active 435095258 Problem Charcot foot due to diabetes mellitus E11.610 Active 422647093 Problem Malignant neoplasm of unspecified site of unspecified female breast C50.919 Active 200916850 Problem Dyslipidemia E78.5 Active 643852354 Problem Essential hypertension I10 Active 94739724 Problem Gastroesophageal reflux disease without esophagitis K21.9 Active 477829111 Problem Other specified diabetes mellitus with unspecified complications E13.8 Active 04755275 Problem History of breast cancer Z85.3 Active 713668934 Problem Hypothyroidism E03.9 Active 64207609 ALLERGIES Substance Reaction Event Type Date Status Penicillin V Potassium Unknown Drug Allergy Nov, Active ENCOUNTERS Encounter Location Date Diagnosis [facility] [address] [facility] [address] [id number] [address] Jan, [facility] [address] [id number] [address] 9862 Dec, Malignant neoplasm of unspecified site of right female breast C50.911 [facility] [address] [id number], [place] [address] 8677 Dec, Essential hypertension I10 and Hypothyroidism E03.9 [place] [address] [place] [id number] [place] [address] 47191- 5812 08 Nov, 2017 Diabetes mellitus E11.9 ; Diabetic polyneuropathy associated with type 2 diabetes mellitus E11.42 ; Charcot foot due to diabetes mellitus E11.610 ; Callus of foot L84 and Generalized edema R60.1 [place] [address] 32900- 2354 Sep, History of breast cancer Z85.3 ; Malignant neoplasm of unspecified site of unspecified female breast C50.919 and Diabetes mellitus E11.9 [place] [address] 12841- 4730 Sep, [place] [address] 72779- 7389 Aug, Hypothyroidism E03.9 [facility] [address] [id number] Aug, Dental examination Z01.20 [place] [address] 12897- 4240 Jul, [facility] [address] 81308 -9781 Jun, [place] [address] 76038- 3622 May, [place] [address] 55085- 3854 Apr, Malignant neoplasm of unspecified site of unspecified female breast C50.919 ; Diabetes mellitus E11.9 ; Dyslipidemia E78.5 ; Gastroesophageal reflux disease without esophagitis K21.9 ; Essential hypertension I10 and Hypothyroidism E03.9 [place] [address] 33733- 6155 Apr, Hypercholesteremia E78.00 [place] [address] 45672- 8020 Apr, Gastroesophageal reflux disease without esophagitis K21.9 ; Diabetes mellitus E11.9 ; Hypothyroidism E03.9 ; Essential hypertension I10 and Hypercholesteremia E78.00 [place] [address] [address] [id number] [place] [address] 33947- 3768 Apr, [place] [address] [address] [id number] [place] [address] 78131- 2795 Mar, [place] [address] 98865- 3968 February, Diabetes mellitus E11.9 ; Other specified diabetes mellitus with unspecified complications E13.8 ; Hypothyroidism E03.9 ; Essential hypertension I10 ; Neuropathy G62.9 ; Postnasal drip R09.82 ; Gastroesophageal reflux disease with esophagitis K21.0 and Hypercholesteremia E78.00 [place] [address] 60692- 6584 Jan, Acute non-recurrent frontal sinusitis J01.10 [place] [id number] [place] [address] 63317- 3832 Dec, [place] [address] [id number] [place] [address] 20399- 5364 Dec, Other specified diabetes mellitus with unspecified complications E13.8 ; Gastroesophageal reflux disease without esophagitis K21.9 ; Essential hypertension I10 ; Dyslipidemia E78.5 ; Neuropathy G62.9 ; Diabetes mellitus E11.9 and Hypothyroid E03.9 [place] [id number] [place] [address] 50120- 2253 Dec, Diabetes mellitus E11.9 ; Other specified diabetes mellitus with unspecified complications E13.8 ; Gastroesophageal reflux disease without esophagitis K21.9 ; Dyslipidemia E78.5 ; Essential hypertension I10 ; Neuropathy G62.9 ; Hypothyroidism E03.9 and History of breast cancer Z85.3 [place] [address] [place] [address] 04524- 1094 Nov, [facility] [id number] [place] [address] 56593 -0758 Sep, Dysuria R30.0 and Acute cystitis without hematuria N30.00 [place] [id number] [place] [address] 50104- 7360 Jul, [place] [id number] [place] [address]- 4119 Jul, Other specified diabetes mellitus with unspecified complications E13.8 ; Hypothyroidism E03.9 ; Gastroesophageal reflux disease without esophagitis K21.9 ; Essential hypertension I10 ; Dyslipidemia E78.5 ; Diabetes mellitus E11.9 ; Dysuria R30.0 ; Neuropathy G62.9 and History of breast cancer Z85.3 [place] [id number] [place] [address] 49313- 9719 Jun, Dysuria R30.0 and Edema, unspecified type R60.9 [place] [id number] [place] [address] 39086- 8491 Jun, Other specified diabetes mellitus with unspecified complications E13.8 ; Gastroesophageal reflux disease without esophagitis K21.9 ; Dyslipidemia E78.5 ; Diabetes mellitus E11.9 ; History of breast cancer Z85.3 ; Dysuria R30.0 ; Hypothyroid E03.9 and Coronary artery disease involving [place] coronary artery, angina presence unspecified, unspecified whether [place] or transplanted heart I25.10 [place] [id number] [place] [address] 65192- 2605 Jun, [place] [address] [id number] [place] [address] 75788- 4082 February, [place] [address] [address] [id number] [place] [address] 59593- 3417 February, Other specified diabetes mellitus with unspecified complications E13.8 ; Hypothyroidism E03.9 ; Gastroesophageal reflux disease without esophagitis K21.9 ; Essential hypertension I10 ; Dyslipidemia E78.5 ; Polyneuropathy in diseases classified elsewhere G63 ; Endocrine disorder, unspecified E34.9 and History of breast cancer Z85.3 [place] [id number] [place] [address] February, [place] [address] [address]- 4895 February, [place] [address] [place] [address] 174198- 7289 February, [place] [address] [place] [address] 54517- 4288 Jan, Hypothyroid E03.9 and Dyslipidemia E78.5 [place] [address] [place] [address] 12649- 3829 Dec, Other specified diabetes mellitus with unspecified complications E13.8 ; Hypothyroidism E03.9 ; Gastroesophageal reflux disease without esophagitis K21.9 ; Essential hypertension I10 ; Diabetes mellitus E11.9 ; Hypercholesterolemia E78.0 and Breast cancer C50.919 [place] [address] [place] [address] 61927- 6504 Dec, [place] [address] [place] [address] 45821- 5442 Aug, [place] [address] [id number] [place] [address] 82307- 3056 Aug, Other specified diabetes mellitus with unspecified complications E13.8 ; Hypothyroidism E03.9 ; Essential hypertension I10 ; Dyslipidemia E78.5 ; Gastroesophageal reflux disease without esophagitis K21.9 and History of breast cancer Z85.3 IMMUNIZATIONS No Known Immunizations SOCIAL HISTORY Never Assessed REASON FOR VISIT Diabetes, PT needs her feet looked at for Medicare. PT has increased swelling right arm and currently doing [employer] [facility] PLAN OF CARE VITAL SIGNS Height 66 in 2017-11-21 Weight 166.2 lbs 2017-11-21 Temperature 97.9 degrees Fahrenheit 2017-11-21 Heart Rate 62 bpm 2017-11-21 Respiratory Rate 18 2017-11-21 BMI 26.82 kg/m2 2017-11-21 Blood pressure systolic 98 mmHg 2017-11-21 Blood pressure diastolic 58 mmHg 2017-11-21 MEDICATIONS Medication Instructions Dosage Frequency Start Date End Date Duration Status Bactrim DS 800-160 MG Orally Twice a day 1 tablet 12h 27 Sep, 2016 10 day(s) Not-Taking Citracal Plus Active Prilosec 20 mg Orally Once a day 1 capsule 24h Active Gabapentin 100 MG Orally Once a day 1 tablet 24h 30 Not-Taking Loratadine 10 MG Orally Once a day 1 tablet 24h Active Zofran 8 MG Orally Once a day 1 tablet 24h 30 days Not-Taking Levemir FlexTouch 100 UNIT/ML Subcutaneous in am INJECT 30 UNITS SUBCUTANEOUSLY ONCE DAILY Active Pen [place] 12/27" 31G X 5 MM as directed Mar, Not-Taking Actos 45 MG Orally Once a day 1 tablet 24h 90 Active Vinorelbine Tartrate 10 MG/ML Active Metformin HCl 1000 MG Orally 2 times a day 1 tablet 12h 90 Active Indapamide 2.5 MG Orally Once a day 1 tablet in the morning 24h 90 Active Amlodipine Besylate 5 mg Orally Once a day 1 tablet 24h 90 Active Lovastatin 20 mg Orally Once a day 1 tablet with a meal 24h 90 Active Anastrozole 1 MG TAKE ONE TABLET BY MOUTH ONCE DAILY 30 Not- Taking Benazepril HCl 10 mg Orally Once a day 1 tablet 24h 90 Active NovoLog Flexpen 100 UNIT/ML Subcutaneous 3 times a day 6 units 8h Dec, Not-Taking Levothyroxine Sodium 100 mcgm Orally Once a day TAKE ONE TABLET BY MOUTH ONCE DAILY 24h 90 Not-Taking Levothyroxine Sodium 100 MCG Orally Once a day 1 tablet 24h 90 Active Arimidex 1 MG Orally Once a day 1 tablet 24h 90 Not-Taking Vitamin D 1000 UNIT Orally once weekly 1 capsule Active Metoprolol Tartrate 25 MG TAKE ONE TABLET BY MOUTH TWICE DAILY 90 Active Lopid 600 MG Orally Twice a day 1 tablet 12h 90 Active RESULTS No Results PROCEDURES Procedure Date Ordered Result Body Site GLYCATED HEMOGLOBIN TEST Nov 21, 2017 [facility] VISIT ESTABLISHED PATIENT Nov 21, 2017 LAB NOT BILLED BY [facility] Nov 21, 2017 INSTRUCTIONS MEDICATIONS ADMINISTERED No Known Medications [...]
--- OUTSIDE RECORDS SUMMARY | 2018-04-18 21:00 | XMS REPORT ---
Author Author DENYS BUSH [facility] Address [address] [place] [address] Phone Unavailable Care Team Providers Care Printed Circuit Boards Contact Printer Name Role Phone DENYS BUSH Unavailable Unavailable PROBLEMS Type Condition ICD9-CM Code IPT70-CC Code Onset Dates Condition Status SNOMED Code Problem Diabetes mellitus E11.9 Active 06469962 Problem Neuropathy G62.9 Active 481008321 Problem Dysuria R30.0 Active 18103392 Problem Malignant neoplasm of unspecified site of right female breast C50.911 Active 766383843 Problem Diabetic polyneuropathy associated with type 2 diabetes mellitus E11.42 Active 25485244 Problem Postnasal drip R09.82 Active 53027549 Problem Gastroesophageal reflux disease with esophagitis K21.0 Active 730761286 Problem Charcot foot due to diabetes mellitus E11.610 Active 374452884 Problem Malignant neoplasm of unspecified site of unspecified female breast C50.919 Active 486010565 Problem Dyslipidemia E78.5 Active 101512069 Problem Essential hypertension I10 Active 17867329 Problem Gastroesophageal reflux disease without esophagitis K21.9 Active 968134675 Problem Other specified diabetes mellitus with unspecified complications E13.8 Active 13516180 Problem History of breast cancer Z85.3 Active 095872782 Problem Hypothyroidism E03.9 Active 10453493 ALLERGIES Substance Reaction Event Type Date Status Penicillin V Potassium Unknown Drug Allergy Aug, Active ENCOUNTERS Encounter Location Date Diagnosis [facility] [address] [facility] [id number] [address] Mar, [facility] [id number] [address] Jan, [facility] [id number] [address] Dec, Malignant neoplasm of unspecified site of right female breast C50.911 [facility] [id number] [place] [address]100- 3190 Dec, Essential hypertension I10 and Hypothyroidism E03.9 [facility] [id number] [place] [address] 29380- 7327 Nov, Diabetes mellitus E11.9 ; Diabetic polyneuropathy associated with type 2 diabetes mellitus E11.42 ; Charcot foot due to diabetes mellitus E11.610 ; Callus of foot L84 and Generalized edema R60.1 [place] [address] [address] Sep, History of breast cancer Z85.3 ; Malignant neoplasm of unspecified site of unspecified female breast C50.919 and Diabetes mellitus E11.9 [place] [id number] [place] [address] 36193- 8087 Sep, [address] [address] Aug, Hypothyroidism E03.9 [facility] [address] [id number] Aug, Dental examination Z01.[address] [address] Jul, [facility] [id number] [place] [address]118 -[address]121 Jun, [place] [id number] [place] [address] 89393- 5634 May, [place] [id number] [place] [address] 09430- 6781 Apr, Malignant neoplasm of unspecified site of unspecified female breast C50.919 ; Diabetes mellitus E11.9 ; Dyslipidemia E78.5 ; Gastroesophageal reflux disease without esophagitis K21.9 ; Essential hypertension I10 and Hypothyroidism E03.9 [place] [id number] [place] [address] 24066- 2877 Apr, Hypercholesteremia E78.00 [place] [address] [place] [address] Apr, Gastroesophageal reflux disease without esophagitis K21.9 ; Diabetes mellitus E11.9 ; Hypothyroidism E03.9 ; Essential hypertension I10 and Hypercholesteremia E78.00 [place] [id number] [place] [address] 76694- 9112 Apr, [place] [id number] [place] [address] 04370- 5860 Mar, [place] [id number] [place] [address] 44827- 0944 February, Diabetes mellitus E11.9 ; Other specified diabetes mellitus with unspecified complications E13.8 ; Hypothyroidism E03.9 ; Essential hypertension I10 ; Neuropathy G62.9 ; Postnasal drip R09.82 ; Gastroesophageal reflux disease with esophagitis K21.0 and Hypercholesteremia E78.00 [place] [id number] [place] [address] 70154- 1274 Jan, Acute non-recurrent frontal sinusitis J01.10 [place] [id number] [place] [address] 36338- 4471 Dec, [place] [id number] [place] [address] 03473- 6781 Dec, Other specified diabetes mellitus with unspecified complications E13.8 ; Gastroesophageal reflux disease without esophagitis K21.9 ; Essential hypertension I10 ; Dyslipidemia E78.5 ; Neuropathy G62.9 ; Diabetes mellitus E11.9 and Hypothyroid E03.9 [place] [id number] [place] [address] 70377- 5169 Dec, Diabetes mellitus E11.9 ; Other specified diabetes mellitus with unspecified complications E13.8 ; Gastroesophageal reflux disease without esophagitis K21.9 ; Dyslipidemia E78.5 ; Essential hypertension I10 ; Neuropathy G62.9 ; Hypothyroidism E03.9 and History of breast cancer Z85.3 [id number] [place] [address] 96900- 8385 Nov, [facility] [address] [address] Sep, Dysuria R30.0 and Acute cystitis without hematuria N30.00 [place] [id number] [place] [address] 22706- 2654 Jul, [place] [id number] [place] [address] 86059- 8208 Jul, Other specified diabetes mellitus with unspecified complications E13.8 ; Hypothyroidism E03.9 ; Gastroesophageal reflux disease without esophagitis K21.9 ; Essential hypertension I10 ; Dyslipidemia E78.5 ; Diabetes mellitus E11.9 ; Dysuria R30.0 ; Neuropathy G62.9 and History of breast cancer Z85.3 [place] [address] [place] [address] 74619- 5135 Jun, Dysuria R30.0 and Edema, unspecified type R60.9 [place] [id number] [place] [address] 70919- 9177 Jun, Other specified diabetes mellitus with unspecified complications E13.8 ; Gastroesophageal reflux disease without esophagitis K21.9 ; Dyslipidemia E78.5 ; Diabetes mellitus E11.9 ; History of breast cancer Z85.3 ; Dysuria R30.0 ; Hypothyroid E03.9 and Coronary artery disease involving [place] coronary artery, angina presence unspecified, unspecified whether [place] or transplanted heart I25.10 [place] [id number] [place] [address] 12982- 8177 Jun, [place] [id number] [place] [address] 08183- 4103 February, [place] [id number] [place] [address] 16302- 4155 February, Other specified diabetes mellitus with unspecified complications E13.8 ; Hypothyroidism E03.9 ; Gastroesophageal reflux disease without esophagitis K21.9 ; Essential hypertension I10 ; Dyslipidemia E78.5 ; Polyneuropathy in diseases classified elsewhere G63 ; Endocrine disorder, unspecified E34.9 and History of breast cancer Z85.3 [place] [address] [address] February, [place] [id number] [place] [address] 91744- 6595 February, [place] [id number] [place] [address] 69640- 7489 February, [place] [id number] [place] [address] 77048- 1459 Jan, Hypothyroid E03.9 and Dyslipidemia E78.5 [place] [id number] [place] [address] 54441- 2858 Dec, Other specified diabetes mellitus with unspecified complications E13.8 ; Hypothyroidism E03.9 ; Gastroesophageal reflux disease without esophagitis K21.9 ; Essential hypertension I10 ; Diabetes mellitus E11.9 ; Hypercholesterolemia E78.0 and Breast cancer C50.919 [place] [id number] [place] [address] 56902- 1122 Dec, [place] [id number] [place] [address] 41018- 9049 Aug, [place] [id number] [place] [address] 62651- 1914 Aug, Other specified diabetes mellitus with unspecified complications E13.8 ; Hypothyroidism E03.9 ; Essential hypertension I10 ; Dyslipidemia E78.5 ; Gastroesophageal reflux disease without esophagitis K21.9 and History of breast cancer Z85.3 IMMUNIZATIONS No Known Immunizations SOCIAL HISTORY Never Assessed REASON FOR VISIT PROPHY PLAN OF CARE Activity Details Follow Up 6 Months Reason:recall VITAL SIGNS Blood pressure systolic 119 mmHg 2017-08-22 Blood pressure diastolic 68 mmHg 2017-08-22 MEDICATIONS Medication Instructions Dosage Frequency Start Date End Date Duration Status Metformin HCl 1000 MG Orally 2 times a day 1 tablet 12h 90 Active Levothyroxine Sodium 100 MCG Orally Once a day 1 tablet 24h Jan, Active Anastrozole 1 MG TAKE ONE TABLET BY MOUTH ONCE DAILY 30 Unknown Lopid 600 MG Orally Twice a day 1 tablet 12h 90 Active Prilosec 20 mg Orally Once a day 1 capsule 24h Active Benazepril HCl 10 mg Orally Once a day 1 tablet 24h 90 Active Vitamin D 1000 UNIT Orally once weekly 1 capsule Unknown Metoprolol Tartrate 25 MG TAKE ONE TABLET BY MOUTH TWICE DAILY 90 Active Zofran 8 MG Orally Once a day 1 tablet 24h 30 days Unknown Levemir FlexTouch 100 UNIT/ML Subcutaneous at bedtime as needed INJECT 60 UNITS SUBCUTANEOUSLY ONCE DAILY Active NovoLog Flexpen 100 UNIT/ML Subcutaneous 3 times a day 6 units 8h Dec, Unknown Pen [place] 12/27" 31G X 5 MM as directed Mar, Unknown Arimidex 1 MG Orally Once a day 1 tablet 24h 90 Unknown Citracal Plus Unknown Omeprazole 20 MG TAKE ONE CAPSULE BY MOUTH ONCE DAILY 90 Active Gabapentin 100 MG Orally Once a day 1 tablet 24h 30 Unknown Actos 45 MG Orally Once a day 1 tablet 24h 90 Active Indapamide 2.5 MG Orally Once a day 1 tablet in the morning 24h 90 Active Bactrim DS 800-160 MG Orally Twice a day 1 tablet 12h Sep, 10 day(s) Unknown Lovastatin 20 mg Orally Once a day 1 tablet with a meal 24h 90 Active Amlodipine Besylate 5 mg Orally Once a day 1 tablet 24h 90 Active Levothyroxine Sodium 100 mcgm Orally Once a day TAKE ONE TABLET BY MOUTH ONCE DAILY 24h 90 Unknown RESULTS No Results PROCEDURES Procedure Date Ordered Result Body Site COMP ORAL EVALUATION - NEW/EST PT Aug 22, 2017 INTRAORL-PERIAPICAL 1 FILM [id number] Aug 22, 2017 TOPICAL FLUORIDE VARNISH Aug 22, 2017 PROPHYLAXIS - ADULT Aug 22, 2017 INTRAORL-PERIAPICAL EA ADD FILM Aug 22, 2017 INTRAORL-PERIAPICAL EA ADD FILM Aug 22, 2017 PANORAMIC FILM SEE ALSO CODE [id number] Aug 22, 2017 BITEWINGS - FOUR FILMS Aug 22, 2017 INSTRUCTIONS MEDICATIONS ADMINISTERED No Known Medications [...]
--- OUTSIDE RECORDS SUMMARY | 2018-04-18 21:00 | XMS REPORT ---
Author Author MARCELINA LEE Organization [facility] Address [address] [place] [address] Care Team Providers Care Animal Care Giver Name Role Phone LEE, MARCELINA Unavailable PROBLEMS Type Condition ICD9-CM Code IZE63-ZM Code Onset Dates Condition Status SNOMED Code Problem Essential hypertension I10 Active 75601046 Problem Hypothyroidism E03.9 Active 09195858 Problem Other specified diabetes mellitus with unspecified complications E13.8 Active 21348553 Problem Gastroesophageal reflux disease without esophagitis K21.9 Active 553481640 Problem History of breast cancer Z85.3 Active 036616673 Problem Dyslipidemia E78.5 Active 042079983 Problem Malignant neoplasm of unspecified site of unspecified female breast C50.919 Active 212784447 Problem Postnasal drip R09.82 Active 99063244 Problem Dysuria R30.0 Active 90494219 Problem Diabetes mellitus E11.9 Active 39023399 Problem Gastroesophageal reflux disease with esophagitis K21.0 Active 306466979 Problem Neuropathy G62.9 Active 068616242 ALLERGIES Substance Reaction Event Type Date Status Penicillin V Potassium Unknown Drug Allergy February, Active SOCIAL HISTORY Never Assessed PLAN OF CARE Activity Details Follow Up 3 Months Reason:dm, hhypothyroid, gerd VITAL SIGNS Height 66 in 2017-02-26 Weight 169.2 lbs 2017-02-26 Temperature 97.8 degrees Fahrenheit 2017-02-26 Heart Rate 92 bpm 2017-02-26 Respiratory Rate 18 2017-02-26 BMI 27.31 kg/m2 2017-02-26 Blood pressure systolic 140 mmHg 2017-02-26 Blood pressure diastolic 78 mmHg 2017-02-26 MEDICATIONS Medication Instructions Dosage Frequency Start Date End Date Duration Status Arimidex 1 MG Orally Once a day 1 tablet 24h 90 Active Metformin HCl 1000 MG Orally Twice a day 1 tablet with meals 12h Active Vitamin D 1000 UNIT Orally once weekly 1 capsule Active Anastrozole 1 MG TAKE ONE TABLET BY MOUTH ONCE DAILY 30 Active Levothyroxine Sodium 100 MCG Orally Once a day 1 tablet 24h Jan, Active Prilosec 20 mg Orally Once a day 1 capsule 24h Active Lovastatin 20 mg Orally Once a day 1 tablet with a meal 24h Active Lopid 600 MG Orally Twice a day TAKE ONE TABLET BY MOUTH TWICE DAILY 12h Active Amlodipine Besylate 5 mg Orally Once a day 1 tablet 24h Active Levemir FlexTouch 100 UNIT/ML Subcutaneous at bedtime as needed INJECT 60 UNITS SUBCUTANEOUSLY ONCE DAILY Active Benazepril HCl 10 mg Orally Once a day 1 tablet 24h Active Actos 45 MG Orally Once a day 1 tablet 24h Jun, Active Indapamide 2.5 MG Orally Once a day 1 tablet in the morning 24h 90 Active Metoprolol Tartrate 25 MG Orally Twice a day 1 tablet 12h Active Citracal Plus Active Claritin-D 24 Hour 10-240 MG Orally Once a day 1 tablet as needed 24h February, 14 May, 2017 30 day(s) Active RESULTS No Results PROCEDURES Procedure Date Ordered Result Body Site [facility] VISIT ESTABLISHED PATIENT February 26, 2017 IMMUNIZATIONS No Known Immunizations MEDICAL (GENERAL) HISTORY Type Description Date Medical History diabetes Medical History breast cancer mets Medical History HTN Medical History pneumonia Surgical History lumpectomy surgery on breast (cancer) august 2014 Surgical History tonsillectomy Surgical History D&C x 3 Surgical History bilateral cataracts removed 2009 Hospitalization History surgery Hospitalization History pneumonia
--- OUTSIDE RECORDS SUMMARY | 2018-04-18 21:01 | XMS REPORT ---
Author Author MARCELINA Saldana Organization [facility] Address [address] [place] [address] Care Team Providers Care Business Applications Developer Name Role Phone Shana MARCELINA Unavailable PROBLEMS Type Condition ICD9-CM Code ZJS15-JT Code Onset Dates Condition Status SNOMED Code Problem Diabetes mellitus E11.9 Active 31164263 Problem Neuropathy G62.9 Active 468980278 Problem Dysuria R30.0 Active 60224463 Problem Malignant neoplasm of unspecified site of right female breast C50.911 Active 798805039 Problem Diabetic polyneuropathy associated with type 2 diabetes mellitus E11.42 Active 47176791 Problem Postnasal drip R09.82 Active 71428142 Problem Gastroesophageal reflux disease with esophagitis K21.0 Active 892694396 Problem Charcot foot due to diabetes mellitus E11.610 Active 185306398 Problem Malignant neoplasm of unspecified site of unspecified female breast C50.919 Active 976705385 Problem Dyslipidemia E78.5 Active 111680195 Problem Essential hypertension I10 Active 46433939 Problem Gastroesophageal reflux disease without esophagitis K21.9 Active 584438017 Problem Other specified diabetes mellitus with unspecified complications E13.8 Active 03829260 Problem History of breast cancer Z85.3 Active 877380407 Problem Hypothyroidism E03.9 Active 49799966 ALLERGIES No Information ENCOUNTERS Encounter Location Date Diagnosis [facility] [id number], [place] [address] Dec, Malignant neoplasm of unspecified site of right female breast C50.911 [facility] [address] [place] [address] 48302- 8187 Dec, Essential hypertension I10 and Hypothyroidism E03.9 [facility] [id number], [place] [address] Nov, Diabetes mellitus E11.9 ; Diabetic polyneuropathy associated with type 2 diabetes mellitus E11.42 ; Charcot foot due to diabetes mellitus E11.610 ; Callus of foot L84 and Generalized edema R60.1 [facility] [id number] [place] [address] 08000- 2082 Sep, History of breast cancer Z85.3 ; Malignant neoplasm of unspecified site of unspecified female breast C50.919 and Diabetes mellitus E11.9 [facility] [id number] [place] [address] 79545- 2474 Sep, [facility] [address] 27[address]- 5976 Aug, Hypothyroidism E03.9 [facility] [address] [id number] Aug, Dental examination Z01.[address] 8[address]99- [address]186 Jul, [facility] [id number] [place] [address] 59765 -9888 Jun, [place] [address] 16574- 0249 May, [place] [id number] [place] [address] 62148- 8821 Apr, Malignant neoplasm of unspecified site of unspecified female breast C50.919 ; Diabetes mellitus E11.9 ; Dyslipidemia E78.5 ; Gastroesophageal reflux disease without esophagitis K21.9 ; Essential hypertension I10 and Hypothyroidism E03.9 [facility] [id number] [place] [address] 06511- 0412 Apr, Hypercholesteremia E78.00 [place] [id number] [place] [address] 01366- 6607 Apr, Gastroesophageal reflux disease without esophagitis K21.9 ; Diabetes mellitus E11.9 ; Hypothyroidism E03.9 ; Essential hypertension I10 and Hypercholesteremia E78.00 [place] [address], [place] [address]- 48[address] Apr, [place] [id number] [place] [address] 47863- 2793 Mar, [place] [id number] [place] [address] 06879- 8732 February, Diabetes mellitus E11.9 ; Other specified diabetes mellitus with unspecified complications E13.8 ; Hypothyroidism E03.9 ; Essential hypertension I10 ; Neuropathy G62.9 ; Postnasal drip R09.82 ; Gastroesophageal reflux disease with esophagitis K21.0 and Hypercholesteremia E78.00 [place] [address] [id number] [place] [address] 41356- 0227 Jan, Acute non-recurrent frontal sinusitis J01.10 [place] [id number] [place] [address] 18407- 9650 Dec, [place] [id number] [place] [address] 52019- 0700 Dec, Other specified diabetes mellitus with unspecified complications E13.8 ; Gastroesophageal reflux disease without esophagitis K21.9 ; Essential hypertension I10 ; Dyslipidemia E78.5 ; Neuropathy G62.9 ; Diabetes mellitus E11.9 and Hypothyroid E03.9 [place] [address] [place] [address] 08810- 9877 Dec, Diabetes mellitus E11.9 ; Other specified diabetes mellitus with unspecified complications E13.8 ; Gastroesophageal reflux disease without esophagitis K21.9 ; Dyslipidemia E78.5 ; Essential hypertension I10 ; Neuropathy G62.9 ; Hypothyroidism E03.9 and History of breast cancer Z85.3 [place] [id number] [place] [address] 03216- 2761 Nov, [facility] [address] [place] [address] 07651 -5062 Sep, Dysuria R30.0 and Acute cystitis without hematuria N30.00 [place] [address], [place] [address]- 9434 Jul, [place] [id number] [place] [address] 34702- 5964 Jul, Other specified diabetes mellitus with unspecified complications E13.8 ; Hypothyroidism E03.9 ; Gastroesophageal reflux disease without esophagitis K21.9 ; Essential hypertension I10 ; Dyslipidemia E78.5 ; Diabetes mellitus E11.9 ; Dysuria R30.0 ; Neuropathy G62.9 and History of breast cancer Z85.3 [place] [id number] [place] [address] 68820- 0743 Jun, Dysuria R30.0 and Edema, unspecified type R60.9 [place] [id number] [place] [address] 82125- 6756 Jun, Other specified diabetes mellitus with unspecified complications E13.8 ; Gastroesophageal reflux disease without esophagitis K21.9 ; Dyslipidemia E78.5 ; Diabetes mellitus E11.9 ; History of breast cancer Z85.3 ; Dysuria R30.0 ; Hypothyroid E03.9 and Coronary artery disease involving [place] coronary artery, angina presence unspecified, unspecified whether [place] or transplanted heart I25.10 [place] [id number] [place] [address] 04861- 8073 Jun, [place] [id number] [place] [address] 91457- 3468 February, [place] [id number] [place] [address] 71475- 7049 February, Other specified diabetes mellitus with unspecified complications E13.8 ; Hypothyroidism E03.9 ; Gastroesophageal reflux disease without esophagitis K21.9 ; Essential hypertension I10 ; Dyslipidemia E78.5 ; Polyneuropathy in diseases classified elsewhere G63 ; Endocrine disorder, unspecified E34.9 and History of breast cancer Z85.3 [place] [id number] [place] [address] 23946- 6467 February, [place] [id number] [place] [address] 67303- 1266 February, [place] [address] [place] [address] 65566- 9426 February, [place] [id number] [place] [address] 08924- 6223 Jan, Hypothyroid E03.9 and Dyslipidemia E78.5 [place] [id number] [place] [address] 126369- 4374 Dec, Other specified diabetes mellitus with unspecified complications E13.8 ; Hypothyroidism E03.9 ; Gastroesophageal reflux disease without esophagitis K21.9 ; Essential hypertension I10 ; Diabetes mellitus E11.9 ; Hypercholesterolemia E78.0 and Breast cancer C50.919 [place] [address] [place] [address] 114921- 7521 Dec, [place] [id number] [place] [address] 36679- 2900 Aug, [place] [id number] [place] [address] 75343- 8815 Aug, Other specified diabetes mellitus with unspecified complications E13.8 ; Hypothyroidism E03.9 ; Essential hypertension I10 ; Dyslipidemia E78.5 ; Gastroesophageal reflux disease without esophagitis K21.9 and History of breast cancer Z85.3 IMMUNIZATIONS No Known Immunizations SOCIAL HISTORY Never Assessed REASON FOR VISIT Scripts/Samples PLAN OF CARE VITAL SIGNS MEDICATIONS Medication Instructions Dosage Frequency Start Date End Date Duration Status Pen [place] 12/27" 31G X 5 MM as directed Mar, Active RESULTS No Results PROCEDURES No Known [...]
--- OUTSIDE RECORDS SUMMARY | 2018-04-18 21:01 | XMS REPORT ---
Author Author MARCELINA Saldana Organization [facility] Address [address] [place] [address] Care Team Providers Care Director Internal Control Name Role Phone Shana MARCELINA Unavailable PROBLEMS Type Condition ICD9-CM Code IVM24-PN Code Onset Dates Condition Status SNOMED Code Problem Diabetes mellitus E11.9 Active 80872280 Problem Neuropathy G62.9 Active 355370594 Problem Dysuria R30.0 Active 55418462 Problem Malignant neoplasm of unspecified site of right female breast C50.911 Active 184309108 Problem Diabetic polyneuropathy associated with type 2 diabetes mellitus E11.42 Active 30523987 Problem Postnasal drip R09.82 Active 16803288 Problem Gastroesophageal reflux disease with esophagitis K21.0 Active 341971773 Problem Charcot foot due to diabetes mellitus E11.610 Active 104467070 Problem Malignant neoplasm of unspecified site of unspecified female breast C50.919 Active 090293991 Problem Dyslipidemia E78.5 Active 224646391 Problem Essential hypertension I10 Active 76107023 Problem Gastroesophageal reflux disease without esophagitis K21.9 Active 703910912 Problem Other specified diabetes mellitus with unspecified complications E13.8 Active 40037294 Problem History of breast cancer Z85.3 Active 902938908 Problem Hypothyroidism E03.9 Active 92821507 ALLERGIES No Information ENCOUNTERS Encounter Location Date Diagnosis [facility] [id number] [address] Dec, Malignant neoplasm of unspecified site of right female breast C50.911 [facility] [address] [place] [address] Dec, Essential hypertension I10 and Hypothyroidism E03.9 [facility] [id number] [address] Nov, Diabetes mellitus E11.9 ; Diabetic polyneuropathy associated with type 2 diabetes mellitus E11.42 ; Charcot foot due to diabetes mellitus E11.610 ; Callus of foot L84 and Generalized edema R60.1 [facility] [id number] [place] [address] Sep, History of breast cancer Z85.3 ; Malignant neoplasm of unspecified site of unspecified female breast C50.919 and Diabetes mellitus E11.9 [facility] [id number] [place] [address] Sep, [facility] [address] [address] Aug, Hypothyroidism E03.9 [facility] [address] [id number] Aug, Dental examination Z01.[address] [address] Jul, [facility] [id number] [place] [address] Jun, [address] [address] May, [place] [id number] [place] [address] Apr, Malignant neoplasm of unspecified site of unspecified female breast C50.919 ; Diabetes mellitus E11.9 ; Dyslipidemia E78.5 ; Gastroesophageal reflux disease without esophagitis K21.9 ; Essential hypertension I10 and Hypothyroidism E03.9 [facility] [id number] [place] [address] Apr, Hypercholesteremia E78.00 [place] [id number] [place] [address] Apr, Gastroesophageal reflux disease without esophagitis K21.9 ; Diabetes mellitus E11.9 ; Hypothyroidism E03.9 ; Essential hypertension I10 and Hypercholesteremia E78.00 [place] [address] [address] Apr, [place] [id number] [place] [address] Mar, [place] [id number] [place] [address] February, Diabetes mellitus E11.9 ; Other specified diabetes mellitus with unspecified complications E13.8 ; Hypothyroidism E03.9 ; Essential hypertension I10 ; Neuropathy G62.9 ; Postnasal drip R09.82 ; Gastroesophageal reflux disease with esophagitis K21.0 and Hypercholesteremia E78.00 [id number] [place] [address] Jan, Acute non-recurrent frontal sinusitis J01.10 [place] [id number] [place] [address] Dec, [place] [id number] [place] [address] Dec, Other specified diabetes mellitus with unspecified complications E13.8 ; Gastroesophageal reflux disease without esophagitis K21.9 ; Essential hypertension I10 ; Dyslipidemia E78.5 ; Neuropathy G62.9 ; Diabetes mellitus E11.9 and Hypothyroid E03.9 [place] [address] [place] [address] Dec, Diabetes mellitus E11.9 ; Other specified diabetes mellitus with unspecified complications E13.8 ; Gastroesophageal reflux disease without esophagitis K21.9 ; Dyslipidemia E78.5 ; Essential hypertension I10 ; Neuropathy G62.9 ; Hypothyroidism E03.9 and History of breast cancer Z85.3 [place] [id number] [place] [address] Nov, [facility] [address] [place] [address] Sep, Dysuria R30.0 and Acute cystitis without hematuria N30.00 [place] [id number] [address] Jul, [place] [id number] [place] [address] Jul, Other specified diabetes mellitus with unspecified complications E13.8 ; Hypothyroidism E03.9 ; Gastroesophageal reflux disease without esophagitis K21.9 ; Essential hypertension I10 ; Dyslipidemia E78.5 ; Diabetes mellitus E11.9 ; Dysuria R30.0 ; Neuropathy G62.9 and History of breast cancer Z85.3 [place] [id number] [place] [address] Jun, Dysuria R30.0 and Edema, unspecified type R60.9 [place] [id number] [place] [address] Jun, Other specified diabetes mellitus with unspecified complications E13.8 ; Gastroesophageal reflux disease without esophagitis K21.9 ; Dyslipidemia E78.5 ; Diabetes mellitus E11.9 ; History of breast cancer Z85.3 ; Dysuria R30.0 ; Hypothyroid E03.9 and Coronary artery disease involving [place] coronary artery, angina presence unspecified, unspecified whether [place] or transplanted heart I25.10 [place] [id number] [place] [address] Jun, [place] [id number] [place] [address] February, [place] [id number] [place] [address]- [address] February, Other specified diabetes mellitus with unspecified complications E13.8 ; Hypothyroidism E03.9 ; Gastroesophageal reflux disease without esophagitis K21.9 ; Essential hypertension I10 ; Dyslipidemia E78.5 ; Polyneuropathy in diseases classified elsewhere G63 ; Endocrine disorder, unspecified E34.9 and History of breast cancer Z85.3 [place] [id number] [place] [address] February, [place] [id number] [place] [address]85[address] February, [address] [address] [place] [address] February, [place] [id number] [place] [address] 716543[address] Jan, Hypothyroid E03.9 and Dyslipidemia E78.5 [place] [address] [address] Dec, Other specified diabetes mellitus with unspecified complications E13.8 ; Hypothyroidism E03.9 ; Gastroesophageal reflux disease without esophagitis K21.9 ; Essential hypertension I10 ; Diabetes mellitus E11.9 ; Hypercholesterolemia E78.0 and Breast cancer C50.919 [address] [address] [place] [address] Dec, [place] [id number] [place] [address] Aug, [place] [id number] [place] [address] Aug, Other specified diabetes mellitus with unspecified complications E13.8 ; Hypothyroidism E03.9 ; Essential hypertension I10 ; Dyslipidemia E78.5 ; Gastroesophageal reflux disease without esophagitis K21.9 and History of breast cancer Z85.3 IMMUNIZATIONS No Known Immunizations SOCIAL HISTORY Never Assessed REASON FOR VISIT FYI only PLAN OF CARE VITAL SIGNS MEDICATIONS Unknown [...]
[2018-04-18] MEDS ORDERED: fentaNYL INJECTION 100 MCG/2 ML AMP IVP ONE (23:00)
--- NOTE | 2018-04-18 23:02 | ED General ---
General Chief Complaint: General Problems/Pain Stated Complaint: ABD PAIN/TROUBLE BREATHING X 1 WEEK Nursing Triage Note: C/O ABD PAIN/SOA FOR ABOUT 1 WEEK. 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 It is known to be in the liver bone and the pleural spaces with loculated effusions. She reports over the past week she has been having increasing problems with abdominal pain and shortness of breath. Her daughter confirms this. She has a Pleurx catheter and states that the home health nurse drains it regularly. Unfortunately this is a multilocular process. CT scan from 03/31 shows a very large liver as well I do not see discrete tumor masses but this suggests multiple metastases by size Modifying Factors: improves with Medication Allergies and Home Medications Allergies Coded Allergies: Penicillins (Unverified Allergy, Unknown, RASH, 10/19/16) Home Medications Amlodipine Besylate 5 Mg Tablet, 5 MG PO HS, (Reported) Benazepril HCl 10 Mg Tablet, 10 MG PO HS, (Reported) Calcium Carbonate/Vitamin D3 1 Each Tablet, 1 TAB PO HS, (Reported) Cholecalciferol (Vitamin D3) 50,000 Unit Capsule, 50,000 UNIT PO WEEK, (Reported ) Gemfibrozil 600 Mg Tablet, 600 MG PO BID, (Reported) Hydrocodone Bit/Acetaminophen 1 Each Tablet, 1 EACH PO Q4H PRN for PAIN, ( Reported) Indapamide 2.5 Mg Tablet, 2.5 MG PO DAILY, (Reported) Insulin Detemir 100 Unit/1 Ml Insuln.pen, 30 UNIT SQ DAILY, (Reported) Levothyroxine Sodium 100 Mcg Tablet, 100 MCG PO DAILY, (Reported) Loratadine 10 Mg Tablet, 10 MG PO HS, (Reported) Lovastatin 20 Mg Tablet, 20 MG PO DAILY, (Reported) Metformin HCl 1,000 Mg Tablet, 1,000 MG PO BID, (Reported) Metoprolol Tartrate 25 Mg Tablet, 25 MG PO BID, (Reported) Omeprazole 20 Mg Capsule.dr, 20 MG PO HS, (Reported) Pioglitazone HCl 45 Mg Tablet, 45 MG PO DAILY, (Reported) Vinorelbine Tartrate 10 Mg/Ml Soln, 10 MG IV WEEK, (Reported) [Fluvestrant Inj] , INJ UD, (Reported) EVERY 2 WEEKS FOR 3 DOSES THEN EVERY MONTH FIRST DOSE 05-28-17 Patient Home Medication List Home Medication List Reviewed: Yes Review of Systems Constitutional: see HPI EENTM: no symptoms reported Respiratory: dyspnea on exertion, short of breath Cardiovascular: no symptoms reported Gastrointestinal: abdominal pain (generalized abdominal pain) Genitourinary: no symptoms reported Musculoskeletal: muscle weakness Skin: no symptoms reported Psychiatric/Neurological: No Symptoms Reported Hematologic/Lymphatic: No Symptoms Reported Immunological/Allergic: no symptoms reported Past Yowbvma-Kjlrwt-Cxlgbb Hx Patient Social History Type Used: Cigarettes Former Smoker, Quit: Jun 22, 1990 Recent Foreign Travel: No Contact w/Someone Who Travel: No Recent Infectious Disease Expo: No Recent Hopitalizations: No Physical Abuse: No Sexual Abuse: No Immunizations Up To Date Tetanus Booster (TDap): Unknown PED Vaccines UTD: No Seasonal Allergies Seasonal Allergies: Yes Past Medical History Surgeries: Yes (D&C X2, KNEE SCOPE, FIBROID TUMOR BX, BILAT FOOT SURGERY, PORT INSERTION) Breast, Orthopedic Respiratory: Yes Pneumonia Currently Using CPAP: No Cardiac: Yes (hx a-fib with chemo) Atrial Fibrillation, High Cholesterol, Hypertension Neurological: Yes (seizure from fever as child) Reproductive Disorders: No Female Reproductive Disorders: Denies [employer]ATOR History: Menopausal Sexually Transmitted Disease: No HIV/AIDS: No Genitourinary: No Gastrointestinal: Yes (freq constipation) Chronic Constipation Musculoskeletal: No Endocrine: Yes (thyroid mass) Diabetes, Insulin dep Cataract Loss of Vision: Denies Hearing Impairment: Denies Cancer: Yes (DX 2012--S/P RIGHT MASTECTOMY, CHEMO, RADIATION) Lung, Breast Did You Recieve Any Treatments: Yes What Type of Treatment Did You: Chemotherapy, Radiation, Surgical Intervention Psychosocial: No Nursing Suicide Risk Score: 0 Integumentary: No Blood Disorders: No Adverse Reaction/Blood Tranf: No Family Medical History Cardiovascular disease 19 FATHER G8 BROTHER Completed stroke 19 MOTHER Coronary thrombosis 19 FATHER No Pertinent Family Hx Physical Exam Vital Signs Vital Signs - First Documented 04/18/18 22:49 Temp 96.3 Pulse 95 Resp 18 B/P (MAP) 131/59 (83) Pulse Ox 91 O2 Delivery Nasal Cannula O2 Flow Rate 4.00 Capillary Refill : Less Than 3 Seconds Height, Weight, BMI Height: 5', 5.00" Weight: 168lbs 0.0oz, 76.297596mw Method:Stated ,28.0BMI General Appearance: Other (chemotherapy alopecia) Eyes: Bilateral Eye Normal Inspection HEENT: Normal ENT Inspection Respiratory: Other (there is bilateral dullness to percussion. Breath sounds are muffled) Cardiovascular: Regular Rate, Rhythm, No Edema, No Gallop, No JVD, No Murmur, Normal Peripheral Pulses Gastrointestinal: Tenderness (belly is firm with generalized tenderness) Extremity: Normal Capillary Refill, Normal Inspection, Normal Range of Motion, Non Tender, No Calf Tenderness, No Pedal Edema Skin: Normal Color, Warm/Dry Lymphatic: No Adenopathy Progress/Results/Core Measures Suspected Sepsis Recent Fever Within 48 Hours: No Infection Criteria Present: None New/Unexplained Altered Menta: No Sepsis Screen: No Definite Risk SIRS Temperature:96.3 Pulse: 95 Respiratory Rate: 18 Laboratory Tests 04/18/18 23:08: White Blood Count 3.5L Blood Pressure 131 /59 Mean: 83 Laboratory Tests 04/18/18 23:08: Creatinine 1.05, Platelet Count 320, Total Bilirubin 0.6 Results/Orders Lab Results Laboratory Tests Test 04/18/18 23:08 Range/Units White Blood Count 3.5 L 4.3-11.0 10^3/uL Red Blood Count 3.83 L 4.35-5.85 10^6/uL Hemoglobin 11.0 L 11.5-16.0 G/DL Hematocrit 34 L 35-52 % Mean Corpuscular Volume 89 80-99 FL Mean Corpuscular Hemoglobin 29 25-34 PG Mean Corpuscular Hemoglobin Concent 32 32-36 G/DL Red Cell Distribution Width 16.4 H 10.0-14.5 % Platelet Count 320 130-400 10^3/uL Mean Platelet Volume 9.3 7.4-10.4 FL Neutrophils (%) (Auto) 60 42-75 % Lymphocytes (%) (Auto) 17 12-44 % Monocytes (%) (Auto) 22 H 0-12 % Eosinophils (%) (Auto) 0 0-10 % Basophils (%) (Auto) 1 0-10 % Neutrophils # (Auto) 2.1 1.8-7.8 X 10^3 Lymphocytes # (Auto) 0.6 L 1.0-4.0 X 10^3 Monocytes # (Auto) 0.8 0.0-1.0 X 10^3 Eosinophils # (Auto) 0.0 0.0-0.3 10^3/uL Basophils # (Auto) 0.0 0.0-0.1 10^3/uL Neutrophils % (Manual) 79 % Lymphocytes % (Manual) 13 % Monocytes % (Manual) 8 % Polychromasia SLIGHT Poikilocytosis SLIGHT Anisocytosis SLIGHT Elliptocytes SLIGHT Sodium Level 132 L 135-145 MMOL/L Potassium Level 4.1 3.6-5.0 MMOL/L Chloride Level 100 98-107 MMOL/L Carbon Dioxide Level 22 21-32 MMOL/L Anion Gap 10 5-14 MMOL/L Blood Urea Nitrogen 24 H 7-18 MG/DL Creatinine 1.05 0.60-1.30 MG/DL Estimat Glomerular Filtration Rate 51 BUN/Creatinine Ratio 23 Glucose Level 105 70-105 MG/DL Calcium Level 7.9 L 8.5-10.1 MG/DL Total Bilirubin 0.6 0.1-1.0 MG/DL Aspartate Amino Transf (AST/SGOT) 72 H 5-34 U/L Alanine Aminotransferase (ALT/SGPT) 23 0-55 U/L Alkaline Phosphatase 171 H 40-136 U/L Total Protein 4.7 L 6.4-8.2 GM/DL Albumin 2.5 L 3.2-4.5 GM/DL My Orders Orders - NAYELY JARAMILLO MD Cbc With Automated Diff (04/18/18 22:40) Comprehensive Metabolic Panel (04/18/18 22:40) Fentanyl Injection (Sublimaze Injection (04/18/18 23:00) Ct Chest/Abdomen/Pelvis Wo (04/18/18 23:08) Manual Differential (04/18/18 23:08) Tetanus Immune Globulin Inj (Baytet Inje (04/18/18 23:41) Dipht,Pertuss(Acell),Tet Adult (Boostrix (04/18/18 23:42) Medications Given in ED Current Medications Medications Dose Ordered Sig/Alden Route Start Time Stop Time Status Last Admin Dose Admin Fentanyl Citrate 50 mcg ONCE ONCE IVP 04/18/18 23:00 04/18/18 23:01 DC 04/18/18 23:08 50 MCG Vital Signs/I&O 7/6/18 22:49 Temp 96.3 Pulse 95 Resp 18 B/P (MAP) 131/59 (83) Pulse Ox 91 O2 Delivery Nasal Cannula O2 Flow Rate 4.00 Capillary Refill : Less Than 3 Seconds Blood Pressure Mean: 83 Departure Communication (Admissions) 4124 private conversation with the daughter reveals that the patient has been begged and coaxed to consider hospice and has rejected this stating on the one hand that she was going to beat this. The daughter is a nurse and knows this not to be case. We will be admitting her for pain control. [address] Pineda. The patient will be admitted for pain control Impression Primary Impression: metastatic breast cancer Additional Impression: unrelieved pain Disposition: ADMITTED INPATIENT Condition: Stable/Unchanged Admissions Decision to Admit Reason: Admit from ER (General) Decision to Admit/Date: Apr 19, 2018 Time/Decision to Admit Time: 00:01 Departure-Patient Inst. Referrals: [facility] (PCP) Primary Care Physician TONI PRADO (Family) Primary Care Physician NAYELY JARAMLILO MD Apr 18, 2018 23:02
[2018-04-18 23:14] LABS: BASOPHILS % (AUTO) 1 % (0-10); EOSINOPHILS % (AUTO) 0 % (0-10); HEMATOCRIT 34 % (35-52); LYMPHOCYTES # (AUTO) 0.6 X 10^3 (1.0-4.0); LYMPHOCYTES % (AUTO) 17 % (12-44); MEAN CORPUSCULAR HEMOGLOBIN 29 PG (25-34); MEAN CORPUSCULAR HGB CONC 32 G/DL (32-36); MEAN CORPUSCULAR VOLUME 89 FL (80-99); MEAN PLATELET VOLUME 9.3 FL (7.4-10.4); MONOCYTES # (AUTO) 0.8 X 10^3 (0.0-1.0); MONOCYTES % (AUTO) 22 % (0-12); NEUTROPHILS # (AUTO) 2.1 X 10^3 (1.8-7.8); NEUTROPHILS % (AUTO) 60 % (42-75); PLATELET COUNT 320 10^3/uL (130-400); RED BLOOD COUNT 3.83 10^6/uL (4.35-5.85); RED CELL DISTRIBUTION WIDTH 16.4 % (10.0-14.5); WHITE BLOOD COUNT 3.5 10^3/uL (4.3-11.0)
[2018-04-18 23:33] LABS: ALBUMIN 2.5 GM/DL (3.2-4.5); BILIRUBIN,TOTAL 0.6 MG/DL (0.1-1.0); CALCIUM 7.9 MG/DL (8.5-10.1); CREATININE SERUM 1.05 MG/DL (0.60-1.30); POTASSIUM 4.1 MMOL/L (3.6-5.0); TOTAL PROTEIN 4.7 GM/DL (6.4-8.2)
[2018-04-18] MEDS ORDERED: TETANUS IMMUNE GLOBULIN 250 UNIT/ML SYR IM ONE (23:41)
[2018-04-18] MEDS ORDERED: TETANUS,DIPTH,PERTUSS P/F (BOOSTRIX) 0.5 ML VIAL IM ONE (23:42)
[2018-04-18 23:43] LABS: ANISOCYTOSIS SLIGHT; LYMPHOCYTES % (MANUAL) 13 %; MONOCYTES % (MANUAL) 8 %; NEUTROPHILS % (MANUAL) 79 %; POIKILOCYTOSIS SLIGHT; POLYCHROMASIA SLIGHT
[2018-04-18 23:44] LABS: ELLIPT/OVALOCYTES SLIGHT
[2018-04-19] VITALS (7 sets, daily range): BP systolic 112–147; BP diastolic 58–82
--- OUTSIDE RECORDS SUMMARY | 2018-04-19 00:55 | XMS REPORT | Clinical Summary ---
Author Author [facility] Organization [facility] Address Unknown Phone Unavailable Care Team Providers Care Cranberry Bog Supervisor Name Role Phone Liam Goff MD PCP Source Comments Some departments are not documenting in the electronic medical record. If you do not see the information that you expected, contact Release of Information in the Health Information Management department at [phone] for further assistance in locating additional records.[facility] Allergies Active Allergy Reactions Severity Noted [...]
--- OUTSIDE RECORDS SUMMARY | 2018-04-19 00:55 | XMS REPORT | Clinical Summary ---
Author Author [facility] Address Unknown Phone Unavailable Care Team Providers Care Federal Appellate Clerk Name Role Phone PP Unavailable Allergies Active [...] 01/30/2015 HTN (hypertension) 01/30/2015 Breast cancer ([facility]) 01/30/2015 Social History Tobacco Use Types Packs/Day [...] 1991 Vaccine (RZV,Shingrix) (1 of 2 - [facility] 2 Dose Standard) Pneumo-Adult (1 of 2 - 2006 PCV13) Influenza Vaccine (#1) 2018 Results Not on filefrom Last 3 Months
[2018-04-19] MEDS ORDERED: NS IV 1000 ML 1,000 ML ONE (01:20)
[2018-04-19] MEDS ORDERED: fentaNYL PATCH 50 MCG (DURAGESIC) TOP SCH (01:30)
[2018-04-19] MEDS ORDERED: ONDANSETRON 4 MG/2 ML (SDV) Z0FRAN IV PRN (01:30)
[2018-04-19] MEDS ORDERED: ACETAMINOPHEN 325 MG TABLET PO PRN (01:30)
[2018-04-19] MEDS: morphine PCA 30 MG/30 ML VIAL IV PRN (01:34)
[2018-04-19] MEDS: NS IV 1000 ML 1,000 ML IV SCH (01:34)
--- NOTE | 2018-04-19 06:59 | Diagnostic Imaging Report ---
PROCEDURE: CT chest, abdomen, and pelvis without contrast. TECHNIQUE: Multiple contiguous axial images were obtained through the chest, abdomen, and pelvis without the use of intravenous contrast. INDICATION: Metastatic breast cancer with dyspnea and abdominal pain. CT chest: Comparison is made to study of 03/24/2018. Rather extensive mixed interstitial and alveolar densities are again seen within the lungs, greatest in the lower lobes. Bilateral pleural drains remain in place with no significant change in the probable loculated anterior fluid collection in the right pleural space. Left basilar and lateral pleural fluid is also stable. There may be mild interval increase in the amount of right pleural fluid. Otherwise, mediastinal adenopathy and numerous sclerotic skeletal metastases have not significantly changed. There is mild pericardial fluid. IMPRESSION: Redemonstration of mixed interstitial and alveolar infiltrates in the lungs most pronounced in the lower lobes. Bilateral, probable loculated pleural fluid collections are again demonstrated with bilateral pleural drains in place. Fluid collections are generally stable apart from moderate overall increase in size of pleural fluid in the lower right hemithorax. Skeletal metastases are again noted. CT abdomen and pelvis: Unenhanced images reveal no focal hepatic or splenic lesion. Gallbladder is distended and contains multiple calculi as well as high-density contrast material. No pancreatic or adrenal gland lesion is seen. Evaluation of kidneys is limited without intravenous contrast however there is no evidence of hydronephrosis. Mild pelvic free fluid is noted. There is diffuse density throughout the subcutaneous tissues which may be related to anasarca. Numerous skeletal sclerotic foci are again demonstrated consistent with widespread osseous metastatic disease. There is persistent compression deformity of the superior endplate of L3. IMPRESSION: Anasarca and mild pelvic free fluid. Note is again made of cholecystolithiasis. There may be mild gallbladder wall thickening which could represent acute cholecystitis and clinical correlation is recommended. Otherwise, no definite acute abnormality or adverse change is seen. Dictated by: Dictated on workstation # [id number]
[2018-04-19] MEDS ORDERED: FUROSEMIDE 40 MG/4 ML INJ (LASIX) ONE (07:14)
[2018-04-19] MEDS ORDERED: FUROSEMIDE 40 MG/4 ML INJ (LASIX) IVP ONE (07:30)
[2018-04-19] MEDS ORDERED: RT-ALBUTEROL/IPRATROPIUM 3 ML (DUONEB) VIAL INH PRN (07:45)
--- NOTE | 2018-04-19 10:23 | History & Physicial (CHS) ---
HPI History of Present Illness: This is a 76 yo female patient of Oh Sunshine APRN at [facility] and currently receiving palliative chemo through the Cancer Center. Pt has hx of breast cancer w/ mets to the bone as well as malignant pleural effusion s/p placement of bilateral lung plurex drains. Pt has had increase pain and SOA to the point that she presented to the ER last night w/ SOA and pain not controlled w/ po hydrocodone. Patient was admitted for pain control and started on Duragesic patch with Morphine INSULATION INSTALLER for breakthrough pain. Patient reports pain is significantly improved and has not required the INSULATION INSTALLER very often. She did report increase in SOA when awaking this am, which she states has been an issue for her at home. She was noted to have a sat decrease into the low to mid 80's and O2 was increased to 8L - she has been on 3L at home. She received a dose of Lasix and reports that she feels significantly improved from a respiratory standpoint and her sats are now 98-99% at rest. Pt has had Hospice discussion recently and felt like everyone was just giving up on her and was being "pessimistic". Patient would like to return home as she is not able to get good rest in the hospital. Source: patient Exam Limitations: no limitations Date seen by provider: Apr 19, 2018 Time Seen by Provider: 09:30 Attending Physician Aurea Moore DO [facility] - Oh Sunshine APRN Consult Date of Admission Apr 18, 2018 at 23:55 Home Medications Home Medications Reviewed patient Home Medication Reconciliation performed by pharmacy medication reconciliations chemistry quality control technician and/or nursing. Patients Allergies have been reviewed. Allergies Coded Allergies: Penicillins (Unverified Allergy, Unknown, RASH, 10/19/16) [id number] Hx Patient Social History Alcohol Use: Denies Use Recreational Drug Use: No Smoking Status: Former Smoker Former smoker/When Quit: Apr 28, 1984 Type Used: Cigarettes Recent Foreign Travel: No Contact w/other who traveled: No Recent Hopitalizations: No Recent Infectious Disease Expo: No Physical Abuse Screen: No Sexual Abuse: No Immunizations Up To Date Tetanus Booster (TDap): Unknown Past Medical History IDDM II HTN HLD Metastatic Breast Ca diag March 2017, initial diag 2005 - mets to bone; malignant pleural effusion s/p erika lung plurex drain placement Hypothyroidism CKD Stage 3 Lymphedema Family Medical History Significant Family History: No Pertinent Family Hx Family History: Cardiovascular disease 19 FATHER G8 BROTHER Completed stroke 19 MOTHER Coronary thrombosis 19 FATHER Review of Systems ([facility]) Constitutional: No fever; weakness EENTM: no symptoms reported Respiratory: see HPI, short of breath Cardiovascular: no symptoms reported Gastrointestinal: constipation Musculoskeletal: see HPI Skin: no symptoms reported Reviewed Test Results Reviewed Test Results Lab Laboratory Tests 04/18/18 23:08: White Blood Count 3.5L, Red Blood Count 3.83L, Hemoglobin 11.0L, Hematocrit 34L , Mean Corpuscular Volume 89, Mean Corpuscular Hemoglobin 29, Mean Corpuscular Hemoglobin Concent 32, Red Cell Distribution Width 16.4H, Platelet Count 320, Mean Platelet Volume 9.3, Neutrophils (%) (Auto) 60, Lymphocytes (%) (Auto) 17, Monocytes (%) (Auto) 22H, Eosinophils (%) (Auto) 0, Basophils (%) (Auto) 1, Neutrophils # (Auto) 2.1, Lymphocytes # (Auto) 0.6L, Monocytes # (Auto) 0.8, Eosinophils # (Auto) 0.0, Basophils # (Auto) 0.0, Neutrophils % (Manual) 79, Lymphocytes % (Manual) 13, Monocytes % (Manual) 8, Polychromasia SLIGHT, Poikilocytosis SLIGHT, Anisocytosis SLIGHT, Elliptocytes SLIGHT, Sodium Level 132L, Potassium Level 4.1, Chloride Level 100, Carbon Dioxide Level 22, Anion Gap 10, Blood Urea Nitrogen 24H, Creatinine 1.05, Estimat Glomerular Filtration Rate 51, BUN/Creatinine Ratio 23, Glucose Level 105, Calcium Level 7.9L, Total Bilirubin 0.6, Aspartate Amino Transf (AST/SGOT) 72H, Alanine Aminotransferase ( ALT/SGPT) 23, Alkaline Phosphatase 171H, Total Protein 4.7L, Albumin 2.5L Radiology Date of Exam: 04/18/18 CT CHEST/ABDOMEN/PELVIS WO PROCEDURE: CT chest, abdomen, and pelvis without contrast. TECHNIQUE: Multiple contiguous axial images were obtained through the chest, abdomen, and pelvis without the use of intravenous contrast. INDICATION: Metastatic breast cancer with dyspnea and abdominal pain. CT chest: Comparison is made to study of 03/24/2018. Rather extensive mixed interstitial and alveolar densities are again seen within the lungs, greatest in the lower lobes. Bilateral pleural drains remain in place with no significant change in the probable loculated anterior fluid collection in the right pleural space. Left basilar and lateral pleural fluid is also stable. There may be mild interval increase in the amount of right pleural fluid. Otherwise, mediastinal adenopathy and numerous sclerotic skeletal metastases have not significantly changed. There is mild pericardial fluid. IMPRESSION: Redemonstration of mixed interstitial and alveolar infiltrates in the lungs most pronounced in the lower lobes. Bilateral, probable loculated pleural fluid collections are again demonstrated with bilateral pleural drains in place. Fluid collections are generally stable apart from moderate overall increase in size of pleural fluid in the lower right hemithorax. Skeletal metastases are again noted. CT abdomen and pelvis: Unenhanced images reveal no focal hepatic or splenic lesion. Gallbladder is distended and contains multiple calculi as well as high-density contrast material. No pancreatic or adrenal gland lesion is seen. Evaluation of kidneys is limited without intravenous contrast however there is no evidence of hydronephrosis. Mild pelvic free fluid is noted. There is diffuse density throughout the subcutaneous tissues which may be related to anasarca. Numerous skeletal sclerotic foci are again demonstrated consistent with widespread osseous metastatic disease. There is persistent compression deformity of the superior endplate of L3. IMPRESSION: Anasarca and mild pelvic free fluid. Note is again made of cholecystolithiasis. There may be mild gallbladder wall thickening which could represent acute cholecystitis and clinical correlation is recommended. Otherwise, no definite acute abnormality or adverse change is seen. Physical Exam-(CHC) Physical Exam Vital Signs VS - Last 72 Hours, by Label 04/18/18 04/19/18 04/19/18 04/19/18 22:49 00:00 01:12 01:34 Temp 96.3 97.6 Pulse 95 91 Resp 18 18 B/P (MAP) 131/59 (83) 135/82 (99) Pulse Ox 91 94 94 94 O2 Delivery Nasal Cannula Room Air Room Air Nasal Cannula O2 Flow Rate 4.00 3.00 04/19/18 04/19/18 04/19/18 04/19/18 01:40 04:00 06:36 06:42 Temp 97.5 Pulse 86 Resp 20 18 17 B/P (MAP) 147/68 (94) Pulse Ox 96 94 O2 Delivery Room Air Nasal Cannula O2 Flow Rate 3.00 7/704/19/18 04/19/18 04/19/18 07:00 07:22 08:00 09:00 Temp 96.3 Pulse 102 89 Resp 16 B/P (MAP) 113/76 (88) Pulse Ox 83 92 93 97 O2 Delivery Room Air Nasal Cannula O2 Flow Rate 3.00 8.00 FiO2 8 04/19/18 10:24 Pulse Ox 97 O2 Delivery Nasal Cannula O2 Flow Rate 8.00 Capillary Refill : Less Than 3 Seconds General Appearance: WD/WN, no apparent distress Respiratory: no respiratory distress, decreased breath sounds; No crackles; rhonchi (R) Cardiovascular: regular rate, rhythm Gastrointestinal: soft Neurologic/Psychiatric: alert, normal mood/affect, oriented x 3 Skin: normal color, warm/dry Assessment/Plan Assessment/Plan Admission Dx 1. Breast cancer w/ metastasis to the bone and malignant pleural effusion s/p bilateral plurex drains 2. Uncontrolled pain secondary to #1 3. Acute on chronic hypoxic respiratory failure secondary to #1 Admission Status: Inpatient Order (span 2 midnights) Reason for Inpatient Admission: Uncontrolled pain, weakness - admit for PT eval and tx and pain control Assessment & Plan 1. Breast cancer w/ metastasis to the bone and malignant pleural effusion s/p bilateral plurex drains - currently on palliative chemotherapy - Long discussion with patient regarding current diagnosis and prognosis. Discussed goals for treatment and Hospice services. Patient reports family is supportive of Hospice but that she felt like Hospice meant "giving up". Discussed the goal of hospice treatment is to improve quality of life and making patient as functional as possible so she could spend more quality time with family and friends. Also discussed the ability of hospice to better control her pain and dyspnea and the anxiety associated with this. Discussion w / daughter (Kay), agree w/ Hospice on DC. Concern about pt's ability to return home due to current weakness and deterioration in function over the past week. Patient and family willing to consider intermediate for strengthening if needed. - Consult SS for Saturday to work on DC planning - Hospice, SN vs home. - Pt Consulted to eval and treat. 2. Uncontrolled pain secondary to #1 - doing better on Duragesic 50mcg patch w/ Morphine INSULATION INSTALLER for breakthrough pain ( not requiring very often) 3. Acute on chronic hypoxic respiratory failure secondary to #1 - Currently on 8L, hypoxia improved after a dose of Lasix - will wean O2 to maintain resting sat of >88% - continue Lasix BID for now - Ativan and morphine as needed for anxiety related to air hunger 4. DM Type 2 - previously pt had stopped insulin and oral hypglycemics due to hypoglycemia and poor po intake - DC'd of med list 5. HTN - patient had stopped all BP meds except Metoprolol - will continue this only as BP is normal 6. Hypothyroidism - continue levothyroxine DVT ppx- Lovenox Code Status - DNR Clinical Quality Measures DVT/VTE Risk/Contraindication: Risk Factor Score Per Nursin RFS Level Per Nursing on Admit: 4+=Very High AUREA MOORE DO Apr 19, 2018 10:23
[2018-04-19] MEDS: RT-ALBUTEROL/IPRATROPIUM 3 ML (DUONEB) VIAL INH SCH ×4 (10:24→22:10)
--- NOTE | 2018-04-19 11:10 | Physical Therapy Evaluation ---
PT Evaluation-General Medical Diagnosis Admission Date Apr 18, 2018 at 23:55 Medical Diagnosis: SOA Onset Date: Apr 18, 2018 Therapy Diagnosis Therapy Diagnosis: Limited mobility Height/Weight Height (Feet): 5 Height (Inches): 5.00 Weight (Pounds): 156 Weight (Ounces): 7.0 Precautions Precautions/Isolations: Chemo Precautions, Fall Prevention, Standard Precautions Weight Bear Status Right Lower Extremity: Right Weight Bearing/Tolerated Left Lower Extremity: Left Weight Bearing/Tolerated Referral Physician: Kathy Pineda DO Reason for Referral: Evaluation/Treatment, Strengthening, Gait Medical History Pertinent Medical History: HTN Additional Medical History breast cancer with METS to bone, IDDM II, HLD Current History Admitted via ED due to SOA, uncontrolled with O2 at 3L. Increased O2 to 8L with saturation increasing to 88%. Reviewed History: Yes Prior/Core FIM Prior Level of Function Functional Firestone Measure 0=Not Assessed/NA 4=Minimal Assistance 1=Total Assistance 5=Supervision or Setup 2=Maximal Assistance 6=Modified Firestone 3=Moderate Assistance 7=Complete Firestone PT Evaluation-Current Transfers Functional Firestone Measure 0=Not Assessed/NA 4=Minimal Assistance 1=Total Assistance 5=Supervision or Setup 2=Maximal Assistance 6=Modified Firestone 3=Moderate Assistance 7=Complete Firestone JAE AGRAWAL PT Apr 19, 2018 11:10
[2018-04-19] MEDS ORDERED: LORA0.5T PO (11:27)
[2018-04-19] MEDS ORDERED: ONDA8TAB13 SL (11:27)
[2018-04-19] MEDS ORDERED: LORazepam 0.5 MG (ATIVAN) TABLET PO PRN (11:30)
[2018-04-19] MEDS ORDERED: INDAPAMIDE 2.5 MG PO SCH (11:30)
[2018-04-19] MEDS ORDERED: ONDANSETRON 4 MG/2 ML (SDV) Z0FRAN IVP PRN (11:30)
[2018-04-19] MEDS ORDERED: CHOLECALCIFEROL 50000 UNIT PO SCH (11:30)
[2018-04-19] MEDS ORDERED: [UNRECOGNIZED DRUG - OTHER] PO SCH (11:30)
[2018-04-19] MEDS ORDERED: ENOXAPARIN 40 MG/0.4 ML (LOVENOX) SYR SQ SCH (11:45)
[2018-04-19] MEDS ORDERED: ENOXAPARIN 40 MG/0.4 ML (LOVENOX) SYR SC SCH (12:30)
[2018-04-19] MEDS ORDERED: INDAPAMIDE 2.5 MG (LOZOL) TAB PO SCH (12:45)
[2018-04-19] MEDS: LEVOTHYROXINE 100 MCG (LEVOTHROID) TAB PO SCH (13:05)
[2018-04-19] MEDS ORDERED: CALCIUM CARB + VIT D 600 MG (CALCARB + D) TAB PO SCH (17:00)
[2018-04-19] MEDS ORDERED: FUROSEMIDE 40 MG (LASIX) TAB PO SCH (17:00)
[2018-04-19] MEDS ORDERED: LORazepam INJ 2 MG/ML (ATIVAN) VIAL ONE (19:58)
[2018-04-19] MEDS: LORazepam INJ 2 MG/ML (ATIVAN) VIAL IVP PRN (20:02)
[2018-04-19] MEDS ORDERED: OMEPRAZOLE 20 MG (PriLOSEC) CAP NON-FORMULARY PO SCH (21:00)
[2018-04-19] MEDS ORDERED: NON-FORMULARY MEDICATION 1 EA EA (Calcium Carbonate/Vitamin D3 (Calcium 600 + Vit D 200 Ta PO SCH (21:00)
[2018-04-19] MEDS: LORATADINE (CLARITIN) 10 MG TAB PO SCH (21:33)
[2018-04-19] MEDS: meTOprolol TARTRATE 25 MG (LOPRESSOR) TABLET PO SCH (21:33)
[2018-04-19] MEDS: PANTOPRAZOLE 20 MG TABLET (PROTONIX) PO SCH (21:33)
[2018-04-20] MEDS: NS IV 1000 ML 1,000 ML IV SCH (00:56)
[2018-04-20] MEDS: RT-ALBUTEROL/IPRATROPIUM 3 ML (DUONEB) VIAL INH SCH ×3 (02:38→10:02)
[2018-04-20 05:28] VITALS: BP 110/60
[2018-04-20] MEDS: LORazepam INJ 2 MG/ML (ATIVAN) VIAL IVP PRN ×3 (06:08→22:37)
[2018-04-20] MEDS: LEVOTHYROXINE 100 MCG (LEVOTHROID) TAB PO SCH (06:52)
[2018-04-20] MEDS ORDERED: FUROSEMIDE 40 MG/4 ML INJ (LASIX) IVP SCH (07:00)
[2018-04-20] MEDS ORDERED: FUROSEMIDE 40 MG/4 ML INJ (LASIX) ONE (07:02)
[2018-04-20 07:41] LABS: CALCIUM 7.7 MG/DL (8.5-10.1); CREATININE SERUM 1.5 MG/DL (0.60-1.30); POTASSIUM 4.2 MMOL/L (3.6-5.0)
[2018-04-20] MEDS ORDERED: INDAPAMIDE 2.5 MG PO SCH (09:00)
[2018-04-20] MEDS ORDERED: LEVOTHYROXINE 100 MCG (LEVOTHROID) TAB PO SCH (09:00)
[2018-04-20] MEDS ORDERED: PHARMACY TO DOSE IM/IV PRN (09:15)
[2018-04-20] MEDS ORDERED: RT-ALBUTEROL/IPRATROPIUM 3 ML (DUONEB) VIAL INH PRN (11:30)
[2018-04-20] MEDS ORDERED: SALIVA STIMULANT MOUTH SPRAY (BIOTENE) 1.5 OZ MM PRN (11:30)
[2018-04-20] MEDS ORDERED: ARTIFICIAL TEARS OINT (LACRI-LUBE) 3.5 GM TUBE OU PRN (11:30)
[2018-04-20] MEDS ORDERED: BISACODYL 10 MG SUPP (DULCOLAX) PR PRN (11:30)
[2018-04-20] MEDS ORDERED: GLYCOPYRROLATE 0.2 MG/ML (ROBINUL) 2 ML VIAL IV PRN (11:30)
[2018-04-20] MEDS ORDERED: ACETAMINOPHEN 650 MG SUPP (TYLENOL) PR PRN (11:30)
[2018-04-20] MEDS ORDERED: ARTIFICAL TEARS 0.4 ML UNIT DOSE (REFRESH PLUS) OU PRN ×2 (11:30→11:45)
[2018-04-20] MEDS ORDERED: ENOXAPARIN 30 MG/0.3 ML (LOVENOX) SYR SC SCH (12:30)
--- NOTE | 2018-04-20 14:37 | Progress Note (SOAP) ---
Subjective Subjective/Events-last exam Pt has significantly declined overnight. Had increased hypoxia and respiratory discomfort/air hunger - placed on bi-pap and is more comfortable. Pt has not been awake this am. Niece present at bedside states she woke up this am and talked with her briefly. Spoke with daughter (Kay) on the phone, she states family would like to move towards comfort care. Reports patient was much more accepting of declining status last night. Family reports pain has been well controlled, not requiring STOCK SHIPPER very often. Review of Systems Date Seen by Provider: Apr 20, 2018 Time Seen by Provider: 09:00 Objective Exam Last Set of Vital Signs Vital Signs Date Time Temp Pulse Resp B/P (MAP) Pulse Ox O2 Delivery O2 Flow Rate FiO2 04/20/18 13:16 104 15 96 40.00 04/20/18 09:00 NIV Bilevel 04/20/18 05:28 97.8 110/60 (77) 04/19/18 07:22 8 Capillary Refill : Less Than 3 Seconds I&O Intake and Output 04/20/18 00:00 Intake Total 1185 ml Output Total 900 ml Balance 285 ml Intake Oral 1185 ml Output Urine Total 900 ml # Voids 2 Daily Weight Change Unsure Lungs: Other (rhonchi erika) Heart: Regular Rate Extremities: Other (edematous) Other physical findings Sleeping, did not arouse. Results/Procedures Lab Laboratory Tests 04/20/18 07:10: Sodium Level 133L, Potassium Level 4.2, Chloride Level 100, Carbon Dioxide Level 22, Anion Gap 11, Blood Urea Nitrogen 27H, Creatinine 1.50H, Estimat Glomerular Filtration Rate 34, BUN/Creatinine Ratio 18, Glucose Level 135H, Calcium Level 7.7L Radiology Date of Exam: 04/18/18 CT CHEST/ABDOMEN/PELVIS WO PROCEDURE: CT chest, abdomen, and pelvis without contrast. TECHNIQUE: Multiple contiguous axial images were obtained through the chest, abdomen, and pelvis without the use of intravenous contrast. INDICATION: Metastatic breast cancer with dyspnea and abdominal pain. CT chest: Comparison is made to study of 03/24/2018. Rather extensive mixed interstitial and alveolar densities are again seen within the lungs, greatest in the lower lobes. Bilateral pleural drains remain in place with no significant change in the probable loculated anterior fluid collection in the right pleural space. Left basilar and lateral pleural fluid is also stable. There may be mild interval increase in the amount of right pleural fluid. Otherwise, mediastinal adenopathy and numerous sclerotic skeletal metastases have not significantly changed. There is mild pericardial fluid. IMPRESSION: Redemonstration of mixed interstitial and alveolar infiltrates in the lungs most pronounced in the lower lobes. Bilateral, probable loculated pleural fluid collections are again demonstrated with bilateral pleural drains in place. Fluid collections are generally stable apart from moderate overall increase in size of pleural fluid in the lower right hemithorax. Skeletal metastases are again noted. CT abdomen and pelvis: Unenhanced images reveal no focal hepatic or splenic lesion. Gallbladder is distended and contains multiple calculi as well as high-density contrast material. No pancreatic or adrenal gland lesion is seen. Evaluation of kidneys is limited without intravenous contrast however there is no evidence of hydronephrosis. Mild pelvic free fluid is noted. There is diffuse density throughout the subcutaneous tissues which may be related to anasarca. Numerous skeletal sclerotic foci are again demonstrated consistent with widespread osseous metastatic disease. There is persistent compression deformity of the superior endplate of L3. IMPRESSION: Anasarca and mild pelvic free fluid. Note is again made of cholecystolithiasis. There may be mild gallbladder wall thickening which could represent acute cholecystitis and clinical correlation is recommended. Otherwise, no definite acute abnormality or adverse change is seen. Assessment/Plan Assessment/Plan Assessment & Plan 1. Breast cancer w/ metastasis to the bone and malignant pleural effusion s/p bilateral plurex drains - currently on palliative chemotherapy - Long discussion with patient regarding current diagnosis and prognosis. Discussed goals for treatment and Hospice services. Patient reports family is supportive of Hospice but that she felt like Hospice meant "giving up". Discussed the goal of hospice treatment is to improve quality of life and making patient as functional as possible so she could spend more quality time with family and friends. Also discussed the ability of hospice to better control her pain and dyspnea and the anxiety associated with this. Discussion w / daughter (Kay), agree w/ Hospice on DC. Concern about pt's ability to return home due to current weakness and deterioration in function over the past week. Patient and family willing to consider mcc for strengthening if needed. - Consult SS for Saturday to work on DC planning - Hospice, SN vs home. - PT Consulted to eval and treat. 04/20 - decline overnight; initiating Comfort Care 2. Uncontrolled pain secondary to #1 - doing better on Duragesic 50mcg patch w/ Morphine STOCK SHIPPER for breakthrough pain ( not requiring very often) 3. Acute on chronic hypoxic respiratory failure secondary to #1 - Currently on 8L, hypoxia improved after a dose of Lasix - will wean O2 to maintain resting sat of >88% - continue Lasix BID for now - Ativan and morphine as needed for anxiety related to air hunger 04/20 - on Bi-pap for comfort 4. DM Type 2 - previously pt had stopped insulin and oral hypglycemics due to hypoglycemia and poor po intake - DC'd of med list 5. HTN - patient had stopped all BP meds except Metoprolol - will continue this only as BP is normal 04/20 - holding po meds as not taking po 6. Hypothyroidism - continue levothyroxine 04/20 - holding po meds as not taking po Code Status - DNR Clinical Quality Measures DVT/VTE Risk/Contraindication: Risk Factor Score Per Nursin RFS Level Per Nursing on Admit: 4+=Very High AUREA MOORE DO Apr 20, 2018 14:37
[2018-04-21] MEDS: LORazepam INJ 2 MG/ML (ATIVAN) VIAL IVP PRN ×2 (02:37→05:23)
[2018-04-21] MEDS: morphine PCA 30 MG/30 ML VIAL IV PRN (03:08)
--- NOTE | 2018-04-29 11:01 | Discharge Summary ---
Diagnosis/Chief Complaint Date of Admission Apr 18, 2018 at 23:55 Date of Discharge Apr 21, 2018 at 08:13 Admission Diagnosis Admission Diagnosis 1. Breast cancer w/ metastasis to the bone and malignant pleural effusion s/p bilateral plurex drains 2. Uncontrolled pain secondary to #1 3. Acute on chronic hypoxic respiratory failure secondary to #1 Discharge Diagnosis 1. Breast cancer w/ metastasis to the bone and malignant pleural effusion s/p bilateral plurex drains - currently on palliative chemotherapy - Long discussion with patient regarding current diagnosis and prognosis. Discussed goals for treatment and Hospice services. Patient reports family is supportive of Hospice but that she felt like Hospice meant "giving up". Discussed the goal of hospice treatment is to improve quality of life and making patient as functional as possible so she could spend more quality time with family and friends. Also discussed the ability of hospice to better control her pain and dyspnea and the anxiety associated with this. Discussion w / daughter (Kay), agree w/ Hospice on DC. Concern about pt's ability to return home due to current weakness and deterioration in function over the past week. Patient and family willing to consider care home for strengthening if needed. - Consult SS for Saturday to work on DC planning - Hospice, SN vs home. - PT Consulted to eval and treat. 04/20 - decline overnight; initiating Comfort Care 04/21 pronounced 543 2. Uncontrolled pain secondary to #1 - doing better on Duragesic 50mcg patch w/ Morphine SUPERVISOR SAWMILL for breakthrough pain ( not requiring very often) 3. Acute on chronic hypoxic respiratory failure secondary to #1 - Currently on 8L, hypoxia improved after a dose of Lasix - will wean O2 to maintain resting sat of >88% - continue Lasix BID for now - Ativan and morphine as needed for anxiety related to air hunger 04/20 - on Bi-pap for comfort 4. DM Type 2 - previously pt had stopped insulin and oral hypglycemics due to hypoglycemia and poor po intake - DC'd of med list 5. HTN - patient had stopped all BP meds except Metoprolol - will continue this only as BP is normal 04/20 - holding po meds as not taking po 6. Hypothyroidism - continue levothyroxine 04/20 - holding po meds as not taking po Code Status - DNR pronounced 0544 04/21/18 Chief Complaint/HPI Chief Complaint/HPI This is a 76 yo female patient of Oh Sunshine APRN at [facility] and currently receiving palliative chemo through the Cancer Center. Pt has hx of breast cancer w/ mets to the bone as well as malignant pleural effusion s/p placement of bilateral lung plurex drains. Pt has had increase pain and SOA to the point that she presented to the ER last night w/ SOA and pain not controlled w/ po hydrocodone. Patient was admitted for pain control and started on Duragesic patch with Morphine SUPERVISOR SAWMILL for breakthrough pain. Patient reports pain is significantly improved and has not required the SUPERVISOR SAWMILL very often. She did report increase in SOA when awaking this am, which she states has been an issue for her at home. She was noted to have a sat decrease into the low to mid 80's and O2 was increased to 8L - she has been on 3L at home. She received a dose of Lasix and reports that she feels significantly improved from a respiratory standpoint and her sats are now 98-99% at rest. Pt has had Hospice discussion recently and felt like everyone was just giving up on her and was being "pessimistic". Patient would like to return home as she is not able to get good rest in the hospital. Discharge Summary-Simple/Stand Consultations Discharge Physical Examination Allergies: Coded Allergies: Penicillins (Unverified Allergy, Unknown, RASH, 10/19/16) Hospital Course See final discharge diagnosis. Radiology Reviewed Date of Exam: 04/18/18 CT CHEST/ABDOMEN/PELVIS WO PROCEDURE: CT chest, abdomen, and pelvis without contrast. TECHNIQUE: Multiple contiguous axial images were obtained through the chest, abdomen, and pelvis without the use of intravenous contrast. INDICATION: Metastatic breast cancer with dyspnea and abdominal pain. CT chest: Comparison is made to study of 03/24/2018. Rather extensive mixed interstitial and alveolar densities are again seen within the lungs, greatest in the lower lobes. Bilateral pleural drains remain in place with no significant change in the probable loculated anterior fluid collection in the right pleural space. Left basilar and lateral pleural fluid is also stable. There may be mild interval increase in the amount of right pleural fluid. Otherwise, mediastinal adenopathy and numerous sclerotic skeletal metastases have not significantly changed. There is mild pericardial fluid. IMPRESSION: Redemonstration of mixed interstitial and alveolar infiltrates in the lungs most pronounced in the lower lobes. Bilateral, probable loculated pleural fluid collections are again demonstrated with bilateral pleural drains in place. Fluid collections are generally stable apart from moderate overall increase in size of pleural fluid in the lower right hemithorax. Skeletal metastases are again noted. CT abdomen and pelvis: Unenhanced images reveal no focal hepatic or splenic lesion. Gallbladder is distended and contains multiple calculi as well as high-density contrast material. No pancreatic or adrenal gland lesion is seen. Evaluation of kidneys is limited without intravenous contrast however there is no evidence of hydronephrosis. Mild pelvic free fluid is noted. There is diffuse density throughout the subcutaneous tissues which may be related to anasarca. Numerous skeletal sclerotic foci are again demonstrated consistent with widespread osseous metastatic disease. There is persistent compression deformity of the superior endplate of L3. IMPRESSION: Anasarca and mild pelvic free fluid. Note is again made of cholecystolithiasis. There may be mild gallbladder wall thickening which could represent acute cholecystitis and clinical correlation is recommended. Otherwise, no definite acute abnormality or adverse change is seen. Discharge Instructions to patient/family Please see electronic discharge instructions given to patient. Discharge Medications Reviewed and agree with Discharge Medication list on patient's Discharge Instruction sheet Clinical Quality Measures DVT/VTE Risk/Contraindication: Risk Factor Score Per Nursin RFS Level Per Nursing on Admit: 4+=Very High Comfort Measures/ Type of Care: Comfort Measures Date of : Apr 21, 2018 Time of : 05:44 AUREA MOORE DO Apr 29, 2018 11:01
== END 2018-04-21 08:13 | disposition expired | DRG 947 ==
LOC: EDUNIT# 20:53 → ER 20:54 → 4TH 23:55
PROVIDERS: ADMIT Family Medicine; ATTEND Family Medicine
DX: G89.3 Neoplasm related pain (acute) (chronic) (principal); J91.0 Malignant pleural effusion; C78.7 Secondary malignant neoplasm of liver and intrahepatic bile duct; C79.51 Secondary malignant neoplasm of bone; J96.21 Acute and chronic respiratory failure with hypoxia; I12.9 Hypertensive chronic kidney disease with stage 1 through stage 4 chronic kidney disease, or unspecified chronic kidney disease; N18.3 Chronic kidney disease, stage 3 (moderate); Z51.5 Encounter for palliative care; Z66 Do not resuscitate; E11.9 Type 2 diabetes mellitus without complications; I48.91 Unspecified atrial fibrillation; E78.00 Pure hypercholesterolemia, unspecified; E03.9 Hypothyroidism, unspecified; Z85.3 Personal history of malignant neoplasm of breast; Z79.4 Long term (current) use of insulin; Z87.891 Personal history of nicotine dependence
CPT/HCPCS: 36415; 71250; 74176; 80048; 80053; 85007; 85027; 94640; 94660; 94760; 96374